=== PATIENT | female | born 1970 | race Caucasian/White ===

== ENCOUNTER 2016-06-27 23:30 | Emergency (ER) | payer OTHER ==
[~2016-06-27] VITALS: Ht 168.9 cm; Wt 114.0 kg
[~2016-06-27 23:30] MED LIST: ALBUAER INH; BUPR150T5 PO; CLON2TAB3 PO; GABA1CAP4 PO; GDN80 PO; INSDGI SQ; LAMO200T38 PO; LORA10TA5 PO; LSN20 PO; METO25TA56 PO; OMEP40CA41 PO; PARO30TA4 PO
[2016-06-27 23:38] VITALS: TEMP 36.9; Ht 168.9 cm; Wt 114.0 kg
--- NOTE | 2016-06-28 00:23 | EMERGENCY ROOM VISIT NOTE ---
History Report prepared by Candice: Sita Stone Under the Supervision of: Dr. Chika Aparicio D.O. First contact with patient: 23:45 Chief Complaint: WOUND INFECTION Stated Complaint: LUMP IN LOWER RT ABD & RT LEG,PAINFUL History of Present Illness The patient is a 46 year old female who presents to the Emergency Room with complaints of persistent right lower abdominal pain that began prior to arrival. She currently rates her discomfort as a 9/10 in severity. The patient notes that she has had a lump to her right thigh and her right abdomen. She states that she was evaluated [place] recently for her abdominal pain. The patient states that she had a CT scan that came back normal. She states that she has had increased pain to her abdomen this evening. The patient notes nausea with her symptoms today. She states that she has type 2 diabetes. The patient states that she tried eating Doritos this evening. The patient notes a surgical history of a cholecystectomy and two sections. Source of History: patient Onset: prior to arrival Position: abdomen (RLQ) Symptom Intensity: 9/10 Timing: other (persistent) Associated Symptoms: + nausea Review of Systems See HPI for pertinent positives & negatives. A total of 10 systems reviewed and were otherwise negative. Past Medical & Surgical Medical Problems: (1) Diabetes Family History No pertinent family history stated. Social History Smoking Status: Never Smoker Alcohol Use: none Drug Use: none Marital Status: Housing Status: lives with significant other Occupation Status: unemployed Current/Historical Medications Scheduled Bupropion Hcl (Bupropion Hcl Xl), 150 MG PO DAILY Cephalexin Monohydrate (Keflex), 500 MG PO QID Cephalexin Monohydrate (Keflex), 500 MG PO QID Gabapentin (Gabapentin), 600 MG PO BID Insulin Glargine (Lantus), 100 UNITS SQ BID Insulin Glulisine (Apidra), 30 UNITS SQ. TIDM Lamotrigine (Lamictal), 200 MG PO HS Lisinopril (Lisinopril), 40 MG PO DAILY Metoprolol Tartrate (Lopressor) (Lopressor), 25 MG PO BID Omeprazole (Prilosec), 40 MG PO DAILY Paroxetine (Paroxetine HCl), 60 MG PO DAILY Scheduled PRN Albuterol (Proventil Hfa), 2 PUFF INH Q4 PRN for SOB/Wheezing Loratadine (Claritin), 10 MG PO DAILY PRN for congestion Allergies Coded Allergies: No Known Allergies (Verified , 05/27/14) Physical Exam Vital Signs Date Time Temp Pulse Resp B/P Pulse Ox O2 Delivery O2 Flow Rate FiO2 06/28/16 04:12 99 20 160/78 93 06/28/16 02:59 99 20 161/73 93 06/28/16 01:03 91 20 164/104 96 Room Air 06/27/16 23:38 36.9 90 20 171/113 95 Room Air Physical Exam General: Obese female patient who appears uncomfortable. HEENT: Head - normocephalic and atraumatic Left eye has significant scleral injection. Right eye is sown shut.. Nose - moist nasal mucosa without discharge. Mouth - moist buccal mucosa. Oropharynx is nonerythematous and there is no tonsillar exudate or edema noted. Neck: Supple; no JVD, nuchal rigidity, cervical lymphadenopathy. Heart: Distant heart sounds secondary to body habitus. Regular rate and rhythm. There is a normal S1 and S2 with no murmurs, clicks, or gallops appreciated. Lungs: Clear to auscultation bilaterally with no wheezes, rales, or rhonchi. Abdomen: Soft, abdominal pain in right lower quadrant to palpation, nondistended , with good bowel sounds. There are no obvious areas of erythema, warmth or signs of cellulitis. However, the patient is quite tender with even the lightest touch to her right lower anterior abdominal wall. There are no palpable pulsatile masses or hepatosplenomegaly. There is no guarding, rigidity , or rebound noted. Extremities: Painful lump in the right medial thigh. No evidence of cyanosis, clubbing, or edema. There are easily palpable peripheral pulses. Skin: warm and dry with good turgor and no rashes. Medical Decision & Procedures ER Provider Diagnostic Interpretation: Radiology results as stated below per my review and the radiologist's interpretation: CT Abdomen and Pelvis: Mild fat stranding and skin thickening at lower abdominal panniculus. Correlate for evidence of cellulitis/panniculitis. Ill-defined 3.5 x 1.2 cm region of soft tissue density in subcutaneous fat in right lower abdomen, nonspecific but correlate for recent subcutaneous injection. Post cholecystectomy. No biliary ductal dilatation. Mild hepatosplenomegaly. Normal appendix. No free air or free fluid. No evidence of bowel obstruction. Uterus is mildly enlarged without evidence of focal lesion. Bladder is partially distended and otherwise unremarkable. Small fat filled umbilical hernia. Mild atherosclerotic calcifications. Small bilateral pleural effusions. Radiologist: Alexandro North MD Study ready at 0153 and initial results transmitted at 0323 US Venous right lower extremity: No evidence of deep venous thrombosis. Radiologist: Alexandro North MD Study ready at 0142 and initial results transmitted at 0230 Laboratory Results 06/28/16 00:58 Red Blood Count 4.51, Mean Corpuscular Volume 83.6, Mean Corpuscular Hemoglobin 29.3, Mean Corpuscular Hemoglobin Concent 35.0, Mean Platelet Volume 9.3, Neutrophils (%) (Auto) 63.6, Lymphocytes (%) (Auto) 27.8, Monocytes (%) (Auto) 5.1, Eosinophils (%) (Auto) 2.3, Basophils (%) (Auto) 0.5, Neutrophils # (Auto) 7.05, Lymphocytes # (Auto) 3.08, Monocytes # (Auto) 0.57, Eosinophils # (Auto) 0.25, Basophils # (Auto) 0.06 06/28/16 00:58 Test 06/28/16 00:58 White Blood Count 11.09 K/uL (4.8-10.8) Red Blood Count 4.51 M/uL (4.2-5.4) Hemoglobin 13.2 g/dL (12.0-16.0) Hematocrit 37.7 % (37-47) Mean Corpuscular Volume 83.6 fL (80-100) Mean Corpuscular Hemoglobin 29.3 pg (25-34) Mean Corpuscular Hemoglobin Concent 35.0 g/dl (32-36) Platelet Count 241 K/uL (130-400) Mean Platelet Volume 9.3 fL (7.4-10.4) Neutrophils (%) (Auto) 63.6 % Lymphocytes (%) (Auto) 27.8 % Monocytes (%) (Auto) 5.1 % Eosinophils (%) (Auto) 2.3 % Basophils (%) (Auto) 0.5 % Neutrophils # (Auto) 7.05 K/uL (1.4-6.5) Lymphocytes # (Auto) 3.08 K/uL (1.2-3.4) Monocytes # (Auto) 0.57 K/uL (0.11-0.59) Eosinophils # (Auto) 0.25 K/uL (0-0.5) Basophils # (Auto) 0.06 K/uL (0-0.2) RDW Standard Deviation 38.8 fL (36.4-46.3) RDW Coefficient of Variation 12.9 % (11.5-14.5) Immature Granulocyte % (Auto) 0.7 % Immature Granulocyte # (Auto) 0.08 K/uL (0.00-0.02) Anion Gap 9.0 mmol/L (3-11) Est Creatinine Clear Calc Drug Dose 95.6 ml/min Estimated GFR () 83.3 Estimated GFR (Non- 71.8 BUN/Creatinine Ratio 15.9 (10-20) Calcium Level 8.4 mg/dl (8.5-10.1) Total Bilirubin 0.2 mg/dl (0.2-1) Direct Bilirubin < 0.1 mg/dl (0-0.2) Aspartate Amino Transf (AST/SGOT) 21 U/L (15-37) Alanine Aminotransferase (ALT/SGPT) 42 U/L (12-78) Alkaline Phosphatase 159 U/L (45-117) Total Protein 7.0 gm/dl (6.4-8.2) Albumin 2.9 gm/dl (3.4-5.0) Lipase 105 U/L (73-393) Laboratory results per my review. Medications Administered Medications (Trade) Dose Ordered Sig/Maurilio Route Start Time Stop Time Status Last Admin Dose Admin Ceftriaxone Sodium (Rocephin Inj) 1 gm NOW STAT IV 06/28/16 03:31 06/28/16 03:32 DC 06/28/16 03:33 1 GM ED Course 1566: Past medical records reviewed. The patient was evaluated in room B9. A complete history and physical exam was performed. An IV lock was initiated and labs were drawn as above. The patient went for ultrasound of her right leg to rule out DVT. She then went for CT scan of the abdomen/pelvis which showed fat stranding and inflammation in the right lower quadrant of the abdomen as well as a density there which is most likely consistent with an injection site for insulin. 0329: I reevaluated the patient and she is resting comfortably. I discussed the exam findings with her and I discussed the treatment plan. She verbalized complete understanding and agreement. She is ready to go home. 0331: Ordered Rocephin Inj 1 gm IV. Medical Decision The patient is a 46 year old female who presents to the ED with abdominal pain. Differential diagnosis includes appendicitis, colitis, cellulitis, small bowel obstruction, irritable bowel, DVT. Lab interpretation: White count 11.0, stable H&H, blood sugar elevated at 263, renal function normal, lipase is normal. The patient's abdominal pain is very superficial. There were no signs of changes noted to the skin. However, since the patient injects her abdomen with insulin, I think she may be suffering from an acute panniculitis. The patient was treated with IV Rocephin was started on Keflex. She was asked to follow-up with her PCP for recheck on Friday. If she had any worsening symptoms, she should return here to the ER. Impression Primary Impression: Panniculitis Scribe Attestation The scribe's documentation has been prepared under my direction and personally reviewed by me in its entirety. I confirm that the note above accurately reflects all work, treatment, procedures, and medical decision making performed by me. Departure Information Dispostion Home / Self-Care Prescriptions Cephalexin Monohydrate (KEFLEX) 500 Mg Cap 500 MG PO QID, #28 CAP Prov: Chika Aparicio D.O. 06/28/16 Cephalexin Monohydrate (KEFLEX) 500 Mg Cap 500 MG PO QID, #28 CAP Prov: Chika Aparicio D.Martha 06/28/16 Referrals No Doctor, Assigned (PCP) Forms HOME CARE DOCUMENTATION FORM, IMPORTANT VISIT INFORMATION, WORK / SCHOOL INSTRUCTIONS Patient Instructions Cellulitis Dc, My [facility] Additional Instructions Do not use the right abdomen for injections Keflex - 1 tab. every 6 hours for a week Return to the ER if symptoms worsen
[2016-06-28] MEDS ORDERED: INSUINJ5 SQ. (00:52)
[2016-06-28 01:04] LABS: BASO % 0.5 %; BASO ABS # 0.06 K/uL (0-0.2); COMPLETE YES; EOS % 2.3 %; HEMATOCRIT 37.7 % (37-47); IG% 0.7 %; LYMPH % 27.8 %; LYMPH ABS # 3.08 K/uL (1.2-3.4); MEAN CELL VOLUME 83.6 fL (80-100); MEAN CORPUSCULAR HEMOGLOBIN 29.3 pg (25-34); MEAN PLATELET VOLUME 9.3 fL (7.4-10.4); MONO % 5.1 %; NEUT % 63.6 %; PLATELET COUNT 241 K/uL (130-400); RED BLOOD COUNT 4.51 M/uL (4.2-5.4); WHITE BLOOD COUNT 11.09 K/uL (4.8-10.8)
[2016-06-28 01:26] LABS: ALT/SGPT 42 U/L (12-78); AST/SGOT 21 U/L (15-37); BLOOD UREA NITROGEN 15 mg/dl (7-18); BUN/CREATININE RATIO 15.9 (10-20); CALCIUM 8.4 mg/dl (8.5-10.1); CARBON DIOXIDE 26 mmol/L (21-32); CHLORIDE 105 mmol/L (98-107); CREATININE 0.95 mg/dl (0.60-1.20); GLUCOSE 263 mg/dl (70-99); SODIUM 140 mmol/L (136-145)
[2016-06-28 01:29] LABS: ALKALINE PHOSPHATASE 159 U/L (45-117)
[2016-06-28] MEDS ORDERED: CEFTRIAXONE SOD INJ 1 GM ADDVIAL ONE (03:29)
[2016-06-28] MEDS ORDERED: CEFTRIAXONE SOD INJ 1 GM ADDVIAL IV STA (03:31)
[2016-06-28] MEDS ORDERED: CEPH500C2 PO ×2 (03:56→04:11)
[2016-06-28 04:12] VITALS: BP 160/78; PULSE 99; O2SAT 93
--- NOTE | 2016-06-28 06:45 | DIAGNOSTIC IMAGING REPORT ---
ULTRASOUND RIGHT VENOUS DOPP LOWER EXT UNILAT CLINICAL HISTORY: Right leg pain COMPARISON STUDY: No previous studies for comparison. FINDINGS: Real-time and color flow Doppler imaging were performed. Flow was seen within the femoral, popliteal and calf veins with no intraluminal thrombus demonstrated. The saphenous vein is patent. IMPRESSION: No evidence of right lower extremity DVT Electronically signed by: Jhonny Landaverde M.D. 06/28/2016 6:44 AM Dictated Date/Time: 06/28/2016 6:43 AM
--- NOTE | 2016-06-28 07:04 | DIAGNOSTIC IMAGING REPORT ---
CT ABD/PELVIS IV CONTRAST ONLY CLINICAL HISTORY: Periumbilical and right lower quadrant abdominal pain COMPARISON STUDY: None. TECHNIQUE: Following the IV administration of 91 mL of Optiray-320, CT scan of the abdomen and pelvis was performed from the lung bases to the proximal femurs. Images are reviewed in the axial, sagittal, and coronal planes. IV contrast was administered without complication. CT DOSE: 2101.39 mGy.cm FINDINGS: Lower chest: There are minor basilar atelectatic changes. There are small bilateral pleural effusions. Liver: The liver is mildly enlarged. There are no focal masses. There is no ductal dilatation. The portal veins appear patent. Gallbladder: Surgically absent Spleen: The spleen is mildly enlarged measuring 12.8 cm. Pancreas: Unremarkable. Adrenal glands: Unremarkable. Kidneys: There is symmetric renal cortical enhancement. The kidneys are normal in size without hydronephrosis. Bowel: There are no transition zones indicate bowel obstruction. There is no evidence of acute diverticulitis. There is no evidence of acute appendicitis. Peritoneum: There is no intraperitoneal free air or abdominal ascites. This tiny fat-containing umbilical hernia. There is infiltration the subcutaneous fat of the right anterior abdominal wall, likely secondary to an injection site. There is mild skin thickening in the patient's lower abdominal panniculus. Vasculature: The abdominal aorta is normal in course and caliber. Adenopathy: None. Pelvic viscera: The uterus appears somewhat bulky. No focal masses are visualized. No bladder abnormalities are visualized. No abnormal adnexal masses are visualized. Skeletal structures: No destructive osseous lesions are seen. IMPRESSION: 1. Small bilateral pleural effusions with bibasal atelectasis 2. No evidence of bowel obstruction. No evidence of free air 3. Normal appendix. No evidence of acute diverticulitis. 4. Mild hepatosplenomegaly. 5. Mild skin thickening involving the patient's lower abdominal panniculus Electronically signed by: Jhonny Landaverde M.D. 06/28/2016 7:02 AM Dictated Date/Time: 06/28/2016 6:58 AM
== END 2016-06-28 04:14 | disposition home or self-care (01) ==
LOC: C.EDB 23:32
DX: M79.3 Panniculitis, unspecified (principal); E11.9 Type 2 diabetes mellitus without complications; Z79.4 Long term (current) use of insulin; Z79.899 Other long term (current) drug therapy

== ENCOUNTER 2017-04-25 17:17 | Emergency (ER) | payer OTHER ==
[~2017-04-25] VITALS: Ht 172.7 cm; Wt 133.1 kg
[~2017-04-25 17:17] MED LIST changes: -CLON2TAB3 PO; -GDN80 PO; +INSUINJ5 SQ.; +LAMO200T35 PO; -LAMO200T38 PO; -LORA10TA5 PO; +LORA10TA6 PO
[2017-04-25 17:18] VITALS: TEMP 36.8; Ht 172.7 cm; Wt 133.1 kg
[2017-04-25] MEDS ORDERED: ONDANSETRON INJ 2 MG/ML 2 ML VIAL IV STA ×2 (17:33→17:34)
[2017-04-25] MEDS ORDERED: SODIUM CHLORIDE 0.9% 1000ML 1,000 ML IV STA ×2 (17:33→17:43)
[2017-04-25] MEDS ORDERED: ATOR-22 PO (17:51)
[2017-04-25] MEDS ORDERED: FLNIN/ NAE (17:51)
[2017-04-25] MEDS ORDERED: MELO15TA4 PO (17:51)
[2017-04-25] MEDS ORDERED: ALPR-385 PO (17:51)
[2017-04-25] MEDS ORDERED: LAMO1TAB21 PO (17:51)
[2017-04-25] MEDS ORDERED: FERR324T PO (17:51)
[2017-04-25] MEDS ORDERED: MIRT15TA3 PO (17:51)
[2017-04-25] MEDS ORDERED: LTD/40 PO (17:51)
[2017-04-25 18:20] LABS: ISTAT IONIZED CALCIUM 1.02 mmol/l (1.12-1.32); ISTAT POTASSIUM 4.9 mEq/L (3.3-5.0)
[2017-04-25] MEDS ORDERED: NovoLIN-R INSULIN PER UNIT CHARGE SC STA (18:28)
--- NOTE | 2017-04-25 18:36 | DIAGNOSTIC IMAGING REPORT ---
ABDOMEN AND PELVIS CT WITHOUT CONTRAST CT DOSE: 1919.08 mGy.cm HISTORY: Acute generalized abdominal pain abd pain TECHNIQUE: Multiaxial CT images of the abdomen and pelvis were performed without contrast. A dose lowering technique was utilized adhering to the principles of ALARA. COMPARISON STUDY: CT abdomen and pelvis 06/28/2016. FINDINGS: Patient obesity is noted with portions of the anatomy outside the [id number]. The lung bases are generally clear. There is no pneumatosis or pneumoperitoneum identified. The imaged inferior cardiac chambers are unremarkable. Trace pericardial effusion. Annular calcifications of the mitral valve. Prior cholecystectomy. Mild hepatosplenomegaly. No intrahepatic biliary ductal dilation. The pancreas, and adrenal glands are within normal limits. 2 mm calcification of the inferior pole right kidney seen on image 216 series 3 suggests nonobstructing calculus. Renal vascular calcifications are present bilaterally. No ureteral calculi or obstructive uropathy identified. Uterus appears mildly enlarged and heterogeneous. No adnexal mass lesions identified. Moderate atherosclerosis of the aorta. There are a few mildly prominent periaortic and iliac chain lymph nodes measuring up to 9 mm in short axis which are nonspecific and appear unchanged. There is no bowel obstruction or focal bowel wall thickening identified. No evidence of acute appendicitis. Appendix appears normal within the right lower quadrant. Diastases recti with small fat filled periumbilical hernia, diastases 1.5 cm. The bones appear to be intact. IMPRESSION: 1. No acute intra-abdominal or intrapelvic abnormality identified. Normal appendix. 2. No bowel obstruction or focal bowel wall thickening. 3. Prior cholecystectomy. 4. Mildly enlarged and slightly heterogeneous appearing uterus. Electronically signed by: Pa Barney M.D. 04/25/2017 6:35 PM Dictated Date/Time: 04/25/2017 6:29 PM
--- NOTE | 2017-04-25 18:38 | DIAGNOSTIC IMAGING REPORT ---
R VENOUS DOPP LOWER EXT UNILAT HISTORY: 46 years-old Female rle swelling acute right leg swelling COMPARISON: Right lower extremity Doppler study 06/28/2016 TECHNIQUE: Multiple real-time sonographic images of the right lower extremity deep venous structures were obtained assessing grayscale appearance, color and spectral flow FINDINGS: There is normal flow, compressibility, phasicity and augmentation within the right lower extremity deep venous structures. IMPRESSION: No sonographic evidence of deep venous thrombosis. The above report was generated using voice recognition software. It may contain grammatical, syntax or spelling errors. Electronically signed by: Pa Barney M.D. 04/25/2017 6:36 PM Dictated Date/Time: 04/25/2017 6:35 PM
[2017-04-25 18:47] LABS: ALBUMIN 2.8 gm/dl (3.4-5.0); ALKALINE PHOSPHATASE 179 U/L (45-117); ALT/SGPT 28 U/L (12-78); AST/SGOT 19 U/L (15-37); BLOOD UREA NITROGEN 30 mg/dl (7-18); CALCIUM 9.4 mg/dl (8.5-10.1); CARBON DIOXIDE 22 mmol/L (21-32); CREATININE 1.16 mg/dl (0.60-1.20); GLUCOSE 412 mg/dl (70-99); LIPASE 165 U/L (73-393); POTASSIUM 4.4 mmol/L (3.5-5.1); SODIUM 130 mmol/L (136-145); TOTAL PROTEIN 7.2 gm/dl (6.4-8.2)
--- NOTE | 2017-04-25 18:49 | DIAGNOSTIC IMAGING REPORT ---
R WRIST MIN 3 VIEWS ROUTINE HISTORY: 46 years-old Female r wrist pain lat side acute right-sided wrist pain with injury 3 months prior. COMPARISON: None available TECHNIQUE: 4 views of the right wrist FINDINGS: Extensive peripheral vascular calcifications are present. No acute fracture or subluxation. No significant degenerative changes or loose body. IMPRESSION: 1. No acute fracture or subluxation. 2. Peripheral vascular disease appears greater than expected in a patient of this age group. The above report was generated using voice recognition software. It may contain grammatical, syntax or spelling errors. Electronically signed by: Pa Barney M.D. 04/25/2017 6:48 PM Dictated Date/Time: 04/25/2017 6:46 PM
[2017-04-25 19:07] LABS: BASO % 0.2 %; BASO ABS # 0.03 K/uL (0-0.2); EOS % 1.6 %; HEMATOCRIT 39.8 % (37-47); HEMOGLOBIN 14.4 g/dL (12.0-16.0); IG# 0.05 K/uL (0.00-0.02); LYMPH % 27.7 %; LYMPH ABS # 3.41 K/uL (1.2-3.4); MEAN CELL VOLUME 82.6 fL (80-100); MEAN CORPUSCULAR HEMOGLOBIN 29.9 pg (25-34); MEAN CORPUSCULAR HGB CONC 36.2 g/dl (32-36); MEAN PLATELET VOLUME 9.8 fL (7.4-10.4); MONO % 6.7 %; MONO ABS # 0.83 K/uL (0.11-0.59); NEUT % 63.4 %; NEUT ABS # 7.78 K/uL (1.4-6.5); PLATELET COUNT 215 K/uL (130-400); RED CELL DISTRIBUTION WIDTH SD 39.2 fL (36.4-46.3)
[2017-04-25 21:30] VITALS: BP 146/75; PULSE 98; O2SAT 92
--- NOTE | 2017-04-25 21:39 | EMERGENCY ROOM VISIT NOTE ---
History Report prepared by Candice: Natalie Martinez Under the Supervision of: Dr. Jayro Gong D.O. First contact with patient: 17:23 Chief Complaint: OTHER COMPLAINT Stated Complaint: PAIN IN WRIST,LUMP IN STOMACH AND LEG History of Present Illness The patient is a 46 year old female who presents to the Emergency Room with complaints of persistent abdominal pain starting 1.5 months ago. The patient has noticed a lump in the right side of her abdomen which is painful. She has had nausea with eating. She has had some vomiting since the abdominal pain started, but not recently. She feels that she has been unable to eat normally because of this pain and nausea. She states this is causing her sugar to go up and down. She has a history of diabetes. She has not lost any weight. She denies any cough, rhinorrhea, calf pain, or dysuria. She has not checked her blood sugar today. Her last bowel movement was 0.5-1 hour ago. She had a right wrist injury a few months ago. It was not broken, but she has been having more pain recently. She states that her wrist pops and locks in place. She has not followed with ortho. She has a large lump in her right leg which has been there for over 1 year. The lump is getting bigger and starting to hurt. She does not have a PCP locally. Her last menstrual period was 4 weeks ago. She has had a cholecystectomy. She still has her appendix. Source of History: patient Onset: 1.5 months ago Position: abdomen Quality: other (lump, pain) Timing: other (persistent) Associated Symptoms: + nausea, + vomiting (resolved), No cough, No urinary symptoms Note: Pt reports right wrist pain, right leg pain. Pt denies rhinorrhea, calf pain. Review of Systems See HPI for pertinent positives & negatives. A total of 10 systems reviewed and were otherwise negative. Past Medical & Surgical Medical Problems: (1) Diabetes Family History No pertinent family history stated. Social History Smoking Status: Never Smoker Alcohol Use: none Drug Use: none Marital Status: Housing Status: lives with significant other Occupation Status: unemployed Current/Historical Medications Scheduled Alprazolam (Xanax), 1 MG PO TID Atorvastatin (Lipitor), 20 MG PO DAILY Ferrous Gluconate (Iron Supplement), 324 MG PO DAILY Fluticasone Propionate (Fluticasone Propionate), 2 SPRAYS CRISTINA DAILY Gabapentin (Gabapentin), 300 MG PO BID Insulin Glargine (Lantus), 80 UNITS SQ BID Insulin Glulisine (Apidra), 30 UNITS SQ. TIDM Lamotrigine (Lamotrigine), 100 MG PO BID Lurasidone HCl (Latuda), 40 MG PO DAILY Meloxicam (Meloxicam), 15 MG PO DAILY Metoprolol Tartrate (Lopressor) (Lopressor), 25 MG PO BID Mirtazapine (Remeron), 15 MG PO DAILY Omeprazole (Prilosec), 40 MG PO DAILY Paroxetine (Paroxetine HCl), 60 MG PO DAILY Scheduled PRN Loratadine (Claritin), 10 MG PO DAILY PRN for congestion Allergies Coded Allergies: No Known Allergies (Verified , 05/27/14) Physical Exam Vital Signs Date Time Temp Pulse Resp B/P (MAP) Pulse Ox O2 Delivery O2 Flow Rate FiO2 04/25/17 21:30 98 18 146/75 92 04/25/17 20:46 99 18 149/73 92 Room Air 04/25/17 18:55 107 18 145/92 97 Room Air 04/25/17 17:18 36.8 117 20 181/74 96 Room Air Physical Exam GENERAL: Sitting up in bed, morbidly obese, chronically ill appearing, no acute distress EYE EXAM: Right eye closed, left eye with normal conjunctiva. OROPHARYNX: no exudate, no erythema, lips, buccal mucosa, and tongue normal and mucous membranes are moist NECK: supple, no nuchal rigidity, no adenopathy, non-tender LUNGS: Clear to auscultation. Normal chest wall mechanics HEART: no murmurs, S1 normal and S2 normal ABDOMEN: morbidly obese. abdomen soft, non-tender, normo-active bowel sounds, no masses, no rebound or guarding. BACK: Back is symmetrical on inspection and there is no deformity, no midline tenderness, no CVA tenderness. SKIN: no rashes and no bruising UPPER EXTREMITIES: Acute tenderness over the right lateral wrist. LOWER EXTREMITIES: No pitting edema. Small 2 cm firm nodule on back of right thigh. NEURO EXAM: Normal sensorium, cranial nerves II-XII grossly intact, normal speech, no gross weakness of arms, no gross weakness of legs. Medical Decision & Procedures ER Provider Diagnostic Interpretation: Xray results as stated below per my and the radiologist's interpretation. Radiology results as stated below per my review and the radiologist's interpretation: R WRIST MIN 3 VIEWS ROUTINE HISTORY: 46 years-old Female r wrist pain lat side acute right-sided wrist pain with injury 3 months prior. COMPARISON: None available TECHNIQUE: 4 views of the right wrist FINDINGS: Extensive peripheral vascular calcifications are present. No acute fracture or subluxation. No significant degenerative changes or loose body. IMPRESSION: 1. No acute fracture or subluxation. 2. Peripheral vascular disease appears greater than expected in a patient of this age group. The above report was generated using voice recognition software. It may contain grammatical, syntax or spelling errors. Electronically signed by: Pa Barney M.D. 04/25/2017 6:48 PM Dictated Date/Time: 04/25/2017 6:46 PM R VENOUS DOPP LOWER EXT UNILAT HISTORY: 46 years-old Female rle swelling acute right leg swelling COMPARISON: Right lower extremity Doppler study 06/28/2016 TECHNIQUE: Multiple real-time sonographic images of the right lower extremity deep venous structures were obtained assessing grayscale appearance, color and spectral flow FINDINGS: There is normal flow, compressibility, phasicity and augmentation within the right lower extremity deep venous structures. IMPRESSION: No sonographic evidence of deep venous thrombosis. The above report was generated using voice recognition software. It may contain grammatical, syntax or spelling errors. Electronically signed by: Pa Barney M.D. 04/25/2017 6:36 PM Dictated Date/Time: 04/25/2017 6:35 PM ABDOMEN AND PELVIS CT WITHOUT CONTRAST CT DOSE: 1919.08 mGy.cm HISTORY: Acute generalized abdominal pain abd pain TECHNIQUE: Multiaxial CT images of the abdomen and pelvis were performed without contrast. A dose lowering technique was utilized adhering to the principles of ALARA. COMPARISON STUDY: CT abdomen and pelvis 06/28/2016. FINDINGS: Patient obesity is noted with portions of the anatomy outside the [id number]. The lung bases are generally clear. There is no pneumatosis or pneumoperitoneum identified. The imaged inferior cardiac chambers are unremarkable. Trace pericardial effusion. Annular calcifications of the mitral valve. Prior cholecystectomy. Mild hepatosplenomegaly. No intrahepatic biliary ductal dilation. The pancreas, and adrenal glands are within normal limits. 2 mm calcification of the inferior pole right kidney seen on image 216 series 3 suggests nonobstructing calculus. Renal vascular calcifications are present bilaterally. No ureteral calculi or obstructive uropathy identified. Uterus appears mildly enlarged and heterogeneous. No adnexal mass lesions identified. Moderate atherosclerosis of the aorta. There are a few mildly prominent periaortic and iliac chain lymph nodes measuring up to 9 mm in short axis which are nonspecific and appear unchanged. There is no bowel obstruction or focal bowel wall thickening identified. No evidence of acute appendicitis. Appendix appears normal within the right lower quadrant. Diastases recti with small fat filled periumbilical hernia, diastases 1.5 cm. The bones appear to be intact. IMPRESSION: 1. No acute intra-abdominal or intrapelvic abnormality identified. Normal appendix. 2. No bowel obstruction or focal bowel wall thickening. 3. Prior cholecystectomy. 4. Mildly enlarged and slightly heterogeneous appearing uterus. Electronically signed by: Pa Barney M.D. 04/25/2017 6:35 PM Dictated Date/Time: 04/25/2017 6:29 PM Laboratory Results 04/25/17 18:52 Red Blood Count 4.82, Mean Corpuscular Volume 82.6, Mean Corpuscular Hemoglobin 29.9, Mean Corpuscular Hemoglobin Concent 36.2, Mean Platelet Volume 9.8, Neutrophils (%) (Auto) 63.4, Lymphocytes (%) (Auto) 27.7, Monocytes (%) (Auto) 6.7, Eosinophils (%) (Auto) 1.6, Basophils (%) (Auto) 0.2, Neutrophils # (Auto) 7.78, Lymphocytes # (Auto) 3.41, Monocytes # (Auto) 0.83, Eosinophils # (Auto) 0.20, Basophils # (Auto) 0.03 04/25/17 17:50 Test 04/25/17 17:50 04/25/17 17:57 04/25/17 18:06 04/25/17 18:52 Est Creatinine Clear Calc Drug Dose 87.6 ml/min Estimated GFR () 65.4 Estimated GFR (Non- 56.4 BUN/Creatinine Ratio 26.1 (10-20) Calcium Level 9.4 mg/dl (8.5-10.1) Total Bilirubin 0.3 mg/dl (0.2-1) Direct Bilirubin < 0.1 mg/dl (0-0.2) Aspartate Amino Transf (AST/SGOT) 19 U/L (15-37) Alanine Aminotransferase (ALT/SGPT) 28 U/L (12-78) Alkaline Phosphatase 179 U/L (45-117) Total Protein 7.2 gm/dl (6.4-8.2) Albumin 2.8 gm/dl (3.4-5.0) Lipase 165 U/L (73-393) Beta-Hydroxybutyric Acid 4.08 mg/dL (0.2-2.81) Bedside Hemoglobin 13.9 g/dl (12.0-16.0) Bedside Hematocrit 41 % (37-47) Bedside Sodium 131 mEq/L (135-144) Bedside Potassium 4.9 mEq/L (3.3-5.0) Bedside Chloride 99 mEq/L (101-112) Bedside Total CO2 23 mEq/l (24-31) Anion Gap 15.0 mmol/L (16-25) Bedside Blood Urea Nitrogen 38 mg/dl (7-18) Bedside Creatinine 1.0 mg/dl (0.6-1.3) Bedside Glucose (other) 425 mg/dl (70-99) Bedside Ionized Calcium (Harriet) 1.02 mmol/l (1.12-1.32) Urine Color YELLOW Urine Appearance CLEAR (CLEAR) Urine pH 5.0 (4.5-7.5) Urine Specific [place] 1.029 (1.000-1.030) Urine Protein 3+ (NEG) Urine Glucose (UA) 3+ (NEG) Urine Ketones NEG (NEG) Urine Occult Blood TRACE (NEG) Urine Nitrite NEG (NEG) Urine Bilirubin NEG (NEG) Urine Urobilinogen NEG (NEG) Urine Leukocyte Esterase NEG (NEG) Urine WBC (Auto) 1-5 /hpf (0-5) Urine RBC (Auto) 0-4 /hpf (0-4) Urine Hyaline Casts (Auto) 1-5 /lpf (0-5) Urine Epithelial Cells (Auto) 10-20 /lpf (0-5) Urine Bacteria (Auto) NEG (NEG) Urine Test NEG (NEG) White Blood Count 12.30 K/uL (4.8-10.8) Red Blood Count 4.82 M/uL (4.2-5.4) Hemoglobin 14.4 g/dL (12.0-16.0) Hematocrit 39.8 % (37-47) Mean Corpuscular Volume 82.6 fL (80-100) Mean Corpuscular Hemoglobin 29.9 pg (25-34) Mean Corpuscular Hemoglobin Concent 36.2 g/dl (32-36) Platelet Count 215 K/uL (130-400) Mean Platelet Volume 9.8 fL (7.4-10.4) Neutrophils (%) (Auto) 63.4 % Lymphocytes (%) (Auto) 27.7 % Monocytes (%) (Auto) 6.7 % Eosinophils (%) (Auto) 1.6 % Basophils (%) (Auto) 0.2 % Neutrophils # (Auto) 7.78 K/uL (1.4-6.5) Lymphocytes # (Auto) 3.41 K/uL (1.2-3.4) Monocytes # (Auto) 0.83 K/uL (0.11-0.59) Eosinophils # (Auto) 0.20 K/uL (0-0.5) Basophils # (Auto) 0.03 K/uL (0-0.2) RDW Standard Deviation 39.2 fL (36.4-46.3) RDW Coefficient of Variation 13.0 % (11.5-14.5) Immature Granulocyte % (Auto) 0.4 % Immature Granulocyte # (Auto) 0.05 K/uL (0.00-0.02) Venous Blood pH 7.39 (7.36-7.41) Venous Blood Partial Pressure CO2 40 mmHg (38.0-50.0) Venous Blood Partial Pressure O2 59 mmHg Venous Blood HCO3 24 mmol/L Venous Blood Oxygen Saturation 89.0 % Venous Blood Base Excess -1.0 mEq/L Test 04/25/17 21:16 Bedside Glucose 279 mg/dl (70-90) Laboratory results per my review. Medications Administered Medications (Trade) Dose Ordered Sig/Maurilio Route Start Time Stop Time Status Last Admin Dose Admin Sodium Chloride 1,000 ml @ 999 mls/hr Q1H1M STAT IV 04/25/17 17:33 04/25/17 18:33 DC 04/25/17 20:14 999 MLS/HR Ondansetron HCl (Zofran Inj) 4 mg NOW STAT IV 04/25/17 17:33 04/25/17 17:35 DC 04/25/17 18:51 4 MG Sodium Chloride 1,000 ml @ 999 mls/hr Q1H1M STAT IV 04/25/17 17:43 04/25/17 18:43 DC 04/25/17 18:53 999 MLS/HR Insulin Human Regular (novoLIN-R U-100 PER UNIT) 7 units NOW STAT SC 04/25/17 18:28 04/25/17 18:30 DC 04/25/17 18:52 7 UNITS ED Course ED COURSE: Vital signs were reviewed and showed tachycardia. The patients medical record was reviewed The above diagnostic studies were performed and reviewed. ED treatments and interventions as stated above. 1726: The patient was evaluated in room C11B. A complete history and physical examination was performed. 1733: Zofran Inj 4 mg IV, NSS 1000 ml @ 999 mls/hr IV. 1743: NSS 1000 ml @ 999 mls/hr IV. 1811: I reevaluated the patient. She has just returned from CT. 1827: Insulin Human Regular 7 units SC. 1929: I reevaluated the patient. She is feeling better. 2115: Upon reevaluation, the patient's blood sugar is down to 270. I discussed my findings with the patient and she understands and agrees with the treatment plan. Based on the patients age, coexisting illnesses, exam and lab findings the decision to treat as an outpatient was made. The patient remained stable while under my care. The patient appeared well at the time of discharge. Medical Decision Differential diagnoses includes but is not limited to gastritis, peptic ulcer disease, GERD, gallbladder disease, pancreatitis, small bowel obstruction, acute coronary syndrome, pericarditis, ischemic bowel, irritable bowel disease, irritable bowel syndrome, appendicitis, diverticulitis, malignancy, hernia, urinary tract infection, torsion, /ectopic , perforation, trauma, infectious. Patient is a 46-year-old female who presents to ER for right wrist pain. This is been present for the past several months. It has been gradually worsening. No obvious deformity. Neurovascularly intact. X-ray unremarkable. She also complains of right posterior thigh mass. On exam it appears to be a lipoma. Duplex of the right thigh was performed as she was complaining of Pain as well and this was unremarkable. She also complained of abdominal pain. Abdominal exam is fairly benign. CT unremarkable. CBC shows a mild leukocytosis. BMP shows a CO2 of 22. Anion gap was 12. Baby aspirin eyedrops and recheck acid was 4. This patient is not in DKA as VBG shows a normal pH and CO2. UA showed no ketones. was negative. No obvious signs of infection. Patient was given 7 units of subcutaneous insulin. AST trended down 790. Heart rate trended down as well. She was discharged follow-up with PCP as an outpatient. Discussed with Pt concerning signs and symptoms to watch out for. Pt was instructed to follow up with their PCP and discussed with the patient their option to return to the ED at anytime for persistent or worsening symptoms. The appropriate anticipatory guidance and out-patient management, including indications for return to the emergency department, were explained at length to the patient and understood. Medication Reconcilliation Current Medication List: was personally reviewed by me Blood Pressure Screening Patient's blood pressure: Normal blood pressure Blood pressure disposition: Did not require urgent referral Impression Primary Impression: Hyperglycemia Additional Impression: Wrist pain Scribe Attestation The scribe's documentation has been prepared under my direction and personally reviewed by me in its entirety. I confirm that the note above accurately reflects all work, treatment, procedures, and medical decision making performed by me. Departure Information Dispostion Home / Self-Care Referrals No Doctor, Assigned (PCP) Forms HOME CARE DOCUMENTATION FORM, IMPORTANT VISIT INFORMATION, WORK / SCHOOL INSTRUCTIONS Patient Instructions ED Hyperglycemia Diabetic, My [facility] Additional Instructions Please follow up with your primary care doctor with in the next 24 hours. Any worsening of your symptoms, please return to the ED immediately. This includes any fevers greater than 100.4, worsening pain, chest pain, shortness breath, persistent nausea, vomiting, unable to eat or drink, or any other concerning signs or symptoms from your standpoint. These follow-up with orthopedics for your wrist pain. Please make sure your monitor your blood sugars every hour for the next 2-3 hours earlier at home. Problem Qualifiers Additional Impression: Wrist pain Laterality: right Qualified Codes: M25.531 - Pain in right wrist
== END 2017-04-25 21:31 | disposition home or self-care (01) ==
LOC: C.EDB 17:18 → C.EDC 21:31
DX: E11.65 Type 2 diabetes mellitus with hyperglycemia (principal); M25.531 Pain in right wrist; R10.9 Unspecified abdominal pain; R19.09 Other intra-abdominal and pelvic swelling, mass and lump; R11.2 Nausea with vomiting, unspecified; E11.9 Type 2 diabetes mellitus without complications; R22.41 Localized swelling, mass and lump, right lower limb; E66.01 Morbid (severe) obesity due to excess calories; E11.51 Type 2 diabetes mellitus with diabetic peripheral angiopathy without gangrene; Z79.4 Long term (current) use of insulin

== ENCOUNTER 2017-05-22 08:34 | Emergency (ER) | payer OTHER ==
[~2017-05-22] VITALS: Ht 168.9 cm; Wt 135.2 kg
[~2017-05-22 08:34] MED LIST changes: -ALBUAER INH; +ALPR-385 PO; +ATOR-22 PO; -BUPR150T5 PO; +FERR324T PO; +FLNIN/ NAE; +GABA-1219 PO; -GABA1CAP4 PO; +LAMO1TAB21 PO; -LAMO200T35 PO; -LSN20 PO; +LTD/40 PO; +MELO-83 PO; +MIRT15TA3 PO
[2017-05-22 08:41] VITALS: TEMP 36.9; Ht 168.9 cm; Wt 135.2 kg
[2017-05-22] MEDS ORDERED: MoRPHine SULFATE 10 MG/ML CARP/VIAL IM STA (08:52)
[2017-05-22] MEDS ORDERED: ONDANSETRON 4MG OD TAB PO ONE (09:00)
--- NOTE | 2017-05-22 09:23 | DIAGNOSTIC IMAGING REPORT ---
CT OF THE CERVICAL SPINE WITHOUT CONTRAST CLINICAL HISTORY: Neck pain status post fall. COMPARISON STUDY: No previous studies for comparison. TECHNIQUE: Helical axial images of the cervical spine were obtained without IV contrast. Sagittal and coronal reconstructions were viewed. A dose lowering technique was utilized adhering to the principles of ALARA. FINDINGS: Alignment of the cervical spine is anatomic. Craniocervical junction is intact. There is no acute fracture. Moderate multilevel facet arthrosis is present. A lucency with sclerotic margins through the spinous process of T1 is chronic. There is no prevertebral edema. IMPRESSION: No acute cervical spine fracture or subluxation. Electronically signed by: Harry Salamanca M.D. 05/22/2017 9:21 AM Dictated Date/Time: 05/22/2017 9:17 AM
--- NOTE | 2017-05-22 10:15 | DIAGNOSTIC IMAGING REPORT ---
PELVIS 1 OR 2 VIEW ROUTINE CLINICAL HISTORY: Right hip and low back pain. Fall. COMPARISON STUDY: CT of the abdomen and pelvis April 25, 2017. FINDINGS: The sacroiliac joints and symphysis pubis are intact. There is no acute fracture within the pelvis or the hips. There is moderate vascular calcification. IMPRESSION: No acute fracture within the pelvis or hips. Electronically signed by: Harry Salamanca M.D. 05/22/2017 10:14 AM Dictated Date/Time: 05/22/2017 10:13 AM
[2017-05-22] MEDS ORDERED: LURA80TA PO (10:16)
--- NOTE | 2017-05-22 10:18 | DIAGNOSTIC IMAGING REPORT ---
L-SPINE MIN 4 VIEWS ROUTINE CLINICAL HISTORY: Low back pain. Fall. COMPARISON: CT of the abdomen and pelvis April 25, 2017. FINDINGS: Alignment of the lumbar spine is anatomic with the exception of slight anterolisthesis of L5 on S1 which is unchanged since CT of April 25, 2017. Note is made of bilateral pars defects at the L4 and L5 levels. There is no acute lumbar spine fracture. There is mild multilevel facet arthrosis. There is moderate vascular calcification. There are cholecystectomy clips. Old rib fractures are incidentally noted. IMPRESSION: 1. No acute lumbar spine fracture or subluxation. 2. Minimal anterolisthesis of L5 on S1 due to bilateral L5 pars defects. This is unchanged. 3. Bilateral L4 pars defects. Electronically signed by: Harry Salamanca M.D. 05/22/2017 10:16 AM Dictated Date/Time: 05/22/2017 10:14 AM
--- NOTE | 2017-05-22 10:19 | DIAGNOSTIC IMAGING REPORT ---
R TIBIA/FIBULA 2 VIEWS ROUTINE CLINICAL HISTORY: Right lower extremity pain following fall. COMPARISON: None FINDINGS: No acute fracture of the right tibia or fibula is identified. There is moderate vascular calcification. Alignment of the right knee and ankle appears anatomic. IMPRESSION: No acute fracture of the right tibia or fibula. Electronically signed by: Harry Salamanca M.D. 05/22/2017 10:18 AM Dictated Date/Time: 05/22/2017 10:18 AM
--- NOTE | 2017-05-22 10:21 | DIAGNOSTIC IMAGING REPORT ---
R FOOT MIN 3 VIEWS ROUTINE CLINICAL HISTORY: Right foot pain following fall. COMPARISON: None FINDINGS: There is moderate vascular calcification. Tarsometatarsal joints are intact. No acute fracture within the right foot is identified. There is smooth cortical thickening of the medial shaft of the metatarsal. Minimal osteoarthrosis noted within several articulations of the right foot. IMPRESSION: 1. No acute fracture or dislocation of the right foot. 2. Smooth cortical thickening of the medial shaft of the right third metatarsal which is likely within normal limits although a healed fracture could appear similar. Electronically signed by: Harry Salamanca M.D. 05/22/2017 10:20 AM Dictated Date/Time: 05/22/2017 10:18 AM
--- NOTE | 2017-05-22 10:23 | DIAGNOSTIC IMAGING REPORT ---
L FOOT MIN 3 VIEWS ROUTINE HISTORY: 46 years-old Female L foot pain acute left-sided foot pain COMPARISON: None available TECHNIQUE: 3 views of the left foot FINDINGS: Moderate degenerative changes of the first MTP joint. Mild degenerative changes of the interphalangeal joints. Prominent marginal spurring of the distal tibia and fibula with at least moderate tibiotalar degenerative changes with prominent subcortical cystic changes. Lateral plate and screw fusion hardware of the distal fibula. Mild ankle and dorsal foot soft tissue swelling with extensive peripheral vascular disease. Small joint effusion. IMPRESSION: 1. Mild ankle and foot soft tissue swelling without fracture or dislocation identified. 2. Prior ORIF changes of the distal fibula. 3. Moderate tibiotalar and first MTP joint degenerative changes. 4. Peripheral vascular disease. The above report was generated using voice recognition software. It may contain grammatical, syntax or spelling errors. Electronically signed by: Pa Barney M.D. 05/22/2017 10:22 AM Dictated Date/Time: 05/22/2017 10:19 AM
[2017-05-22] MEDS ORDERED: HYDROmorphone INJ 1 MG/ML SYR IM STA (10:35)
[2017-05-22] MEDS ORDERED: OXYC1TAB3 PO (10:39)
[2017-05-22 11:09] VITALS: BP 180/95; PULSE 109; O2SAT 94
--- NOTE | 2017-05-22 14:30 | EMERGENCY ROOM VISIT NOTE ---
History First contact with patient: 08:43 Chief Complaint: PAIN (GENERALIZED) Stated Complaint: FALL/ PAIN NECK TO TOES History of Present Illness The patient is a 46 year old female who presents to the Emergency Room with complaints of injuries after she fell through the hole in her residence this morning. The patient reports that around 2:00, she was walking through her living room to supervisor opening and picking her granddaughter when her feet went through the floor. The patient reports that she lost her balance, twisted her right foot, and fell backwards, hitting her lower back and neck. The patient denies any loss of consciousness. She complains mostly of neck pain. She denies any pain in the center of the back, chest pain or abdominal pain. She currently denies any paresthesias, numbness or burning sensation in the upper extremities. The patient was transported here via [facility] ambulance for evaluation, and the patient rates her discomfort a 9 out of 10 on initial exam. The patient does report a prior history of left foot surgery with hardware. She denies any history of chronic neck or back pain. Review of Systems 10 system review was performed and was negative except for pertinent positives and negatives as indicated in history of present illness Past Medical/Surgical History Medical Problems: (1) Diabetes Medical Problems: (1) Anxiety State Nos (2) Coronary Atherosclerosis Of [place] Coronary Vessel (3) Depressive Disorder Nec (4) Diabetes (5) Diabetic Retinopathy Nos (6) Esophageal Reflux (7) Hypertension Nos (8) Morbid obesity with BMI of 45.0-49.9, adult (9) Panniculitis, Unspecified Surgical Problems: (1) status post ORIF left ankle fracture Family History Unremarkable Social History Smoking Status: Never Smoker Alcohol Use: none Drug Use: none Marital Status: Housing Status: lives with significant other Occupation Status: unemployed Current/Historical Medications Scheduled Alprazolam (Xanax), 1 MG PO TID Atorvastatin (Lipitor), 20 MG PO DAILY Ferrous Gluconate (Iron Supplement), 324 MG PO DAILY Fluticasone Propionate (Fluticasone Propionate), 2 SPRAYS CRISTINA DAILY Gabapentin (Gabapentin), 300 MG PO BID Insulin Glargine (Lantus), 80 UNITS SQ BID Insulin Glulisine (Apidra), 30 UNITS SQ. TIDM Lamotrigine (Lamotrigine), 100 MG PO BID Lurasidone Hcl (Latuda), 80 MG PO DAILY Metoprolol Tartrate (Lopressor) (Lopressor), 25 MG PO BID Mirtazapine (Remeron), 15 MG PO DAILY Omeprazole (Prilosec), 40 MG PO DAILY Paroxetine (Paroxetine HCl), 60 MG PO DAILY Scheduled PRN Loratadine (Claritin), 10 MG PO DAILY PRN for congestion Oxycodone Ir (Roxicodone Ir), 1-2 TAB PO Q4H PRN for Pain Physical Exam Vital Signs Date Time Temp Pulse Resp B/P (MAP) Pulse Ox O2 Delivery O2 Flow Rate FiO2 05/22/17 11:09 109 17 180/95 94 05/22/17 10:08 105 18 156/77 93 Room Air 05/22/17 08:41 36.9 107 17 189/94 93 Room Air Physical Exam CONSTITUTIONAL: Healthy and well nourished. Alert and oriented X 3 with positive affect. Patient appears in moderately severe discomfort from pain. HEENT: Normocephalic, atraumatic. Pupils equal, round and reactive. No subconjunctival hemorrhage, epistaxis, hemotympanum, raccoon's eyes or Saleh sign. OROPHARYNX: No dental trauma or other intraoral bleed noted. NECK: Examination shows generalized tenderness to palpation of the cervical musculature and central cervical spine. A cervical collar was applied. RESPIRATORY: Clear to auscultation bilaterally with no wheezing, crackles, rhonchi or stridor. CARDIOVASCULAR: Regular rate and rhythm with no murmurs, rubs or gallops. GASTROINTESTINAL: Bowel sounds present in all quadrants. Soft and nontender to palpation. MUSCULOSKELETAL: Examination shows generalized tenderness to palpation of the lower back, buttocks, bilateral ankles and feet. The patient has good range of motion of bilateral shoulders, elbows and wrists without discomfort. Equal hand ordnance handler bilaterally. Patient was unable to perform any ankle strength testing of the lower extremities because of pain. Pedal pulses are intact. INTEGUMENTARY: No rash or other significant dermatologic conditions noted. NEUROLOGIC: Cranial nerves II-XII grossly intact. No focal neurologic deficits noted. Bilateral deltoid sensation is intact. Deep tendon reflexes are 2+ and symmetric in the upper and lower extremities. Patient has good sensation of bilateral hands and feet. Medical Decision & Procedures ER Provider Diagnostic Interpretation: A CT of the cervical spine was performed and was normal, showing no evidence for fracture or subluxation. X-rays were also performed of bilateral feet, right tib-fib, lumbar spine and pelvis, all of which did not show any acute findings. I reviewed all x-rays, and reviewed radiologist reports. Medications Administered Medications (Trade) Dose Ordered Sig/Maurilio Route Start Time Stop Time Status Last Admin Dose Admin Morphine Sulfate (MoRPHine SULFATE INJ) 8 mg NOW STAT IM 05/22/17 08:52 05/22/17 08:56 DC 05/22/17 09:03 8 MG Ondansetron HCl (Zofran Odt) 4 mg ONE ONCE PO 05/22/17 09:00 05/22/17 09:01 DC 05/22/17 09:02 4 MG Hydromorphone HCl (Dilaudid Inj) 1 mg ONE STAT IM 05/22/17 10:35 05/22/17 10:36 DC 05/22/17 10:40 1 MG ED Course Patient history and physical exam were performed. Nurse's notes were reviewed. Vital signs were reviewed, showing elevated blood pressure. O2 saturation is normal. Clinical exam shows multiple areas of discomfort from her fall. Examination of the neck did show notable discomfort, and given mechanism of injury, a cervical collar was applied. The patient was administered IM morphine for pain, along with Zofran ODT for nausea. CT studies of the neck were normal. X-ray studies of the lumbar spine, pelvis, right tib-fib and bilateral feet did not show any acute findings. Findings were discussed with the patient. She still had notable discomfort, and was administered additional Dilaudid 0.5 mg IM. The patient was instructed to follow-up closely with her PCP for further reevaluation and management. I explained to the patient that her neck CT at this point is normal. However, she was advised that she has any progressively worsening pain, paresthesias, numbness or burning stationary upper extremities, she should return to the emergency department for further reevaluation. At this point, I do not suspect a spinal cord injury. Remaining imaging studies were also normal, but I also explained that soft tissue injuries could also cause significant pain and other complications. She was provided a prescription for OxyIR as needed for pain. She was encouraged to alternate ibuprofen and Tylenol for baseline pain relief. The patient reports that she will find a local family doctor for further follow-up. The patient was advised that her blood pressure was elevated in the emergency department, and encouraged to have her blood pressure rechecked with her next follow-up appointment. The patient voiced understanding of all discharge instructions, and rated her discomfort a 6 out of 10 at the conclusion of my exam. The patient was dispensed a walker to help with ambulation. Medical Decision See previous section [place] Drug Monitoring Program Search Results: patient reviewed within database, no issues identified Medication Reconcilliation Current Medication List: was personally reviewed by me Blood Pressure Screening Patient's blood pressure: Elevated blood pressure Blood pressure disposition: Referred to PCP Impression Primary Impression: Cervical strain, acute Additional Impressions: Fall in home Bilateral foot pain Back strain Elevated blood pressure reading with diagnosis of hypertension Departure Information Dispostion Home / Self-Care Prescriptions Oxycodone Ir (Roxicodone Ir) 5 Mg Tab 1-2 TAB PO Q4H Y for Pain, #15 TAB For Initial Treatment Prov: Oneil Vallejo PA 05/22/17 Forms HOME CARE DOCUMENTATION FORM, IMPORTANT VISIT INFORMATION Patient Instructions My [facility] Additional Instructions Intermittently apply ice to areas of discomfort. Use walker to help with ambulation. Ibuprofen 800 mg and/or Tylenol 1000 mg every 8 hours. You may also alternate these medications for more effective pain relief: Ibuprofen --4 HRS--> Tylenol --4 HRS--> ibuprofen --4 HRS--> Tylenol .... OxyIR if needed for worse pain. Do not drink alcohol or drive while taking OxyIR. Follow-up with your family doctor within the next 2-3 days for reevaluation. Return to the emergency department for any significantly worsening neck pain with worsening pain/burning sensation radiating into the upper extremities. Problem Qualifiers
== END 2017-05-22 11:09 | disposition home or self-care (01) ==
LOC: EDBD 08:34 → C.EDA 08:35
DX: S16.1XXA Strain of muscle, fascia and tendon at neck level, initial encounter (principal); M79.671 Pain in right foot; M79.672 Pain in left foot; S39.012A Strain of muscle, fascia and tendon of lower back, initial encounter; W13.3XXA Fall through floor, initial encounter; Y92.019 Unspecified place in single-family (private) house as the place of occurrence of the external cause; I10 Essential (primary) hypertension; E11.319 Type 2 diabetes mellitus with unspecified diabetic retinopathy without macular edema; F41.9 Anxiety disorder, unspecified; F32.9 Major depressive disorder, single episode, unspecified; I25.10 Atherosclerotic heart disease of native coronary artery without angina pectoris; E66.01 Morbid (severe) obesity due to excess calories; Z79.4 Long term (current) use of insulin

== ENCOUNTER 2017-06-25 00:20 | Emergency (ER) | payer OTHER ==
[~2017-06-25] VITALS: Ht 167.6 cm; Wt 120.0 kg
[~2017-06-25 00:20] MED LIST changes: -LTD/40 PO; +LURA80TA PO; -MELO-83 PO; +OXYC1TAB3 PO
[2017-06-25 00:23] VITALS: TEMP 36.9; Ht 167.6 cm; Wt 120.0 kg
[2017-06-25] MEDS ORDERED: OXYCODONE HCL IR 5 MG TAB (IMMEDIATE RELEASE) PO STA (03:15)
--- NOTE | 2017-06-25 03:19 | EMERGENCY ROOM VISIT NOTE ---
History First contact with patient: 00:26 Chief Complaint: FALL Stated Complaint: FALL AT HOME,RT SHOULDER TO ELBOW,RT FOOT,BACK History of Present Illness The patient is a 47 year old female who presents to the Emergency Room with complaints of a fall. The patient states that her left leg went through a hole in her foot, causing her to fall onto her right side. The patient states that there is a hole in her living room floor because her foot went through it a few weeks ago. She states she is legally blind and was not able to see the hole this morning. The patient reports pain in her left ankle, right shoulder and right elbow. She rates her discomfort a 9/10. She states the pain is sharp. She also states that she hit her head and has a headache, primarily in the back of her head. She denies neck pain. She denies loss of consciousness. She denies numbness/weakness. Review of Systems A complete 10 point review of systems was reviewed with the patient with pertinent positives and negatives as per history of present illness. All else were negative. Past Medical/Surgical History Medical Problems: (1) Anxiety State Nos (2) Coronary Atherosclerosis Of [place] Coronary Vessel (3) Depressive Disorder Nec (4) Diabetes (5) Diabetic Retinopathy Nos (6) Esophageal Reflux (7) Hypertension Nos (8) Morbid obesity with BMI of 45.0-49.9, adult (9) Panniculitis, Unspecified Surgical Problems: (1) status post ORIF left ankle fracture Social History Smoking Status: Current Every Day Smoker Alcohol Use: none Drug Use: none Marital Status: Housing Status: lives with significant other Occupation Status: unemployed Current/Historical Medications Scheduled Atorvastatin (Lipitor), 20 MG PO DAILY Ferrous Gluconate (Iron Supplement), 324 MG PO DAILY Fluticasone Propionate (Fluticasone Propionate), 2 SPRAYS CRISTINA DAILY Gabapentin (Gabapentin), 300 MG PO BID Insulin Glargine (Lantus), 80 UNITS SQ BID Insulin Glulisine (Apidra), 30 UNITS SQ. TIDM Lamotrigine (Lamotrigine), 100 MG PO BID Lurasidone Hcl (Latuda), 80 MG PO DAILY Metoprolol Tartrate (Lopressor) (Lopressor), 25 MG PO BID Mirtazapine (Remeron), 15 MG PO DAILY Omeprazole (Prilosec), 40 MG PO DAILY Paroxetine (Paroxetine HCl), 60 MG PO DAILY Scheduled PRN Loratadine (Claritin), 10 MG PO DAILY PRN for congestion Physical Exam Vital Signs Date Time Temp Pulse Resp B/P (MAP) Pulse Ox O2 Delivery O2 Flow Rate FiO2 06/25/17 03:38 104 15 166/92 94 06/25/17 03:00 106 18 164/78 97 06/25/17 00:23 36.9 105 18 175/113 96 Room Air Physical Exam VITALS: Vitals are noted on the nurse's note and reviewed by myself. Vital signs stable. GENERAL: This is a 47-year-old female, in no acute distress, nondiaphoretic, well-developed well-nourished. SKIN: The skin was without rashes, erythema, edema, or bruising. HEAD: Normocephalic atraumatic. EARS: External auditory canals clear, tympanic membranes pearly marsh without erythema or effusion bilaterally. EYES: Right eye surgically absent. Left pupils round and reactive to light. Extraocular movements intact. NECK: Supple without nuchal rigidity. Cervical spine is nontender. HEART: Regular rate and rhythm without murmurs gallops or rubs. LUNGS: Clear to auscultation bilaterally without wheezes, rales or rhonchi. MUSCULOSKELETAL: Mild tenderness to palpation of the anterior right shoulder. There is no tenderness of the right elbow or distal humerus. There is tenderness to palpation diffusely over the left ankle and posterior heel. No deformities noted. Mild swelling of the lateral malleolus. NEURO: Patient was alert and oriented to person place and time. No focal neurological deficits. Medical Decision & Procedures ER Provider Diagnostic Interpretation: CT HEAD: No acute brain or skull injury. Densities within the ocular globes, the right being shrunken. Findings could be postprocedural. Correlate with history and physical exam. Radiologist: Mark Noe M.D. RIGHT SHOULDER: Degenerative changes noted. No acute fracture dislocation. LEFT ANKLE: Postoperative changes noted. Hardware intact. No acute fractures. Severe degenerative changes noted. LEFT FOOT: No acute fractures. Medications Administered Medications (Trade) Dose Ordered Sig/Maurilio Route Start Time Stop Time Status Last Admin Dose Admin Oxycodone HCl (Roxicodone Immediate Rel Tab) 5 mg NOW STAT PO 06/25/17 03:15 06/25/17 03:17 DC 06/25/17 03:34 5 MG Medical Decision Differential diagnosis includes fracture, contusion, dislocation, intracranial hemorrhage, concussion, among others. The patient is a 47-year-old female who presents today after a fall. CT of the head was performed and read by statrad with no acute findings. X-ray of the right shoulder, left foot and left ankle were interpreted by myself and showed no acute fractures. Patient was given 1 oxycodone for pain. Conservative measures were discussed. She will follow-up with her primary care provider for further evaluation. She verbalized understanding of my assessment and treatment plan was discharged home in good condition. Head Trauma GCS Score: 15 Medication Reconcilliation Current Medication List: was personally reviewed by me Blood Pressure Screening Patient's blood pressure: Elevated blood pressure Blood pressure disposition: Elevated BP felt to be situational Impression Primary Impression: Fall Additional Impressions: Contusion of multiple sites Closed head injury Departure Information Dispostion Home / Self-Care Condition GOOD Referrals Bryan Churchill M.D. (PCP) Patient Instructions My [facility] Additional Instructions For pain control, you can use the following [id number] medicines (if >12 yo): - Regular strength (325mg/tab) Tylenol (acetaminophen) 2 tabs every 4-6 hours as needed. Do not exceed 12 tablets in a 24 hour period. Avoid taking more than 4 grams (4000 mg) of Tylenol per day. This includes any other sources of acetaminophen you may take on a regular basis. - Regular strength (200 mg/tab) Advil (ibuprofen) 1-2 tabs every 4-6 hours as needed. Do not exceed a dose of 3200 mg per day. Apply ice to any areas of pain as needed. Follow-up with your primary care provider this week. Return to the emergency department with any worsening or new/concerning symptoms. Problem Qualifiers Primary Impression: Fall Encounter type: initial encounter Qualified Codes: W19.XXXA - Unspecified fall, initial encounter Additional Impressions: Closed head injury Encounter type: initial encounter Qualified Codes: S09.90XA - Unspecified injury of head, initial encounter
[2017-06-25 03:38] VITALS: BP 166/92; PULSE 104; O2SAT 94
--- NOTE | 2017-06-25 06:30 | DIAGNOSTIC IMAGING REPORT ---
HEAD WITHOUT CONTRAST (CT) CT DOSE: 614.27 mGy.cm HISTORY: Trauma fall, head injury TECHNIQUE: Multiaxial CT images of the head were performed without the use of intravenous contrast. A dose lowering technique was utilized adhering to the principles of ALARA. Comparison: None. Findings: The paranasal sinuses and mastoid air cells are clear. The calvarium and skull base are intact. The ventricles and sulci are within normal limits. There is no mass, hematoma, midline shift, or acute infarct. Small right globe compared to the left presumably pre-existing. Impression: No acute intracranial abnormality. The above report was generated using voice recognition software. It may contain grammatical, syntax or spelling errors. Electronically signed by: Dre Shaffer M.D. 06/25/2017 6:29 AM Dictated Date/Time: 06/25/2017 6:28 AM
--- NOTE | 2017-06-25 07:10 | DIAGNOSTIC IMAGING REPORT ---
L ANKLE MIN 3 VIEWS ROUTINE CLINICAL HISTORY: 47 years-old Female presenting with fall, left ankle/foot injury. TECHNIQUE: Frontal, mortise, and lateral views of the left ankle were obtained. COMPARISON: None. FINDINGS: Postsurgical changes of cortical compression plate and screw fixation of the distal fibula extending from the distal diaphysis to the syndesmosis. An additional screw is noted in the distal fibula above the level of the syndesmosis. Posttraumatic deformity without a clearly visible persistent fracture plane. No significant angulation or malalignment. Chronic periosteal reaction evident. Severe degenerative changes of the ankle mortise with joint space loss, subchondral sclerosis, and subchondral cystic change primarily along the medial and superior portions of the joint. Extensive osteophytosis at the ankle mortise. No significant widening of the tibiofibular syndesmosis. The ankle mortise is grossly intact. No acute fracture. IMPRESSION: 1. No acute osseous injury. 2. Internal fixation of the distal fibula with chronic posttraumatic deformity. No hardware complication. 3. Severe degenerative changes of the ankle mortise. Electronically signed by: Marquis Birch M.D. 06/25/2017 7:09 AM Dictated Date/Time: 06/25/2017 6:58 AM
--- NOTE | 2017-06-25 07:12 | DIAGNOSTIC IMAGING REPORT ---
L FOOT MIN 3 VIEWS ROUTINE CLINICAL HISTORY: 47 years-old Female presenting with fall, left ankle/foot injury. TECHNIQUE: Frontal, oblique, and lateral views of the left foot were obtained. COMPARISON: 05/22/2017. FINDINGS: Minimal osteophytosis without joint space loss at the first metatarsophalangeal articulation. No acute fracture or malalignment. Internal fixation of the distal fibula. Severe degenerative changes at the ankle mortise. Atherosclerosis. IMPRESSION: 1. No acute osseous injury. 2. Mild degenerative changes of the first MTP joint. 3. Internal fixation of the distal fibula with severe degenerative change. Please see separately dictated ankle radiographs. Electronically signed by: Marquis Birch M.D. 06/25/2017 7:10 AM Dictated Date/Time: 06/25/2017 6:58 AM
--- NOTE | 2017-06-25 07:19 | DIAGNOSTIC IMAGING REPORT ---
R SHOULDER MIN 2 VIEWS ROUTINE CLINICAL HISTORY: 47 years-old Female presenting with fall, right shoulder pain. TECHNIQUE: Internal rotation, external rotation, and Grashey views of the right shoulder were obtained. COMPARISON: 05/27/2014. FINDINGS: Calcification noted along the rotator cuff tendon near the greater tuberosity. Glenohumeral and acromioclavicular joints congruent. Mild degenerative changes at both the glenohumeral and acromioclavicular joints. No subluxation or deformity of the humeral head. No acute fracture or malalignment. No radiographic soft tissue abnormality. Vascular prominence of the right lung. IMPRESSION: 1. No acute osseous injury of the right shoulder. 2. Mild degenerative changes of the glenohumeral and acromioclavicular joints. 3. Findings suggest calcific tendinitis of the rotator cuff. 4. Possible volume overload evidenced by pulmonary vascular prominence. Electronically signed by: Marquis Birch M.D. 06/25/2017 7:18 AM Dictated Date/Time: 06/25/2017 6:59 AM
--- NOTE | 2017-07-15 07:42 | EDITING REQUIRED CODING QUERY ---
CODING QUERY To promote full compliance with coding requirements relating to patient care, provider participation is requested in all cases of certified procedural coder uncertainty. Please assist us with the question(s) below: Coding Question(s): One of the diagnoses listed under the Impression is contusion of multiple sites. The skin section under the Physical Exam states there were no bruises, and contusions are not mentioned anywhere else in the physical exam portion. Please clarify documentation. Physician's Response(s): Patient had no obvious ecchymosis on exam, however had pain of multiple sites with negative x-rays, consistent with contusions that are not yet showing physical evidence of bruising. Thank you Simin Burris Principal Diagnosis: "_that condition established after study, to be chiefly responsible for occasioning the admission of the patient to the hospital for care." Co-Existing Principal Diagnosis: "_when two or more diagnoses equally meet the criteria for principal diagnosis as determined by the circumstances of admission, diagnostic work up, and/or therapy provided, and the Alphabetic Index, Tabular List, or another coding guideline does not provide sequencing direction, any one of the diagnoses may be sequenced first." "When the physician has documented what appears to be a current diagnosis in the body of the record, but has not included the diagnosis in the final diagnostic statement, the physician should be asked whether the diagnosis should be added." ([facility] 2 QTR90. p3-4)
== END 2017-06-25 03:40 | disposition home or self-care (01) ==
LOC: C.EDB 00:21 → C.EDA 03:40
DX: M25.572 Pain in left ankle and joints of left foot (principal); M25.511 Pain in right shoulder; M25.521 Pain in right elbow; R51 Headache; W17.2XXA Fall into hole, initial encounter; R03.0 Elevated blood-pressure reading, without diagnosis of hypertension; R40.2412 Glasgow coma scale score 13-15, at arrival to emergency department; E11.319 Type 2 diabetes mellitus with unspecified diabetic retinopathy without macular edema; I10 Essential (primary) hypertension; F17.200 Nicotine dependence, unspecified, uncomplicated; F41.8 Other specified anxiety disorders; K21.9 Gastro-esophageal reflux disease without esophagitis; Z79.4 Long term (current) use of insulin; Z79.899 Other long term (current) drug therapy

== ENCOUNTER 2018-08-24 03:17 | Inpatient (IN) ==
[2018-08-24] MEDS ORDERED: NITROGLYCERIN 2% OINTMENT 30GM TUBE EXT ONE (03:33)
[2018-08-24 04:10] LABS: Basophils # (auto) 0.03 K/uL (0-0.2); Basophils % (auto) 0.4 %; Eosinophils # (auto) 0.34 K/uL (0-0.5); Hematocrit (blood only) 38.9 % (37-47); Hemoglobin 13.6 g/dL (12.0-16.0); Immature Granulocytes # (auto) 0.02 K/uL (0.00-0.02); Immature Granulocytes % (auto) 0.2 %; Lymphocytes # (auto) 2.45 K/uL (1.2-3.4); Lymphocytes % (auto) 28.6 %; Mean Corpuscular Volume 80.5 fL (80-100); Mean Platelet Volume 10.1 fL (7.4-10.4); Monocytes # (auto) 0.45 K/uL (0.11-0.59); Monocytes % (auto) 5.3 %; Neutrophils # (auto) 5.28 K/uL (1.4-6.5); Neutrophils % (auto) 61.5 %; Platelet Count 235 K/uL (130-400); RDW Coefficient of Variation 13.6 % (11.5-14.5); RDW Standard Deviation 39.9 fL (36.4-46.3); Red Blood Count 4.83 M/uL (4.2-5.4); White Blood Count 8.57 K/uL (4.8-10.8)
[2018-08-24 04:14] LABS: Base Excess VBG 2.5 mEq/L; Oxygen Saturation VBG 83.5 %; pH VBG 7.43 (7.36-7.41)
[2018-08-24 04:33] LABS: Partial Thromboplastin Time 27.3 Seconds (21.0-31.0); Prothrombin Time 10.6 Seconds (9.0-12.0)
[2018-08-24 04:35] LABS: D Dimer 1980 ug/L FEU (0-500)
[2018-08-24 04:41] LABS: Alanine Aminotransferase 14 U/L (12-78); Albumin Globulin Ratio 0.7 (0.9-2); Albumin Level 2.6 gm/dl (3.4-5.0); Alkaline Phosphatase 152 U/L (45-117); Aspartate Aminotransferase 13 U/L (15-37); BUN Creatinine Ratio 15.1 (10-20); Bilirubin,Total 0.3 mg/dl (0.2-1); Blood Urea Nitrogen 24 mg/dl (7-18); Calcium 8.4 mg/dl (8.5-10.1); Carbon Dioxide 29 mmol/L (21-32); Chloride 101 mmol/L (98-107); Creatinine Clr Calc Pharmacy 62.3 ml/min; Glucose 441 mg/dl (70-99); Magnesium 1.6 mg/dl (1.8-2.4); NT Pro B Type Natriuretic Pept 2455 pg/ml (0-450); Potassium 5.5 mmol/L (3.5-5.1); Sodium 134 mmol/L (136-145); Total Protein 6.6 gm/dl (6.4-8.2); Troponin I < 0.015 ng/ml (0-0.045)
[2018-08-24] MEDS ORDERED: FAMOTIDINE 20MG IV PUSH 20 MG/5 ML SYR IV STA (04:50)
[2018-08-24 04:56] LABS: Beta-Hydroxybutyrate 2.99 mg/dl (0.2-2.81); T4 Free Thyroxine 1.04 ng/dl (0.8-1.6)
[2018-08-24] MEDS ORDERED: SODIUM CHLORIDE 0.9% 1000ML 500 ML IV ONE (05:08)
[2018-08-24] MEDS ORDERED: INSULIN HUMAN REGULAR PER UNIT 5 UNITS in SYRINGE 0 ML SC STA (05:08)
--- NOTE | 2018-08-24 05:08 | Emergency Department Note ---
History of Present Illness General Chief complaint: Chest Pain Stated complaint: CHEST PAIN/ SHORT OF BREATH History of Present Illness Maximum Pain Intensity: 5 This is a 48-year-old female presenting to the emergency department for evaluation of chest pain and shortness of breath that began approximately 2 hours and 15 minutes prior to arrival at 2 AM. The patient states that she was at home at the onset of symptoms. She does report a past history of type 1 diabetes and cardiac disease. She believes that she has had multiple heart attacks in the past, and admits that she is usually seen in [facility] for this, however "I moved and now I need to get my stuff transferred here". The patient did call EMS, and does arrive via ambulance. Prehospital treatment did include 324 mg aspirin and nitroglycerin. This did relieve her chest pain. The patient rates her current discomfort a 5/10, dull, central in the chest, and nonradiating. She does not report recent fever or chills. No abdominal discomfort or changes in bowels or bladder use is noted. Home Medications Home Medications Medication Instructions Recorded Confirmed Type Gabapentin 300 mg PO BID #0 05/27/14 History Insulin Glargine (Lantus) 80 unit SUBCUT BID #0 05/27/14 History LORATADINE (CLARITIN) 10 mg PO DAILY PRN #0 05/27/14 History Metoprolol Tartrate (Lopressor) 25 mg PO BID #0 05/27/14 History (Lopressor) OMEPRAZOLE (PRILOSEC) 40 mg PO DAILY #0 05/27/14 History Paroxetine (Paroxetine HCl) 60 mg PO DAILY #0 05/27/14 History INSULIN GLULISINE (APIDRA) 30 unit SQ. TIDM #0 06/28/16 History ATORVASTATIN (LIPITOR) 20 mg PO DAILY #0 04/25/17 History FERROUS GLUCONATE (IRON SUPPLEMENT) 324 mg PO DAILY #0 04/25/17 History Fluticasone Propionate 2 spry CRISTINA DAILY #0 04/25/17 History LAMOTRIGINE 100 mg PO BID #0 04/25/17 History MIRTAZAPINE (REMERON) 15 mg PO DAILY #0 04/25/17 History LURASIDONE HCL (LATUDA) 80 mg PO DAILY #0 05/22/17 History Allergies Allergy/AdvReac Type Severity Reaction Status Date / Time No Known Allergies Allergy Verified 06/25/17 02:23 Past Med/Surg History Medical History Stroke Morbid obesity with BMI of 45.0-49.9, adult Diabetes mellitus with hyperglycemia (Chronic) Diabetes (Chronic) Elevated blood pressure reading with diagnosis of hypertension (Chronic) Social History Feels Safe at Home: Yes Smoking Status: Current some day smoker Review of Systems A total of 10 systems reviewed and were otherwise negative Physical Exam Vital Signs Vital Signs - 24 hr 08/24/18 03:38 08/24/18 03:50 08/24/18 04:15 Temperature 36.6 C Temperature Source Oral Sepsis Recent Fever Within 48 Hours No Sepsis New/Unexplained Change in Mental Status No Sepsis Action Taken by Nursing No Action Required Pulse Rate [Apical] 106 H Pulse Rhythm [Apical] Regular Respiratory Rate 24 Respiratory Effort / Characteristics Labored Non-Labored Spontaneous Respiratory Depth Shallow Normal Blood Pressure [Right Arm] 162/109 H Blood Pressure Mean [Right Arm] 126 Pulse Oximetry 94 98 Oxygen Delivery Method Room Air Room Air Oxygen Flow Rate 08/24/18 05:16 Temperature Temperature Source Sepsis Recent Fever Within 48 Hours Sepsis New/Unexplained Change in Mental Status Sepsis Action Taken by Nursing Pulse Rate [Apical] 109 H Pulse Rhythm [Apical] Regular Respiratory Rate 16 Respiratory Effort / Characteristics Respiratory Depth Normal Blood Pressure [Right Arm] 176/109 H Blood Pressure Mean [Right Arm] 131 Pulse Oximetry 99 Oxygen Delivery Method Nasal Cannula Oxygen Flow Rate 2 VITALS: Vitals are noted on the nurse's note and reviewed by myself. Vital signs with mild tachycardia GENERAL: Chronically ill-appearing female who appears much older than her stated age. 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 NECK: Supple without nuchal rigidity. No lymphadenopathy. No thyromegaly. Cervical spine is nontender. HEART: Regular rate and rhythm LUNGS: Distant but mostly clear breath sounds. There are crackles in the bilateral bases. ABDOMEN: Positive normal bowel sounds x 4. Soft, nontender, without masses or organomegaly. MUSCULOSKELETAL: Moderate lower extremity edema bilateral. Full range of motion in all extremities. No calf tenderness. NEURO: Patient was alert and oriented to person place and time. CN II through XII grossly intact. SKIN: The skin was without rashes, erythema, edema, or bruising. Capillary refill less than 2 seconds. Course Administered Medications Ioversol (Optiray 320 125ml) 125 ml IV ONCE PRN PRN Reason: Interaction Checking Stop: 08/28/18 05:11 Last Admin: 08/24/18 05:13 Dose: 118 ml Documented by: [id number] Discontinued Medications Famotidine (Pepcid 20mg Iv Push) 20 mg in 5 mls @ 2.5 mls/min IV NOW STA Stop: 08/24/18 04:51 Last Admin: 08/24/18 05:15 Dose: 2.5 mls/min Documented by: [id number] Insulin Human Regular 5 units/ (Syringe) 0.05 mls @ 0.0033 mls/min SC NOW STA Stop: 08/24/18 05:09 Last Admin: 08/24/18 05:15 Dose: 0.0033 mls/min Documented by: [id number] Cosigned by: [id number] Sodium Chloride (Nss 1000ml) 500 mls @ 999 mls/hr IV .Q31M ONE Stop: 08/24/18 05:38 Last Admin: 08/24/18 05:15 Dose: 999 mls/hr Documented by: [id number] Insulin Human Regular (Novolin R U-100 Per Unit) Confirm Administered Dose 1 units .ROUTE .STK-MED ONE Stop: 08/24/18 05:14 Last Admin: 08/24/18 05:15 Dose: Not Given Documented by: [id number] Nitroglycerin (Nitro-Bid 2%) 1 inch EXT NOW ONE Stop: 08/24/18 03:34 Last Admin: 08/24/18 03:59 Dose: 1 inch Documented by: [id number] Medical Decision Making Differential Diagnosis Differential diagnosis includes, but is not limited to: Myocardial infarction, dysrhythmia, pericarditis, pneumothorax, aortic aneurysm/dissection, DVT/PE, anxiety, GERD, PUD, electrolyte imbalance, thyroid disorder, pneumonia, bronchitis, pancreatitis, and others Laboratory Data Result diagrams: 08/24/18 04:00 08/24/18 04:00 Lab Results 08/24/18 08/24/18 08/24/18 Range/Units 04:00 04:00 04:00 WBC 8.57 (4.8-10.8) K/uL RBC 4.83 (4.2-5.4) M/uL Hgb 13.6 (12.0-16.0) g/dL Hct 38.9 (37-47) % MCV 80.5 (80-100) fL MCH 28.2 (25-34) pg MCHC 35.0 (32-36) g/dL RDW Std Deviation 39.9 (36.4-46.3) fL RDW Coeff of Trey 13.6 (11.5-14.5) % Plt Count 235 (130-400) K/uL MPV 10.1 (7.4-10.4) fL Immature Gran % (Auto) 0.2 % Neut % (Auto) 61.5 % Lymph % (Auto) 28.6 % [place] % (Auto) 5.3 % Eos % (Auto) 4.0 % Baso % (Auto) 0.4 % Immature Gran # (Auto) 0.02 (0.00-0.02) K/uL Neut # (Auto) 5.28 (1.4-6.5) K/uL Lymph # (Auto) 2.45 (1.2-3.4) K/uL [place] # (Auto) 0.45 (0.11-0.59) K/uL Eos # (Auto) 0.34 (0-0.5) K/uL Baso # (Auto) 0.03 (0-0.2) K/uL PT 10.6 (9.0-12.0) Seconds INR 1.0 (0.9-1.1) APTT 27.3 (21.0-31.0) Seconds PTT Ratio 1.0 D-Dimer 1980 H* (0-500) ug/L FEU VBG pH (7.36-7.41) VBG pCO2 (38-50) mmHg VBG pO2 mmHg VBG HCO3 mmol/L VBG O2 Saturation % VBG Base Excess mEq/L Barometric Pressure mm/Hg Sodium 134 L (136-145) mmol/L Potassium 5.5 H (3.5-5.1) mmol/L Chloride 101 (98-107) mmol/L Carbon Dioxide 29 (21-32) mmol/L Anion Gap 4.0 (3-11) BUN 24 H (7-18) mg/dl Creatinine 1.59 H (0.6-1.2) mg/dl Est Cr Clr Drug Dosing 62.3 ml/min Est GFR ( Amer) 44.0 Est GFR (Non-Af Amer) 38.0 BUN/Creatinine Ratio 15.1 (10-20) Glucose 441 H* (70-99) mg/dl Calcium 8.4 L (8.5-10.1) mg/dl Magnesium 1.6 L (1.8-2.4) mg/dl Total Bilirubin 0.3 (0.2-1) mg/dl AST 13 L (15-37) U/L ALT 14 (12-78) U/L Alkaline Phosphatase 152 H (45-117) U/L Troponin I < 0.015 (0-0.045) ng/ml NT-Pro-B Natriuret Pep 2455 H (0-450) pg/ml Total Protein 6.6 (6.4-8.2) gm/dl Albumin 2.6 L (3.4-5.0) gm/dl Globulin 4.0 (2.5-4.0) gm/dl Albumin/Globulin Ratio 0.7 L (0.9-2) Lipase 130 (73-393) U/L Beta-Hydroxybutyric Acd 2.99 H (0.2-2.81) mg/dl TSH 12.100 H (0.300-4.500) uIu/ml Free T4 1.04 (0.8-1.6) ng/dl 08/24/18 Range/Units 04:00 WBC (4.8-10.8) K/uL RBC (4.2-5.4) M/uL Hgb (12.0-16.0) g/dL Hct (37-47) % MCV (80-100) fL MCH (25-34) pg MCHC (32-36) g/dL RDW Std Deviation (36.4-46.3) fL RDW Coeff of Trey (11.5-14.5) % Plt Count (130-400) K/uL MPV (7.4-10.4) fL Immature Gran % (Auto) % Neut % (Auto) % Lymph % (Auto) % [place] % (Auto) % Eos % (Auto) % Baso % (Auto) % Immature Gran # (Auto) (0.00-0.02) K/uL Neut # (Auto) (1.4-6.5) K/uL Lymph # (Auto) (1.2-3.4) K/uL [place] # (Auto) (0.11-0.59) K/uL Eos # (Auto) (0-0.5) K/uL Baso # (Auto) (0-0.2) K/uL PT (9.0-12.0) Seconds INR (0.9-1.1) APTT (21.0-31.0) Seconds PTT Ratio D-Dimer (0-500) ug/L FEU VBG pH 7.43 H (7.36-7.41) VBG pCO2 41 (38-50) mmHg VBG pO2 48 mmHg VBG HCO3 27 mmol/L VBG O2 Saturation 83.5 % VBG Base Excess 2.5 mEq/L Barometric Pressure 728.3 mm/Hg Sodium (136-145) mmol/L Potassium (3.5-5.1) mmol/L Chloride (98-107) mmol/L Carbon Dioxide (21-32) mmol/L Anion Gap (3-11) BUN (7-18) mg/dl Creatinine (0.6-1.2) mg/dl Est Cr Clr Drug Dosing ml/min Est GFR ( Amer) Est GFR (Non-Af Amer) BUN/Creatinine Ratio (10-20) Glucose (70-99) mg/dl Calcium (8.5-10.1) mg/dl Magnesium (1.8-2.4) mg/dl Total Bilirubin (0.2-1) mg/dl AST (15-37) U/L ALT (12-78) U/L Alkaline Phosphatase (45-117) U/L Troponin I (0-0.045) ng/ml NT-Pro-B Natriuret Pep (0-450) pg/ml Total Protein (6.4-8.2) gm/dl Albumin (3.4-5.0) gm/dl Globulin (2.5-4.0) gm/dl Albumin/Globulin Ratio (0.9-2) Lipase (73-393) U/L Beta-Hydroxybutyric Acd (0.2-2.81) mg/dl TSH (0.300-4.500) uIu/ml Free T4 (0.8-1.6) ng/dl Imaging Data Radiologist's Impression: Preliminary Findings Only See Final Report For Complete Findings CTA CHEST: No evidence of pulmonary embolism or aortic dissection. Small bilateral pleural effusions lung densities which likely represent edema. Correlate clinically to exclude an inflammatory/infectious process. Mild esophageal wall thickening. Small pericardial fluid. Small mediastinal and hilar lymph nodes. Remote appearing right rib irregularities. XR chest 1V portable CLINICAL HISTORY: SOB dyspnea COMPARISON STUDY: No previous studies for comparison. FINDINGS: Pulmonary vasculature is prominent. Heart is mildly enlarged. Diaphragms are smooth. Possible small left pleural effusion. IMPRESSION: Congestive heart failure ECG Data Attestation: I personally reviewed and interpreted this ECG as follows: Indication: chest pain Rate (beats per minute): 118 Rhythm: sinus tachycardia Change: no significant change (From ekg 21-OCT-2003) MDM Narrative Physical exam and history were performed. Nursing notes, EMR, and Medication List were personally reviewed. Patient appears to have several chronic disease processes bringing her to the emergency department. Most concerning today is that she has chest pain symptoms that are relieved with nitroglycerin. She is a type I diabetic, and essentially does not take care of herself. She is by her own admission very noncompliant with her medication. EKG was performed and was sinus tachycardia at 118 bpm. IV access was established and labs were obtained. The patient was placed on the youth nutritional monitor. Chest x-ray was performed. The patient's blood work is as above and was reviewed. She does not have a significantly elevated white blood cell count or gross anemia. Her INR is 1.0. She is not acidotic on VBG. Glucose is elevated at 441. Troponin is negative x1. D-dimer is elevated at just under 2000. BNP is 2455. TSH is 12.1. Beta hydroxy is elevated at 2.99. Chest x-ray was reviewed by myself and radiology as showing evidence of CHF. The patient's labs and presentation are concerning. She does have an elevated d-dimer, and CT angiogram was performed. CT angiogram does not show evidence of pulmonary emboli. The patient was given a 500 mL bolus as well as 5 mg subcu insulin. Lasix was considered, but will be deferred to the hospital service. Overall the patient does not appear well for discharge home. She appears in mild DKA with CHF. Monitoring her fluid intake and output is not something the patient is capable of doing herself. The case was discussed with the on-call hospitalist, who agreed to evaluate the patient here in the department. Please see their dictation for further patient course, plan, and disposition. The chart was completed utilizing [employer] Speech Voice Recognition Software. Grammatical errors, random word insertions, pronoun errors, and incomplete sentences are an occasional consequence of this system due to software limitations, ambient noise, and hardware issues. Any formal questions or concerns about the content, text, or information contained within the body of this dictation should be directly addressed to the provider for clarification. . Impression & Plan Atypical chest pain, CHF (congestive heart failure), DKA (diabetic ketoacidoses), Chronically unwell Discharge Plan Visit Data Chief Complaint: Chest Pain Stated Complaint: CHEST PAIN/ SHORT OF BREATH Other Complaint: Shortness of Breath/Dyspnea ED Provider: Chika Aparicio ED Midlevel Provider: Uche Solitario Discharge Problem: Atypical chest pain, CHF (congestive heart failure), DKA (diabetic ketoacidoses), Chronically unwell Forms Stand Alone Forms: Call Back Authorization, [facility] Prescriptions Prescriptions: No Action Gabapentin 300 MG capsule 300 mg PO BID Qty: 0 RF: 0 LORATADINE (CLARITIN) 10 MG tablet 10 mg PO DAILY PRN (Reason: congestion) Qty: 0 RF: 0 Metoprolol Tartrate (Lopressor) (Lopressor) 25 MG tablet 25 mg PO BID Qty: 0 RF: 0 OMEPRAZOLE (PRILOSEC) 40 MG capsule 40 mg PO DAILY Qty: 0 RF: 0 Paroxetine (Paroxetine HCl) 30 MG tablet 60 mg PO DAILY Qty: 0 RF: 0 Insulin Glargine (Lantus) 100 UNIT/ML INJECTION 80 unit subcut BID Qty: 0 RF: 0 INSULIN GLULISINE (APIDRA) 100 UNIT/ML INJECTION 30 unit SQ. TIDM Qty: 0 RF: 0 ATORVASTATIN (LIPITOR) 20 MG tablet 20 mg PO DAILY Qty: 0 RF: 0 FERROUS GLUCONATE (IRON SUPPLEMENT) 324 MG tablet 324 mg PO DAILY Qty: 0 RF: 0 Fluticasone Propionate 120 SPRAYS/6,000 MCG INHALATION 2 spry CRISTINA DAILY Qty: 0 RF: 0 LAMOTRIGINE 100 MG tablet 100 mg PO BID Qty: 0 RF: 0 MIRTAZAPINE (REMERON) 15 MG tablet 15 mg PO DAILY Qty: 0 RF: 0 LURASIDONE HCL (LATUDA) 80 MG tablet 80 mg PO DAILY Qty: 0 RF: 0 Discharge Problem: CHF (congestive heart failure) Qualifiers: Heart failure type: unspecified Heart failure chronicity: acute on chronic Qualified Code(s): I50.9 - Heart failure, unspecified DKA (diabetic ketoacidoses) Qualifiers: Diabetes mellitus type: type 1 Diabetes mellitus complication detail: without coma Qualified Code(s): E10.10 - Type 1 diabetes mellitus with ketoacidosis without coma
[2018-08-24] MEDS ORDERED: OPTIRAY 320 125ml IV PRN (05:12)
[2018-08-24] MEDS ORDERED: NovoLIN-R INSULIN PER UNIT CHARGE ONE (05:13)
--- NOTE | 2018-08-24 06:18 | XRay Report ---
XR chest 1V portable CLINICAL HISTORY: SOB dyspnea COMPARISON STUDY: No previous studies for comparison. FINDINGS: Pulmonary vasculature is prominent. Heart is mildly enlarged. Diaphragms are smooth. Possib le small left pleural effusion. IMPRESSION: Congestive heart failure The above report was generated using voice recognition software. It may contain grammatical, syntax or spelling errors. Electronically signed by: Dre Shaffer M.D. 08/24/2018 6:16 AM
--- NOTE | 2018-08-24 06:29 | CT Scan Report ---
CT angio chest PE protocol CT DOSE: 891.39 mGy.cm HISTORY: Dyspnea SOB. Elevated dimer. TECHNIQUE: Multiaxial CT images of the chest were performed following the intravenous administration of contrast to evaluate the pulmonary arteries. Maximal intensity projection images were also obtaine d. A dose lowering technique was utilized adhering to the principles of ALARA. COMPARISON STUDY: None. FINDINGS: There is a normal caliber thoracic aorta with no evidence for dissection. There is no evide nce for pulmonary embolus. No pleural effusions. No pneumothorax. The liver and spleen are unremarkab le. No mediastinal or hilar lymphadenopathy. The central airways are patent. The lungs demonstrate pr ominence of pulmonary vasculature. There are small bilateral pleural effusions. There are several old ununited and/or healed rib fractures. There are degenerative changes of the thoracic spine. IMPRESSION: 1. No evidence of pulmonary embolus. 2. Findings of mild congestive heart failure with small bilateral pleural effusions. The above report was generated using voice recognition software. It may contain grammatical, syntax or spelling errors. Electronically signed by: Dre Shaffer M.D. 08/24/2018 6:27 AM
[2018-08-24] MEDS ORDERED: FUROSEMIDE 60 MG in SYRINGE 0 ML IV SCH (06:55)
--- NOTE | 2018-08-24 07:20 | History & Physical Report ---
Date of Service August 24, 2018 Assessment & Plan (1) Acute on chronic systolic heart failure, NYHA class 3: Acute on chronic systolic heart failure/uncontrolled hypertension/dysfunctional life vest- The patient will be admitted to telemetry for serial cardiac enzymes, serial EKG's, cardiac rhythm monitoring and a 2-D echocardiogram with Dopplers. Give Lasix 60 mg IV x1 now and then 60 mg IV twice daily. Nitropaste 1 inch anterior chest wall every 6 hours. Metoprolol tartrate 50 mg p.o. now then 50 mg p.o. twice daily with hold parameters. Get medical records from [facility] for cardiology review from 2-week long admission in May 2018. Cardiology consult. Present on Admission?: Yes (2) Uncontrolled hypertension, stage 1: See above. Present on Admission?: Yes (3) Diabetes mellitus with hyperglycemia: Glucose upon admission 441. Given 5 units of regular insulin by the ED. Beta hydroxybutyric acid 2.99, would not call this DKA. Once her medications is confirmed, we will place her on long-term insulin. For now, we will repeat blood sugars from performed in ED and adjust. Present on Admission?: Yes (4) Renal insufficiency: Creatinine 1.59 upon admission. With no recent baseline. Magnesium level 1.6. We will give 2 g magnesium sulfate IV. Serial BMP and magnesium levels. Present on Admission?: Yes (5) Hypomagnesemia: See above. Present on Admission?: Yes (6) Hypoalbuminemia: Will need to be investigated whether this is nutritional, or losses due to GI or urinary system. Present on Admission?: Yes (7) Hypothyroidism (acquired): TSH elevated at 12.1. No medications listed in her outpatient med list, but the list is not verified yet. Add a free T4. Present on Admission?: Yes (8) Anxiety with depression: Unclear current medications his medication list is not been verified yet. Present on Admission?: Yes (9) Morbid obesity with BMI of 45.0-49.9, adult: Present on Admission?: Yes (10) Cerebrovascular disease: Obtain records from [facility] detailing stroke that she had in May 2018. Present on Admission?: Yes History of Present Illness Chief Complaint: Patient presents to the emergency department with complaint of worsening shortness of breath and dyspnea on exertion that began 1 week ago, and worsening particularly over the past 24 hours. She reports also the past 24 hours she developed precordial chest pain. Primary Care Provider: Adalberto Rodriguez The patient is a 48-year-old female with a past medical history including systolic CHF, diabetes mellitus insulin requiring, depression, hypertension, GERD, peripheral neuropathy, hyperlipidemia, iron deficiency and recent hospitalization at [facility] in May 2018, where she was prescribed a LifeVest, that she reports that she has not been able to wear due to a faulty battery. She reports that 1 week ago she began to get short of breath, initially primarily with exertion, but now has extended to being at rest as well. Over the past 24 hours she developed progressively more shortness of breath and now has developed substernal chest discomfort. She denies any change in diet, particular reports her that she does not take in sodium. Allergies Allergy/AdvReac Type Severity Reaction Status Date / Time No Known Allergies Allergy Verified 09/09/18 03:27 Home Medications Home Medications Medication Instructions Recorded Confirmed Type Basaglar KwikPen U-100 Insulin 50 unit SUBCUT BID 08/24/18 09/09/18 History Latuda 80 mg PO DAILY 08/24/18 09/09/18 History albuterol sulfate [Ventolin HFA] 2 puff INHALATION Q4H PRN 08/24/18 09/09/18 History alprazolam 1 mg PO QID 08/24/18 09/09/18 History aspirin 81 mg PO DAILY 08/24/18 09/09/18 History atorvastatin 80 mg PO DAILY 08/24/18 09/09/18 History ferrous gluconate 324 mg PO DAILY 08/24/18 09/09/18 History fluticasone propionate 2 spray INTRANASAL DAILY 08/24/18 09/09/18 History gabapentin 300 mg PO BID 08/24/18 09/09/18 History insulin lispro [Admelog SoloStar 30 unit SUBCUT TID 08/24/18 09/09/18 History U-100 Insulin] lamotrigine 100 mg PO BID 08/24/18 09/09/18 History mirtazapine 45 mg PO HS 08/24/18 09/09/18 History paroxetine HCl 30 mg PO BID 08/24/18 09/09/18 History metoprolol succinate 100 mg PO DAILY #30 tab 08/27/18 09/09/18 Rx lisinopril 10 mg PO DAILY #30 tab 09/09/18 09/09/18 Rx spironolactone 25 mg PO DAILY #30 tab 09/09/18 Rx Past Med/Surg History Medical History Stroke Morbid obesity with BMI of 45.0-49.9, adult Diabetes mellitus with hyperglycemia (Chronic) Diabetes (Chronic) Elevated blood pressure reading with diagnosis of hypertension (Chronic) Social History Preferred Language: Eritrean 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 Beliefs That Will Affect Care: None marital status: Current Living Situation: Spouse Current Living Situation Comment: Daughter lives with them Other Information That Helps Us Care for You: No Feels Safe at Home: Yes Safety Concerns: Feels Safe At This Time Smoking Status: Never smoker Do You Dip or Chew Tobacco: No Second Hand Exposure: No Tobacco Cessation Education Requested by Patient: No Hx Alcohol Use: No Hx Substance Use: No Review of Systems Review of Systems: The patient denies sore throat, fevers, chills, sweats, nausea, vomiting, diarrhea , constipation, abdominal pain, pelvic pain, blood in urine or stool, dysuria, urinary frequency or urgency, lightheadedness, dizziness, headache, memory loss, loss of consciousness, rash, abnormal bruising or bleeding, imbalance, focal or generalized weakness, numbness or tingling in arms or legs, generalized arthralgias or myalgias, back or neck pain, or night sweats. The review of systems is otherwise negative other than for that already noted above, and at least 10 systems have been reviewed. Physical Exam Physical Exam: The patient is awake, alert and oriented 3, sitting upright in bed and in no acute distress at rest. HEENT--Right eye closed. mucous membranes and oropharynx normal. Neck--supple. No JVD. No bruits. Thyroid normal, trachea midline, no adenopathy. Heart--normal S1 and S2. No murmurs, rubs or gallops. Lungs--crackles at the bases to senior care up bilaterally. No respiratory distress, no accessory muscle use. Abdomen--normal bowel sounds and soft. Nontender. Nondistended. Morbidly obese. Extremities--no cyanosis or clubbing. 2+ bilateral pretibial pitting edema. Dermatologic--normal skin turgor, normal color, no abnormal lymph nodes, no rash. Neurologic--cranial nerves II through XII grossly intact. Rheumatologic--normal range of motion. Psychiatric--normal affect. Results & Data Vital Signs (Past 12 Hours) Vital Signs Temp Pulse Resp BP Pulse Ox 08/24/18 05:16 109 H 16 176/109 H 99 08/24/18 04:15 106 H 24 162/109 H 98 08/24/18 03:50 94 08/24/18 03:38 97.9 F Laboratory Results Laboratory Results WBC 8.57 K/uL (4.8-10.8) 08/24/18 04:00 RBC 4.83 M/uL (4.2-5.4) 08/24/18 04:00 Hgb 13.6 g/dL (12.0-16.0) 08/24/18 04:00 Hct 38.9 % (37-47) 08/24/18 04:00 MCV 80.5 fL (80-100) 08/24/18 04:00 MCH 28.2 pg (25-34) 08/24/18 04:00 MCHC 35.0 g/dL (32-36) 08/24/18 04:00 RDW Std Deviation 39.9 fL (36.4-46.3) 08/24/18 04:00 RDW Coeff of Trey 13.6 % (11.5-14.5) 08/24/18 04:00 Plt Count 235 K/uL (130-400) 08/24/18 04:00 MPV 10.1 fL (7.4-10.4) 08/24/18 04:00 Immature Gran % (Auto) 0.2 % 08/24/18 04:00 Neut % (Auto) 61.5 % 08/24/18 04:00 Lymph % (Auto) 28.6 % 08/24/18 04:00 Lares % (Auto) 5.3 % 08/24/18 04:00 Eos % (Auto) 4.0 % 08/24/18 04:00 Baso % (Auto) 0.4 % 08/24/18 04:00 Immature Gran # (Auto) 0.02 K/uL (0.00-0.02) 08/24/18 04:00 Neut # (Auto) 5.28 K/uL (1.4-6.5) 08/24/18 04:00 Lymph # (Auto) 2.45 K/uL (1.2-3.4) 08/24/18 04:00 Lares # (Auto) 0.45 K/uL (0.11-0.59) 08/24/18 04:00 Eos # (Auto) 0.34 K/uL (0-0.5) 08/24/18 04:00 Baso # (Auto) 0.03 K/uL (0-0.2) 08/24/18 04:00 PT 10.6 Seconds (9.0-12.0) 08/24/18 04:00 INR 1.0 (0.9-1.1) 08/24/18 04:00 APTT 27.3 Seconds (21.0-31.0) 08/24/18 04:00 PTT Ratio 1.0 08/24/18 04:00 1980 ug/L FEU (0-500) H* 08/24/18 04:00 VBG pH 7.43 (7.36-7.41) H 08/24/18 04:00 VBG pCO2 41 mmHg (38-50) 08/24/18 04:00 VBG pO2 48 mmHg 08/24/18 04:00 VBG HCO3 27 mmol/L 08/24/18 04:00 VBG O2 Saturation 83.5 % 08/24/18 04:00 VBG Base Excess 2.5 mEq/L 08/24/18 04:00 Barometric Pressure 728.3 mm/Hg 08/24/18 04:00 Sodium 134 mmol/L (136-145) L 08/24/18 04:00 Potassium 5.5 mmol/L (3.5-5.1) H 08/24/18 04:00 Chloride 101 mmol/L (98-107) 08/24/18 04:00 Carbon Dioxide 29 mmol/L (21-32) 08/24/18 04:00 4.0 (3-11) 08/24/18 04:00 BUN 24 mg/dl (7-18) H 08/24/18 04:00 1.59 mg/dl (0.6-1.2) H 08/24/18 04:00 Est Cr Clr Drug Dosing 62.3 ml/min 08/24/18 04:00 Est GFR ( Amer) 44.0 08/24/18 04:00 Est GFR (Non-Af Amer) 38.0 08/24/18 04:00 15.1 (10-20) 08/24/18 04:00 Glucose 441 mg/dl (70-99) H* 08/24/18 04:00 Calcium 8.4 mg/dl (8.5-10.1) L 08/24/18 04:00 Magnesium 1.6 mg/dl (1.8-2.4) L 08/24/18 04:00 0.3 mg/dl (0.2-1) 08/24/18 04:00 AST 13 U/L (15-37) L 08/24/18 04:00 ALT 14 U/L (12-78) 08/24/18 04:00 152 U/L (45-117) H 08/24/18 04:00 < 0.015 ng/ml (0-0.045) 08/24/18 04:00 NT-Pro-B Natriuret Pep 2455 pg/ml (0-450) H 08/24/18 04:00 6.6 gm/dl (6.4-8.2) 08/24/18 04:00 2.6 gm/dl (3.4-5.0) L 08/24/18 04:00 4.0 gm/dl (2.5-4.0) 08/24/18 04:00 0.7 (0.9-2) L 08/24/18 04:00 130 U/L (73-393) 08/24/18 04:00 Beta-Hydroxybutyric Acd 2.99 mg/dl (0.2-2.81) H 08/24/18 04:00 TSH 12.100 uIu/ml (0.300-4.500) H 08/24/18 04:00 Free T4 1.04 ng/dl (0.8-1.6) 08/24/18 04:00 Diagnostic Findings [facility] [place] [place], [place] [phone] XRay Report Patient: CORY BARBAAdmit Date: 08/24/18 MR#: [id number]: [id number] Acct ID:[id number]: Date: 1970[facility] Zip: [place] [id number] Age: 48Location: ED Sex: F Room/Bed: Att Phy: Diagnosis: CHEST PAIN/ SHORT OF BREATH Dina Phy: Adalberto Rodriguez M.D.Service Date: 08/24/18 Fam Phy: Interpreting Phy: Dre Shaffer MD Admit Phy: Ordering Phy: Uche Solitario PA-C cc: ~ XR chest 1V portable CLINICAL HISTORY: SOB dyspnea COMPARISON STUDY: No previous studies for comparison. FINDINGS: Pulmonary vasculature is prominent. Heart is mildly enlarged. Diaphragms are smooth. Possible small left pleural effusion. IMPRESSION: Congestive heart failure The above report was generated using voice recognition software. It may contain grammatical, syntax or spelling errors. Electronically signed by: Dre Shaffer M.D. 08/24/2018 6:16 AM Dictated: 08/24/18614 Transcribed: 08/24/18614 [facility] [place] [place], [place] [phone] CT Scan Report Patient: CORY BARBAAdmit Date: 08/24/18 MR#: [id number]: [id number] Acct ID:[id number]: Date: 1970[facility] Zip: [place] [address] Age: 48Location: ED Sex: F Room/Bed: Att Phy: Diagnosis: CHEST PAIN/ SHORT OF BREATH Dina Phy: Adalberto Rodriguez M.D.Service Date: 08/24/18 Fam Phy: Interpreting Phy: Dre Shaffer MD Admit Phy: Ordering Phy: Uche Solitario PA-C cc: ~ CT angio chest PE protocol CT DOSE: 891.39 mGy.cm HISTORY: Dyspnea SOB. Elevated dimer. TECHNIQUE: Multiaxial CT images of the chest were performed following the intravenous administration of contrast to evaluate the pulmonary arteries. Maximal intensity projection images were also obtained. A dose lowering technique was utilized adhering to the principles of ALARA. COMPARISON STUDY: None. FINDINGS: There is a normal caliber thoracic aorta with no evidence for dissection. There is no evidence for pulmonary embolus. No pleural effusions. No pneumothorax. The liver and spleen are unremarkable. No mediastinal or hilar lymphadenopathy. The central airways are patent. The lungs demonstrate prominence of pulmonary vasculature. There are small bilateral pleural effusions. There are several old ununited and/or healed rib fractures. There are degenerative changes of the thoracic spine. IMPRESSION: 1. No evidence of pulmonary embolus. 2. Findings of mild congestive heart failure with small bilateral pleural effusions. The above report was generated using voice recognition software. It may contain grammatical, syntax or spelling errors. Electronically signed by: Dre Shaffer M.D. 08/24/2018 6:27 AM Dictated: 08/24/18624 Transcribed: 08/24/18624 Code Status & VTE Plan Code Status Full code VTE Prophylaxis Plan VTE Prophylaxis will be ordered: Yes
[2018-08-24] MEDS ORDERED: NITROGLYCERIN SL 0.4 MG/TAB TAB SL PRN (07:49)
[2018-08-24] MEDS ORDERED: CARBOHYDRATES FOR HYPOGLYCEMIA PO PRN (07:49)
[2018-08-24] MEDS ORDERED: GLUCOSE 10 TABS/TUBE PO PRN (07:49)
[2018-08-24] MEDS ORDERED: POLYETHYLENE (MIRALAX) 17 GM PACK PO PRN (07:49)
[2018-08-24] MEDS ORDERED: ONDANSETRON INJ 2 MG/ML 2 ML VIAL IV PRN (07:49)
[2018-08-24] MEDS ORDERED: GLUCAGON FOR INJ 1 MG VIAL SQ PRN (07:49)
[2018-08-24] MEDS ORDERED: ACETAMINOPHEN 325 MG TAB PO PRN (07:49)
[2018-08-24] MEDS ORDERED: MAGNESIUM HYDROXIDE SUSP 30 ML UDC PO PRN (07:49)
[2018-08-24] MEDS ORDERED: GLUCOSE 40% GEL 15 GM TUBE PO PRN (07:49)
[2018-08-24] MEDS ORDERED: MoRPHine SULFATE 2 MG/ML CARP IV PRN (07:49)
[2018-08-24] MEDS ORDERED: ALUMINUM/MAGNESIUM SUSP 30 ML UDC PO PRN (07:49)
[2018-08-24] MEDS ORDERED: DEXTROSE 50% 50 ML SYRINGE IV PRN (07:49)
[2018-08-24] MEDS ORDERED: PHARMACY GLYCEMIC MGMT CONSULT PRN (07:51)
[2018-08-24] MEDS ORDERED: METOPROLOL TARTRATE 50 MG TAB PO ONE (08:30)
[2018-08-24] MEDS: FUROSEMIDE 60 MG in SYRINGE 0 ML IV SCH ×2 (08:45→17:25)
[2018-08-24] MEDS: INSULIN ASPART 100 UNITS/ML 3 ML PEN SC SCH ×4 (08:51→20:46)
[2018-08-24] MEDS: ASPIRIN 81 MG ECTAB PO SCH (09:08)
[2018-08-24] MEDS ORDERED: INSULIN GLARGINE SOLOSTAR 100 UNITS/ML 3 ML PEN SC ONE (09:15)
--- NOTE | 2018-08-24 09:27 | Cardiology Consultation ---
Date of Consultation August 24, 2018 Assessment & Plan (1) CHF (congestive heart failure): The patient reportedly has reduced LV systolic function. Will confirm this with our on echocardiogram today. She was admitted do [facility] in May and will also attempt to obtain those records to see what evaluation and medical therapy had been prescribed. The fact that she was wearing a life vest would suggest that she had severely reduced LV systolic function. Will attempt a diuresis for symptom improvement. She will need to be started back on a standard regimen for heart failure which would include beta-blockade and Karson inhibition. She has a an element of mild renal dysfunction will need to monitor that closely. It is unclear what regimen she had been prescribed previously a whether she has been compliant with that medical regimen. By her report she had an evaluation for ischemia in the past with cardiac catheterization x2. However, this will need to be confirmed. We will see what her LV function looks like currently. If she truly has a nonischemic cardiomyopathy we may attempt to maintain medical therapy for few more months prior to any recommendation regarding device therapy. If she has a nonischemic cardiomyopathy I do not believe a life vest is warranted. (2) Atypical chest pain: Her symptoms are somewhat atypical. She may have had some chest discomfort due to pulmonary vascular congestion. By her report she has some coronary disease that did not require intervention. Will continue to monitor her markers. I would initiate beta-sherry therapy and a daily aspirin. I would agree with high-dose atorvastatin as prescribed. (3) Sinus tachycardia: She reports long history of tachycardia. Based on her other comorbidities that she will derive benefit from beta-blockade. That she has tachycardia currently due to decompensated heart failure is unclear. History of Present Illness Reason for Consultation: Heart failure Requesting Physician: Jean Claude Attending Physician: Gavino Silverio History of Present Illness Patient is a 40-year-old woman with a reported history of heart failure who presented to [facility] with symptoms of breathing difficulty. Patient states that over the course of several days she has had progressively worsening dyspnea. This got to the point where she needs to sleep upright and can perform very little activity without becoming severely short of breath. She has noticed some swelling in her lower extremities over this course of time, but this is also a chronic finding. She were supplemental oxygen at all times but lately has felt more short of breath even with oxygen. Patient also developed some symptoms of chest discomfort yesterday. She describes this as a fairly localized sensation in left precordium which eventually travel both to her leg and between her scapula. This symptom appeared to resolve without any specific intervention. Currently she continues to have an element of shortness of breath but does not report symptoms of chest discomfort. Patient states that she has had 3 strokes and to a admissions for congestive heart failure. These admissions or add do [facility] the last of which occurred in May of 2018. The patient did report having a cardiac catheterization twice and being told that she had some heart disease but never required any intervention. She claims to be compliant with medical therapy but did report running out of medicines recently. This did result in hospitalization for poorly controlled diabetes. She also reportedly has a known history of hypothyroidism but stated that she was taken off of her supplement recently by her primary care physician. She is a very sedentary individual who generally does not ambulate well due to pain presumably from diabetic neuropathy. She claims to follow low-sodium diet. She has not report symptoms of dizziness, palpitations or syncope. She was prescribed a life vest in May of 2018. There were some technical challenges with the vast but no therapy was ever delivered. She did not report any warnings received from the best itself. Allergies Allergy/AdvReac Type Severity Reaction Status Date / Time No Known Allergies Allergy Verified 08/24/18 07:28 Home Medications Home Medications Medication Instructions Recorded Confirmed Type albuterol sulfate [Ventolin HFA] 2 puff INHALATION Q4H PRN 08/24/18 08/24/18 History alprazolam 1 mg PO QID 08/24/18 08/24/18 History aspirin 81 mg PO DAILY 08/24/18 08/24/18 History atorvastatin 80 mg PO DAILY 08/24/18 08/24/18 History ferrous gluconate 324 mg PO DAILY 08/24/18 08/24/18 History fluticasone propionate 2 spray INTRANASAL DAILY 08/24/18 08/24/18 History gabapentin 300 mg PO BID 08/24/18 08/24/18 History insulin glargine [Basaglar KwikPen 50 unit SUBCUT BID 08/24/18 08/24/18 History U-100 Insulin] insulin lispro [Admelog SoloStar 30 unit SUBCUT TID 08/24/18 08/24/18 History U-100 Insulin] lamotrigine 100 mg PO BID 08/24/18 08/24/18 History lurasidone [Latuda] 80 mg PO DAILY 08/24/18 08/24/18 History mirtazapine 45 mg PO HS 08/24/18 08/24/18 History paroxetine HCl 30 mg PO BID 08/24/18 08/24/18 History Patient History Medical History Stroke Morbid obesity with BMI of 45.0-49.9, adult Diabetes mellitus with hyperglycemia (Chronic) Diabetes (Chronic) Elevated blood pressure reading with diagnosis of hypertension (Chronic) Social History Preferred Language: Tajik Communication Ability: Effective Systems Architect Required: No Beliefs That Will Affect Care: None Current Living Situation: Spouse Current Living Situation Comment: Daughter lives with as well Other Information That Helps Us Care for You: No Feels Safe at Home: Yes Smoking Status: Never smoker Do You Dip or Chew Tobacco: No Second Hand Exposure: No Hx Alcohol Use: No Hx Substance Use: No Review of Systems Review of Systems: All systems reviewed & are unremarkable except as noted in HPI & below She did not report any recent constitutional symptoms such as fevers or chills. No coughing. No change in her bowel habits. She has had feroz e nausea lately but she did not report any vomiting. She does have some chronic lower extremity edema. She has pain in her lower extremities. Physical Exam Physical Exam: She is alert and oriented x3. Mood affect appear normal. She answered all questions appropriately. Obese HEENT: Sclerae are anicteric. The right eye was absent. Extraocular movements some pupillary responses are normal in the left eye. Neuro: Cranial nerves intact Neck: Examination of the submandibular region did not reveal any significant lymphadenopathy. Carotids are palpable bilaterally and free of bruits on auscultation. There was no evidence of jugular venous distention although the neck tissue was redundant. The thyroid was not enlarged. Lungs: She had bibasilar crackles. She has normal respiratory effort without use of accessory muscles. There is normal pulmonary excursion. Cardiac: The rhythm was regular but the rate was fast. S1 and S2 were normal. There are no murmurs on examination. The PMI was not markedly displaced on palpation. Abdomen: The abdomen was soft and nontender. Extremities: Patient has bilateral radial pulses that are equal in intensity. There is no evidence cyanosis or clubbing. Mild lower extremity edema. Skin: There are no rashes noted on examination today. Results & Data Vital Signs (Past 12 Hours) Vital Signs Temp Pulse Resp BP Pulse Ox 08/24/18 07:51 36.7 C 110 H 20 162/85 H 98 08/24/18 07:49 36.7 C 113 H 20 165/85 H 95 08/24/18 07:42 36.4 C L 112 H 20 163/96 H 99 08/24/18 07:00 112 H 16 183/105 H 97 08/24/18 05:16 109 H 16 176/109 H 99 08/24/18 04:15 106 H 24 162/109 H 98 08/24/18 03:50 94 08/24/18 03:38 36.6 C Laboratory Results Abnormal Lab Results 08/24/18 08/24/18 08/24/18 04:00 04:00 04:00 WBC 8.57 RBC 4.83 Hgb 13.6 Hct 38.9 MCV 80.5 MCH 28.2 MCHC 35.0 RDW Std Deviation 39.9 RDW Coeff of Trey 13.6 Plt Count 235 MPV 10.1 Immature Gran % (Auto) 0.2 Neut % (Auto) 61.5 Lymph % (Auto) 28.6 Grant % (Auto) 5.3 Eos % (Auto) 4.0 Baso % (Auto) 0.4 Immature Gran # (Auto) 0.02 Neut # (Auto) 5.28 Lymph # (Auto) 2.45 Grant # (Auto) 0.45 Eos # (Auto) 0.34 Baso # (Auto) 0.03 PT 10.6 INR 1.0 APTT 27.3 PTT Ratio 1.0 D-Dimer 1980 H* VBG pH VBG pCO2 VBG pO2 VBG HCO3 VBG O2 Saturation VBG Base Excess Barometric Pressure Sodium 134 L Potassium 5.5 H Chloride 101 Carbon Dioxide 29 Anion Gap 4.0 BUN 24 H Creatinine 1.59 H Est Cr Clr Drug Dosing 62.3 Est GFR ( Amer) 44.0 Est GFR (Non-Af Amer) 38.0 BUN/Creatinine Ratio 15.1 Glucose 441 H* POC Glucose Calcium 8.4 L Magnesium 1.6 L Total Bilirubin 0.3 AST 13 L ALT 14 Alkaline Phosphatase 152 H Troponin I < 0.015 NT-Pro-B Natriuret Pep 2455 H Total Protein 6.6 Albumin 2.6 L Globulin 4.0 Albumin/Globulin Ratio 0.7 L Lipase 130 Beta-Hydroxybutyric Acd 2.99 H TSH 12.100 H Free T4 1.04 08/24/18 08/24/18 04:00 08:48 WBC RBC Hgb Hct MCV MCH MCHC RDW Std Deviation RDW Coeff of Trey Plt Count MPV Immature Gran % (Auto) Neut % (Auto) Lymph % (Auto) Grant % (Auto) Eos % (Auto) Baso % (Auto) Immature Gran # (Auto) Neut # (Auto) Lymph # (Auto) Grant # (Auto) Eos # (Auto) Baso # (Auto) PT INR APTT PTT Ratio D-Dimer VBG pH 7.43 H VBG pCO2 41 VBG pO2 48 VBG HCO3 27 VBG O2 Saturation 83.5 VBG Base Excess 2.5 Barometric Pressure 728.3 Sodium Potassium Chloride Carbon Dioxide Anion Gap BUN Creatinine Est Cr Clr Drug Dosing Est GFR ( Amer) Est GFR (Non-Af Amer) BUN/Creatinine Ratio Glucose POC Glucose 337 H* Calcium Magnesium Total Bilirubin AST ALT Alkaline Phosphatase Troponin I NT-Pro-B Natriuret Pep Total Protein Albumin Globulin Albumin/Globulin Ratio Lipase Beta-Hydroxybutyric Acd TSH Free T4 Diagnostic Findings Chest x-ray the time of admission revealed mild pulmonary congestion CT PE protocol did not reveal any evidence of pulmonary embolus but there was evidence of pulmonary edema (1) CHF (congestive heart failure) Heart failure chronicity: acute on chronic Heart failure type: unspecified Qualified Code(s): I50.9 - Heart failure, unspecified
[2018-08-24 09:49] LABS: Estimated Average Glucose 260 mg/dl; Hemoglobin A1C 10.7 % (4.5-5.6)
[2018-08-24] MEDS: NITROGLYCERIN 2% OINTMENT 30GM TUBE EXT SCH ×3 (12:12→23:23)
[2018-08-24 13:05] LABS: Appearance Urine Clear (Clear); Bacteria Urine Automated Negative (Negative); Bilirubin Urine Negative (Negative); Blood Urine Trace (Negative); Cast Urine Automated 0 /lpf (0-5); Color Urine Yellow; Glucose Urine UA Negative (Negative); Ketones Urine Negative (Negative); Leukocyte Esterase Urine Negative (Negative); Nitrite Urine Negative (Negative); Protein Urine 2+ (Negative); RBC Urine Automated 0-4 /hpf (0-4); Specific Gravity Urine 1.014 (1.000-1.030); Urobilinogen Urine Negative (Negative)
[2018-08-24 13:35] LABS: Amphetamines+Metham, Urine Neg (Neg); Barbiturates, Urine Neg (Neg); Benzodiazepine, Urine Neg (Neg); Cocaine, Urine Neg (Neg); MDMA (Ecstacy), Urine Neg (Neg); Methadone, Urine Neg (Neg); Opiate, Urine Neg (Neg); Phencyclidine, Urine Neg (Neg)
--- NOTE | 2018-08-24 14:24 | Pharmacy Report ---
Glycemic Control Consultation - Date of Service August 24, 2018 - Scope Scope: Glycemic Pharmacist consulted by Dr Silverio on 08/24/18 for glycemic control and to write orders per [facility] inpatient glycemic control protocol - Objective Weight: 139 kg Accuchecks BSG (last 24hrs): 08/24/18 08/24/18 08/24/18 04:00 08:48 11:13 Glucose 441 H* POC Glucose 337 H* 160 H Laboratory Data (last 24hrs): 08/24/18 04:00 Potassium 5.5 H Carbon Dioxide 29 Anion Gap 4.0 Creatinine 1.59 H Est Cr Clr Drug Dosing 62.3 Beta-Hydroxybutyric Acd 2.99 H HbA1c: 10.7 % (4.5-5.6) H 08/24/18 04:00 - Recent Pertinent Medications Outpatient Anti-diabetic Regimen: * Basaglar 50 units BID plus Ademlog 30 units TID Risk Factors for Insulin Resistance: * Diet: T2DM - Assessment & Plan Assessment & Plan: ASSESSMENT: * Ms Rausch is a 48 y/o F with a PMH of uncontrolled T2DM who presents with a CHF exacerbation. Per interview with the patient, she "ran out" of insulin for 2 weeks. She did not take any insulin. Her glucometer broke several months ago. She did not feel well over those two weeks. This appears to have been a fight with insurance and doctor's office? Patient's daughter involved so patient not able to give the best history. * She has been on this dose for quite some time and can have low blood sugars at any point (no specified time but does have awareness). Patient's blood sugar on admission was in the 400s. Gave 80% of home dose this morning. Will give a scale of Lantus that provides a dose of 50-65-80% of Lantus dose based upon blood sugar. Weight-based stress of 3 will be utilized for Novolog ... this indicates a Lantus dose of 35 BID. PLAN FOR INPATIENT GLYCEMIC CONTROL: * Basal insulin * Lantus 40 units SQ x 1 then 25-40 units SQ BID * Lantus 25 units if blood sugar under 140 mg/dL * Lantus 32 units if blood sugar 140-180 mg/dL * Lantus 40 units if blood sugar greater than 180 mg/dL * Bolus insulin * NovoLog per scale ACHS or Q6hrs while NPO * Goal Range: Low 110 mg/dL - High 140 mg/dL * Correction Factor: 10 mg/dL/unit * Nutritional / Prandial insulin per carb ratio of 1 unit per 4 grams CHO consumed * Please note that the plan above was derived based on current level of insulin resistance and hospital stress. These recommendations are appropriate for inpatient admission only. Plan of care upon discharge will need to be reassessed to avoid potential outpatient hypo/hyperglycemia. Thank you.
[2018-08-24] MEDS ORDERED: MAGNESIUM SULFATE / D5W 1 GM/100 ML BAG IV ONE (20:44)
[2018-08-24] MEDS: ACETAMINOPHEN 1000 MG/100 ML IV IV PRN (20:45)
[2018-08-24] MEDS: INSULIN GLARGINE SOLOSTAR 100 UNITS/ML 3 ML PEN SC SCH (20:48)
[2018-08-24] MEDS ORDERED: LURASIDONE HCL 40 MG TAB PO ONE (21:21)
[2018-08-24] MEDS: ALPRAZolam 0.5 MG TABLET PO SCH (23:17)
[2018-08-24] MEDS: PARoxetine HCl 20 MG TAB PO SCH (23:18)
[2018-08-24] MEDS: MIRTAZAPINE SOLTAB 15 MG PO SCH (23:18)
[2018-08-24] MEDS: lamoTRIgine 100 MG TAB PO SCH (23:19)
[2018-08-24] MEDS: METOPROLOL TARTRATE 50 MG TAB PO SCH (23:19)
[2018-08-24] MEDS: GABAPENTIN 300 MG CAP PO SCH (23:20)
[2018-08-25] MEDS: NITROGLYCERIN 2% OINTMENT 30GM TUBE EXT SCH ×3 (06:12→17:11)
[2018-08-25 07:37] LABS: INR 1.1 (0.9-1.1); Partial Thromboplastin Time 26.1 Seconds (21.0-31.0); Prothrombin Time 10.9 Seconds (9.0-12.0)
[2018-08-25 07:54] LABS: Basophils # (auto) 0.03 K/uL (0-0.2); Basophils % (auto) 0.3 %; Eosinophils # (auto) 0.56 K/uL (0-0.5); Eosinophils % (auto) 5.7 %; Hematocrit (blood only) 39.1 % (37-47); Hemoglobin 13.4 g/dL (12.0-16.0); Immature Granulocytes # (auto) 0.02 K/uL (0.00-0.02); Immature Granulocytes % (auto) 0.2 %; Lymphocytes # (auto) 2.62 K/uL (1.2-3.4); Lymphocytes % (auto) 26.8 %; Mean Corpuscular Hgb Conc 34.3 g/dL (32-36); Mean Corpuscular Volume 82.1 fL (80-100); Monocytes # (auto) 0.65 K/uL (0.11-0.59); Monocytes % (auto) 6.6 %; Neutrophils # (auto) 5.91 K/uL (1.4-6.5); Neutrophils % (auto) 60.4 %; Platelet Count 249 K/uL (130-400); RDW Coefficient of Variation 13.8 % (11.5-14.5); RDW Standard Deviation 41.4 fL (36.4-46.3); Red Blood Count 4.76 M/uL (4.2-5.4); White Blood Count 9.79 K/uL (4.8-10.8)
[2018-08-25 08:01] LABS: Albumin Level 2.5 gm/dl (3.4-5.0); BUN Creatinine Ratio 18.8 (10-20); Calcium 9.1 mg/dl (8.5-10.1); Creatinine Clr Calc Pharmacy 77.4 ml/min; Est GFR (African American) 57.2; Est GFR (Non-African American) 49.4; Potassium 4.4 mmol/L (3.5-5.1)
[2018-08-25 08:05] LABS: Albumin Globulin Ratio 0.6 (0.9-2); Bilirubin,Total 0.3 mg/dl (0.2-1); Total Protein 6.5 gm/dl (6.4-8.2)
[2018-08-25] MEDS: GABAPENTIN 300 MG CAP PO SCH ×2 (08:25→21:07)
[2018-08-25] MEDS: LURASIDONE HCL 40 MG TAB PO SCH (08:25)
[2018-08-25] MEDS: ASPIRIN 81 MG ECTAB PO SCH (08:25)
[2018-08-25] MEDS: FUROSEMIDE 60 MG in SYRINGE 0 ML IV SCH ×2 (08:25→17:11)
[2018-08-25] MEDS: PARoxetine HCl 20 MG TAB PO SCH ×2 (08:26→21:06)
[2018-08-25] MEDS: lamoTRIgine 100 MG TAB PO SCH ×2 (08:26→21:17)
[2018-08-25] MEDS: METOPROLOL TARTRATE 50 MG TAB PO SCH ×2 (08:26→21:07)
[2018-08-25] MEDS: INSULIN GLARGINE SOLOSTAR 100 UNITS/ML 3 ML PEN SC SCH ×2 (08:27→21:13)
[2018-08-25] MEDS: ACETAMINOPHEN 1000 MG/100 ML IV IV PRN (08:28)
[2018-08-25] MEDS: INSULIN ASPART 100 UNITS/ML 3 ML PEN SC SCH ×4 (08:30→21:12)
[2018-08-25] MEDS: ALPRAZolam 0.5 MG TABLET PO SCH ×2 (08:30→12:25)
--- NOTE | 2018-08-25 11:50 | Pharmacy Report ---
Glycemic Control Progress Note - Date of Service August 25, 2018 - Scope Glycemic Pharmacist consulted for glycemic control to write orders per [facility] inpatient glycemic control protocol. - Objective Accuchecks BSG(last 24 hours):: 08/24/18 08/24/18 08/24/18 11:13 16:06 20:20 Glucose POC Glucose 160 H 95 179 H 08/25/18 08/25/18 08/25/18 03:26 07:09 07:31 Glucose 155 H POC Glucose 133 H 180 H 08/25/18 11:18 Glucose POC Glucose 279 H HbA1c:: 10.7 % (4.5-5.6) H 08/24/18 04:00 - Recent Pertinent Medications The patient is currently receiving: * Basal insulin: Lantus 25-40 units every 12 hours * Correctional Insulin: Novolog Correction per scale ACHS Goal Range: Low 110 mg/dL - High 140 mg/dL Correction Factor: 10 mg/dL/unit * Prandial insulin: Per carb ratio of 1 unit per 4 grams CHO consumed - Outpatient Anti-Diabetic Meds Basaglar 50 units BID Lispro 30 units TID - Assessment & Plan ASSESSMENT: * See progress note from 08/24/18 for more background info, in short: * Pt receiving SQ basal bolus insulin regimen for hyperglycemia secondary to baseline DM (outpatient regimen on hold). * Patient is currently receiving an average of 136 units of insulin per day * 72 units of basal insulin * 64 units of prandial/correctional insulin * BSGs ranging 95 - 334 mg/dl over the past 24hrs * Changes needed to insulin regimen: * AM Fasting BSG = 180 mg/dl. This is in slightly above goal range for patient based on inpatient targets and co-morbidities. Ptient received 72 units of insulin yesterday- believe as steady state is achieved will require around 70 units. Fix dose of 35 units SQ BID for now. * Post-prandial BSGs are in range therefore no changes needed to CF/CR. Patient may need a tightening of the carbohydrate ratio to 3. but will monitor for now. * Total daily dose = 140 johnnie units. PLAN FOR INPATIENT GLYCEMIC CONTROL: * Continuing Lantus 35 units SQ BID * Continuing correction factor of 10 mg/dl/unit * Continuing carb ratio to 1 unit per 4 grams CHO consumed * Continuing goal range to Low 110 mg/dL - High 140 mg/dL RECOMMENDATIONS FOR DISCHARGE: * Patient's HbA1C is elevated. She reports going approximately 2 weeks without insulin. This was recent and would reflect highly in the A1C. Recommend repeat in 1 month to establish true control. * Please note that the plan above was derived based on current level of insulin resistance and hospital stress. These recommendations are appropriate for inpatient admission only. Plan of care upon discharge will need to be reassessed to avoid potential outpatient hypo/hyperglycemia. Thank you.
--- NOTE | 2018-08-25 11:57 | Cardiology Progress Note ---
Date of Service August 25, 2018 Assessment & Plan (1) CHF (congestive heart failure): Echocardiogram performed at our institution revealed severely reduced LV systolic function. The etiology of her heart failure is unknown. Her still awaiting some records regarding prior evaluation. In any event she was started on beta-blockade. She has been on a fairly aggressive diuretic regimen but it is unclear if she is volume negative. Symptomaticly improved. I will continue her current diuretic regimen monitoring her renal function electrolytes closely Continue beta-blockade I would add low-dose Karson inhibition I think we can discontinue her nitroglycerin tomorrow morning (2) Atypical chest pain: Unknown if she has a history of coronary disease. She does describe coronary angiography previously but we are awaiting those records. No current chest pains. No evidence of ischemia. I will continue her beta-sherry and atorvastatin. (3) Sinus tachycardia: Improved with beta blockade. Also likely improved with better control of her metabolic derangements. Subjective The patient was very somnolent this morning. However she was arousable did answer some questions. She states that she is feeling better. This seems to be in reference to better breathing. She denied dyspnea currently. She has not had symptoms of chest pain or other pain currently. She was not able to tell me if she was walking around the [place] earlier today. Review of Systems Review of Systems: Per HPI Physical Exam Physical Exam: She was somnolent. She was arousable did answer questions. 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 Neuro: Cranial nerves intact Lungs: Good air movement. Normal respiratory effort. Occasional crackles in the bases bilaterally. No expiratory wheezing. Cardiac: The rhythm was regular. S1 and S2 were normal. There are no murmurs on examination. The PMI was not markedly displaced on palpation. Abdomen: Obese Extremities: Patient has bilateral radial pulses that are equal in intensity. There is no evidence cyanosis or clubbing. Skin: There are no rashes noted on examination today. Results & Data Vital Signs (Past 12 Hours) Vital Signs Temp Pulse Resp BP Pulse Ox 08/25/18 11:40 37.0 C 89 20 158/76 H 08/25/18 07:42 36.5 C 96 H 22 169/74 H 97 08/25/18 03:19 36.4 C L 94 H 23 173/95 H 97 Laboratory Results Abnormal Lab Results 08/24/18 08/24/18 08/24/18 11:13 12:20 12:20 WBC RBC Hgb Hct MCV MCH MCHC RDW Std Deviation RDW Coeff of Trey Plt Count MPV Immature Gran % (Auto) Neut % (Auto) Lymph % (Auto) [place] % (Auto) Eos % (Auto) Baso % (Auto) Immature Gran # (Auto) Neut # (Auto) Lymph # (Auto) [place] # (Auto) Eos # (Auto) Baso # (Auto) PT INR APTT PTT Ratio Sodium Potassium Chloride Carbon Dioxide Anion Gap BUN Creatinine Est Cr Clr Drug Dosing Est GFR ( Amer) Est GFR (Non-Af Amer) BUN/Creatinine Ratio Glucose POC Glucose 160 H Calcium Total Bilirubin AST ALT Alkaline Phosphatase Total Protein Albumin Globulin Albumin/Globulin Ratio Urine Color Yellow Urine Appearance Clear Urine pH 6.0 Ur Specific [place] 1.014 Urine Protein 2+ H Urine Glucose (UA) Negative Urine Ketones Negative Urine Blood Trace H Urine Nitrite Negative Urine Bilirubin Negative Urine Urobilinogen Negative Ur Leukocyte Esterase Negative Urine WBC (Auto) 1-5 Urine RBC (Auto) 0-4 U Hyaline Cast (Auto) 0 U Epithel Cells (Auto) 10-20 H Urine Bacteria (Auto) Negative Urine Opiates Screen Neg Ur Methadone, Qual Neg Urine Barbiturates Neg Ur Phencyclidine (PCP) Neg U Amphetamin/Meth Scrn Neg MDMA (Ecstasy) Screen Neg U Benzodiazepines Scrn Neg Ur Cocaine Metabolite Neg U Marijuana (THC) Screen Neg 08/24/18 08/24/18 08/25/18 16:06 20:20 03:26 WBC RBC Hgb Hct MCV MCH MCHC RDW Std Deviation RDW Coeff of Trey Plt Count MPV Immature Gran % (Auto) Neut % (Auto) Lymph % (Auto) [place] % (Auto) Eos % (Auto) Baso % (Auto) Immature Gran # (Auto) Neut # (Auto) Lymph # (Auto) [place] # (Auto) Eos # (Auto) Baso # (Auto) PT INR APTT PTT Ratio Sodium Potassium Chloride Carbon Dioxide Anion Gap BUN Creatinine Est Cr Clr Drug Dosing Est GFR ( Amer) Est GFR (Non-Af Amer) BUN/Creatinine Ratio Glucose POC Glucose 95 179 H 133 H Calcium Total Bilirubin AST ALT Alkaline Phosphatase Total Protein Albumin Globulin Albumin/Globulin Ratio Urine Color Urine Appearance Urine pH Ur Specific [place] Urine Protein Urine Glucose (UA) Urine Ketones Urine Blood Urine Nitrite Urine Bilirubin Urine Urobilinogen Ur Leukocyte Esterase Urine WBC (Auto) Urine RBC (Auto) U Hyaline Cast (Auto) U Epithel Cells (Auto) Urine Bacteria (Auto) Urine Opiates Screen Ur Methadone, Qual Urine Barbiturates Ur Phencyclidine (PCP) U Amphetamin/Meth Scrn MDMA (Ecstasy) Screen U Benzodiazepines Scrn Ur Cocaine Metabolite U Marijuana (THC) Screen 08/25/18 08/25/18 08/25/18 07:09 07:09 07:09 WBC 9.79 RBC 4.76 Hgb 13.4 Hct 39.1 MCV 82.1 MCH 28.2 MCHC 34.3 RDW Std Deviation 41.4 RDW Coeff of Trey 13.8 Plt Count 249 MPV 10.0 Immature Gran % (Auto) 0.2 Neut % (Auto) 60.4 Lymph % (Auto) 26.8 [place] % (Auto) 6.6 Eos % (Auto) 5.7 Baso % (Auto) 0.3 Immature Gran # (Auto) 0.02 Neut # (Auto) 5.91 Lymph # (Auto) 2.62 [place]ender # (Auto) 0.65 H Eos # (Auto) 0.56 H Baso # (Auto) 0.03 PT 10.9 INR 1.1 APTT 26.1 PTT Ratio 1.0 Sodium 141 D Potassium 4.4 D Chloride 105 Carbon Dioxide 31 Anion Gap 5.0 BUN 24 H Creatinine 1.28 H D Est Cr Clr Drug Dosing 77.4 Est GFR ( Amer) 57.2 Est GFR (Non-Af Amer) 49.4 BUN/Creatinine Ratio 18.8 Glucose 155 H POC Glucose Calcium 9.1 Total Bilirubin 0.3 AST 11 L ALT 12 Alkaline Phosphatase 130 H Total Protein 6.5 Albumin 2.5 L Globulin 4.0 Albumin/Globulin Ratio 0.6 L Urine Color Urine Appearance Urine pH Ur Specific [place] Urine Protein Urine Glucose (UA) Urine Ketones Urine Blood Urine Nitrite Urine Bilirubin Urine Urobilinogen Ur Leukocyte Esterase Urine WBC (Auto) Urine RBC (Auto) U Hyaline Cast (Auto) U Epithel Cells (Auto) Urine Bacteria (Auto) Urine Opiates Screen Ur Methadone, Qual Urine Barbiturates Ur Phencyclidine (PCP) U Amphetamin/Meth Scrn MDMA (Ecstasy) Screen U Benzodiazepines Scrn Ur Cocaine Metabolite U Marijuana (THC) Screen 08/25/18 08/25/18 07:31 11:18 WBC RBC Hgb Hct MCV MCH MCHC RDW Std Deviation RDW Coeff of Trey Plt Count MPV Immature Gran % (Auto) Neut % (Auto) Lymph % (Auto) [place] % (Auto) Eos % (Auto) Baso % (Auto) Immature Gran # (Auto) Neut # (Auto) Lymph # (Auto) [place] # (Auto) Eos # (Auto) Baso # (Auto) PT INR APTT PTT Ratio Sodium Potassium Chloride Carbon Dioxide Anion Gap BUN Creatinine Est Cr Clr Drug Dosing Est GFR ( Amer) Est GFR (Non-Af Amer) BUN/Creatinine Ratio Glucose POC Glucose 180 H 279 H Calcium Total Bilirubin AST ALT Alkaline Phosphatase Total Protein Albumin Globulin Albumin/Globulin Ratio Urine Color Urine Appearance Urine pH Ur Specific [place] Urine Protein Urine Glucose (UA) Urine Ketones Urine Blood Urine Nitrite Urine Bilirubin Urine Urobilinogen Ur Leukocyte Esterase Urine WBC (Auto) Urine RBC (Auto) U Hyaline Cast (Auto) U Epithel Cells (Auto) Urine Bacteria (Auto) Urine Opiates Screen Ur Methadone, Qual Urine Barbiturates Ur Phencyclidine (PCP) U Amphetamin/Meth Scrn MDMA (Ecstasy) Screen U Benzodiazepines Scrn Ur Cocaine Metabolite U Marijuana (THC) Screen ECG Additional Comments: Telemetry reveals normal sinus rhythm and occasional sinus tachycardia. No other arrhythmias. (1) CHF (congestive heart failure) Heart failure chronicity: acute on chronic Heart failure type: unspecified Qualified Code(s): I50.9 - Heart failure, unspecified
[2018-08-25 18:13] LABS: Base Excess VBG 2.4 mEq/L; Oxygen Saturation VBG 88.3 %; pH VBG 7.4 (7.36-7.41)
[2018-08-25] MEDS: MIRTAZAPINE SOLTAB 15 MG PO SCH (21:07)
--- NOTE | 2018-08-25 22:54 | Hospitalist Progress Note ---
Date of Service August 25, 2018 Assessment & Plan (1) Acute on chronic systolic heart failure, NYHA class 3: Acute on chronic systolic heart failure/uncontrolled hypertension/dysfunctional life vest- Patient appears to be improving. Give Lasix 60 mg IV twice daily. Nitropaste 1 inch anterior chest wall every 6 hours. Metoprolol tartrate 50 mg p.o. now then 50 mg p.o. twice daily with hold parameters. Awaiting records from [facility] for cardiology review from 2-week long admission in May 2018. Cardiology consult apppreciate inpit. (2) Uncontrolled hypertension, stage 1: See above. (3) Diabetes mellitus with hyperglycemia: Blood sugar better controlled. Glycemic consult has been ordered. (4) Renal insufficiency: Creatinine 1.59 upon admission. With no recent baseline. Creat improved on day 2. (5) Hypomagnesemia: See above. (6) Hypoalbuminemia: Will need to be investigated whether this is nutritional, or losses due to GI or urinary system. Likely nutriotional. will defer to PCP. (7) Hypothyroidism (acquired): TSH elevated at 12.1. Free T4 normal. likely subclinical hypothyroidism. Will continue to monitor for now (8) Anxiety with depression: Unclear current medications his medication list is not been verified yet. (9) Morbid obesity with BMI of 45.0-49.9, adult: (10) Cerebrovascular disease: Obtain records from [facility] detailing stroke that she had in May 2018. Spent 35 minutes of mnagement. Subjective Patient reports feeling much better today. Her shortness of breath has improved significantly. She is still not at baseline however. She denies any fever, chills, nausea, vomiting. EARLIER TODAY patient was somnolent, but this was after taking xanax. She states that she normally takes this medicine. However in the past 2 weeks, she had not taken them. Review of Systems Review of Systems: All systems reviewed & are unremarkable except as noted in HPI & below Physical Exam Physical Exam: The patient is awake, alert and oriented 3, sitting upright in bed and in no acute distress at rest. HEENT--Right eye closed. mucous membranes and oropharynx normal. Neck--supple. No JVD. No bruits. Thyroid normal, trachea midline, no adenopathy. Heart--normal S1 and S2. No murmurs, rubs or gallops. Lungs--crackles at the bases bilaterally. No respiratory distress, no accessory muscle use. Abdomen--normal bowel sounds and soft. Nontender. Nondistended. Morbidly obese. Extremities--no cyanosis or clubbing. 2+ bilateral pretibial pitting edema. Dermatologic--normal skin turgor, normal color, no abnormal lymph nodes, no rash. Neurologic--cranial nerves II through XII grossly intact. Rheumatologic--normal range of motion. Psychiatric--normal affect. Results & Data Vital Signs (Past 12 Hours) Vital Signs Temp Pulse Resp BP BP Pulse Ox 08/25/18 20:48 36.6 C 89 20 126/86 97 08/25/18 15:05 36.4 C L 80 18 129/87 98 08/25/18 11:40 37.0 C 89 20 158/76 H
[2018-08-26] MEDS: NITROGLYCERIN 2% OINTMENT 30GM TUBE EXT SCH ×3 (00:06→12:39)
[2018-08-26 07:24] LABS: Basophils # (auto) 0.03 K/uL (0-0.2); Basophils % (auto) 0.2 %; Eosinophils # (auto) 0.44 K/uL (0-0.5); Eosinophils % (auto) 3.5 %; Hematocrit (blood only) 37.5 % (37-47); Hemoglobin 12.7 g/dL (12.0-16.0); Immature Granulocytes # (auto) 0.03 K/uL (0.00-0.02); Immature Granulocytes % (auto) 0.2 %; Lymphocytes # (auto) 2.95 K/uL (1.2-3.4); Lymphocytes % (auto) 23.2 %; Mean Corpuscular Hgb Conc 33.9 g/dL (32-36); Monocytes # (auto) 0.93 K/uL (0.11-0.59); Monocytes % (auto) 7.3 %; Neutrophils # (auto) 8.32 K/uL (1.4-6.5); Neutrophils % (auto) 65.6 %; Platelet Count 271 K/uL (130-400); RDW Coefficient of Variation 13.8 % (11.5-14.5); RDW Standard Deviation 41.1 fL (36.4-46.3); Red Blood Count 4.52 M/uL (4.2-5.4)
[2018-08-26 07:33] LABS: INR 1.1 (0.9-1.1)
[2018-08-26 07:43] LABS: Albumin Level 2.7 gm/dl (3.4-5.0); BUN Creatinine Ratio 20.1 (10-20); Calcium 8.6 mg/dl (8.5-10.1); Creatinine Clr Calc Pharmacy 55.7 ml/min; Est GFR (Non-African American) 34.6; Magnesium 2.1 mg/dl (1.8-2.4); Potassium 4.1 mmol/L (3.5-5.1)
[2018-08-26 07:47] LABS: Albumin Globulin Ratio 0.7 (0.9-2); Bilirubin,Total 0.4 mg/dl (0.2-1); Total Protein 6.7 gm/dl (6.4-8.2)
[2018-08-26] MEDS: FUROSEMIDE 60 MG in SYRINGE 0 ML IV SCH (08:00)
[2018-08-26] MEDS: METOPROLOL TARTRATE 50 MG TAB PO SCH ×2 (08:00→21:14)
[2018-08-26] MEDS: PARoxetine HCl 20 MG TAB PO SCH ×2 (08:00→21:15)
[2018-08-26] MEDS: LURASIDONE HCL 40 MG TAB PO SCH (08:01)
[2018-08-26] MEDS: ASPIRIN 81 MG ECTAB PO SCH (08:01)
[2018-08-26] MEDS: GABAPENTIN 300 MG CAP PO SCH ×2 (08:01→21:14)
[2018-08-26] MEDS: lamoTRIgine 100 MG TAB PO SCH ×2 (08:01→21:11)
[2018-08-26] MEDS: INSULIN GLARGINE SOLOSTAR 100 UNITS/ML 3 ML PEN SC SCH ×2 (08:02→21:12)
[2018-08-26] MEDS: INSULIN ASPART 100 UNITS/ML 3 ML PEN SC SCH ×4 (08:03→21:19)
--- NOTE | 2018-08-26 16:40 | Cardiology Progress Note ---
Date of Service August 26, 2018 Assessment & Plan (1) CHF (congestive heart failure): She appears better compensated currently. Her BUN and creatinine have risen suggesting an element of intravascular depletion. Her intravenous diuretic was stopped. I think she still will require a daily diuretic and would favor 40 milligrams of Lasix every day. She has been switched to metoprolol succinate. Ideally she would be on Karson inhibition as well but I think we will need to monitor her renal function for awhile to see if it normalizes. Her degree of LV dysfunction is severe enough that she would benefit from a defibrillator as primary prevention. However, it is not clear that she has had a reasonable trial medical therapy yet. I think we can reassess this in the outpatient setting. I do not believe she requires a life vest at the time of discharge. (2) Atypical chest pain: She certainly has a lot of risk factors for coronary disease. She reports having had a prior evaluation. Still awaiting records in order to determine if she requires any additional coronary evaluation. (3) Sinus tachycardia: Resolved Subjective This afternoon the patient claims to be feeling better. She states that her breathing is much improved since admission. She reported feeling more energy today. She reported ambulating around her room without symptoms of limiting dyspnea or dizziness. Review of Systems Review of Systems: Per HPI Physical Exam Physical Exam: She is alert and oriented x3. Mood affect appear normal. She answered all questions appropriately. HEENT: The right eye is absent. No scleral icterus. Neuro: Cranial nerves intact Lungs: Bibasilar rales with good respiratory effort. No expiratory wheezing. Cardiac: The rhythm was regular. S1 and S2 were normal. There are no murmurs on examination. The PMI was not markedly displaced on palpation. Abdomen: Obese Extremities: Mild lower extremity edema. Skin: There are no rashes noted on examination today. Results & Data Vital Signs (Past 12 Hours) Vital Signs Temp Pulse Resp BP Pulse Ox 08/26/18 15:17 36.8 C 82 19 127/84 97 08/26/18 11:58 36.7 C 85 18 134/85 93 08/26/18 08:40 36.4 C L 82 18 149/101 H 93 08/26/18 05:45 80 143/82 H Laboratory Results Abnormal Lab Results 08/25/18 08/25/18 08/25/18 17:43 20:23 22:40 WBC RBC Hgb Hct MCV MCH MCHC RDW Std Deviation RDW Coeff of Trey Plt Count MPV Immature Gran % (Auto) Neut % (Auto) Lymph % (Auto) [place] % (Auto) Eos % (Auto) Baso % (Auto) Immature Gran # (Auto) Neut # (Auto) Lymph # (Auto) [place] # (Auto) Eos # (Auto) Baso # (Auto) PT INR VBG pH 7.40 VBG pCO2 47 VBG pO2 54 VBG HCO3 28 VBG O2 Saturation 88.3 VBG Base Excess 2.4 Barometric Pressure 733.4 Sodium Potassium Chloride Carbon Dioxide Anion Gap BUN Creatinine Est Cr Clr Drug Dosing Est GFR ( Amer) Est GFR (Non-Af Amer) BUN/Creatinine Ratio Glucose POC Glucose 141 H 74 Calcium Magnesium Total Bilirubin AST ALT Alkaline Phosphatase Total Protein Albumin Globulin Albumin/Globulin Ratio 08/26/18 08/26/18 08/26/18 02:01 07:07 07:07 WBC 12.70 H RBC 4.52 Hgb 12.7 Hct 37.5 MCV 83.0 MCH 28.1 MCHC 33.9 RDW Std Deviation 41.1 RDW Coeff of Trey 13.8 Plt Count 271 MPV 10.0 Immature Gran % (Auto) 0.2 Neut % (Auto) 65.6 Lymph % (Auto) 23.2 [place] % (Auto) 7.3 Eos % (Auto) 3.5 Baso % (Auto) 0.2 Immature Gran # (Auto) 0.03 H Neut # (Auto) 8.32 H Lymph # (Auto) 2.95 [place] # (Auto) 0.93 H Eos # (Auto) 0.44 Baso # (Auto) 0.03 PT 11.0 INR 1.1 VBG pH VBG pCO2 VBG pO2 VBG HCO3 VBG O2 Saturation VBG Base Excess Barometric Pressure Sodium Potassium Chloride Carbon Dioxide Anion Gap BUN Creatinine Est Cr Clr Drug Dosing Est GFR ( Amer) Est GFR (Non-Af Amer) BUN/Creatinine Ratio Glucose POC Glucose 118 H Calcium Magnesium Total Bilirubin AST ALT Alkaline Phosphatase Total Protein Albumin Globulin Albumin/Globulin Ratio 08/26/18 08/26/18 08/26/18 07:07 07:35 11:23 WBC RBC Hgb Hct MCV MCH MCHC RDW Std Deviation RDW Coeff of Trey Plt Count MPV Immature Gran % (Auto) Neut % (Auto) Lymph % (Auto) [place] % (Auto) Eos % (Auto) Baso % (Auto) Immature Gran # (Auto) Neut # (Auto) Lymph # (Auto) [place] # (Auto) Eos # (Auto) Baso # (Auto) PT INR VBG pH VBG pCO2 VBG pO2 VBG HCO3 VBG O2 Saturation VBG Base Excess Barometric Pressure Sodium 137 Potassium 4.1 Chloride 101 Carbon Dioxide 31 Anion Gap 5.0 BUN 35 H Creatinine 1.72 H D Est Cr Clr Drug Dosing 55.7 Est GFR ( Amer) 40.0 Est GFR (Non-Af Amer) 34.6 BUN/Creatinine Ratio 20.1 H Glucose 155 H POC Glucose 149 H 196 H Calcium 8.6 Magnesium 2.1 Total Bilirubin 0.4 AST 13 L ALT 14 Alkaline Phosphatase 134 H Total Protein 6.7 Albumin 2.7 L Globulin 4.0 Albumin/Globulin Ratio 0.7 L 08/26/18 08/26/18 08/26/18 15:55 16:09 16:25 WBC RBC Hgb Hct MCV MCH MCHC RDW Std Deviation RDW Coeff of Trey Plt Count MPV Immature Gran % (Auto) Neut % (Auto) Lymph % (Auto) [place] % (Auto) Eos % (Auto) Baso % (Auto) Immature Gran # (Auto) Neut # (Auto) Lymph # (Auto) [place] # (Auto) Eos # (Auto) Baso # (Auto) PT INR VBG pH VBG pCO2 VBG pO2 VBG HCO3 VBG O2 Saturation VBG Base Excess Barometric Pressure Sodium Potassium Chloride Carbon Dioxide Anion Gap BUN Creatinine Est Cr Clr Drug Dosing Est GFR ( Amer) Est GFR (Non-Af Amer) BUN/Creatinine Ratio Glucose POC Glucose 78 65 L* 130 H Calcium Magnesium Total Bilirubin AST ALT Alkaline Phosphatase Total Protein Albumin Globulin Albumin/Globulin Ratio (1) CHF (congestive heart failure) Heart failure chronicity: acute on chronic Heart failure type: unspecified Qualified Code(s): I50.9 - Heart failure, unspecified
[2018-08-26] MEDS: MIRTAZAPINE SOLTAB 15 MG PO SCH (21:15)
--- NOTE | 2018-08-26 22:58 | Hospitalist Progress Note ---
Date of Service August 26, 2018 Assessment & Plan (1) Acute on chronic systolic heart failure, NYHA class 3: Acute on chronic systolic heart failure/uncontrolled hypertension/dysfunctional life vest- Patient appears to be improving. Patient responded to diuretics. Will hold iv lasix as creatinine has worsened today. will switch toprol xl to 100 mg PO XL. Awaiting records from [facility] for cardiology review from 2-week long admission in May 2018. Cardiology consult apppreciate inpit. (2) Uncontrolled hypertension, stage 1: See above. (3) Diabetes mellitus with hyperglycemia: Blood sugar better controlled. Glycemic consult has been ordered. (4) Renal insufficiency: Creatinine 1.59 upon admission. With no recent baseline. Creat worsened on day 3. will stop lasix. (5) Hypomagnesemia: See above. (6) Hypoalbuminemia: Will need to be investigated whether this is nutritional, or losses due to GI or urinary system. Likely nutriotional. will defer to PCP. (7) Hypothyroidism (acquired): TSH elevated at 12.1. Free T4 normal. likely subclinical hypothyroidism. Will continue to monitor for now (8) Anxiety with depression: Unclear current medications his medication list is not been verified yet. (9) Morbid obesity with BMI of 45.0-49.9, adult: (10) Cerebrovascular disease: Obtain records from [facility] detailing stroke that she had in May 2018. Spent 25 minutes of management. Subjective 48 yo female reports feeling better today. She reports that her breathing is close to her baseline. Patient denies any nausea, vomiting, diarrhea. Review of Systems Review of Systems: All systems reviewed & are unremarkable except as noted in HPI & below Physical Exam Physical Exam: The patient is awake, alert and oriented 3, sitting upright in bed and in no acute distress at rest. HEENT--Right eye closed. mucous membranes and oropharynx normal. Neck--supple. No JVD. No bruits. Thyroid normal, trachea midline, no suri nopathy. Heart--normal S1 and S2. No murmurs, rubs or gallops. Lungs--crackles at the bases bilaterally. No respiratory distress, no accessory muscle use. Abdomen--normal bowel sounds and soft. Nontender. Nondistended. Morbidly obese. Extremities--no cyanosis or clubbing. decreased edema.. Dermatologic--normal skin turgor, normal color, no abnormal lymph nodes, no rash. Neurologic--cranial nerves II through XII grossly intact. Rheumatologic--normal range of motion. Psychiatric--normal affect. Results & Data Vital Signs (Past 12 Hours) Vital Signs Temp Pulse Resp BP Pulse Ox 08/26/18 19:09 36.6 C 88 22 147/93 H 98 08/26/18 15:17 36.8 C 82 19 127/84 97 08/26/18 11:58 36.7 C 85 18 134/85 93
[2018-08-27 06:03] LABS: Basophils # (auto) 0.02 K/uL (0-0.2); Basophils % (auto) 0.2 %; Eosinophils # (auto) 0.41 K/uL (0-0.5); Eosinophils % (auto) 3.8 %; Hematocrit (blood only) 37.9 % (37-47); Hemoglobin 12.9 g/dL (12.0-16.0); Immature Granulocytes # (auto) 0.01 K/uL (0.00-0.02); Immature Granulocytes % (auto) 0.1 %; Lymphocytes # (auto) 2.76 K/uL (1.2-3.4); Lymphocytes % (auto) 25.4 %; Mean Corpuscular Volume 82.8 fL (80-100); Mean Platelet Volume 9.9 fL (7.4-10.4); Monocytes % (auto) 6.4 %; Neutrophils # (auto) 6.96 K/uL (1.4-6.5); Neutrophils % (auto) 64.1 %; Platelet Count 271 K/uL (130-400); RDW Coefficient of Variation 13.7 % (11.5-14.5); RDW Standard Deviation 40.9 fL (36.4-46.3); Red Blood Count 4.58 M/uL (4.2-5.4); White Blood Count 10.86 K/uL (4.8-10.8)
[2018-08-27 06:21] LABS: INR 1.1 (0.9-1.1); Prothrombin Time 10.9 Seconds (9.0-12.0)
[2018-08-27 06:38] LABS: Albumin Level 2.6 gm/dl (3.4-5.0); BUN Creatinine Ratio 22.4 (10-20); Calcium 8.9 mg/dl (8.5-10.1); Creatinine Clr Calc Pharmacy 67.6 ml/min; Est GFR (African American) 51.4; Est GFR (Non-African American) 44.3; Magnesium 2.1 mg/dl (1.8-2.4); Potassium 3.7 mmol/L (3.5-5.1)
[2018-08-27 06:41] LABS: Albumin Globulin Ratio 0.6 (0.9-2); Bilirubin,Total 0.2 mg/dl (0.2-1); Globulin 4.1 gm/dl (2.5-4.0); Total Protein 6.7 gm/dl (6.4-8.2)
[2018-08-27] MEDS: ASPIRIN 81 MG ECTAB PO SCH (07:27)
[2018-08-27] MEDS: GABAPENTIN 300 MG CAP PO SCH (07:27)
[2018-08-27] MEDS: PARoxetine HCl 20 MG TAB PO SCH (07:27)
[2018-08-27] MEDS: LURASIDONE HCL 40 MG TAB PO SCH (07:28)
[2018-08-27] MEDS: lamoTRIgine 100 MG TAB PO SCH (07:29)
[2018-08-27] MEDS: INSULIN ASPART 100 UNITS/ML 3 ML PEN SC SCH ×2 (07:33→11:47)
[2018-08-27] MEDS ORDERED: INSULIN GLARGINE SOLOSTAR 100 UNITS/ML 3 ML PEN SC SCH ×2 (09:00)
[2018-08-27] MEDS ORDERED: METOPROLOL SUCC 50MG EXT REL TAB PO SCH (09:00)
--- NOTE | 2018-08-27 12:07 | Cardiology Progress Note ---
Date of Service August 27, 2018 Assessment & Plan (1) CHF (congestive heart failure): She appears well compensated. BUN and creatinine are improving. I do not believe she requires any dose of diuretic going home but will need to monitor volume status closely in the outpatient setting and determine if daily dose would be warranted. She is doing well on metoprolol succinate. I think adding a low-dose Karson inhibitor such as lisinopril 5 milligrams daily would be reasonable. If started prior to discharge she should have her electrolytes and renal function reassessed within a few days in an outpatient setting. Based on her degree of LV dysfunction, she would qualify for defibrillator. However I do not believe she has been on adequate medical therapy for a long enough period to make that determination yet. Will continue to address this stopping the outpatient setting. Certainly stable for discharge from my standpoint. (2) Atypical chest pain: She certainly has a lot of risk factors for coronary disease. She reports having had a prior evaluation. Still awaiting records in order to determine if she requires any additional coronary evaluation. (3) Sinus tachycardia: Resolved Subjective This morning the patient claims to be feeling well. She states she did not have any breathing difficulty. She reported being ambulatory around her room without symptoms of limiting dyspnea or dizziness. No symptoms of chest pain. Review of Systems Review of Systems: Per HPI Physical Exam Physical Exam: She is alert and oriented x3. Mood affect appear normal. She answered all questions appropriately. 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 No scleral icterus. Neuro: Cranial nerves intact Lungs: Lungs are clear to auscultation bilaterally. There are no rales wheezes or rhonchi. She has normal respiratory effort without use of accessory muscles. There is normal pulmonary excursion. Cardiac: The rhythm was regular. S1 and S2 were normal. There are no murmurs on examination. The PMI was not markedly displaced on palpation. Extremities: Patient has bilateral radial pulses that are equal in intensity. There is no evidence cyanosis or clubbing. Skin: There are no rashes noted on examination today. Results & Data Vital Signs (Past 12 Hours) Vital Signs Temp Pulse Resp BP BP Pulse Ox 08/27/18 11:10 36.6 C 84 19 144/95 H 98 08/27/18 07:11 36.8 C 80 18 156/97 H 98 08/27/18 03:10 36.5 C 76 16 148/83 H 97 05/23/19 00:22 37.0 C 82 16 131/72 98 Laboratory Results Abnormal Lab Results 08/26/18 08/26/18 08/26/18 15:55 16:09 16:25 WBC RBC Hgb Hct MCV MCH MCHC RDW Std Deviation RDW Coeff of Trey Plt Count MPV Immature Gran % (Auto) Neut % (Auto) Lymph % (Auto) [place] % (Auto) Eos % (Auto) Baso % (Auto) Immature Gran # (Auto) Neut # (Auto) Lymph # (Auto) [place] # (Auto) Eos # (Auto) Baso # (Auto) PT INR Sodium Potassium Chloride Carbon Dioxide Anion Gap BUN Creatinine Est Cr Clr Drug Dosing Est GFR ( Amer) Est GFR (Non-Af Amer) BUN/Creatinine Ratio Glucose POC Glucose 78 65 L* 130 H Calcium Magnesium Total Bilirubin AST ALT Alkaline Phosphatase Total Protein Albumin Globulin Albumin/Globulin Ratio 08/26/18 08/26/18 08/27/18 19:35 20:06 05:45 WBC 10.86 H RBC 4.58 Hgb 12.9 Hct 37.9 MCV 82.8 MCH 28.2 MCHC 34.0 RDW Std Deviation 40.9 RDW Coeff of Trey 13.7 Plt Count 271 MPV 9.9 Immature Gran % (Auto) 0.1 Neut % (Auto) 64.1 Lymph % (Auto) 25.4 [place] % (Auto) 6.4 Eos % (Auto) 3.8 Baso % (Auto) 0.2 Immature Gran # (Auto) 0.01 Neut # (Auto) 6.96 H Lymph # (Auto) 2.76 [place] # (Auto) 0.70 H Eos # (Auto) 0.41 Baso # (Auto) 0.02 PT INR Sodium Potassium Chloride Carbon Dioxide Anion Gap BUN Creatinine Est Cr Clr Drug Dosing Est GFR ( Amer) Est GFR (Non-Af Amer) BUN/Creatinine Ratio Glucose POC Glucose 71 96 Calcium Magnesium Total Bilirubin AST ALT Alkaline Phosphatase Total Protein Albumin Globulin Albumin/Globulin Ratio 08/27/18 08/27/18 08/27/18 05:45 05:45 07:01 WBC RBC Hgb Hct MCV MCH MCHC RDW Std Deviation RDW Coeff of Trey Plt Count MPV Immature Gran % (Auto) Neut % (Auto) Lymph % (Auto) [place] % (Auto) Eos % (Auto) Baso % (Auto) Immature Gran # (Auto) Neut # (Auto) Lymph # (Auto) [place] # (Auto) Eos # (Auto) Baso # (Auto) PT 10.9 INR 1.1 Sodium 139 Potassium 3.7 Chloride 104 Carbon Dioxide 30 Anion Gap 5.0 BUN 31 H Creatinine 1.40 H D Est Cr Clr Drug Dosing 67.6 Est GFR ( Amer) 51.4 Est GFR (Non-Af Amer) 44.3 BUN/Creatinine Ratio 22.4 H Glucose 72 POC Glucose 72 Calcium 8.9 Magnesium 2.1 Total Bilirubin 0.2 AST 14 L ALT 14 Alkaline Phosphatase 127 H Total Protein 6.7 Albumin 2.6 L Globulin 4.1 H Albumin/Globulin Ratio 0.6 L (1) CHF (congestive heart failure) Heart failure chronicity: acute on chronic Heart failure type: unspecified Qualified Code(s): I50.9 - Heart failure, unspecified
--- NOTE | 2018-08-27 13:16 | Pharmacy Report ---
Pharmacy Glycemic Short Note 2 - Date of Service August 27, 2018 - Glycemic Short BSG Results (Last 24 hours): 08/26/18 08/26/18 08/26/18 15:55 16:09 16:25 Glucose POC Glucose 78 65 L* 130 H 08/26/18 08/26/18 08/27/18 19:35 20:06 05:45 Glucose 72 POC Glucose 71 96 08/27/18 08/27/18 07:01 11:08 Glucose POC Glucose 72 170 H OUTPATIENT ANTIDIABETIC REGIMEN: * Basaglar 50 units BID, Lispro 30 U TID ASSESSMENT: * Ms. Rausch received 131 units of insulin yesterday with BSGs ranging from 65- 196 * 70 units of basal; 61 units of bolus * Patient's BSGs trended down through the course of the day after tightened carb ratio, will loosen back to previous * Fasting this morning 72, slightly below goal, loosened lantus 15% today PLAN FOR INPATIENT GLYCEMIC CONTROL: * Hold outpatient oral diabetes medications * Basal insulin * Lantus 30 units SQ BID * Bolus insulin * NovoLog per scale ACHS or Q6hrs while NPO * Goal Range: Low 110 mg/dL - High 140 mg/dL * Correction Factor: 10 mg/dL/unit * Nutritional / Prandial insulin per carb ratio of 1 unit per 4 grams CHO consumed PLAN FOR DISCHARGE: * Patient's HbA1C is elevated. She reports going approximately 2 weeks without insulin. This was recent and would reflect highly in the A1C. Recommend repeat in 1 month to establish true control.
--- NOTE | 2018-09-06 21:58 | Discharge Summary ---
Date of Service August 27, 2018 Admission HPI Per Admitting Provider The patient is a 48-year-old female with a past medical history including systolic CHF, diabetes mellitus insulin requiring, depression, hypertension, GERD, peripheral neuropathy, hyperlipidemia, iron deficiency and recent hospitalization at [facility] in May 2018, where she was prescribed a LifeVest, that she reports that she has not been able to wear due to a faulty battery. She reports that 1 week ago she began to get short of breath, initially primarily with exertion, but now has extended to being at rest as well. Over the past 24 hours she developed progressively more shortness of b reath and now has developed substernal chest discomfort. She denies any change in diet, particular reports her that she does not take in sodium. Principal Diagnosis acute on chronic systolic heart failure class 3 Discharge Exam The patient is awake, alert and oriented 3, sitting upright in bed and in no acute distress at rest. HEENT--Right eye closed. mucous membranes and oropharynx normal. Neck--supple. No JVD. No bruits. Thyroid normal, trachea midline, no adenopathy. Heart--normal S1 and S2. No murmurs, rubs or gallops. Lungs--crackles at the bases bilaterally. No respiratory distress, no accessory muscle use. Abdomen--normal bowel sounds and soft. Nontender. Nondistended. Morbidly obese. Extremities--no cyanosis or clubbing. decreased edema.. Dermatologic--normal skin turgor, normal color, no abnormal lymph nodes, no rash. Neurologic--cranial nerves II through XII grossly intact. Rheumatologic--normal range of motion. Psychiatric--normal affect. Discharge Data Allergies Allergy/AdvReac Type Severity Reaction Status Date / Time No Known Allergies Allergy Verified 08/24/18 07:28 Consultations 08/24/18 05:35 ED Decision to Admit Stat 08/24/18 07:30 Consult Health Information Management Stat 08/24/18 07:37 Consult Cardiology Routine 08/24/18 07:49 Consult Cardiology Routine Consult Case Management - Discharge Planning Routine Ordered Studies 08/24/18 04:35 CT angio chest PE protocol Urgent Hospital Course (1) Acute on chronic systolic heart failure, NYHA class 3: Acute on chronic systolic heart failure/uncontrolled hypertension/dysfunctional life vest- Patient appears to be improving. Patient responded to diuretics. switched toprol xl to 100 mg PO XL. Awaiting records from [facility] for cardiology review from 2-week long admission in May 2018. Cardiology consult apppreciate input. (1) CHF (congestive heart failure): She appears well compensated. BUN and creatinine are improving. I do not believe she requires any dose of diuretic going home but will need to monitor volume status closely in the outpatient setting and determine if daily dose would be warranted. She is doing well on metoprolol succinate. I think adding a low-dose Karson inhibitor such as lisinopril 5 milligrams daily would be reasonable. If started prior to discharge she should have her electrolytes and renal function reassessed within a few days in an outpatient setting. Based on her degree of LV dysfunction, she would qualify for defibrillator. However I do not believe she has been on adequate medical therapy for a long enough period to make that determination yet. Will continue to address this stopping the outpatient setting. Certainly stable for discharge from my standpoint. (2) Atypical chest pain: She certainly has a lot of risk factors for coronary disease. She reports having had a prior evaluation. Still awaiting records in order to determine if she requires any additional coronary evaluation. (3) Sinus tachycardia: Resolved (2) Uncontrolled hypertension, stage 1: See above. (3) Diabetes mellitus with hyperglycemia: Blood sugar better controlled. Glycemic consult has been ordered. (4) Renal insufficiency: Creatinine 1.59 upon admission. With no recent baseline. Creat worsened on day 3. will stop lasix. improved on discharge. (5) Hypomagnesemia: See above. (6) Hypoalbuminemia: Will need to be investigated whether this is nutritional, or losses due to GI or urinary system. Likely nutriotional. will defer to PCP. (7) Hypothyroidism (acquired): TSH elevated at 12.1. Free T4 normal. likely subclinical hypothyroidism. Will continue to monitor for now (8) Anxiety with depression: Unclear current medications his medication list is not been verified yet. (9) Morbid obesity with BMI of 45.0-49.9, adult: (10) Cerebrovascular disease: Obtain records from [facility] detailing stroke that she had in May 2018. Total Time Total Time Spent Total Time Spent (In Minutes): 35 Total Time Includes: Examination of the Patient, Discharge Planning and Medication Reconciliation Discharge Plan Discharge Items Patient Disposition: Home - Self-Care Reason For Visit: ACUTE ON CHRONIC CHF, CHEST PAIN Discharge Diagnosis: Acute on chronic CHF, chest pain. Discharge Goals: Decrease discomfort Activity: Resume your previous activity Non-emergency contact: Primary Care Provider Call non-emergency contact if: you have any medication questions Follow-up/Referrals: Adalberto Rodriguez M.D. [Primary Care Provider] - 09/01/18 2:30 pm (Please, follow up at Dr. Rodriguez's office with Parisa Ba SULY on FridaySeptember 01 at 1:30 pm. *This is the [facility] in [place]. If you need to change this appointment, call their office at [phone].) Diet: Regular Fluids: 1800ml (7 cups) Addtl Provider Instructions: You were seen for heart failure. You responded to diuretics. However now you are dry. Will recommend monitoring weight and have close followup. Call your Primary Care doctor if any of the following symptoms or problems start or get worse: * Shortness of breath or difficulty breathing * Wake up at night short of breath * Chest pain * Cough * Swelling of your hands, feet, or legs * More fatigued or tired with your normal activity * Palpitations - sudden fast heart beats WEIGHT * Weigh yourself every morning after using the bathroom. * Use the same scale. * Wear the same amount of clothing. * Write your weight down on a chart. * Call your Primary Care doctor if you gain more than 2-3 pounds in 1-2 days. MEDICATIONS * Use this discharge instruction sheet for medication instructions. * Take your medications at the time your doctor ordered. * Do not skip a dose of your medicines. * If you miss a dose of medicine, take it as soon as possible, but DO NOT DOUBLE A DOSE. * Read your medicine information when you get home. * Know all of the side effects of your medicine. If in doubt, ask your pharmacist * Call your Primary Care doctor's office if you have any side effects. * Be sure all of your doctors know what medicine and herbs you take (including cold, flu, and herbal medicine). Take the following with you to your follow-up doctor appointments: * Weight Chart * Medication List * List of questions Do not drink excessive alcohol, beer or wine. Prescriptions: New metoprolol succinate 50 mg Tablet Extended Release 24 Hr 100 mg PO DAILY Qty: 30 RF: 0 lisinopril 5 mg tablet 5 mg PO DAILY Qty: 30 RF: 0 Continued atorvastatin 80 mg tablet 80 mg PO DAILY RF: 0 alprazolam 1 mg tablet 1 mg PO QID RF: 0 paroxetine HCl 30 mg tablet 30 mg PO BID RF: 0 gabapentin 300 mg capsule 300 mg PO BID RF: 0 mirtazapine 45 mg tablet 45 mg PO HS RF: 0 aspirin 81 mg tablet,chewable 81 mg PO DAILY RF: 0 albuterol sulfate [Ventolin HFA] 90 mcg/actuation HFA aerosol inhaler 2 puff inhalation Q4H PRN (Reason: Shortness Of Breath Or Wheezing) RF: 0 fluticasone propionate 50 mcg/actuation [place],Suspension 2 spray INTRANASAL DAILY RF: 0 lamotrigine 100 mg tablet 100 mg PO BID RF: 0 insulin lispro [Admelog SoloStar U-100 Insulin] 100 unit/mL insulin pen 30 unit subcut TID RF: 0 ferrous gluconate 324 mg (38 mg iron) Tablet 324 mg PO DAILY RF: 0 Basaglar KwikPen U-100 Insulin 100 unit/mL (3 mL) insulin pen 50 unit subcut BID RF: 0 Latuda 80 mg tablet 80 mg PO DAILY RF: 0 Stand-Alone Forms: Call Back Authorization, [facility] Discharge Orders: Discharge Order (Routine); Ordered 08/27/18 Ordered By: Gavino Silverio Admission Data Admit Date/Time: 08/24/18 06:52 Attending Provider: Gavino Silverio Admit Provider: Varghese Perez Primary Care Provider: Adalberto Rodriguez Other Providers: Varghese Perez ; Tulio Navas ; Baron Crawley Service: Telemetry Other Interventions: Discharge Summary Assessment (RN) Last Done: 08/27/18 14:38 DC Date/Time DO NOT enter until pt leaves facility: 08/27/18 15:16
== END 2018-08-27 15:16 | disposition home or self-care (01) | DRG 292 ==
LOC: ED 03:17 → SUATTDRO 06:52 → 2S 06:52 → 2E 08-26 22:12
DX: I50.23 Acute on chronic systolic (congestive) heart failure; R00.0 Tachycardia, unspecified; E11.40 Type 2 diabetes mellitus with diabetic neuropathy, unspecified; Z79.4 Long term (current) use of insulin; E78.5 Hyperlipidemia, unspecified; E88.09 Other disorders of plasma-protein metabolism, not elsewhere classified; E66.01 Morbid (severe) obesity due to excess calories; I11.0 Hypertensive heart disease with heart failure; E11.65 Type 2 diabetes mellitus with hyperglycemia; Z86.73 Personal history of transient ischemic attack (TIA), and cerebral infarction without residual deficits; E83.42 Hypomagnesemia; R07.89 Other chest pain; E03.9 Hypothyroidism, unspecified; Z68.42 Body mass index [BMI] 45.0-49.9, adult

== ENCOUNTER 2018-09-09 02:07 | Observation (INO) ==
[2018-09-09 03:12] LABS: Basophils # (auto) 0.04 K/uL (0-0.2); Basophils % (auto) 0.4 %; Eosinophils # (auto) 0.37 K/uL (0-0.5); Eosinophils % (auto) 3.3 %; Hematocrit (blood only) 40.8 % (37-47); Hemoglobin 14.2 g/dL (12.0-16.0); Immature Granulocytes # (auto) 0.02 K/uL (0.00-0.02); Immature Granulocytes % (auto) 0.2 %; Lymphocytes # (auto) 2.48 K/uL (1.2-3.4); Lymphocytes % (auto) 22.3 %; Mean Corpuscular Hgb Conc 34.8 g/dL (32-36); Mean Corpuscular Volume 81.8 fL (80-100); Mean Platelet Volume 10.2 fL (7.4-10.4); Monocytes # (auto) 0.79 K/uL (0.11-0.59); Monocytes % (auto) 7.1 %; Neutrophils # (auto) 7.42 K/uL (1.4-6.5); Neutrophils % (auto) 66.7 %; Platelet Count 305 K/uL (130-400); RDW Coefficient of Variation 13.9 % (11.5-14.5); RDW Standard Deviation 41.5 fL (36.4-46.3); Red Blood Count 4.99 M/uL (4.2-5.4); White Blood Count 11.12 K/uL (4.8-10.8)
[2018-09-09 03:33] LABS: Alanine Aminotransferase 22 U/L (12-78); Albumin Globulin Ratio 0.6 (0.9-2); Albumin Level 2.6 gm/dl (3.4-5.0); Alkaline Phosphatase 153 U/L (45-117); BUN Creatinine Ratio 16.9 (10-20); Bilirubin,Total 0.3 mg/dl (0.2-1); Blood Urea Nitrogen 20 mg/dl (7-18); Calcium 8.7 mg/dl (8.5-10.1); Carbon Dioxide 27 mmol/L (21-32); Chloride 106 mmol/L (98-107); Creatinine Clr Calc Pharmacy 82.8 ml/min; Est GFR (African American) 61.9; Est GFR (Non-African American) 53.4; Globulin 4.4 gm/dl (2.5-4.0); Glucose 168 mg/dl (70-99); Sodium 139 mmol/L (136-145); Troponin I < 0.015 ng/ml (0-0.045)
[2018-09-09 04:27] LABS: Potassium 4.3 mmol/L (3.5-5.1)
--- NOTE | 2018-09-09 06:04 | History & Physical Report ---
Date of Service September 09, 2018 Assessment & Plan (1) Chest pain: Patient with severe left sided chest pain prior to arrival, associated with markedly elevated BP, 197/136 by patient report. Presently with dull ache in chest. ?ischemic CP, ?hypertensive emergency, ?anxiety -Observation to PCU, continuous cardiac monitoring -Trend troponin x 3 sets -2D echocardiogram -Obtain records from [facility] from prior catheterizations -Cardiology followup after discharge -Continue Aspirin, Atorvastatin, Lisinopril and Metoprolol -If blood pressure remains elevated may consider increasing Lisinopril or Metoprolol to target dose of 200mg daily Present on Admission?: Yes (2) Back strain: Patient reports a fall at home, nearly tripped over her grandchild. States she twisted her back and has been having increased pain since. -Check XR L spine -Tylenol PRN -Heat PRN Present on Admission?: Yes (3) CHF (congestive heart failure): Patient with newly diagnosed HFrEF, 25-30% with global hypokinesis per echo in August 2018. ?ischemic vs nonischemic cardiomyopathy. Patient presently appears euvolemic, denies signs/symptoms of SOB, edema, weight gain, orthopnea. Report taking her medication as prescribed. -Repeat echo as above -Continue Metoprolol, Lisinopril, consider dose increases pending results of echo and BP trend -Low Na diet as tolerated Present on Admission?: Yes (4) COPD (chronic obstructive pulmonary disease): Chronic. Stable. No SOB, cough or wheeze at present -Albuterol PRN Present on Admission?: Yes (5) Hypothyroid: Chronic. TSH 12.1 on 08/24/18 with T4 of 1.04 thought to be secondary to subclinical hypothyroidism -Repeat TFTs -Monitor Present on Admission?: Yes (6) Anxiety associated with depression: Patient reports increased anxiety and stress in her life of late -Continue Lamictal -Continue Latuda -Continue Paxil -Continue Remeron qhs Present on Admission?: Yes (7) Hypertension: Blood pressure elevated at present -Continue metoprolol and lisinopril -Continue to monitor Present on Admission?: Yes (8) Stroke: History of CVA with right sided weakness -Continue ASA -Continue Atorvastatin Present on Admission?: Yes (9) Diabetes: Poorly controlled 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 Poorly controlled, [id number]=43.7 on 08/24/18 -Continue Lantus 50u BID -ISS -Glycemic management consultation - appreciate assistance -CC diet as tolerated (10) Sinus tachycardia: KO=[id number], regular sinus. Patient with history of the same. ?CHF, anxiety, BB noncompliance -Continue Metoprolol -Tele monitoring F/E/N - Heplock. Monitor electroltyes and correct as needed, CC/Heart healthy/Low Na as tolerated Ppx - Lovenox for DVT ppx Code - Full Dispo - Obs to PCU Present on Admission?: Yes History of Present Illness Chief Complaint: chest pain Primary Care Provider: Adalberto Rodriguez Sonia Rausch is a 48yo C female with history of newly diagnosed systolic CHF with EF of 25-30%, poorly controlled insulin dependent DM (SdT0A=43.7 on 08/24/18), Hypertension, Hypothyroid, Morbid obesity presenting with chest pain. Patient reports an episode of severe high blood pressure while at home this evening, reading of 197/136 associated with substernal and left sided chest pain. Pain 10/10 in severity, sharp in nature, radiated across the chest and into left arm and neck. She reports tingling in her left arm as well as nausea and diaphoresis during the chest pain. EMS was called - Nitro delivered en route with improvement in blood pressure and chest pain. On arrival to the ER patient tachycardic at 109, BP elevated at 150/104. Reports her chest pain is resolved, feels like a dull aching. She reports a lot of stress in the home of late. She states she does take her medications and rarely misses a dose. Denies orthopnea, edema, SOB or weight gain. Per history patient had a heart attack 20 years ago but did not have a cardiac catheterization at that time. She was admitted to [facility] x 2 weeks in May 2018. During that hospital stay she reportedly had cardiac catheterization x 2 and an echo and was subsequently diagnosed with CHF/Cardiomyopathy with markedly reduced EF. She denies stent placement but was told that she may need a stent some day. She was discharged from [facility] with a LifeVest in place. Shortly afterward she was admitted to [facility] (08/24 - 08/27) with acute exacerbation of CHF. Echocardiogram performed during that hospital stay confirmed EF of 25-30% and global hypokinesis. She was discharged home with Metoprolol succinate, Lisinopril. Placement of a defibrillator was discussed and is to be readdressed after patient is on optimal medical management and has a repeat echocardiogram. ER Course: Nitro Allergies Allergy/AdvReac Type Severity Reaction Status Date / Time No Known Allergies Allergy Verified 09/09/18 03:27 Home Medications Home Medications Medication Instructions Recorded Confirmed Type Basaglar KwikPen U-100 Insulin 50 unit SUBCUT BID 08/24/18 09/09/18 History Latuda 80 mg PO DAILY 08/24/18 09/09/18 History albuterol sulfate [Ventolin HFA] 2 puff INHALATION Q4H PRN 08/24/18 09/09/18 History alprazolam 1 mg PO QID 08/24/18 09/09/18 History aspirin 81 mg PO DAILY 08/24/18 09/09/18 History atorvastatin 80 mg PO DAILY 08/24/18 09/09/18 History ferrous gluconate 324 mg PO DAILY 08/24/18 09/09/18 History fluticasone propionate 2 spray INTRANASAL DAILY 08/24/18 09/09/18 History gabapentin 300 mg PO BID 08/24/18 09/09/18 History insulin lispro [Admelog SoloStar 30 unit SUBCUT TID 08/24/18 09/09/18 History U-100 Insulin] lamotrigine 100 mg PO BID 08/24/18 09/09/18 History mirtazapine 45 mg PO HS 08/24/18 09/09/18 History paroxetine HCl 30 mg PO BID 08/24/18 09/09/18 History lisinopril 5 mg PO DAILY #30 tab 08/27/18 09/09/18 Rx metoprolol succinate 100 mg PO DAILY #30 tab 08/27/18 09/09/18 Rx Past Med/Surg History Medical History Stroke Morbid obesity with BMI of 45.0-49.9, adult Diabetes (Chronic) Anxiety associated with depression CHF (congestive heart failure) COPD (chronic obstructive pulmonary disease) Hypertension Hypothyroid Surgical History History of section History of eye surgery History of foot surgery Family History Other Cancer Diabetes Hypertension Social History Preferred Language: Slovenian Communication Ability: Effective Beliefs That Will Affect Care: None marital status: Current Living Situation: Spouse Current Living Situation Comment: Daughter lives with as well Feels Safe at Home: Yes Smoking Status: Never smoker Second Hand Exposure: No Hx Alcohol Use: No Hx Substance Use: No Review of Systems Review of Systems: All systems reviewed & are unremarkable except as noted in HPI & below + back pain + recent fall, twisted back + ankle pain Physical Exam Physical Exam: General: patient resting comfortably, NAD, chronically ill in appearance, poorly kempt, AA&O x 4 Skin: warm, dry, intact, no rashes or lesions HEENT: NC/AT, surgical absence of right eye, left eye pupil round and reactive to light, anicteric sclera, conjunctiva without injection, external ear normal to inspection and nontender, nares patent, moist mucus membranes, poor dentition, no oropharyngeal lesions, neck supple, trachea midline, no LAD, no thyromegaly, no JVD Heart: +S1/S2, regular, tachycardic, no m/r/g Lungs: equal air entry bilaterally anteriorly, no rales/rhonchi/wheezes Abd: obese, +BS, soft, NT/ND, no masses/organomegaly/ascites Ext: warm, 2+ pulses in UE/LE bilaterally, no clubbing/cyanosis or edema Neuro: weakness 4/5 of RUE and RLE reported to be baseline dysfunction from prior CVA, patient AA&O x 4, speech intact, no facial droop, moving all extremities on command, LUE/LLE 5/5 strength Results & Data Vital Signs (Past 12 Hours) Vital Signs Temp Pulse Pulse Resp BP BP Pulse Ox 09/09/18 04:43 104 H 20 156/100 H 97 09/09/18 03:25 104 H 20 152/66 H 95 09/09/18 02:23 97 09/09/18 02:17 36.8 C 109 H 22 150/104 H 97 Laboratory Results Lab Results 09/09/18 09/09/18 09/09/18 Range/Units 01:39 01:39 03:45 WBC 11.12 H (4.8-10.8) K/uL RBC 4.99 (4.2-5.4) M/uL Hgb 14.2 (12.0-16.0) g/dL Hct 40.8 (37-47) % MCV 81.8 (80-100) fL MCH 28.5 (25-34) pg MCHC 34.8 (32-36) g/dL RDW Std Deviation 41.5 (36.4-46.3) fL RDW Coeff of Trey 13.9 (11.5-14.5) % Plt Count 305 (130-400) K/uL MPV 10.2 (7.4-10.4) fL Immature Gran % (Auto) 0.2 % Neut % (Auto) 66.7 % Lymph % (Auto) 22.3 % [place] % (Auto) 7.1 % Eos % (Auto) 3.3 % Baso % (Auto) 0.4 % Immature Gran # (Auto) 0.02 (0.00-0.02) K/uL Neut # (Auto) 7.42 H (1.4-6.5) K/uL Lymph # (Auto) 2.48 (1.2-3.4) K/uL [place] # (Auto) 0.79 H (0.11-0.59) K/uL Eos # (Auto) 0.37 (0-0.5) K/uL Baso # (Auto) 0.04 (0-0.2) K/uL Sodium 139 (136-145) mmol/L Potassium 4.3 (3.5-5.1) mmol/L Chloride 106 (98-107) mmol/L Carbon Dioxide 27 (21-32) mmol/L Anion Gap 6.0 (3-11) BUN 20 H (7-18) mg/dl Creatinine 1.20 (0.6-1.2) mg/dl Est Cr Clr Drug Dosing 82.8 ml/min Est GFR ( Amer) 61.9 Est GFR (Non-Af Amer) 53.4 BUN/Creatinine Ratio 16.9 (10-20) Glucose 168 H (70-99) mg/dl Calcium 8.7 (8.5-10.1) mg/dl Total Bilirubin 0.3 (0.2-1) mg/dl AST 21 (15-37) U/L ALT 22 (12-78) U/L Alkaline Phosphatase 153 H (45-117) U/L Troponin I < 0.015 (0-0.045) ng/ml Total Protein 7.0 (6.4-8.2) gm/dl Albumin 2.6 L (3.4-5.0) gm/dl Globulin 4.4 H (2.5-4.0) gm/dl Albumin/Globulin Ratio 0.6 L (0.9-2) Lipase 101 (73-393) U/L Specimen Hemolysis Diagnostic Findings CXR - no acute process ECG Additional Comments: EKG with sinus tachycardia at 11bpm, normal ais, XW=431, QRS=94, AXo=927, nonspecific T wave abnormality in I, aVL. Pre-admission EKG with ST depressions and T wave inversions present in inferior and lateral leads Code Status & VTE Plan Code Status FULL (1) COPD (chronic obstructive pulmonary disease) COPD type: unspecified COPD Qualified Code(s): J44.9 - Chronic obstructive pulmonary disease, unspecified (2) CHF (congestive heart failure) Heart failure type: systolic Heart failure chronicity: unspecified Qualified Code(s): I50.20 - Unspecified systolic (congestive) heart failure (3) Hypothyroid Hypothyroidism type: unspecified Qualified Code(s): E03.9 - Hypothyroidism, unspecified (4) Hypertension Hypertension type: essential hypertension Qualified Code(s): I10 - Essential (primary) hypertension (5) Stroke CVA mechanism: unspecified Qualified Code(s): I63.9 - Cerebral infarction, unspecified (6) Diabetes Diabetes mellitus type: type 2 Diabetes mellitus supervisor intermediates insulin use: with supervisor intermediates use Diabetes mellitus complication status: with neurologic complications Diabetes mellitus complication detail: with polyneuropathy Qualified Code(s): E11.42 - Type 2 diabetes mellitus with diabetic polyneuropathy; Z79.4 - long-term (current) use of insulin (7) Back strain Encounter type: initial encounter Qualified Code(s): S39.012A - Strain of muscle, fascia and tendon of lower back, initial encounter (8) Chest pain Chest pain type: unspecified Qualified Code(s): R07.9 - Chest pain, unspeci fied
[2018-09-09] MEDS ORDERED: ONDANSETRON INJ 2 MG/ML 2 ML VIAL IV PRN (06:13)
[2018-09-09] MEDS ORDERED: GLUCOSE 10 TABS/TUBE PO PRN (06:13)
[2018-09-09] MEDS ORDERED: ACETAMINOPHEN 325 MG TAB PO PRN (06:13)
[2018-09-09] MEDS ORDERED: GLUCAGON FOR INJ 1 MG VIAL SQ PRN (06:13)
[2018-09-09] MEDS ORDERED: GLUCOSE 40% GEL 15 GM TUBE PO PRN (06:13)
[2018-09-09] MEDS ORDERED: ALBUTEROL HFA 8 GM INHALER INH PRN (06:13)
[2018-09-09] MEDS ORDERED: MoRPHine SULFATE 2 MG/ML CARP IV PRN (06:13)
[2018-09-09] MEDS ORDERED: NITROGLYCERIN SL 0.4 MG/TAB TAB SL PRN (06:13)
[2018-09-09] MEDS ORDERED: DEXTROSE 50% 50 ML SYRINGE IV PRN (06:13)
[2018-09-09] MEDS ORDERED: CARBOHYDRATES FOR HYPOGLYCEMIA PO PRN (06:13)
[2018-09-09] MEDS ORDERED: PHARMACY GLYCEMIC MGMT CONSULT PRN (07:00)
[2018-09-09] MEDS ORDERED: LURASIDONE HCL 40 MG TAB PO SCH (07:30)
--- NOTE | 2018-09-09 07:33 | Emergency Department Note ---
Entered by Crystal Boogie acting as a scribe for History of Present Illness General Chief complaint: Chest Pain Stated complaint: CHEST PAIN Time Seen by Provider: 09/09/18 02:25 Source: patient History of Present Illness Provider complaint: Chest pain Onset (ago): hour(s) less than 1 Location: chest Radiation: back and other (neck) Pain Consistency: + intermittent Maximum Pain Intensity: 2 Relieved By: + medication (nitroglycerin ) Exacerbated By: + other (stress) Associated symptoms: + denies other symptoms The patient is a 48 y/o female who presents to the emergency department for evaluation of intermittent chest pain that radiates through the neck and into the back beginning prior to arrival. The patient state that she has a very stressful home life right now that she thinks is linked to the pain but due to her history of heart attacks and stroke she is concerned. The patient states that the pain occurred while she was lying down earlier this evening. She notes that after a nap earlier her right leg felt like weight. The patient notes that nitroglycerin helped relieve the pain. She denies any other symptoms. The patient also stated that she had had previous testing done with doula who have stated that she has a weak heart. Home Medications Home Medications Medication Instructions Recorded Confirmed Type Basaglar KwikPen U-100 Insulin 50 unit SUBCUT BID 08/24/18 09/09/18 History Latuda 80 mg PO DAILY 08/24/18 09/09/18 History albuterol sulfate [Ventolin HFA] 2 puff INHALATION Q4H PRN 08/24/18 09/09/18 History alprazolam 1 mg PO QID 08/24/18 09/09/18 History aspirin 81 mg PO DAILY 08/24/18 09/09/18 History atorvastatin 80 mg PO DAILY 08/24/18 09/09/18 History ferrous gluconate 324 mg PO DAILY 08/24/18 09/09/18 History fluticasone propionate 2 spray INTRANASAL DAILY 08/24/18 09/09/18 History gabapentin 300 mg PO BID 08/24/18 09/09/18 History insulin lispro [Admelog SoloStar 30 unit SUBCUT TID 08/24/18 09/09/18 History U-100 Insulin] lamotrigine 100 mg PO BID 08/24/18 09/09/18 History mirtazapine 45 mg PO HS 08/24/18 09/09/18 History paroxetine HCl 30 mg PO BID 08/24/18 09/09/18 History lisinopril 5 mg PO DAILY #30 tab 08/27/18 09/09/18 Rx metoprolol succinate 100 mg PO DAILY #30 tab 08/27/18 09/09/18 Rx Allergies Allergy/AdvReac Type Severity Reaction Status Date / Time No Known Allergies Allergy Verified 09/09/18 03:27 Past Med/Surg History Social History Preferred Language: Turkish Communication Ability: Effective Jar Filler Required: No Beliefs That Will Affect Care: None marital status: Current Living Situation: Spouse Current Living Situation Comment: Daughter lives with them Other Information That Helps Us Care for You: No Feels Safe at Home: Yes Safety Concerns: Feels Safe At This Time Smoking Status: Never smoker Do You Dip or Chew Tobacco: No Second Hand Exposure: No Tobacco Cessation Education Requested by Patient: No Hx Alcohol Use: No Hx Substance Use: No Review of Systems See HPI for pertinent positives & negatives. and A total of 10 systems reviewed and were otherwise negative Physical Exam Vital Signs Vital Signs - 24 hr 09/09/18 02:17 09/09/18 02:23 09/09/18 03:25 Temperature 36.8 C Temperature Source Oral Sepsis Recent Fever Within 48 Hours No Sepsis Action Taken by Nursing No Action Required Pulse Rate 109 H Pulse Rate [Bilateral Apical] 104 H Respiratory Rate 22 20 Respiratory Effort / Characteristics Non-Labored Non-Labored Respiratory Depth Normal Normal Blood Pressure 150/104 H Blood Pressure [Right Arm] 152/66 H Blood Pressure Mean 119 Blood Pressure Mean [Right Arm] 94 Pulse Oximetry 97 97 95 Oxygen Delivery Method Nasal Cannula Nasal Cannula Nasal Cannula Oxygen Flow Rate 3 3 3 09/09/18 04:43 Temperature Temperature Source Sepsis Recent Fever Within 48 Hours Sepsis Action Taken by Nursing Pulse Rate Pulse Rate [Bilateral Apical] 104 H Respiratory Rate 20 Respiratory Effort / Characteristics Respiratory Depth Blood Pressure Blood Pressure [Right Arm] 156/100 H Blood Pressure Mean Blood Pressure Mean [Right Arm] 118 Pulse Oximetry 97 Oxygen Delivery Method Room Air Oxygen Flow Rate HEENT: Nose - moist nasal mucosa without discharge. Mouth - moist buccal mucosa. Oropharynx is nonerythematous and there is no tonsillar exudate or edema noted. Neck: Supple; no JVD, nuchal rigidity, cervical lymphadenopathy, or auscultated bruits. Heart: Regular rate and rhythm. There is a normal S1 and S2 with no murmurs, clicks, or gallops appreciated. Lungs: Clear to auscultation bilaterally with no wheezes, rales, or rhonchi. Abdomen: Soft, completely nontender, nondistended, with good bowel sounds. There are no palpable pulsatile masses or hepatosplenomegaly. There is no guarding, rigidity, or rebound noted. Extremities: No evidence of cyanosis, clubbing, or edema. There are easily palpable peripheral pulses. Skin: warm and dry with good turgor and no rashes. Course 0250: The patient was evaluated in room B06. A complete history and physical exam was performed. I reviewed the prehospital EKG and saw significant St depression in inferior leads. A twelve-lead EKG was obtained here which showed very minor changes in the inferior leads which was an improvement from the prehospital EKG. Laboratory studies were drawn as above. A chest x-ray was performed. 0330: The patient is resting comfortably at this time. I reviewed some preliminary results with her. 0434: I spoke with Dr. Beatty Hospitalist, she will evaluate the patient for further management. I made the patient aware that she would be staying here in the hospital. Medical Decision Making Differential Diagnosis Differential diagnosis: Anxiety, ACS, musculoskeletal chest pain, GERD. Medical Records Attestation: I reviewed the patient's medical records. Home Medications Current Medication List: was personally reviewed by me Laboratory Data Attestation: I reviewed the patient's lab results. Result diagrams: 09/09/18 01:39 09/09/18 03:45 Lab Results 09/09/18 09/09/18 09/09/18 Range/Units 01:39 01:39 03:45 WBC 11.12 H (4.8-10.8) K/uL RBC 4.99 (4.2-5.4) M/uL Hgb 14.2 (12.0-16.0) g/dL Hct 40.8 (37-47) % MCV 81.8 (80-100) fL MCH 28.5 (25-34) pg MCHC 34.8 (32-36) g/dL RDW Std Deviation 41.5 (36.4-46.3) fL RDW Coeff of Trey 13.9 (11.5-14.5) % Plt Count 305 (130-400) K/uL MPV 10.2 (7.4-10.4) fL Immature Gran % (Auto) 0.2 % Neut % (Auto) 66.7 % Lymph % (Auto) 22.3 % [place] % (Auto) 7.1 % Eos % (Auto) 3.3 % Baso % (Auto) 0.4 % Immature Gran # (Auto) 0.02 (0.00-0.02) K/uL Neut # (Auto) 7.42 H (1.4-6.5) K/uL Lymph # (Auto) 2.48 (1.2-3.4) K/uL [place] # (Auto) 0.79 H (0.11-0.59) K/uL Eos # (Auto) 0.37 (0-0.5) K/uL Baso # (Auto) 0.04 (0-0.2) K/uL Sodium 139 (136-145) mmol/L Potassium 4.3 (3.5-5.1) mmol/L Chloride 106 (98-107) mmol/L Carbon Dioxide 27 (21-32) mmol/L Anion Gap 6.0 (3-11) BUN 20 H (7-18) mg/dl Creatinine 1.20 (0.6-1.2) mg/dl Est Cr Clr Drug Dosing 82.8 ml/min Est GFR ( Amer) 61.9 Est GFR (Non-Af Amer) 53.4 BUN/Creatinine Ratio 16.9 (10-20) Glucose 168 H (70-99) mg/dl Calcium 8.7 (8.5-10.1) mg/dl Total Bilirubin 0.3 (0.2-1) mg/dl AST 21 (15-37) U/L ALT 22 (12-78) U/L Alkaline Phosphatase 153 H (45-117) U/L Troponin I < 0.015 (0-0.045) ng/ml Total Protein 7.0 (6.4-8.2) gm/dl Albumin 2.6 L (3.4-5.0) gm/dl Globulin 4.4 H (2.5-4.0) gm/dl Albumin/Globulin Ratio 0.6 L (0.9-2) Lipase 101 (73-393) U/L Specimen Hemolysis Imaging Data Attestation: I personally reviewed and interpreted this imaging study as follows: My Impression: Chest X-ray showed cardiomegaly, mild peribronchial cuffing, and mild pulmonary vascular congestion. ECG Data Attestation: I personally reviewed and interpreted this ECG as follows: Indication: chest pain Rate (beats per minute): 111 Rhythm: sinus tachycardia Findings: + PVC and + ST depression (inferior) Comparison ECG Date: from (08/26/18) Change: the following changes noted (Slight ST depression in inferior ) Blood Pressure Blood Pressure Findings: Elevated blood pressure Blood Pressure Disposition: further management by hospitalist POLO Narrative The patient is a 48 y/o female who presents to the emergency department for evaluation of intermittent chest pain that radiates through the neck and into the back beginning prior to arrival. The patient was given sublingual nitroglycerin by EMS which did relieve her discomfort. I am concerned about the EKG findings on scene. These have since resolved. I discussed the case with the [facility] Hospitalist and they will evaluate for further management. Impression & Plan Substernal chest pain, Acute electrocardiogram changes The scribe's documentation has been prepared under my direction and personally reviewed by me in its entirety. I confirm that the note above accurately reflects all work, treatment, procedures, and medical decision making performed by me.
--- NOTE | 2018-09-09 07:39 | XRay Report ---
XR chest 1V portable CLINICAL HISTORY: 48 years-old Female presenting with Chest Pain. TECHNIQUE: Portable upright AP view of the chest was obtained. COMPARISON: 08/24/2018. FINDINGS: Cardiac silhouette mildly enlarged. Mild pulmonary vascular prominence though slight decreased from p rior exam. Decreased interstitial lung markings likely indicating decreased interlobular septal thick ening. No focal opacity. Decreasing pleural effusions. No large pneumothorax. Calcification along the right rotator cuff tendons likely indicates calcific tendinitis. Upper abdomen normal. IMPRESSION: 1. Mild cardiomegaly with decreasing volume overload and congestive change. 2. Decreasing pleural effusions. 3. Calcific tendinitis of the right rotator cuff. Electronically signed by: Marquis Birch M.D. 09/09/2018 7:37 AM
[2018-09-09 08:05] LABS: Magnesium 1.9 mg/dl (1.8-2.4); Phosphorus 4.7 mg/dl (2.5-4.9)
--- NOTE | 2018-09-09 08:07 | Pharmacy Report ---
Glycemic Control Consultation - Date of Service September 09, 2018 - Scope Scope: Glycemic Pharmacist consulted by Dr Sita Perez on 09/09/18 for glycemic control and to write orders per [facility] inpatient glycemic control protocol - Objective Weight: 139.9 kg Accuchecks BSG (last 24hrs): 09/09/18 09/09/18 01:39 07:36 Glucose 168 H POC Glucose 152 H Laboratory Data (last 24hrs): 09/09/18 09/09/18 01:39 03:45 Potassium 4.3 Carbon Dioxide 27 Anion Gap 6.0 Creatinine 1.20 Est Cr Clr Drug Dosing 82.8 - Recent Pertinent Medications Outpatient Anti-diabetic Regimen: * Basaglar 50 units BID * Admelog (lispro) 30 units TID with meals * A1c = 10.7 % 08/24/18 Risk Factors for Insulin Resistance: * Diet: Type 2 DM - Assessment & Plan Assessment & Plan: ASSESSMENT: * 48 year old female admitted with Chest Pain, new CHF, hx of HTN, Stroke, uncontrolled type 2 DM. * Will begin patient on home dose of basal insulin and CF and CR based on home insulin needs and titrate based on blood sugars. * Pt only required 60-70 units of basal as inpatient last month, so will watch and if blood sugars trend down, will decrease basal. * ADA & AACE recommend a goal blood sugar range 140-180 mg/dl for the majority of critically ill & non-critically ill patients. However, more stringent targets may be selected in individual cases. Will utilize more stringent goal of 110-140mg/dl based on patient age & comorbidities. Additionally, tighter glycemic control is warranted to facilitate wound/infection healing. PLAN FOR INPATIENT GLYCEMIC CONTROL: * Basal insulin * Lantus 50 units SQ BID * Bolus insulin * NovoLog per scale ACHS or Q6hrs while NPO * Goal Range: Low 110 mg/dL - High 140 mg/dL * Correction Factor: 10 mg/dL/unit * Nutritional / Prandial insulin per carb ratio of 1 unit per 4 grams CHO consumed * Please note that the plan above was derived based on current level of insulin resistance and hospital stress. These recommendations are appropriate for inpatient admission only. Plan of care upon discharge will need to be reassessed to avoid potential outpatient hypo/hyperglycemia. Thank you.
[2018-09-09 08:17] LABS: T4 Free Thyroxine 0.91 ng/dl (0.8-1.6)
[2018-09-09] MEDS: ALPRAZolam 0.5 MG TABLET PO SCH ×2 (08:37→11:59)
[2018-09-09] MEDS: INSULIN ASPART 100 UNITS/ML 3 ML PEN SC SCH ×3 (08:44→17:41)
--- NOTE | 2018-09-09 08:46 | XRay Report ---
XR lumbar spine 2-3V HISTORY: 48 years-old Female fall low back pain status post fall COMPARISON: Lumbar spine radiographs 05/22/2017 TECHNIQUE: 3 views of the lumbar spine FINDINGS: Cholecystectomy. 5 nonrib-bearing lumbar type vertebral segments are present. Remote appearing bilate ral L4 pars defects redemonstrated with 6 mm anterolisthesis, previously 3 mm. Additionally, there is suggestion of remote bilateral L5 pars defects with 5 mm anterolisthesis, unchanged from comparison. Mild disc space narrowing at L4-L5 and L5-S1. Mild irregularity and lucency about the superior endpl ate L5, new from comparison. Mild disc space narrowing is also noted about the lower thoracic spine. No acute fracture identified. IMPRESSION: 1. No acute fracture. 2. Remote bilateral L4 pars defects with slightly progressed grade 1 anterolisthesis. 3. Mild lucency and irregularity of the superior endplate L5 is new from prior, and likely secondary to endplate degeneration. An early discitis osteomyelitis could have a similar appearance in the [facility] setting however is considered less likely. The above report was generated using voice recognition software. It may contain grammatical, syntax o r spelling errors. Electronically signed by: Pa Barney M.D. 09/09/2018 8:45 AM
[2018-09-09] MEDS ORDERED: LISINOPRIL 5 MG TAB PO SCH (09:00)
[2018-09-09] MEDS ORDERED: FERROUS GLUCONATE 324 MG TAB PO SCH (09:00)
[2018-09-09] MEDS ORDERED: GABAPENTIN 300 MG CAP PO SCH (09:00)
[2018-09-09] MEDS ORDERED: ATORVASTATIN 40 MG TAB PO SCH (09:00)
[2018-09-09] MEDS ORDERED: FLUTICASONE PROPIONATE NA SPR 16 GM BTL SCH (09:00)
[2018-09-09] MEDS ORDERED: PARoxetine HCl 10 MG TAB PO SCH (09:00)
[2018-09-09] MEDS ORDERED: INSULIN GLARGINE SOLOSTAR 100 UNITS/ML 3 ML PEN SQ SCH (09:00)
[2018-09-09] MEDS ORDERED: ASPIRIN 81 MG ECTAB PO SCH (09:00)
[2018-09-09] MEDS ORDERED: ENOXAPARIN INJ 40 MG/0.4 ML SYR SQ SCH (09:00)
[2018-09-09] MEDS ORDERED: lamoTRIgine 100 MG TAB PO SCH (09:00)
[2018-09-09] MEDS ORDERED: METOPROLOL SUCC 50MG EXT REL TAB PO SCH (09:00)
[2018-09-09 15:25] VITALS: BP 116/79; PULSE 81; TEMP 97.9; O2SAT 92
--- NOTE | 2018-09-09 17:57 | Cardiology Consultation ---
Date of Consultation September 09, 2018 Assessment & Plan (1) Chest pain: The patient had a very severe and extended episode of chest discomfort without any notable evidence in her biomarkers. There is been attempts to obtain her records from [address] [place] [address], but apparently this is not been succe ssful. I do not believe the symptoms she experienced represented cardiac ischemia. At some point will need to consider an evaluation for ischemia in the setting of her cardiomyopathy. At this point she can safely be continued on a daily aspirin and her beta-sherry as well as high-dose atorvastatin therapy. (2) CHF (congestive heart failure): He seems a fairly well compensated. She is not on a daily diuretic. 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 She appears to be oxygenating well. She does not have a lot of peripheral edema. I think we can continue her on her current medical regimen and consider addition of a diuretic if she has symptoms of pulmonary congestion. (3) Hypertension: Patient was marked hypertensive at the time of admission. She was likely under a lot of stress and agitated. However, I think this represents a good opportunity to intensify her medical therapy for her cardiomyopathy. I would increase her lisinopril to 10 mg daily. I would also consider addition of spironolactone 25 mg daily. We will need to monitor her renal function and electrolytes, but this could be done in the outpatient setting with a BMP drawn in the next few days. (4) Cardiomyopathy: She has a cardiomyopathy of undetermined etiology. She reports having had coronary angiography perhaps even on 2 occasions previously. Apparently these records are difficult to obtain as they were requested during her last admission and have yet to make it to her chart. In any event, she does not have any acute coronary syndrome. At some point will need to evaluate her for evidence of ischemia. Currently I think intensifying her medical therapy for cardiomyopathy as noted above would be worthwhile. On good medical therapy for few months we will reevaluate her LV function and consider her for device therapy. History of Present Illness Reason for Consultation: Chest pain Requesting Physician: Chris Attending Physician: Gavino Silverio History of Present Illness The patient is a 48-year-old woman with a known cardiomyopathy who was recently discharged from the hospital after decompensated heart failure admission. Last evening the patient reported an episode of severe chest discomfort. She reports being under a lot of stress lately and developing the fairly acute onset of left-sided chest pain. This appeared to be present under her left breast. She described it is very severe. Due to the nature of her symptoms EMS was contacted and she was noted to be markedly hypertensive. She was administered nitroglycerin with out significant relief of her chest pain. He states that the symptoms of chest pain lasted approximately one half of an hour. Afterwards she had a "discomfort" for period of time as well. This morning she has been feeling quite well and is tired but has no symptoms of pain. The patient suffers from migraine headaches and states that she has been having some headaches recently. Administration of nitroglycerin by EMS made her headache worse. She did not appear to have associated dyspnea with her pain last evening. In general she has been breathing quite well but does have some dyspnea with activity. She denies any orthopnea or paroxysmal nocturnal dyspnea. She has not noticed any worsening swelling in her lower extremities. She is able to ambulate around her residence with minimal difficulty but generally avoids significant exertion. Allergies Allergy/AdvReac Type Severity Reaction Status Date / Time No Known Allergies Allergy Verified 09/09/18 03:27 Home Medications Home Medications Medication Instructions Recorded Confirmed Type Luis Danielaglar BriaikPen U-100 Insulin 50 unit SUBCUT BID 08/24/18 09/09/18 History Latuda 80 mg PO DAILY 08/24/18 09/09/18 History albuterol sulfate [Ventolin HFA] 2 puff INHALATION Q4H PRN 08/24/18 09/09/18 History alprazolam 1 mg PO QID 08/24/18 09/09/18 History aspirin 81 mg PO DAILY 08/24/18 09/09/18 History atorvastatin 80 mg PO DAILY 08/24/18 09/09/18 History ferrous gluconate 324 mg PO DAILY 08/24/18 09/09/18 History fluticasone propionate 2 spray INTRANASAL DAILY 08/24/18 09/09/18 History gabapentin 300 mg PO BID 08/24/18 09/09/18 History insulin lispro [Admelog SoloStar 30 unit SUBCUT TID 08/24/18 09/09/18 History U-100 Insulin] lamotrigine 100 mg PO BID 08/24/18 09/09/18 History mirtazapine 45 mg PO HS 08/24/18 09/09/18 History paroxetine HCl 30 mg PO BID 08/24/18 09/09/18 History metoprolol succinate 100 mg PO DAILY #30 tab 08/27/18 09/09/18 Rx lisinopril 10 mg PO DAILY #30 tab 09/09/18 09/09/18 Rx spironolactone 25 mg PO DAILY #30 tab 09/09/18 Rx Patient History Medical History Stroke Morbid obesity with BMI of 45.0-49.9, adult Diabetes (Chronic) Anxiety associated with depression CHF (congestive heart failure) COPD (chronic obstructive pulmonary disease) Hypertension Hypothyroid Surgical History History of section History of eye surgery History of foot surgery Family History Other Cancer Diabetes Hypertension Social History Preferred Language: Khmer Communication Ability: Effective 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 This was not due to loss of consciousness and there is no associated dizziness or palpitations. However she did fall attempting to avoid hitting her 2-year-old daughter. Physical Exam Physical Exam: She is alert and oriented x3. Mood affect appear normal. She answered all questions appropriately. 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 Pupil is reactive to light and accommodation. Extraocular movements were intact. Neuro: Cranial nerves intact Neck: Examination of the submandibular region did not reveal any significant lymphadenopathy. Carotids are palpable bilaterally and free of bruits on auscultation. There was no evidence of jugular venous distention. The thyroid was not enlarged. Lungs: Lungs are clear to auscultation bilaterally. There are no rales wheezes or rhonchi. She has normal respiratory effort without use of accessory muscles. There is normal pulmonary excursion. Cardiac: The rhythm was regular. S1 and S2 were normal. There are no murmurs on examination. The PMI was not markedly displaced on palpation. Abdomen: The abdomen was soft and nontender. Obese Extremities: Patient has bilateral radial pulses that are equal in intensity. There is no evidence cyanosis or clubbing. There was no evidence of significant peripheral edema bilaterally. Skin: There are no rashes noted on examination today. Results & Data Vital Signs (Past 12 Hours) Vital Signs Temp Pulse Resp BP Pulse Ox Pulse Ox 09/09/18 15:23 36.6 C 81 16 116/79 92 09/09/18 07:03 36.3 C L 101 H 18 145/85 H 97 09/09/18 06:20 36.7 C 102 H 20 156/91 H 97 09/09/18 06:13 36.7 C 103 H 18 156/91 H 97 97 Laboratory Results Abnormal Lab Results 09/09/18 09/09/18 09/09/18 01:39 01:39 03:45 WBC 11.12 H RBC 4.99 Hgb 14.2 Hct 40.8 MCV 81.8 MCH 28.5 MCHC 34.8 RDW Std Deviation 41.5 RDW Coeff of Trey 13.9 Plt Count 305 MPV 10.2 Immature Gran % (Auto) 0.2 Neut % (Auto) 66.7 Lymph % (Auto) 22.3 [place]inole % (Auto) 7.1 Eos % (Auto) 3.3 Baso % (Auto) 0.4 Immature Gran # (Auto) 0.02 Neut # (Auto) 7.42 H Lymph # (Auto) 2.48 [place]in[place] # (Auto) 0.79 H Eos # (Auto) 0.37 Baso # (Auto) 0.04 Sodium 139 Potassium 4.3 Chloride 106 Carbon Dioxide 27 Anion Gap 6.0 BUN 20 H Creatinine 1.20 Est Cr Clr Drug Dosing 82.8 Est GFR ( Amer) 61.9 Est GFR (Non-Af Amer) 53.4 BUN/Creatinine Ratio 16.9 Glucose 168 H POC Glucose Calcium 8.7 Phosphorus Magnesium Total Bilirubin 0.3 AST 21 ALT 22 Alkaline Phosphatase 153 H Troponin I < 0.015 Total Protein 7.0 Albumin 2.6 L Globulin 4.4 H Albumin/Globulin Ratio 0.6 L Lipase 101 TSH Free T4 Specimen Hemolysis 09/09/18 09/09/18 09/09/18 06:54 07:36 09:52 WBC RBC Hgb Hct MCV MCH MCHC RDW Std Deviation RDW Coeff of Trey Plt Count MPV Immature Gran % (Auto) Neut % (Auto) Lymph % (Auto) [place] % (Auto) Eos % (Auto) Baso % (Auto) Immature Gran # (Auto) Neut # (Auto) Lymph # (Auto) [place]in[place] # (Auto) Eos # (Auto) Baso # (Auto) Sodium Potassium Chloride Carbon Dioxide Anion Gap BUN Creatinine Est Cr Clr Drug Dosing Est GFR ( Amer) Est GFR (Non-Af Amer) BUN/Creatinine Ratio Glucose POC Glucose 152 H Calcium Phosphorus 4.7 Magnesium 1.9 Total Bilirubin AST ALT Alkaline Phosphatase Troponin I < 0.015 Total Protein Albumin Globulin Albumin/Globulin Ratio Lipase TSH 9.310 H Free T4 0.91 Specimen Hemolysis 09/09/18 09/09/18 11:06 16:23 WBC RBC Hgb Hct MCV MCH MCHC RDW Std Deviation RDW Coeff of Trey Plt Count MPV Immature Gran % (Auto) Neut % (Auto) Lymph % (Auto) [place] % (Auto) Eos % (Auto) Baso % (Auto) Immature Gran # (Auto) Neut # (Auto) Lymph # (Auto) [place]in[place] # (Auto) Eos # (Auto) Baso # (Auto) Sodium Potassium Chloride Carbon Dioxide Anion Gap BUN Creatinine Est Cr Clr Drug Dosing Est GFR ( Amer) Est GFR (Non-Af Amer) BUN/Creatinine Ratio Glucose POC Glucose 162 H 136 H Calcium Phosphorus Magnesium Total Bilirubin AST ALT Alkaline Phosphatase Troponin I Total Protein Albumin Globulin Albumin/Globulin Ratio Lipase TSH Free T4 Specimen Hemolysis Diagnostic Findings Limited echocardiogram obtained during this admission revealed persistently low ejection fraction without significant valvular heart disease. Essentially unchanged from an echocardiogram performed 16 days ago. Chest x-ray obtained at the time of admission revealed evidence of cardiomegaly mild pulmonary vascular congestion. No acute process. (1) CHF (congestive heart failure) Heart failure chronicity: acute on chronic Heart failure type: unspecified Qualified Code(s): I50.9 - Heart failure, unspecified (2) Chest pain Chest pain type: unspecified Qualified Code(s): R07.9 - Chest pain, unspecified
[2018-09-09] MEDS ORDERED: MIRTAZAPINE SOLTAB 15 MG PO SCH (21:00)
--- NOTE | 2018-09-17 10:41 | Discharge Summary ---
Date of Service September 09, 2018 Admission HPI Per Admitting Provider Sonia Rausch is a 48yo C female with history of newly diagnosed systolic CHF with EF of 25-30%, poorly controlled insulin dependent DM (ImM7G=73.7 on 08/24/18), Hypertension, Hypothyroid, Morbid obesity presenting with chest pain. Patient reports an episode of severe high blood pressure while at home this evening, reading of 197/136 associated with substernal and left sided chest pain. Pain 10/10 in severity, sharp in nature, radiated across the chest and into left arm and neck. She reports tingling in her left arm as well as nausea and diaphoresis during the chest pain. EMS was called - Nitro delivered en route with improvement in blood pressure and chest pain. On arrival to the ER patient tachycardic at 109, BP elevated at 150/104. Reports her chest pain is resolved, feels like a dull aching. She reports a lot of stress in the home of late. She states she does take her medications and rarely misses a dose. Denies orthopnea, edema, SOB or weight gain. Per history patient had a heart attack 20 years ago but did not have a cardiac catheterization at that time. She was admitted to [facility] x 2 weeks in May 2018. During that hospital stay she reportedly had cardiac catheterization x 2 and an echo and was subsequently diagnosed with CHF/Cardiomyopathy with markedly reduced EF. She denies stent placement but was told that she may need a stent some day. She was discharged from [facility] with a LifeVest in place. Shortly afterward she was admitted to [facility] (08/24 - 08/27) with acute exacerbation of CHF. Echocardiogram performed during that hospital stay confirmed EF of 25-30% and global hypokinesis. She was discharged home with Metoprolol succinate, Lisinopril. Placement of a defibrillator was discussed and is to be readdressed after patient is on optimal medical manage ment and has a repeat echocardiogram. ER Course: Nitro Principal Diagnosis CHEST PAIN Discharge Exam General: patient resting comfortably, NAD, chronically ill in appearance, poorly kempt, AA&O x 4 Skin: warm, dry, intact, no rashes or lesions HEENT: NC/AT, surgical absence of right eye, left eye pupil round and reactive to light, anicteric sclera, conjunctiva without injection, external ear normal to inspection and nontender, nares patent, moist mucus membranes, poor dentition, no oropharyngeal lesions, neck supple, trachea midline, no LAD, no thyromegaly, no JVD Heart: +S1/S2, RRR, no m/r/g Lungs: equal air entry bilaterally anteriorly, no rales/rhonchi/wheezes Abd: obese, +BS, soft, NT/ND, no masses/organomegaly/ascites Ext: warm, 2+ pulses in UE/LE bilaterally, no clubbing/cyanosis or edema Neuro: weakness 4/5 of RUE and RLE reported to be baseline dysfunction from prior CVA, patient AA&O x 4, speech intact, no facial droop, moving all extremities on command, LUE/LLE 5/5 strength Discharge Data Allergies Allergy/AdvReac Type Severity Reaction Status Date / Time No Known Allergies Allergy Verified 09/09/18 03:27 Consultations 09/09/18 06:13 Consult Case Management - Discharge Planning Routine 09/09/18 06:30 ED Decision to Admit Stat 09/09/18 07:17 Consult Cardiology Routine Hospital Course (1) Chest pain: Patient with severe left sided chest pain prior to arrival, associated with markedly elevated BP, 197/136 by patient report. Presently with dull ache in chest. ?ischemic CP, ?hypertensive emergency, ?anxiety -Observation to PCU, continuous cardiac monitoring -Trend troponin x 3 sets -2D echocardiogram -Obtain records from [facility] from prior catheterizations -Cardiology followup after discharge -Continue Aspirin, Atorvastatin, Lisinopril and Metoprolol -If blood pressure remains elevated may consider increasing Lisinopril or Metoprolol to target dose of 200mg daily Input from Cardio: Chest pain: The patient had a very severe and extended episode of chest discomfort without any notable evidence in her biomarkers. There is been attempts to obtain her records from [address] [place] [address], but apparently this is not been successful. I do not believe the symptoms she experienced represented cardiac ischemia. At some point will need to consider an evaluation for ischemia in the setting of her cardiomyopathy. At this point she can safely be continued on a daily aspirin and her beta-sherry as well as high-dose atorvastatin therapy. (2) CHF (congestive heart failure): He seems a fairly well compensated. She is not on a daily diuretic. 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 She appears to be oxygenating well. She does not have a lot of peripheral edema. I think we can continue her on her current medical regimen and consider addition of a diuretic if she has symptoms of pulmonary congestion. (3) Hypertension: Patient was marked hypertensive at the time of admission. She was likely under a lot of stress and agitated. However, I think this represents a good opportunity to intensify her medical therapy for her cardiomyopathy. I would increase her lisinopril to 10 mg daily. I would also consider addition of spironolactone 25 mg daily. We will need to monitor her renal function and electrolytes, but this could be done in the outpatient setting with a BMP drawn in the next few days. (4) Cardiomyopathy: She has a cardiomyopathy of undetermined etiology. She reports having had coronary angiography perhaps even on 2 occasions previously. Apparently these records are difficult to obtain as they were requested during her last admission and have yet to make it to her chart. In any event, she does not have any acute coronary syndrome. At some point will need to evaluate her for evidence of ischemia. Currently I think intensifying her medical therapy for cardiomyopathy as noted above would be worthwhile. On good medical therapy for few months we will reevaluate her LV function and consider her for device therapy. Added spironolactone. Continue beta sherry. patient was back to her baseline at time of discharge. (2) Back strain: Patient reports a fall at home, nearly tripped over her grandchild. States she twisted her back and has been having increased pain since. -Check XR L spine -Tylenol PRN -Heat PRN (3) CHF (congestive heart failure): Patient with newly diagnosed HFrEF, 25-30% with global hypokinesis per echo in August 2018. ?ischemic vs nonischemic cardiomyopathy. Patient presently appears euvolemic, denies signs/symptoms of SOB, edema, weight gain, orthopnea. Report taking her medication as prescribed. -Repeat echo as above -Continue Metoprolol, Lisinopril, consider dose increases pending results of echo and BP trend -Low Na diet as tolerated (4) COPD (chronic obstructive pulmonary disease): Chronic. Stable. No SOB, cough or wheeze at present -Albuterol PRN (5) Hypothyroid: Chronic. TSH 12.1 on 08/24/18 with T4 of 1.04 thought to be secondary to subclinical hypothyroidism repeat as outpatient. (6) Anxiety associated with depression: Patient reports increased anxiety and stress in her life of late -Continue Lamictal -Continue Latuda -Continue Paxil -Continue Remeron qhs (7) Hypertension: Blood pressure elevated at present -Continue metoprolol and lisinopril -Continue to monitor (8) Stroke: History of CVA with right sided weakness -Continue ASA -Continue Atorvastatin (9) Diabetes: Poorly controlled 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 Poorly controlled, [id number]=75.7 on 08/24/18 -Continue Lantus 50u BID -ISS -Glycemic management consultation - appreciate assistance -CC diet as tolerated (10) Sinus tachycardia: UF=[id number], regular sinus. Patient with history of the same. ?CHF, anxiety, BB noncompliance -Continue Metoprolol -Tele monitoring Total Time Total Time Spent Total Time Spent (In Minutes): 32 Total Time Includes: Examination of the Patient, Discharge Planning, Medication Reconciliation and Communication With Other Providers Discharge Plan Discharge Items Patient Disposition: Home - Self-Care Reason For Visit: CHEST PAIN Discharge Diagnosis: Chest Pain Discharge Goals: Decrease discomfort Activity: Resume your previous activity Non-emergency contact: Primary Care Provider Call non-emergency contact if: you have any medication questions Follow-up/Referrals: Tulio Navas MD [Physician] - 09/16/18 10:30 am (Cardiology follow up appt was made with Dr. Navas on September 16 at 10:30am. ) Adalberto Rodriguez M.D. [Primary Care Provider] - Diet: Carb Consistent or DM2 and Heart Healthy Addtl Provider Instructions: Followup with PCP in 1-2 weeks Followup with Cardio in 1-2 weeks Prescriptions: New spironolactone 25 mg tablet 25 mg PO DAILY Qty: 30 RF: 0 Continued atorvastatin 80 mg tablet 80 mg PO DAILY RF: 0 alprazolam 1 mg tablet 1 mg PO QID RF: 0 paroxetine HCl 30 mg tablet 30 mg PO BID RF: 0 gabapentin 300 mg capsule 300 mg PO BID RF: 0 mirtazapine 45 mg tablet 45 mg PO HS RF: 0 aspirin 81 mg tablet,chewable 81 mg PO DAILY RF: 0 albuterol sulfate [Ventolin HFA] 90 mcg/actuation HFA aerosol inhaler 2 puff inhalation Q4H PRN (Reason: Shortness Of Breath Or Wheezing) RF: 0 fluticasone propionate 50 mcg/actuation [facility],Suspension 2 spray INTRANASAL DAILY RF: 0 lamotrigine 100 mg tablet 100 mg PO BID RF: 0 insulin lispro [Admelog SoloStar U-100 Insulin] 100 unit/mL insulin pen 30 unit subcut TID RF: 0 ferrous gluconate 324 mg (38 mg iron) Tablet 324 mg PO DAILY RF: 0 Basaglar KwikPen U-100 Insulin 100 unit/mL (3 mL) insulin pen 50 unit subcut BID RF: 0 Latuda 80 mg tablet 80 mg PO DAILY RF: 0 metoprolol succinate 50 mg Tablet Extended Release 24 Hr 100 mg PO DAILY Qty: 30 RF: 0 Changed lisinopril 5 mg tablet 10 mg PO DAILY Qty: 30 RF: 0 Stand-Alone Forms: Call Back Authorization, [facility] Discharge Orders: Discharge Order (Routine); Ordered 09/09/18 Ordered By: Gavino Silverio Admission Data Admit Date/Time: 09/09/18 05:17 Attending Provider: Gavino Silverio Admit Provider: Sita Perez Primary Care Provider: Adalberto Rodriguez Other Providers: Tulio Navas Service: Telemetry Other Interventions: Discharge Summary Assessment (RN) Last Done: 09/09/18 18:38 DC Date/Time DO NOT enter until pt leaves facility: 09/09/18 18:51
== END 2018-09-09 18:51 | disposition home or self-care (01) ==
LOC: 2S 02:07 → ED 02:07 → SUATTDRO 05:17 → 2S 05:44
DX: Z79.4 Long term (current) use of insulin; Z79.899 Other long term (current) drug therapy; E66.01 Morbid (severe) obesity due to excess calories; R00.0 Tachycardia, unspecified; J44.9 Chronic obstructive pulmonary disease, unspecified; E03.9 Hypothyroidism, unspecified; E11.9 Type 2 diabetes mellitus without complications; Z86.73 Personal history of transient ischemic attack (TIA), and cerebral infarction without residual deficits; Z79.82 Long term (current) use of aspirin; W51.XXXA Accidental striking against or bumped into by another person, initial encounter; Z68.42 Body mass index [BMI] 45.0-49.9, adult; R07.9 Chest pain, unspecified; I50.9 Heart failure, unspecified; S39.012A Strain of muscle, fascia and tendon of lower back, initial encounter; F41.8 Other specified anxiety disorders; I11.0 Hypertensive heart disease with heart failure

== ENCOUNTER 2019-06-02 17:54 | Inpatient (IN) ==
--- OUTSIDE RECORDS SUMMARY | 2019-06-02 17:58 | External Medical Summary | Continuity of Care Document ---
:1970 Author Name Farrah Mistry, Provider Address Unavailable Unavailable , Care Team Providers Name Role Phone Eloise Mistry, [email or web address] Medina Unavailable Unavailable Problems Diabetes mellitus with hyperglycemia (250.00) (E11.65) Hypothyroidism (244.9) (E03.9) COPD (chronic obstructive pulmonary disease) (496) (J44.9) Anxiety associated with depression (300.4) (F41.8) Morbid obesity with BMI of 45.0-49.9, adult (278.01) (E66.01 ) Cardiomyopathy (425.4) (I42.9) HTN (hypertension) (401.9) (I10) CHF (congestive heart failure) (428.0) (I50.9) Chest pain, unspecified (786.50) (R07.9) Allergies and Adverse Reactions No Known Allergies (Allergy) Medications Latuda 80 MG Oral Tablet; take 1 tablet by mouth once daily Refills: 0 PARoxetine HCl - 30 MG Oral Tablet; TAKE 1 TABLET BY MOUTH T WICE DAILY Refills: 0 Ferrous Gluconate 324 MG TABS; take 1 tablet by mouth once d aily Refills: 0 Basaglar KwikPen 100 UNIT/ML Subcutaneou s Solution Pen-injector; INJECT 50 UNITS SUBQ TWICE DAILY 3 ML Pen Refills: 0 Mirtazapine 45 MG Oral Tablet; TAKE 1 TABLET BY MOUTH AT BED TIME Refills: 0 Metoprolol Succinate ER 100 MG Oral Tabl et Extended Release 24 Hour; take 1 tablet by mouth once daily Refills: 0 Lisinopril 10 MG Oral Tablet; take 1 tablet by mouth once da preeti 15 Tablet Bottle Refills: 0 lamoTRIgine 100 MG Oral Tablet; TAKE 1 TABLET BY MOUTH TWICE DAILY Refills: 0 Admelog 100 UNIT/ML Subcutaneous Solutio n; INJECT 30 UNITS SUBQ THREE TIMES DAILY Refills: 0 Gabapentin 300 MG Oral Capsule; TAKE 1 CAPSULE BY MOUTH TWIC E DAILY Refills: 0 Fluticasone Propionate 50 MCG/ACT Nasal Suspension; instill 2 sprays into each nostril once daily 9.9 ML Bottle Refills: 0 Atorvastatin Calcium 80 MG Oral Tablet; take 1 tablet by aj th once daily Refills: 0 Aspirin 81 MG TABS; take 1 tablet by mouth once daily Refills: 0 ALPRAZolam 1 MG Oral Tablet; TAKE 1 TABLET BY MOUTH FOUR OZZY ES DAILY Refills: 0 Ventolin HFA 108 (90 Base) MCG/ACT Inhal ation Aerosol Solution; INHALE 2 PUFFS BY MOUTH EVERY 4 HOURS NEEDED 8 GM Inhaler Refills: 0 Spironolactone 25 MG Oral Tablet; take 1 tablet by mouth onc e daily Refills: 0 Procedures History of Section Status: Comp leted History of eye surgery Status: Completed History of foot surgery Status: Complete d Immunizations Immunizations not documented Family History Unknown Family Member Family history of malignant neoplasm (V16.9) Status: Active Comments: Family History (Z80.9) Family history of diabetes mellitus (V18.0) Status: Active Comments: Family History (Z83.3) Family history of hypertension (V17.49) Status: Active Comments: Family History (Z82.49) Social History - Smoking Status Never smoked tobacco Plan of Treatment Planned Observations Planned Goals not documented Results No Known Results Results not documented Encounters Appointment; Freeman Navas M.D. 16-Sep-2018 10:30 Encounter Diagnosis: Problem not documented Appointment; Freeman Navas M.D. 12-Oct-2018 15:15 Encounter Diagnosis: Problem not documented
--- OUTSIDE RECORDS SUMMARY | 2019-06-02 18:29 | External Medical Summary | Continuity of Care Document ---
:1970 Author Name Farrah Mistry, Provider Address Unavailable Unavailable , Care Team Providers Name Role Phone Eloise Mistry, [email or web address] Medina Unavailable Unavailable Problems Chest pain, unspecified (786.50) (R07.9) CHF (congestive heart failure) (428.0) (I50.9) HTN (hypertension) (401.9) (I10) Cardiomyopathy (425.4) (I42.9) Morbid obesity with BMI of 45.0-49.9, adult (278.01) (E66.01 ) Anxiety associated with depression (300.4) (F41.8) COPD (chronic obstructive pulmonary disease) (496) (J44.9) Hypothyroidism (244.9) (E03.9) Diabetes mellitus with hyperglycemia (250.00) (E11.65) Allergies and Adverse Reactions No Known Allergies (Allergy) Medications Spironolactone 25 MG Oral Tablet; take 1 tablet by mouth onc e daily Refills: 0 Ventolin HFA 108 (90 Base) MCG/ACT Inhal ation Aerosol Solution; INHALE 2 PUFFS BY MOUTH EVERY 4 HOURS NEEDED 8 GM Inhaler Refills: 0 ALPRAZolam 1 MG Oral Tablet; TAKE 1 TABLET BY MOUTH FOUR OZZY ES DAILY Refills: 0 Aspirin 81 MG TABS; take 1 tablet by mouth once daily Refills: 0 Atorvastatin Calcium 80 MG Oral Tablet; take 1 tablet by aj th once daily Refills: 0 Fluticasone Propionate 50 MCG/ACT Nasal Suspension; instill 2 sprays into each nostril once daily 9.9 ML Bottle Refills: 0 Gabapentin 300 MG Oral Capsule; TAKE 1 CAPSULE BY MOUTH TWIC E DAILY Refills: 0 Admelog 100 UNIT/ML Subcutaneous Solutio n; INJECT 30 UNITS SUBQ THREE TIMES DAILY Refills: 0 lamoTRIgine 100 MG Oral Tablet; TAKE 1 TABLET BY MOUTH TWICE DAILY Refills: 0 Latuda 80 MG Oral Tablet; take 1 [...] da preeti 15 Tablet Bottle Refills: 0 Procedures History of Section Status: [...] 10:30 Encounter Diagnosis: Problem not documented Appointment; Freemna Navas M.D. 12-Oct-2018 15:15 Encounter Diagnosis: Problem not documented
--- NOTE | 2019-06-02 19:01 | XRay Report ---
XR chest 1V portable CLINICAL HISTORY: Dyspnea COMPARISON STUDY: 09/09/2018 FINDINGS: Parenchymal infiltrate left lung base. Lungs otherwise appear clear. There is a permanent b ipolar cardiac pacemaker/defibrillator. No evidence for pneumothorax. IMPRESSION: Infiltrate left base. ACT 112: Negative or not required by law. The above report was generated using voice recognition software. It may contain grammatical, syntax or spelling errors. Electronically signed by: Dre Shaffer M.D. 06/02/2019 7:00 PM
[2019-06-02 19:05] LABS: Influenza A virus by PCR Neg for Influ A (Neg); Influenza B virus by PCR Neg for Influ B (Neg)
[2019-06-02 19:29] LABS: Basophils # (auto) 0.02 K/uL (0-0.2); Basophils % (auto) 0.1 %; Eosinophils # (auto) 0.02 K/uL (0-0.5); Eosinophils % (auto) 0.1 %; Hematocrit (blood only) 37.5 % (37-47); Hemoglobin 11.8 g/dL (12.0-16.0); Immature Granulocytes # (auto) 0.04 K/uL (0.00-0.02); Immature Granulocytes % (auto) 0.2 %; Lymphocytes # (auto) 1.03 K/uL (1.2-3.4); Lymphocytes % (auto) 5.7 %; Mean Corpuscular Hemoglobin 25.4 pg (25-34); Mean Corpuscular Hgb Conc 31.5 g/dL (32-36); Mean Corpuscular Volume 80.6 fL (80-100); Mean Platelet Volume 9.7 fL (7.4-10.4); Monocytes # (auto) 0.88 K/uL (0.11-0.59); Monocytes % (auto) 4.8 %; Neutrophils # (auto) 16.19 K/uL (1.4-6.5); Neutrophils % (auto) 89.1 %; Platelet Count 193 K/uL (130-400); RDW Coefficient of Variation 18.1 % (11.5-14.5); RDW Standard Deviation 52.5 fL (36.4-46.3); Red Blood Count 4.65 M/uL (4.2-5.4); White Blood Count 18.18 K/uL (4.8-10.8)
[2019-06-02 19:31] LABS: Base Excess VBG 4.7 mEq/L; pH VBG 7.46 (7.36-7.41)
[2019-06-02 19:40] LABS: INR 1.2 (0.9-1.1); Partial Thromboplastin Ratio 0.9; Partial Thromboplastin Time 24.5 Seconds (21.0-31.0); Prothrombin Time 12.5 Seconds (9.0-12.0)
[2019-06-02 19:48] LABS: Albumin Level 2.8 gm/dl (3.4-5.0); BUN Creatinine Ratio 9.8 (10-20); Calcium 8.2 mg/dl (8.5-10.1); Creatinine Clr Calc Pharmacy 57.4 ml/min; Est GFR (African American) 42.1; Est GFR (Non-African American) 36.3; Magnesium 1.3 mg/dl (1.8-2.4); Potassium 4.1 mmol/L (3.5-5.1)
[2019-06-02 20:02] LABS: Albumin Globulin Ratio 0.7 (0.9-2); Beta-Hydroxybutyrate 1.08 mg/dl (0.2-2.81); Bilirubin,Total 0.5 mg/dl (0.2-1); Globulin 4.2 gm/dl (2.5-4.0); Troponin I 0.016 ng/ml (0-0.045)
[2019-06-02] MEDS ORDERED: CALCIUM CARBONATE 500 MG CHEWABLE TAB PO STA (20:10)
[2019-06-02] MEDS ORDERED: MAGNESIUM OXIDE 400 MG TAB PO STA (20:10)
[2019-06-02] MEDS ORDERED: VANCOMYCIN CONSULT ACTIVE PRN ×2 (20:20→23:07)
[2019-06-02] MEDS ORDERED: VANCOMYCIN HCL 2,750 MG in SODIUM CHLORIDE 0.9% 500 ML IV ONE (20:20)
[2019-06-02] MEDS ORDERED: LEVOFLOXACIN/D5W 750 MG/150 ML BAG IV SCH (20:30)
--- NOTE | 2019-06-02 21:56 | History & Physical Report ---
Date of Service June 02, 2019 Assessment & Plan (1) Pneumonia: Pneumonia involving left lower lobe/COPD- Place on vancomycin IV, Zosyn IV. Pulmicort Respules 0.5 mg inhaled twice daily. Guaifenesin extended release 600 mg p.o. twice daily. Sputum Gram stain and culture. Duonebs every 4 hours while awake and every 2 hours when necessary. Of note, patient reports that she was hospitalized at [address] for approximately 18 days and discharged 5 days ago. We will have her sign medical records release to review her admission there. Present on Admission?: Yes (2) Hypomagnesemia: Magnesium level 1.3 upon admission. She is already been given 800 mg p.o. by ED. Give magnesium sulfate 2 g IV. Repeat labs in a.m. Present on Admission?: Yes (3) Hyperglycemia due to type 2 diabetes mellitus: Glucose 333 upon admission. Continue usual dosing of Lantus insulin 20 units subcu twice daily. Placed on Accu-Cheks before meals and at bedtime with NovoLog coverage per scale. Check hemoglobin A1c Present on Admission?: Yes (4) Hypertension: CAD/hypertension/cardiomyopathy-HFrEF with EF 25 to 30% and global hypokinesis- Check serial troponins. Continue aspirin, carvedilol and apixaban. Present on Admission?: Yes (5) Cardiomyopathy: See above Present on Admission?: Yes (6) CHF (congestive heart failure): See above Present on Admission?: Yes (7) Anxiety with depression: Continue usual medications of alprazolam, gabapentin, Latuda, mirtazapine and paroxetine. Present on Admission?: Yes (8) Renal insufficiency: Creatinine 1.65 upon admission with range 1.16-1.72. Hold lisinopril. Follow BMP closely while patient is on vancomycin IV. Present on Admission?: Yes History of Present Illness Chief Complaint: The patient presents to the emergency department with complaint of feeling cold earlier in the day while visiting her who is in the hospital on the second floor. Primary Care Provider: Adalberto Rodrgiuez The patient is a 48-year-old female with a past medical history including cardiomyopathy, hypertension, sinus tachycardia, anxiety with depression, hypothyroidism, hypomagnesemia, renal insufficiency, CHF, DKA, stroke, morbid obesity with BMI 45.0-49.9, diabetes mellitus, bilateral foot pain and history of falls. Patient presents to the emergency department with complaint of feeling cold when she was visiting her is on the second for the hospital. Work-up in the emergency department included a chest x-ray which showed left lower lobe pneumonia. Upon further discussion with patient, she reports [facility] discharged 5 days ago, but she is vague about what she was treated for and whether or not she had any scans performed. Allergies Allergy/AdvReac Type Severity Reaction Status Date / Time No Known Allergies Allergy Verified 06/02/19 19:08 Home Medications Home Medications Medication Instructions Recorded Confirmed Type Latuda 80 mg PO QAM 08/24/18 06/02/19 History albuterol sulfate [Ventolin HFA] 2 puff INHALATION Q4H PRN 08/24/18 06/02/19 History alprazolam 1 mg PO QID 08/24/18 06/02/19 History aspirin 81 mg PO QAM 08/24/18 06/02/19 History atorvastatin 80 mg PO QAM 08/24/18 06/02/19 History ferrous gluconate 324 mg PO QAM 08/24/18 06/02/19 History fluticasone propionate 2 spray INTRANASAL DAILY 08/24/18 06/02/19 History gabapentin 300 mg PO TID 08/24/18 06/02/19 History insulin lispro [Admelog SoloStar 10 unit SUBCUT TIDM 08/24/18 06/02/19 History U-100 Insulin] lamotrigine 100 mg PO BID 08/24/18 06/02/19 History mirtazapine 45 mg PO HS 08/24/18 06/02/19 History paroxetine HCl 60 mg PO BID 08/24/18 06/02/19 History apixaban [Eliquis] 5 mg PO BID 06/02/19 06/02/19 History carvedilol 12.5 mg PO BID 06/02/19 06/02/19 History insulin glargine [Lantus U-100 20 unit SUBCUT BID 06/02/19 06/02/19 History Insulin] lisinopril 10 mg PO QAM 06/02/19 06/02/19 History Past Med/Surg History Medical History Anxiety associated with depression CHF (congestive heart failure) COPD (chronic obstructive pulmonary disease) Diabetes (Chronic) Hypertension Hypothyroid Morbid obesity with BMI of 45.0-49.9, adult Stroke Surgical History History of section History of eye surgery History of foot surgery Family History Other Cancer Diabetes Hypertension Social History Preferred Language: Hebrew Communication Ability: Effective Poultry Sexer Required: No Beliefs That Will Affect Care: None marital status: Current Living Situation: Spouse Current Living Situation Comment: Daughter lives with them Feels Safe at Home: Yes Smoking Status: Never smoker Second Hand Exposure: No ; Hx Alcohol Use: No Hx Substance Use: No Review of Systems Review of Systems: The patient denies chest pain, palpitations, shortness of breath, dyspnea on exertion, cough, lower extremity swelling, sore throat, fevers, chills, sweats, weight change, fatigue, nausea, vomiting, diarrhea , constipation, abdominal pain, pelvic pain, blood in urine or stool, dysuria, urinary frequency or urgency, lightheadedness, dizziness, headache, loss of consciousness, rash, abnormal bruising or bleeding, imbalance, focal weakness, numbness or tingling in arms or legs, generalized arthralgias or myalgias, back or neck pain, or night sweats. The review of systems is otherwise negative other than for that already noted above, and at least 10 systems have been reviewed. Physical Exam Physical Exam: The patient is awake, alert and oriented 3, well developed and well nourished, status post right eye enucleation, lying in bed and in no acute distress. HEENT--PERRL, EOMI, mucous membranes and oropharynx normal. Neck--supple. No JVD. No bruits. Thyroid normal, trachea midline, no adenopathy. Heart--normal S1 and S2. No murmurs, rubs or gallops. Lungs--decreased breath sounds left base, no respiratory distress, no accessory muscle use. Abdomen--normal bowel sounds and soft. Nontender. Nondistended. Morbidly obese Extremities--no cyanosis or clubbing. No edema. There are good distal pulses b/l. Dermatologic--normal skin turgor, normal color, no abnormal lymph nodes, no rash. Neurologic--cranial nerves II through XII grossly intact. Rheumatologic--normal range of motion. Psychiatric--normal affect. Results & Data Vital Signs (Past 12 Hours) Vital Signs Temp Pulse Pulse Resp BP BP Pulse Ox 06/02/19 21:00 116 H 24 159/92 H 96 06/02/19 20:30 115 H 19 165/92 H 96 06/02/19 20:29 116 H 24 173/96 H 96 06/02/19 20:28 98 H 24 173/96 H 95 06/02/19 20:00 29 H 177/101 H 06/02/19 19:30 25 H 176/102 H 06/02/19 19:22 24 167/87 H 95 06/02/19 18:15 96 06/02/19 17:56 98.4 F 126 H 20 182/94 H 92 Laboratory Results Laboratory Results WBC 18.18 K/uL (4.8-10.8) H 06/02/19 19:14 RBC 4.65 M/uL (4.2-5.4) 06/02/19 19:14 Hgb 11.8 g/dL (12.0-16.0) L 06/02/19 19:14 Hct 37.5 % (37-47) 06/02/19 19:14 MCV 80.6 fL (80-100) 06/02/19 19:14 MCH 25.4 pg (25-34) 06/02/19 19:14 MCHC 31.5 g/dL (32-36) L 06/02/19 19:14 RDW Std Deviation 52.5 fL (36.4-46.3) H 06/02/19 19:14 RDW Coeff of Trey 18.1 % (11.5-14.5) H 06/02/19 19:14 Plt Count 193 K/uL (130-400) 06/02/19 19:14 MPV 9.7 fL (7.4-10.4) 06/02/19 19:14 Immature Gran % (Auto) 0.2 % 06/02/19 19:14 Neut % (Auto) 89.1 % 06/02/19 19:14 Lymph % (Auto) 5.7 % 06/02/19 19:14 [place] % (Auto) 4.8 % 06/02/19 19:14 Eos % (Auto) 0.1 % 06/02/19 19:14 Baso % (Auto) 0.1 % 06/02/19 19:14 Immature Gran # (Auto) 0.04 K/uL (0.00-0.02) H 06/02/19 19:14 Neut # (Auto) 16.19 K/uL (1.4-6.5) H 06/02/19 19:14 Lymph # (Auto) 1.03 K/uL (1.2-3.4) L 06/02/19 19:14 [place] # (Auto) 0.88 K/uL (0.11-0.59) H 06/02/19 19:14 Eos # (Auto) 0.02 K/uL (0-0.5) 06/02/19 19:14 Baso # (Auto) 0.02 K/uL (0-0.2) 06/02/19 19:14 PT 12.5 Seconds (9.0-12.0) H 06/02/19 19:14 INR 1.2 (0.9-1.1) H 06/02/19 19:14 APTT 24.5 Seconds (21.0-31.0) 06/02/19 19:14 PTT Ratio 0.9 06/02/19 19:14 VBG pH 7.46 (7.36-7.41) H 06/02/19 19:14 VBG pCO2 42 mmHg (38-50) 06/02/19 19:14 VBG pO2 42 mmHg 06/02/19 19:14 VBG HCO3 29 mmol/L 06/02/19 19:14 VBG O2 Saturation 75.0 % 06/02/19 19:14 VBG Base Excess 4.7 mEq/L 06/02/19 19:14 Barometric Pressure 721.4 mm/Hg 06/02/19 19:14 Sodium 135 mmol/L (136-145) L 06/02/19 19:14 Potassium 4.1 mmol/L (3.5-5.1) 06/02/19 19:14 Chloride 101 mmol/L (98-107) 06/02/19 19:14 Carbon Dioxide 29 mmol/L (21-32) 06/02/19 19:14 Anion Gap 6.0 (3-11) 06/02/19 19:14 BUN 16 mg/dl (7-18) 06/02/19 19:14 Creatinine 1.65 mg/dl (0.6-1.2) H 06/02/19 19:14 Est Cr Clr Drug Dosing 57.4 ml/min 06/02/19 19:14 Est GFR ( Amer) 42.1 06/02/19 19:14 Est GFR (Non-Af Amer) 36.3 06/02/19 19:14 BUN/Creatinine Ratio 9.8 (10-20) L 06/02/19 19:14 Glucose 333 mg/dl (70-99) H* 06/02/19 19:14 POC Glucose 229 mg/dl (70-99) H 06/02/19 23:28 Calcium 8.2 mg/dl (8.5-10.1) L 06/02/19 19:14 Magnesium 1.3 mg/dl (1.8-2.4) L 06/02/19 19:14 Total Bilirubin 0.5 mg/dl (0.2-1) 06/02/19 19:14 AST 13 U/L (15-37) L 06/02/19 19:14 ALT 12 U/L (12-78) 06/02/19 19:14 Alkaline Phosphatase 96 U/L (45-117) 06/02/19 19:14 Troponin I 0.016 ng/ml (0-0.045) 06/02/19 19:14 NT-Pro-B Natriuret Pep 3204 pg/ml (0-450) H 06/02/19 19:14 Total Protein 7.0 gm/dl (6.4-8.2) 06/02/19 19:14 Albumin 2.8 gm/dl (3.4-5.0) L 06/02/19 19:14 Globulin 4.2 gm/dl (2.5-4.0) H 06/02/19 19:14 Albumin/Globulin Ratio 0.7 (0.9-2) L 06/02/19 19:14 Beta-Hydroxybutyric Acd 1.08 mg/dl (0.2-2.81) 06/02/19 19:14 Influenza Type A (PCR) Neg for Influ A (Neg) 06/02/19 18:18 Influenza Type B (PCR) Neg for Influ B (Neg) 06/02/19 18:18 Diagnostic Findings [place], [place] [phone] XRay Report Patient: CORY BARBAAdmit Date: 06/02/19 MR#: [id number]: [address] Acct ID:[id number]: Date: 1970City Zip: [place] [address] Age: 48Location: ED Sex: F Room/Bed: Att Phy:Diagnosis: SOB,COLD,HIGH HEART RATE Dina Phy: Adalberto Rodriguez M.D.Service Date: 06/02/19 Fam Phy:Interpreting Phy: Dre Shaffer MD Admit Phy: Ordering Phy: Usman Humphreys M.D. cc: ~ XR chest 1V portable CLINICAL HISTORY: Dyspnea COMPARISON STUDY: 09/09/2018 FINDINGS: Parenchymal infiltrate left lung base. Lungs otherwise appear clear. There is a permanent bipolar cardiac pacemaker/defibrillator. No evidence for pneumothorax. IMPRESSION: Infiltrate left base. ACT 112: Negative or not required by law. The above report was generated using voice recognition software. It may contain grammatical, syntax or spelling errors. Electronically signed by: Dre Shaffer M.D. 06/02/2019 7:00 PM Dictated: 06/02/191858 Transcribed: 06/02/191858 Code Status & VTE Plan Code Status Full code VTE Prophylaxis Plan VTE Prophylaxis will be ordered: Yes PG Care Time/CCT Total # of Minutes Spent Total Time Spent with Patient: Total time spent is greater than 50% in coordination of care (as documented) at patient's floor/unit and/or counseling patient: Coding Level of Care Code 47583 Initial Inpt Care Lvl 3 Diagnoses Pneumonia J18.9 Laterality: left Lung location: lower lobe of lung Pneumonia type: due to unspecified organism Hypomagnesemia E83.42 Hyperglycemia due to type 2 diabetes mellitus E11.65 Hypertension I10 Cardiomyopathy I42.9 CHF (congestive heart failure) I50.9 Heart failure chronicity: acute on chronic Heart failure type: unspecified Anxiety with depression F41.8 Renal insufficiency N28.9 (1) Pneumonia Laterality: left Lung location: lower lobe of lung Pneumonia type: due to unspecified organism Qualified Code(s): J18.9 - Pneumonia, unspecified organism (2) CHF (congestive heart failure) Heart failure chronicity: acute on chronic Heart failure type: unspecified Qualified Code(s): I50.9 - Heart failure, unspecified
[2019-06-02] MEDS ORDERED: GLUCOSE 10 TABS/TUBE PO PRN (23:07)
[2019-06-02] MEDS ORDERED: PIPERACILL/TAZOBAC CONSULT ACTIVE PRN (23:07)
[2019-06-02] MEDS ORDERED: GLUCOSE 40% GEL 15 GM TUBE PO PRN (23:07)
[2019-06-02] MEDS ORDERED: MAGNESIUM HYDROXIDE SUSP 30 ML UDC PO PRN (23:07)
[2019-06-02] MEDS ORDERED: ALUMINUM/MAGNESIUM SUSP 30 ML UDC PO PRN (23:07)
[2019-06-02] MEDS ORDERED: GLUCAGON FOR INJ 1 MG VIAL SQ PRN (23:07)
[2019-06-02] MEDS ORDERED: ONDANSETRON INJ 2 MG/ML 2 ML VIAL IV PRN (23:07)
[2019-06-02] MEDS ORDERED: DEXTROSE 50% 50 ML SYRINGE IV PRN (23:07)
[2019-06-02] MEDS: ACETAMINOPHEN 325 MG TAB PO PRN (23:55)
--- NOTE | 2019-06-03 00:36 | Emergency Department Note ---
Entered by Crystal Boogie acting as a scribe for History of Present Illness General Chief complaint: Shortness of Breath/Dyspnea Stated complaint: SOB,COLD,HIGH HEART RATE Time Seen by Provider: 06/02/19 18:00 Source: patient History of Present Illness Provider complaint: shortness of breath Onset (ago): day(s) 1 Location: chest Radiation: non-radiation Pain Consistency: + intermittent Maximum Pain Intensity: 8 Relieved By: + other (oxygen ) Exacerbated By: + other (not having oxygen) Associated symptoms: + denies other symptoms; no cough and no fever/chills The patient is a 28 y/o female w/ PMHx hypertension, CHF, stroke and diabetes who presents to the ED w/ CC of intermittent shortness of breath beginning today.The patient states that she is short of breath which is normal when she is not using oxygen. She reports that she uses oxygen all the time but her was admitted to [facility] last night so she was without oxygen during that time. The patient notes that her insurance only covers oxygen tanks which she is unable to use when away from home. The patient states that she has been experiencing some leg swelling recently as well. She reports she is feeling better with oxygen in the ED. The patient denies cough, fever, and any other symptoms. Home Medications Home Medications Medication Instructions Recorded Confirmed Type Latuda 80 mg PO QAM 08/24/18 06/02/19 History albuterol sulfate [Ventolin HFA] 2 puff INHALATION Q4H PRN 08/24/18 06/02/19 History alprazolam 1 mg PO QID 08/24/18 06/02/19 History aspirin 81 mg PO QAM 08/24/18 06/02/19 History atorvastatin 80 mg PO QAM 08/24/18 06/02/19 History ferrous gluconate 324 mg PO QAM 08/24/18 06/02/19 History fluticasone propionate 2 spray INTRANASAL DAILY 08/24/18 06/02/19 History gabapentin 300 mg PO TID 08/24/18 06/02/19 History insulin lispro [Admelog SoloStar 10 unit SUBCUT TIDM 08/24/18 06/02/19 History U-100 Insulin] lamotrigine 100 mg PO BID 08/24/18 06/02/19 History mirtazapine 45 mg PO HS 08/24/18 06/02/19 History paroxetine HCl 60 mg PO BID 08/24/18 06/02/19 History apixaban [Eliquis] 5 mg PO BID 06/02/19 06/02/19 History carvedilol 12.5 mg PO BID 06/02/19 06/02/19 History insulin glargine [Lantus U-100 20 unit SUBCUT BID 06/02/19 06/02/19 History Insulin] lisinopril 10 mg PO QAM 06/02/19 06/02/19 History Allergies Allergy/AdvReac Type Severity Reaction Status Date / Time No Known Allergies Allergy Verified 06/02/19 19:08 Past Med/Surg History Medical History Anxiety associated with depression CHF (congestive heart failure) COPD (chronic obstructive pulmonary disease) Diabetes (Chronic) Hypertension Hypothyroid Morbid obesity with BMI of 45.0-49.9, adult Stroke Surgical History History of section History of eye surgery History of foot surgery Family History Other Cancer Diabetes Hypertension Social History Preferred Language: Pakistani Communication Ability: Effective 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 and A total of 10 systems reviewed and were otherwise negative Physical Exam Vital Signs Vital Signs - 24 hr 06/02/19 17:56 06/02/19 18:15 06/02/19 19:22 Temperature 36.9 C Temperature Source Oral Pulse Rate 126 H Pulse Rate [Apical] Pulse Rate from SpO2 Sensor 118 H Respiratory Rate 20 24 Respiratory Effort / Characteristics Non-Labored Respiratory Depth Normal Blood Pressure 182/94 H 167/87 H Blood Pressure [Right Arm] Blood Pressure Mean 123 110 Blood Pressure Mean [Right Arm] Blood Pressure Position Sitting Pulse Oximetry 92 96 95 Oxygen Delivery Method Room Air Nasal Cannula Oxygen Flow Rate 3 Sepsis Recent Fever Within 48 Hours No Sepsis New/Unexplained Change in Mental Status No Sepsis Action Taken by Nursing No Action Required 06/02/19 19:30 06/02/19 20:00 06/02/19 20:28 Temperature Temperature Source Pulse Rate 98 H Pulse Rate [Apical] Pulse Rate from SpO2 Sensor Respiratory Rate 25 H 29 H 24 Respiratory Effort / Characteristics Respiratory Depth Blood Pressure 176/102 H 177/101 H 173/96 H Blood Pressure [Right Arm] Blood Pressure Mean 119 119 113 Blood Pressure Mean [Right Arm] Blood Pressure Position Pulse Oximetry 95 Oxygen Delivery Method Nasal Cannula Oxygen Flow Rate 3 Sepsis Recent Fever Within 48 Hours Sepsis New/Unexplained Change in Mental Status Sepsis Action Taken by Nursing 06/02/19 20:29 06/02/19 20:30 06/02/19 21:00 Temperature Temperature Source Pulse Rate 115 H 116 H Pulse Rate [Apical] 116 H Pulse Rate from SpO2 Sensor 115 H Respiratory Rate 24 19 24 Respiratory Effort / Characteristics Non-Labored Respiratory Depth Normal Blood Pressure 165/92 H 159/92 H Blood Pressure [Right Arm] 173/96 H Blood Pressure Mean 119 103 Blood Pressure Mean [Right Arm] 121 Blood Pressure Position Pulse Oximetry 96 96 96 Oxygen Delivery Method Nasal Cannula Nasal Cannula Nasal Cannula Oxygen Flow Rate 3 3 3 Sepsis Recent Fever Within 48 Hours Sepsis New/Unexplained Change in Mental Status Sepsis Action Taken by Nursing GENERAL: Appears older than states age, well nourished, non-toxic. EYE EXAM: Absent right eye. Left eye equally round, EOM intact. OROPHARYNX: Moist mucus membranes. Grossly normal dentition. NECK: Supple, no nuchal rigidity, no adenopathy, non-tender. No signs of meni ngismus. LUNGS: Clear to auscultation. Normal chest wall mechanics. HEART: Tachycardic and regular with device in right chest, no MRG. ABDOMEN: Abdomen soft, non-tender, normo-active bowel sounds, no masses, no rebound or guarding. BACK: No CVA TTP. SKIN: No rashes and no bruising. UPPER EXTREMITIES: Upper extremities are grossly normal. LOWER EXTREMITIES: 1-2+ bilateral lower extremity edema. No calf pain. No erythema. NEURO EXAM: A&O x3, cranial nerves II-XII grossly intact, normal speech, moves all 4 extremities on command w/o issue. Course Course 1806: Past medical records reviewed. The patient was evaluated in room C04. A complete history and physical exam was performed. 1814: The patient was placed on continuous cardiac monitoring. 2012: I spoke with Dr. Perez [facility] hospitalist. He will evaluate for further management. 2014: I checked on the patient and updated her on the treatment plan. She is agreeable to admission. Administered Medications Acetaminophen (Tylenol) 650 mg PO Q4H PRN PRN Reason: Pain or Fever Stop: 07/02/19 23:06 Last Admin: 06/02/19 23:55 Dose: 650 mg Documented by: [id number] Levofloxacin/Dextrose (Levaquin/D5w) 750 mg in 150 mls @ 100 mls/hr IV Q24H SHERYL Stop: 06/09/19 20:29 Last Admin: 06/02/19 22:18 Dose: 100 mls/hr Documented by: [id number] Discontinued Medications Calcium Carbonate (Tums) 1,500 mg PO NOW STA Stop: 06/02/19 20:11 Last Admin: 06/02/19 20:23 Dose: 1,500 mg Documented by: [id number] Vancomycin HCl 2,750 mg/ (Sodium Chloride) 555 mls @ 200 mls/hr IV NOW ONE Stop: 06/02/19 23:06 Last Admin: 06/03/19 00:08 Dose: 200 mls/hr Documented by: [id number] Magnesium Oxide (Mag-Ox) 800 mg PO NOW STA Stop: 06/02/19 20:11 Last Admin: 06/02/19 20:24 Dose: 800 mg Documented by: [id number] Medical Decision Making Differential Diagnosis Differential diagnosis: Etiologies such as infections, reactive airway disease, COPD, pneumonia, pleural effusion, pulmonary edema, ARDS, pneumothorax, CHF, cardiac ischemia, cardiac tamponade, dysrhythmia, anemia, pulmonary embolism, musculoskeletal, gastrointestinal process, as well as others were entertained. Medical Records Attestation: I reviewed the patient's medical records. Home Medications Current Medication List: was personally reviewed by me Laboratory Data Attestation: I reviewed the patient's lab results. Result diagrams: 06/02/19 19:14 06/02/19 19:14 Lab Results 06/02/19 06/02/19 06/02/19 Range/Units 18:18 19:14 19:14 WBC 18.18 H (4.8-10.8) K/uL RBC 4.65 (4.2-5.4) M/uL Hgb 11.8 L (12.0-16.0) g/dL Hct 37.5 (37-47) % MCV 80.6 (80-100) fL MCH 25.4 (25-34) pg MCHC 31.5 L (32-36) g/dL RDW Std Deviation 52.5 H (36.4-46.3) fL RDW Coeff of Trey 18.1 H (11.5-14.5) % Plt Count 193 (130-400) K/uL MPV 9.7 (7.4-10.4) fL Immature Gran % (Auto) 0.2 % Neut % (Auto) 89.1 % Lymph % (Auto) 5.7 % [place] % (Auto) 4.8 % Eos % (Auto) 0.1 % Baso % (Auto) 0.1 % Immature Gran # (Auto) 0.04 H (0.00-0.02) K/uL Neut # (Auto) 16.19 H (1.4-6.5) K/uL Lymph # (Auto) 1.03 L (1.2-3.4) K/uL [place] # (Auto) 0.88 H (0.11-0.59) K/uL Eos # (Auto) 0.02 (0-0.5) K/uL Baso # (Auto) 0.02 (0-0.2) K/uL PT 12.5 H (9.0-12.0) Seconds INR 1.2 H (0.9-1.1) APTT 24.5 (21.0-31.0) Seconds PTT Ratio 0.9 VBG pH (7.36-7.41) VBG pCO2 (38-50) mmHg VBG pO2 mmHg VBG HCO3 mmol/L VBG O2 Saturation % VBG Base Excess mEq/L Barometric Pressure mm/Hg Sodium (136-145) mmol/L Potassium (3.5-5.1) mmol/L Chloride (98-107) mmol/L Carbon Dioxide (21-32) mmol/L Anion Gap (3-11) BUN (7-18) mg/dl Creatinine (0.6-1.2) mg/dl Est Cr Clr Drug Dosing ml/min Est GFR ( Amer) Est GFR (Non-Af Amer) BUN/Creatinine Ratio (10-20) Glucose (70-99) mg/dl Calcium (8.5-10.1) mg/dl Magnesium (1.8-2.4) mg/dl Total Bilirubin (0.2-1) mg/dl AST (15-37) U/L ALT (12-78) U/L Alkaline Phosphatase (45-117) U/L Troponin I (0-0.045) ng/ml NT-Pro-B Natriuret Pep (0-450) pg/ml Total Protein (6.4-8.2) gm/dl Albumin (3.4-5.0) gm/dl Globulin (2.5-4.0) gm/dl Albumin/Globulin Ratio (0.9-2) Beta-Hydroxybutyric Acd (0.2-2.81) mg/dl Influenza Type A (PCR) Neg for Influ A (Neg) Influenza Type B (PCR) Neg for Influ B (Neg) 06/02/19 06/02/19 Range/Units 19:14 19:14 WBC (4.8-10.8) K/uL RBC (4.2-5.4) M/uL Hgb (12.0-16.0) g/dL Hct (37-47) % MCV (80-100) fL MCH (25-34) pg MCHC (32-36) g/dL RDW Std Deviation (36.4-46.3) fL RDW Coeff of Trey (11.5-14.5) % Plt Count (130-400) K/uL MPV (7.4-10.4) fL Immature Gran % (Auto) % Neut % (Auto) % Lymph % (Auto) % [place] % (Auto) % Eos % (Auto) % Baso % (Auto) % Immature Gran # (Auto) (0.00-0.02) K/uL Neut # (Auto) (1.4-6.5) K/uL Lymph # (Auto) (1.2-3.4) K/uL [place] # (Auto) (0.11-0.59) K/uL Eos # (Auto) (0-0.5) K/uL Baso # (Auto) (0-0.2) K/uL PT (9.0-12.0) Seconds INR (0.9-1.1) APTT (21.0-31.0) Seconds PTT Ratio VBG pH 7.46 H (7.36-7.41) VBG pCO2 42 (38-50) mmHg VBG pO2 42 mmHg VBG HCO3 29 mmol/L VBG O2 Saturation 75.0 % VBG Base Excess 4.7 mEq/L Barometric Pressure 721.4 mm/Hg Sodium 135 L (136-145) mmol/L Potassium 4.1 (3.5-5.1) mmol/L Chloride 101 (98-107) mmol/L Carbon Dioxide 29 (21-32) mmol/L Anion Gap 6.0 (3-11) BUN 16 (7-18) mg/dl Creatinine 1.65 H (0.6-1.2) mg/dl Est Cr Clr Drug Dosing 57.4 ml/min Est GFR ( Amer) 42.1 Est GFR (Non-Af Amer) 36.3 BUN/Creatinine Ratio 9.8 L (10-20) Glucose 333 H* (70-99) mg/dl Calcium 8.2 L (8.5-10.1) mg/dl Magnesium 1.3 L (1.8-2.4) mg/dl Total Bilirubin 0.5 (0.2-1) mg/dl AST 13 L (15-37) U/L ALT 12 (12-78) U/L Alkaline Phosphatase 96 (45-117) U/L Troponin I 0.016 (0-0.045) ng/ml NT-Pro-B Natriuret Pep 3204 H (0-450) pg/ml Total Protein 7.0 (6.4-8.2) gm/dl Albumin 2.8 L (3.4-5.0) gm/dl Globulin 4.2 H (2.5-4.0) gm/dl Albumin/Globulin Ratio 0.7 L (0.9-2) Beta-Hydroxybutyric Acd 1.08 (0.2-2.81) mg/dl Influenza Type A (PCR) (Neg) Influenza Type B (PCR) (Neg) Imaging Data Radiologist's Impression: Radiology results as stated below per my review and the radiologist's interpretation: XR chest 1V portable CLINICAL HISTORY: Dyspnea COMPARISON STUDY: 09/09/2018 FINDINGS: Parenchymal infiltrate left lung base. Lungs otherwise appear clear. There is a permanent bipolar cardiac pacemaker/defibrillator. No evidence for pneumothorax. IMPRESSION: Infiltrate left base. ACT 112: Negative or not required by law. The above report was generated using voice recognition software. It may contain grammatical, syntax or spelling errors. Electronically signed by: Dre Shaffer M.D. 06/02/2019 7:00 PM ECG Data Attestation: I personally reviewed and interpreted this ECG as follows: Indication: + SOB/dyspnea Rate (beats per minute): 119 Rhythm: + sinus tachycardia ECG [place]: + Normal ECG Findings: + Other (normal interval, t-wave flattening laterally ) Blood Pressure Blood Pressure Findings: Elevated blood pressure Blood Pressure Disposition: further management by hospitalist POLO Narrative The patient is a 28 y/o female w/ PMHx hypertension, CHF, stroke and diabetes who presents to the ED w/ CC of intermittent shortness of breath beginning today. Cardiac monitoring: An order was placed for continuous cardiac monitoring. The monitor shows a rate of 120 with sinus tachycardia rhythm. Patient was seen and evaluated the bedside. The patient does have multiple medical comorbidities and was complaining of feeling cold, and shortness of katherine th. The patient does relate that she does wear oxygen at all times. The patient did not have portable oxygen and was in hospital as her had been admitted due to a which she self describes as a lung infection. The patient states that now that she is on oxygen she feels much improved. The patient states that she did not take all of her medications. Patient otherwise is currently at her self-described baseline. The patient does have some lower extremity edema. Clear breath sounds. The patient is tachycardic. Patient did have blood work complete along with an EKG, troponin, BNP, VBG and chest x-ray. Patient is on her normal 3 L. Patient does have a left lower lobe pneumonia elevated white count, hyperglycemia and associated hypocalcemia and hypomagnesemia. These were replet ed. The patient does have a recent hospital admission and reports the vancomycin and Levaquin were both ordered. Flu negative. I did speak the on- call hospitalist agreed to further evaluate treat the patient. Patient was admitted to the medicine service. Impression & Plan Pneumonia, Hypomagnesemia, Shortness of breath, Hyperglycemia, Hypocalcemia Discharge Plan Visit Data *Final* Discharge Date/Time: 06/02/19 21:57 Chief Complaint: Shortness of Breath/Dyspnea Stated Complaint: SOB,COLD,HIGH HEART RATE ED Provider: Usman Humphreys Discharge Problem: Pneumonia, Hypomagnesemia, Shortness of breath, Hyperglycemia, Hypocalcemia Patient Disposition: Admitted As Inpatient Discharge Instructions Interventions: ED Discharge Assessment Last Done: 06/02/19 21:57 Discharge Problem: Pneumonia Qualifiers: Pneumonia type: due to unspecified organism Laterality: left Lung location: lower lobe of lung Qualified Code(s): J18.9 - Pneumonia, unspecified organism The scribe's documentation has been prepared under my direction and personally reviewed by me in its entirety. I confirm that the note above accurately reflects all work, treatment, procedures, and medical decision making performed by me.
[2019-06-03] MEDS: lamoTRIgine 100 MG TAB PO SCH ×3 (00:49→21:20)
[2019-06-03] MEDS: carvediloL 12.5 MG TAB PO SCH ×3 (00:49→20:42)
[2019-06-03] MEDS: MAGNESIUM SULFATE / D5W 1 GM/100 ML BAG IV SCH ×2 (00:50→01:41)
[2019-06-03] MEDS ORDERED: PIPERACILLIN/TAZOBACTAM 4.5 GM in DEXTROSE 5% 100 ML IV ONE (01:00)
[2019-06-03] MEDS: APIXABAN 5 MG TABLET PO SCH ×3 (01:24→21:19)
[2019-06-03] MEDS: INSULIN GLARGINE SOLOSTAR 100 UNITS/ML 3 ML PEN SQ SCH ×3 (01:25→23:52)
[2019-06-03] MEDS: INSULIN ASPART 100 UNITS/ML 3 ML PEN SC SCH ×5 (01:26→21:00)
[2019-06-03] MEDS ORDERED: MoRPHine SULFATE 2 MG/ML CARP IV ONE (01:47)
[2019-06-03] MEDS ORDERED: PROCHLORPERAZINE 10 MG in SYRINGE 8 ML IV ONE (02:00)
[2019-06-03] MEDS: ALPRAZolam 0.5 MG TABLET PO PRN ×2 (02:02→14:54)
[2019-06-03] MEDS: PIPERACILLIN/TAZOBACTAM 4.5 GM in DEXTROSE 5% 100 ML IV SCH ×3 (05:51→21:22)
[2019-06-03] MEDS: BUDESONIDE 0.5 MG/2 ML VIAL (PULMICORT) NEB SCH ×2 (07:00→19:28)
[2019-06-03] MEDS: ALBUT/IPRATROP 3MG/0.5MG NEB 3 ML VIAL NEB SCH ×4 (07:00→19:28)
--- NOTE | 2019-06-03 08:32 | Hospitalist Progress Note ---
Date of Service June 03, 2019 Assessment & Plan (1) Pneumonia: 48-year-old female with extensive past medical history of heart failure with reduced extra skin infection, COPD, pneumonia, cardiomyopathy, hypertension, anxiety and depression, stroke, diabetes who presents to the hospital for evaluation of acute shortness of breath off of oxygen. 1. Hospital associated pneumonia status post flu with underlying COPD - Currently managing with vancomycin and Zosyn. Will discontinue vancomycin if MRSA nares negative. Discontinued levofloxacin started in the emergency department. - Patient uses oxygen at home and is currently at same requirements as home. Monitor for increasing oxygen requirements. - Chest x-ray showing bilateral pleural effusions and bibasilar densities. Patient was admitted with a white count of 18,000. Will trend CBC and continue to monitor clinically 2. HFrEF: 30-35% - Lasix 20 mg IV BID to avoid exacerbation - BNP 3204 at admission - monitoring I/Os, daily weights 3. Diabetes - some degree of confusion of Type 1 vs. Type 2 per nursing handoff vs. chart information - hx of uncontrolled sugars at last hospital stay in [facility] - Pharmacy consult for glycemic control - Home regimen: Lantus 20u BID 4. AFib - Eliquis 5 BID - Rate control with carvedilol 12.5 BID 5. HTN - Lisinopril 10 QAM. Will remove if kidney function affected - Cr at [facility] on 05/15 1.78, 1.65 on admission to [facility] 6. Hx Anxiety/Depression/Bipolar? - continuing medications from home list as below - Remeron 45 HS - Paroxetine 60 BID - Latuda 80 QAM - Lamictal 100 BID - Alprazolam 1mg QID 7. Diabetic Neuropathy - Gabapentin 300 TID 8. CAD - Atorvastatin 40 - ASA 81mg DVT PPX: on Eliquis Diet: Diabetic, heart healthy Code: Full Code (2) Cardiomyopathy: (3) CHF (congestive heart failure): (4) Morbid obesity with BMI of 45.0-49.9, adult: (5) Hyperglycemia due to type 2 diabetes mellitus: Admission and Anticipated Discharge Date Admission Date: June 02, 2019 Supervising Physician Co-Signing Physician Notes Attending attestation Pt seen and examined in concert with Dr. Hemphill. In agreement with the documented findings as noted in the resident documentation with any exceptions or additions as noted here. Improved shortness of breath from yesterday but not back to baseline. On examination, S1/S2 nl RRR no MCG. Decreased breath sounds of the bilateral bases with scattered rales. Abd NT/ND [facility] acquired pneumonia s/p influenza infection w/ COPD at home O2 requirement (3L) - continue vanc/zosyn. D/C zosyn with MRSA neg nares. Consider steroids should condition worsen. HFrEF - not presently in exacerbation - continue IV furosemide, monitor I/O/wt DMII - d/c glycemic control consultation, continue current regimen and adjust as needed based on glucose. Else see resident documentation as noted. Subjective 48 yo F with extensive PMH including HFrEF 30%, COPD, DM2, PNA, Stroke, cardiomyopathy who was recently discharged from a hospital stay at [facility] on May 29. She was treated there for a heart failure exacerbation as well as a COPD exacerbation per the discharge summary. During her stay she was noted to be flu positive and was treated with 5 days of steroids and Tamiflu. Last creatinine noted in the discharge summary was on May 15 of value of 1.78. This morning was mildly somnolent however able to converse later on in the morning. She denies any pain outside of that of her left ankle. States that she uses 3 L of oxygen at home and currently does not feel any more short of breath than normal while on oxygen sitting in bed. Denies any leg swelling that she is noticed. Denies any pain with taking a deep breath chest pain, palpitations, abdominal pain, nausea, vomiting, diarrhea.She notes that she has been under a lot of stress because her is also admitted to the hospital. Review of Systems Constitutional: no fever, no chills, no body aches and no fatigue Respiratory: no cough and no dyspnea Cardiovascular: no chest pain, no dyspnea and no edema Gastrointestinal: no abdominal pain, no nausea, no vomiting, no constipation and no diarrhea/loose stools Genitourinary: no dysuria Physical Exam Physical Exam: Constitutional: Laying in bed underneath multiple blankets following the conversation. Cardiac: Regular rate and rhythm no murmurs gallops or rubs appreciated. Normal S1-S2. No pitting edema at the feet or ankles noted bilaterally. Pulmonary: Mild crackling at the base of the left lung. No wheezes or rhonchi. Good airflow throughout both lungs. Abdomen: Distended, soft, nontender, normal bowel sounds. 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 Left pupil responsive to light, left-sided extraocular motion intact. Results & Data ([facility]) Vital Signs (Past 12 Hours) Vital Signs Temp Pulse Pulse Resp BP BP BP 06/03/19 07:41 36.7 C 78 20 146/79 H 06/03/19 07:00 75 14 06/03/19 03:56 36.7 C 83 16 105/47 L 06/03/19 00:00 127 H 06/02/19 23:07 06/02/19 23:06 36.8 C 123 H 18 174/99 H 06/02/19 22:45 36.8 C 123 H 18 174/99 H 06/02/19 21:00 116 H 24 159/92 H Pulse Ox Pulse Ox 06/03/19 07:41 94 06/03/19 07:00 96 06/03/19 03:56 93 06/03/19 00:00 06/02/19 23:07 94 06/02/19 23:06 94 06/02/19 22:45 94 06/02/19 21:00 96 06/03/19 06/03/19 06/03/19 Range/Units 13:59 13:57 11:06 WBC (4.8-10.8) K/uL RBC (4.2-5.4) M/uL Hgb (12.0-16.0) g/dL Hct (37-47) % MCV (80-100) fL MCH (25-34) pg MCHC (32-36) g/dL RDW Std Deviation (36.4-46.3) fL RDW Coeff of Trey (11.5-14.5) % Plt Count (130-400) K/uL MPV (7.4-10.4) fL Immature Gran % (Auto) % Neut % (Auto) % Lymph % (Auto) % [place] % (Auto) % Eos % (Auto) % Baso % (Auto) % Immature Gran # (Auto) (0.00-0.02) K/uL Neut # (Auto) (1.4-6.5) K/uL Lymph # (Auto) (1.2-3.4) K/uL [place] # (Auto) (0.11-0.59) K/uL Eos # (Auto) (0-0.5) K/uL Baso # (Auto) (0-0.2) K/uL PT (9.0-12.0) Seconds INR (0.9-1.1) APTT (21.0-31.0) Seconds PTT Ratio VBG pH (7.36-7.41) VBG pCO2 (38-50) mmHg VBG pO2 mmHg VBG HCO3 mmol/L VBG O2 Saturation % VBG Base Excess mEq/L Barometric Pressure mm/Hg Sodium (136-145) mmol/L Potassium (3.5-5.1) mmol/L Chloride (98-107) mmol/L Carbon Dioxide (21-32) mmol/L Anion Gap (3-11) BUN (7-18) mg/dl Creatinine (0.6-1.2) mg/dl Est Cr Clr Drug Dosing ml/min Est GFR ( Amer) Est GFR (Non-Af Amer) BUN/Creatinine Ratio (10-20) Glucose (70-99) mg/dl POC Glucose 319 H* 355 H* 316 H* (70-99) mg/dl Estimat Average Glucose mg/dl Hemoglobin A1c (4.5-5.6) % Calcium (8.5-10.1) mg/dl Magnesium (1.8-2.4) mg/dl Total Bilirubin (0.2-1) mg/dl AST (15-37) U/L ALT (12-78) U/L Alkaline Phosphatase (45-117) U/L Troponin I (0-0.045) ng/ml NT-Pro-B Natriuret Pep (0-450) pg/ml Total Protein (6.4-8.2) gm/dl Albumin (3.4-5.0) gm/dl Globulin (2.5-4.0) gm/dl Albumin/Globulin Ratio (0.9-2) Beta-Hydroxybutyric Acd (0.2-2.81) mg/dl Nasal Screen MRSA (PCR) (Negative) Influenza Type A (PCR) (Neg) Influenza Type B (PCR) (Neg) 06/03/19 06/03/19 06/03/19 Range/Units 11:03 10:17 09:49 WBC (4.8-10.8) K/uL RBC (4.2-5.4) M/uL Hgb (12.0-16.0) g/dL Hct (37-47) % MCV (80-100) fL MCH (25-34) pg MCHC (32-36) g/dL RDW Std Deviation (36.4-46.3) fL RDW Coeff of Trey (11.5-14.5) % Plt Count (130-400) K/uL MPV (7.4-10.4) fL Immature Gran % (Auto) % Neut % (Auto) % Lymph % (Auto) % [place] % (Auto) % Eos % (Auto) % Baso % (Auto) % Immature Gran # (Auto) (0.00-0.02) K/uL Neut # (Auto) (1.4-6.5) K/uL Lymph # (Auto) (1.2-3.4) K/uL [place] # (Auto) (0.11-0.59) K/uL Eos # (Auto) (0-0.5) K/uL Baso # (Auto) (0-0.2) K/uL PT (9.0-12.0) Seconds INR (0.9-1.1) APTT (21.0-31.0) Seconds PTT Ratio VBG pH (7.36-7.41) VBG pCO2 (38-50) mmHg VBG pO2 mmHg VBG HCO3 mmol/L VBG O2 Saturation % VBG Base Excess mEq/L Barometric Pressure mm/Hg Sodium (136-145) mmol/L Potassium (3.5-5.1) mmol/L Chloride (98-107) mmol/L Carbon Dioxide (21-32) mmol/L Anion Gap (3-11) BUN (7-18) mg/dl Creatinine (0.6-1.2) mg/dl Est Cr Clr Drug Dosing ml/min Est GFR ( Amer) Est GFR (Non-Af Amer) BUN/Creatinine Ratio (10-20) Glucose (70-99) mg/dl POC Glucose 335 H* (70-99) mg/dl Estimat Average Glucose 255 mg/dl Hemoglobin A1c 10.5 H (4.5-5.6) % Calcium (8.5-10.1) mg/dl Magnesium (1.8-2.4) mg/dl Total Bilirubin (0.2-1) mg/dl AST (15-37) U/L ALT (12-78) U/L Alkaline Phosphatase (45-117) U/L Troponin I (0-0.045) ng/ml NT-Pro-B Natriuret Pep (0-450) pg/ml Total Protein (6.4-8.2) gm/dl Albumin (3.4-5.0) gm/dl Globulin (2.5-4.0) gm/dl Albumin/Globulin Ratio (0.9-2) Beta-Hydroxybutyric Acd (0.2-2.81) mg/dl Nasal Screen MRSA (PCR) Negative (Negative) Influenza Type A (PCR) (Neg) Influenza Type B (PCR) (Neg) 06/03/19 06/03/19 06/03/19 Range/Units 09:49 09:49 09:49 WBC 15.96 H (4.8-10.8) K/uL RBC 4.49 (4.2-5.4) M/uL Hgb 11.3 L (12.0-16.0) g/dL Hct 36.6 L (37-47) % MCV 81.5 (80-100) fL MCH 25.2 (25-34) pg MCHC 30.9 L (32-36) g/dL RDW Std Deviation 53.7 H (36.4-46.3) fL RDW Coeff of Trey 18.3 H (11.5-14.5) % Plt Count 173 (130-400) K/uL MPV 10.0 (7.4-10.4) fL Immature Gran % (Auto) 0.4 % Neut % (Auto) 85.4 % Lymph % (Auto) 7.1 % [place] % (Auto) 6.8 % Eos % (Auto) 0.2 % Baso % (Auto) 0.1 % Immature Gran # (Auto) 0.06 H (0.00-0.02) K/uL Neut # (Auto) 13.64 H (1.4-6.5) K/uL Lymph # (Auto) 1.13 L (1.2-3.4) K/uL [place] # (Auto) 1.08 H (0.11-0.59) K/uL Eos # (Auto) 0.03 (0-0.5) K/uL Baso # (Auto) 0.02 (0-0.2) K/uL PT (9.0-12.0) Seconds INR (0.9-1.1) APTT (21.0-31.0) Seconds PTT Ratio VBG pH (7.36-7.41) VBG pCO2 (38-50) mmHg VBG pO2 mmHg VBG HCO3 mmol/L VBG O2 Saturation % VBG Base Excess mEq/L Barometric Pressure mm/Hg Sodium 136 (136-145) mmol/L Potassium 4.0 (3.5-5.1) mmol/L Chloride 100 (98-107) mmol/L Carbon Dioxide 33 H (21-32) mmol/L Anion Gap 3.0 (3-11) BUN 22 H (7-18) mg/dl Creatinine 1.74 H (0.6-1.2) mg/dl Est Cr Clr Drug Dosing 51.8 ml/min Est GFR ( Amer) 39.5 Est GFR (Non-Af Amer) 34.1 BUN/Creatinine Ratio 12.5 (10-20) Glucose 261 H (70-99) mg/dl POC Glucose (70-99) mg/dl Estimat Average Glucose mg/dl Hemoglobin A1c (4.5-5.6) % Calcium 8.2 L (8.5-10.1) mg/dl Magnesium 2.1 (1.8-2.4) mg/dl Total Bilirubin 0.7 (0.2-1) mg/dl AST 13 L (15-37) U/L ALT 12 (12-78) U/L Alkaline Phosphatase 92 (45-117) U/L Troponin I 0.038 (0-0.045) ng/ml NT-Pro-B Natriuret Pep (0-450) pg/ml Total Protein 6.4 (6.4-8.2) gm/dl Albumin 2.6 L (3.4-5.0) gm/dl Globulin 3.8 (2.5-4.0) gm/dl Albumin/Globulin Ratio 0.7 L (0.9-2) Beta-Hydroxybutyric Acd (0.2-2.81) mg/dl Nasal Screen MRSA (PCR) (Negative) Influenza Type A (PCR) (Neg) Influenza Type B (PCR) (Neg) 06/03/19 06/03/19 06/02/19 Range/Units 07:38 01:29 23:28 WBC (4.8-10.8) K/uL RBC (4.2-5.4) M/uL Hgb (12.0-16.0) g/dL Hct (37-47) % MCV (80-100) fL MCH (25-34) pg MCHC (32-36) g/dL RDW Std Deviation (36.4-46.3) fL RDW Coeff of Trey (11.5-14.5) % Plt Count (130-400) K/uL MPV (7.4-10.4) fL Immature Gran % (Auto) % Neut % (Auto) % Lymph % (Auto) % [place] % (Auto) % Eos % (Auto) % Baso % (Auto) % Immature Gran # (Auto) (0.00-0.02) K/uL Neut # (Auto) (1.4-6.5) K/uL Lymph # (Auto) (1.2-3.4) K/uL [place] # (Auto) (0.11-0.59) K/uL Eos # (Auto) (0-0.5) K/uL Baso # (Auto) (0-0.2) K/uL PT (9.0-12.0) Seconds INR (0.9-1.1) APTT (21.0-31.0) Seconds PTT Ratio VBG pH (7.36-7.41) VBG pCO2 (38-50) mmHg VBG pO2 mmHg VBG HCO3 mmol/L VBG O2 Saturation % VBG Base Excess mEq/L Barometric Pressure mm/Hg Sodium (136-145) mmol/L Potassium (3.5-5.1) mmol/L Chloride (98-107) mmol/L Carbon Dioxide (21-32) mmol/L Anion Gap (3-11) BUN (7-18) mg/dl Creatinine (0.6-1.2) mg/dl Est Cr Clr Drug Dosing ml/min Est GFR ( Amer) Est GFR (Non-Af Amer) BUN/Creatinine Ratio (10-20) Glucose (70-99) mg/dl POC Glucose 172 H 229 H (70-99) mg/dl Estimat Average Glucose mg/dl Hemoglobin A1c (4.5-5.6) % Calcium (8.5-10.1) mg/dl Magnesium (1.8-2.4) mg/dl Total Bilirubin (0.2-1) mg/dl AST (15-37) U/L ALT (12-78) U/L Alkaline Phosphatase (45-117) U/L Troponin I 0.040 (0-0.045) ng/ml NT-Pro-B Natriuret Pep (0-450) pg/ml Total Protein (6.4-8.2) gm/dl Albumin (3.4-5.0) gm/dl Globulin (2.5-4.0) gm/dl Albumin/Globulin Ratio (0.9-2) Beta-Hydroxybutyric Acd (0.2-2.81) mg/dl Nasal Screen MRSA (PCR) (Negative) Influenza Type A (PCR) (Neg) Influenza Type B (PCR) (Neg) 06/02/19 06/02/19 06/02/19 Range/Units 19:14 19:14 19:14 WBC (4.8-10.8) K/uL RBC (4.2-5.4) M/uL Hgb (12.0-16.0) g/dL Hct (37-47) % MCV (80-100) fL MCH (25-34) pg MCHC (32-36) g/dL RDW Std Deviation (36.4-46.3) fL RDW Coeff of Trey (11.5-14.5) % Plt Count (130-400) K/uL MPV (7.4-10.4) fL Immature Gran % (Auto) % Neut % (Auto) % Lymph % (Auto) % [place] % (Auto) % Eos % (Auto) % Baso % (Auto) % Immature Gran # (Auto) (0.00-0.02) K/uL Neut # (Auto) (1.4-6.5) K/uL Lymph # (Auto) (1.2-3.4) K/uL [place] # (Auto) (0.11-0.59) K/uL Eos # (Auto) (0-0.5) K/uL Baso # (Auto) (0-0.2) K/uL PT 12.5 H (9.0-12.0) Seconds INR 1.2 H (0.9-1.1) APTT 24.5 (21.0-31.0) Seconds PTT Ratio 0.9 VBG pH 7.46 H (7.36-7.41) VBG pCO2 42 (38-50) mmHg VBG pO2 42 mmHg VBG HCO3 29 mmol/L VBG O2 Saturation 75.0 % VBG Base Excess 4.7 mEq/L Barometric Pressure 721.4 mm/Hg Sodium 135 L (136-145) mmol/L Potassium 4.1 (3.5-5.1) mmol/L Chloride 101 (98-107) mmol/L Carbon Dioxide 29 (21-32) mmol/L Anion Gap 6.0 (3-11) BUN 16 (7-18) mg/dl Creatinine 1.65 H (0.6-1.2) mg/dl Est Cr Clr Drug Dosing 57.4 ml/min Est GFR ( Amer) 42.1 Est GFR (Non-Af Amer) 36.3 BUN/Creatinine Ratio 9.8 L (10-20) Glucose 333 H* (70-99) mg/dl POC Glucose (70-99) mg/dl Estimat Average Glucose mg/dl Hemoglobin A1c (4.5-5.6) % Calcium 8.2 L (8.5-10.1) mg/dl Magnesium 1.3 L (1.8-2.4) mg/dl Total Bilirubin 0.5 (0.2-1) mg/dl AST 13 L (15-37) U/L ALT 12 (12-78) U/L Alkaline Phosphatase 96 (45-117) U/L Troponin I 0.016 (0-0.045) ng/ml NT-Pro-B Natriuret Pep 3204 H (0-450) pg/ml Total Protein 7.0 (6.4-8.2) gm/dl Albumin 2.8 L (3.4-5.0) gm/dl Globulin 4.2 H (2.5-4.0) gm/dl Albumin/Globulin Ratio 0.7 L (0.9-2) Beta-Hydroxybutyric Acd 1.08 (0.2-2.81) mg/dl Nasal Screen MRSA (PCR) (Negative) Influenza Type A (PCR) (Neg) Influenza Type B (PCR) (Neg) 06/02/19 06/02/19 Range/Units 19:14 18:18 WBC 18.18 H (4.8-10.8) K/uL RBC 4.65 (4.2-5.4) M/uL Hgb 11.8 L (12.0-16.0) g/dL Hct 37.5 (37-47) % MCV 80.6 (80-100) fL MCH 25.4 (25-34) pg MCHC 31.5 L (32-36) g/dL RDW Std Deviation 52.5 H (36.4-46.3) fL RDW Coeff of Trey 18.1 H (11.5-14.5) % Plt Count 193 (130-400) K/uL MPV 9.7 (7.4-10.4) fL Immature Gran % (Auto) 0.2 % Neut % (Auto) 89.1 % Lymph % (Auto) 5.7 % [place] % (Auto) 4.8 % Eos % (Auto) 0.1 % Baso % (Auto) 0.1 % Immature Gran # (Auto) 0.04 H (0.00-0.02) K/uL Neut # (Auto) 16.19 H (1.4-6.5) K/uL Lymph # (Auto) 1.03 L (1.2-3.4) K/uL [place] # (Auto) 0.88 H (0.11-0.59) K/uL Eos # (Auto) 0.02 (0-0.5) K/uL Baso # (Auto) 0.02 (0-0.2) K/uL PT (9.0-12.0) Seconds INR (0.9-1.1) APTT (21.0-31.0) Seconds PTT Ratio VBG pH (7.36-7.41) VBG pCO2 (38-50) mmHg VBG pO2 mmHg VBG HCO3 mmol/L VBG O2 Saturation % VBG Base Excess mEq/L Barometric Pressure mm/Hg Sodium (136-145) mmol/L Potassium (3.5-5.1) mmol/L Chloride (98-107) mmol/L Carbon Dioxide (21-32) mmol/L Anion Gap (3-11) BUN (7-18) mg/dl Creatinine (0.6-1.2) mg/dl Est Cr Clr Drug Dosing ml/min Est GFR ( Amer) Est GFR (Non-Af Amer) BUN/Creatinine Ratio (10-20) Glucose (70-99) mg/dl POC Glucose (70-99) mg/dl Estimat Average Glucose mg/dl Hemoglobin A1c (4.5-5.6) % Calcium (8.5-10.1) mg/dl Magnesium (1.8-2.4) mg/dl Total Bilirubin (0.2-1) mg/dl AST (15-37) U/L ALT (12-78) U/L Alkaline Phosphatase (45-117) U/L Troponin I (0-0.045) ng/ml NT-Pro-B Natriuret Pep (0-450) pg/ml Total Protein (6.4-8.2) gm/dl Albumin (3.4-5.0) gm/dl Globulin (2.5-4.0) gm/dl Albumin/Globulin Ratio (0.9-2) Beta-Hydroxybutyric Acd (0.2-2.81) mg/dl Nasal Screen MRSA (PCR) (Negative) Influenza Type A (PCR) Neg for Influ A (Neg) Influenza Type B (PCR) Neg for Influ B (Neg) Resident Activity Tracking Resident Involvement: Resident Care Provided Care Provided: Adult Hospital Medicine (1) CHF (congestive heart failure) Heart failure chronicity: acute on chronic Heart failure type: unspecified Qualified Code(s): I50.9 - Heart failure, unspecified (2) Pneumonia Laterality: left Lung location: lower lobe of lung Pneumonia type: due to unspecified organism Qualified Code(s): J18.9 - Pneumonia, unspecified organism
[2019-06-03] MEDS ORDERED: ALPRAZolam 0.5 MG TABLET PO SCH (09:00)
[2019-06-03] MEDS ORDERED: lisinopriL 10 MG TAB PO SCH (09:00)
[2019-06-03] MEDS ORDERED: VANCOMYCIN HCL 1,000 MG in SODIUM CHLORIDE 0.9% 250 ML IV SCH (09:00)
--- NOTE | 2019-06-03 09:28 | XRay Report ---
XR chest 2V PA/lateral HISTORY: Shortness of breath. COMPARISON: Chest 06/02/2019. FINDINGS: Right-sided dual-chamber pacemaker. The heart is mildly enlarged. No pneumothorax. Small bi lateral pleural effusions, left greater the right persist. Mild pulmonary vascular congestion persist s. Bibasilar densities have also slightly progressed. IMPRESSION: 1. Mild congestive change and small bilateral pleural effusions. 2. Bibasilar densities have progressed. ACT 112: Negative or not required by law. Electronically signed by: José Guerra M.D. 06/03/2019 9:27 AM
[2019-06-03] MEDS: ALBUTEROL HFA 8 GM INHALER INH PRN (09:29)
[2019-06-03] MEDS: GABAPENTIN 300 MG CAP PO SCH ×3 (09:29→21:20)
[2019-06-03] MEDS: LURASIDONE HCL 40 MG TAB PO SCH (09:30)
[2019-06-03] MEDS: FLUTICASONE PROPIONATE NA SPR 16 GM BTL NAE SCH (09:30)
[2019-06-03] MEDS: FERROUS GLUCONATE 324 MG TAB PO SCH (09:30)
[2019-06-03] MEDS: ATORVASTATIN 40 MG TAB PO SCH (09:30)
[2019-06-03] MEDS: ASPIRIN 81 MG ECTAB PO SCH (09:30)
[2019-06-03] MEDS: VANCOMYCIN HCL 1,500 MG in SODIUM CHLORIDE 0.9% 500 ML IV SCH (10:14)
[2019-06-03 10:16] LABS: Basophils # (auto) 0.02 K/uL (0-0.2); Basophils % (auto) 0.1 %; Eosinophils # (auto) 0.03 K/uL (0-0.5); Eosinophils % (auto) 0.2 %; Hematocrit (blood only) 36.6 % (37-47); Hemoglobin 11.3 g/dL (12.0-16.0); Immature Granulocytes # (auto) 0.06 K/uL (0.00-0.02); Immature Granulocytes % (auto) 0.4 %; Lymphocytes # (auto) 1.13 K/uL (1.2-3.4); Lymphocytes % (auto) 7.1 %; Mean Corpuscular Hemoglobin 25.2 pg (25-34); Mean Corpuscular Hgb Conc 30.9 g/dL (32-36); Mean Corpuscular Volume 81.5 fL (80-100); Monocytes # (auto) 1.08 K/uL (0.11-0.59); Monocytes % (auto) 6.8 %; Neutrophils # (auto) 13.64 K/uL (1.4-6.5); Neutrophils % (auto) 85.4 %; Platelet Count 173 K/uL (130-400); RDW Coefficient of Variation 18.3 % (11.5-14.5); RDW Standard Deviation 53.7 fL (36.4-46.3); Red Blood Count 4.49 M/uL (4.2-5.4); White Blood Count 15.96 K/uL (4.8-10.8)
[2019-06-03 10:23] LABS: Estimated Average Glucose 255 mg/dl; Hemoglobin A1C 10.5 % (4.5-5.6)
[2019-06-03 10:39] LABS: Albumin Level 2.6 gm/dl (3.4-5.0); BUN Creatinine Ratio 12.5 (10-20); Calcium 8.2 mg/dl (8.5-10.1); Creatinine Clr Calc Pharmacy 51.8 ml/min; Est GFR (African American) 39.5; Est GFR (Non-African American) 34.1; Magnesium 2.1 mg/dl (1.8-2.4)
[2019-06-03 10:42] LABS: Albumin Globulin Ratio 0.7 (0.9-2); Bilirubin,Total 0.7 mg/dl (0.2-1); Globulin 3.8 gm/dl (2.5-4.0); Total Protein 6.4 gm/dl (6.4-8.2)
[2019-06-03] MEDS ORDERED: PHARMACY GLYCEMIC MGMT CONSULT PRN (11:23)
[2019-06-03] MEDS: PARoxetine HCL 20 MG TAB PO SCH (11:47)
[2019-06-03] MEDS ORDERED: INSULIN GLARGINE SOLOSTAR 100 UNITS/ML 3 ML PEN SC ONE (12:00)
--- NOTE | 2019-06-03 14:01 | Pharmacy Report ---
Pharmacy Abx/Gly Intl Consult - Date of Service June 03, 2019 - Scope Pharmacy has been consulted by Dr. Perez to manage vancomycin/zosyn and Dr. Hemphill to manage glycemic control for this patient as per the Pharmacy & Therapeutics Committee approved dosing protocols. - Subjective The patient is a 48 year old F admitted on 06/02/19 21:29. - Objective Vital Signs (Past 12hrs): Vital Signs Temp Pulse Resp BP BP Pulse Ox 06/03/19 12:14 36.6 C 89 22 96 06/03/19 11:21 86 16 94 06/03/19 07:41 36.7 C 78 20 146/79 H 94 06/03/19 07:00 75 14 96 06/03/19 03:56 36.7 C 83 16 105/47 L 93 Accuchecks BSG (last 24hrs): 06/02/19 06/02/19 06/03/19 19:14 23:28 07:38 Glucose 333 H* POC Glucose 229 H 172 H 06/03/19 06/03/19 06/03/19 09:49 11:03 11:06 Glucose 261 H POC Glucose 335 H* 316 H* HbA1c: Hemoglobin A1c 10.5 % (4.5-5.6) H 06/03/19 09:49 Lab Results (24hrs): Laboratory Results - last 24 hr 06/02/19 06/02/19 06/02/19 18:18 19:14 19:14 WBC 18.18 H RBC 4.65 Hgb 11.8 L Hct 37.5 MCV 80.6 MCH 25.4 MCHC 31.5 L RDW Std Deviation 52.5 H RDW Coeff of Trey 18.1 H Plt Count 193 MPV 9.7 Immature Gran % (Auto) 0.2 Neut % (Auto) 89.1 Lymph % (Auto) 5.7 Divide % (Auto) 4.8 Eos % (Auto) 0.1 Baso % (Auto) 0.1 Immature Gran # (Auto) 0.04 H Neut # (Auto) 16.19 H Lymph # (Auto) 1.03 L Divide # (Auto) 0.88 H Eos # (Auto) 0.02 Baso # (Auto) 0.02 PT 12.5 H INR 1.2 H APTT 24.5 PTT Ratio 0.9 VBG pH VBG pCO2 VBG pO2 VBG HCO3 VBG O2 Saturation VBG Base Excess Barometric Pressure Sodium Potassium Chloride Carbon Dioxide Anion Gap BUN Creatinine Est Cr Clr Drug Dosing Est GFR ( Amer) Est GFR (Non-Af Amer) BUN/Creatinine Ratio Glucose POC Glucose Estimat Average Glucose Hemoglobin A1c Calcium Magnesium Total Bilirubin AST ALT Alkaline Phosphatase Troponin I NT-Pro-B Natriuret Pep Total Protein Albumin Globulin Albumin/Globulin Ratio Beta-Hydroxybutyric Acd Nasal Screen MRSA (PCR) Influenza Type A (PCR) Neg for Influ A Influenza Type B (PCR) Neg for Influ B 06/02/19 06/02/19 06/02/19 19:14 19:14 23:28 WBC RBC Hgb Hct MCV MCH MCHC RDW Std Deviation RDW Coeff of Trey Plt Count MPV Immature Gran % (Auto) Neut % (Auto) Lymph % (Auto) Divide % (Auto) Eos % (Auto) Baso % (Auto) Immature Gran # (Auto) Neut # (Auto) Lymph # (Auto) Divide # (Auto) Eos # (Auto) Baso # (Auto) PT INR APTT PTT Ratio VBG pH 7.46 H VBG pCO2 42 VBG pO2 42 VBG HCO3 29 VBG O2 Saturation 75.0 VBG Base Excess 4.7 Barometric Pressure 721.4 Sodium 135 L Potassium 4.1 Chloride 101 Carbon Dioxide 29 Anion Gap 6.0 BUN 16 Creatinine 1.65 H Est Cr Clr Drug Dosing 57.4 Est GFR ( Amer) 42.1 Est GFR (Non-Af Amer) 36.3 BUN/Creatinine Ratio 9.8 L Glucose 333 H* POC Glucose 229 H Estimat Average Glucose Hemoglobin A1c Calcium 8.2 L Magnesium 1.3 L Total Bilirubin 0.5 AST 13 L ALT 12 Alkaline Phosphatase 96 Troponin I 0.016 NT-Pro-B Natriuret Pep 3204 H Total Protein 7.0 Albumin 2.8 L Globulin 4.2 H Albumin/Globulin Ratio 0.7 L Beta-Hydroxybutyric Acd 1.08 Nasal Screen MRSA (PCR) Influenza Type A (PCR) Influenza Type B (PCR) 06/03/19 06/03/19 06/03/19 01:29 07:38 09:49 WBC RBC Hgb Hct MCV MCH MCHC RDW Std Deviation RDW Coeff of Trey Plt Count MPV Immature Gran % (Auto) Neut % (Auto) Lymph % (Auto) Divide % (Auto) Eos % (Auto) Baso % (Auto) Immature Gran # (Auto) Neut # (Auto) Lymph # (Auto) Divide # (Auto) Eos # (Auto) Baso # (Auto) PT INR APTT PTT Ratio VBG pH VBG pCO2 VBG pO2 VBG HCO3 VBG O2 Saturation VBG Base Excess Barometric Pressure Sodium 136 Potassium 4.0 Chloride 100 Carbon Dioxide 33 H Anion Gap 3.0 BUN 22 H Creatinine 1.74 H Est Cr Clr Drug Dosing 51.8 Est GFR ( Amer) 39.5 Est GFR (Non-Af Amer) 34.1 BUN/Creatinine Ratio 12.5 Glucose 261 H POC Glucose 172 H Estimat Average Glucose Hemoglobin A1c Calcium 8.2 L Magnesium 2.1 Total Bilirubin 0.7 AST 13 L ALT 12 Alkaline Phosphatase 92 Troponin I 0.040 NT-Pro-B Natriuret Pep Total Protein 6.4 Albumin 2.6 L Globulin 3.8 Albumin/Globulin Ratio 0.7 L Beta-Hydroxybutyric Acd Nasal Screen MRSA (PCR) Influenza Type A (PCR) Influenza Type B (PCR) 06/03/19 06/03/19 06/03/19 09:49 09:49 09:49 WBC 15.96 H RBC 4.49 Hgb 11.3 L Hct 36.6 L MCV 81.5 MCH 25.2 MCHC 30.9 L RDW Std Deviation 53.7 H RDW Coeff of Trey 18.3 H Plt Count 173 MPV 10.0 Immature Gran % (Auto) 0.4 Neut % (Auto) 85.4 Lymph % (Auto) 7.1 Divide % (Auto) 6.8 Eos % (Auto) 0.2 Baso % (Auto) 0.1 Immature Gran # (Auto) 0.06 H Neut # (Auto) 13.64 H Lymph # (Auto) 1.13 L Divide # (Auto) 1.08 H Eos # (Auto) 0.03 Baso # (Auto) 0.02 PT INR APTT PTT Ratio VBG pH VBG pCO2 VBG pO2 VBG HCO3 VBG O2 Saturation VBG Base Excess Barometric Pressure Sodium Potassium Chloride Carbon Dioxide Anion Gap BUN Creatinine Est Cr Clr Drug Dosing Est GFR ( Amer) Est GFR (Non-Af Amer) BUN/Creatinine Ratio Glucose POC Glucose Estimat Average Glucose 255 Hemoglobin A1c 10.5 H Calcium Magnesium Total Bilirubin AST ALT Alkaline Phosphatase Troponin I 0.038 NT-Pro-B Natriuret Pep Total Protein Albumin Globulin Albumin/Globulin Ratio Beta-Hydroxybutyric Acd Nasal Screen MRSA (PCR) Influenza Type A (PCR) Influenza Type B (PCR) 06/03/19 06/03/19 06/03/19 10:17 11:03 11:06 WBC RBC Hgb Hct MCV MCH MCHC RDW Std Deviation RDW Coeff of Tery Plt Count MPV Immature Gran % (Auto) Neut % (Auto) Lymph % (Auto) Divide % (Auto) Eos % (Auto) Baso % (Auto) Immature Gran # (Auto) Neut # (Auto) Lymph # (Auto) Divide # (Auto) Eos # (Auto) Baso # (Auto) PT INR APTT PTT Ratio VBG pH VBG pCO2 VBG pO2 VBG HCO3 VBG O2 Saturation VBG Base Excess Barometric Pressure Sodium Potassium Chloride Carbon Dioxide Anion Gap BUN Creatinine Est Cr Clr Drug Dosing Est GFR ( Amer) Est GFR (Non-Af Amer) BUN/Creatinine Ratio Glucose POC Glucose 335 H* 316 H* Estimat Average Glucose Hemoglobin A1c Calcium Magnesium Total Bilirubin AST ALT Alkaline Phosphatase Troponin I NT-Pro-B Natriuret Pep Total Protein Albumin Globulin Albumin/Globulin Ratio Beta-Hydroxybutyric Acd Nasal Screen MRSA (PCR) Negative Influenza Type A (PCR) Influenza Type B (PCR) - Risk Factors for Resistance Risk Factors for Antimicrobial Resistance: * Hospitalization for 48 hours or more within the past 90 days * Antimicrobial use within the last 90 days - Recent Pertinent Medications Recent Pertinent Medications/Risk Factors for Insulin Resist: Outpatient Anti-diabetic Regimen: * Lantus 20 units BID, ademlog 10 units TIDM * A1c = 10.5 % 06/03/2019 The patient is currently receiving: * Basal insulin: Lantus 20 units every 6 hours * Correctional Insulin: Novolog Correction per scale ACHS Goal Range: Low 110 mg/dL - High 140 mg/dL Correction Factor: 20 mg/dL/unit * Prandial insulin: Per carb ratio of 1 unit per 6 grams CHO consumed * Oral Agents: Risk Factors for Insulin Resistance: * Infection: Vanc/zosyn * Diet: T2DM, HH - Assessment 48 yo female w/ pmh including renal insufficiency, CHF, stroke, htn, anxiety, DM. CXr showing left lower pneumonia. Recent admission >5 days at outside facility. WBC elevated, afebrile. SCr is elevated from baseline. Continuing vancomycin/zosyn for pneumonia. Consulted for glycemic management, BSGs in the 300s at lunch. Patient currently being treated with novolog with a correction factor of 20/ carb ratio of 10 and home lantus dose of 10 BID. Patient previously admitted and required tighter novolog parameters. Based on outpatient daily total of 80 units and stress of 2- lantus 26 units BID and CF 15 CR 5. Will work on tightening parameters. - Plan ANTIMICROBIAL THERAPY Vancomycin IV * Loading dose: 2750 mg (21.3 mg/kg) * Maintenance dose: 1500 mg IV (11.7 mg/kg) every 16 hours * Goal trough level 15-20 mcg/mL * Trough currently not ordered, will order tomorrow with renal assessment, currently with AUGUSTO, SCr trending up Piperacillin/Tazobactam * 4.5 g bolus administered over 30 minutes, then 4.5 g IV extended infusion every 8 hours for CrCl greater than 20 mL/min INPATIENT GLYCEMIC CONTROL: Oral Agents * Hold outpatient oral diabetes medications. Basal Insulin * Lantus 20 units this AM, 10 additional units with lunch, and scale for PM up to 30 units Bolus Insulin * NovoLog per scale ACHS or Q6hrs while NPO * Goal Range: Low 110 mg/dL - High 140 mg/dL * Correction Factor: 15 mg/dL/unit * Nutritional / Prandial insulin per carb ratio of 1 unit per 5 grams CHO consumed * Please note that the plan above was derived based on current level of insulin resistance and hospital stress. These recommendations are appropriate for inpatient admission only. Plan of care upon discharge will need to be reassessed to avoid potential outpatient hypo/hyperglycemia. Pharmacy will follow patient and adjust orders on a daily basis. Thank you for allowing us to participate in this patients care.
[2019-06-03] MEDS ORDERED: INSULIN HUMAN REGULAR PER UNIT 5 UNITS in SYRINGE 4.95 ML IV ONE (14:15)
[2019-06-03] MEDS: ACETAMINOPHEN 325 MG TAB PO PRN (16:51)
[2019-06-03] MEDS ORDERED: ALPRAZolam 0.5 MG TABLET PO PRN (16:51)
[2019-06-03] MEDS: FUROSEMIDE 20 MG in SYRINGE 0 ML IV SCH (17:34)
[2019-06-03] MEDS ORDERED: SUMAtriptan succinate 100 MG TAB PO STA (18:00)
--- NOTE | 2019-06-03 18:56 | Electrocardiogram Report ---
Test Reason : Blood Pressure : / mmHG Vent. Rate : 119 BPM Atrial Rate : 119 BPM P-R Int : 136 ms QRS Dur : 096 ms QT Int : 338 ms P-R-T Axes : 057 033 221 degrees QTc Int : 475 ms Sinus tachycardia Nonspecific ST and T wave abnormality Abnormal ECG When compared with ECG of 09-SEP-2018 02:10, Premature ventricular complexes are no longer Present Confirmed by Freeman Navas ([id number]) on 06/03/2019 6:55:54 PM Referred By: REFERRED SELF Confirmed By:Jamel Navas
[2019-06-03] MEDS: CARBOHYDRATES FOR HYPOGLYCEMIA PO PRN ×2 (20:10→20:29)
[2019-06-03] MEDS: MIRTAZAPINE SOLTAB 15 MG PO SCH (21:19)
[2019-06-04] MEDS: INSULIN ASPART 100 UNITS/ML 3 ML PEN SC SCH ×6 (00:09→20:51)
[2019-06-04] MEDS: VANCOMYCIN HCL 1,500 MG in SODIUM CHLORIDE 0.9% 500 ML IV SCH (02:07)
[2019-06-04] MEDS: PIPERACILLIN/TAZOBACTAM 4.5 GM in DEXTROSE 5% 100 ML IV SCH ×3 (05:41→21:52)
[2019-06-04 05:53] LABS: Basophils # (auto) 0.03 K/uL (0-0.2); Basophils % (auto) 0.2 %; Eosinophils # (auto) 0.06 K/uL (0-0.5); Eosinophils % (auto) 0.3 %; Hematocrit (blood only) 32.7 % (37-47); Hemoglobin 10.2 g/dL (12.0-16.0); Immature Granulocytes # (auto) 0.05 K/uL (0.00-0.02); Immature Granulocytes % (auto) 0.3 %; Lymphocytes % (auto) 14.5 %; Mean Corpuscular Hemoglobin 25.4 pg (25-34); Mean Corpuscular Hgb Conc 31.2 g/dL (32-36); Mean Corpuscular Volume 81.5 fL (80-100); Mean Platelet Volume 9.9 fL (7.4-10.4); Monocytes # (auto) 1.59 K/uL (0.11-0.59); Monocytes % (auto) 8.8 %; Neutrophils # (auto) 13.66 K/uL (1.4-6.5); Neutrophils % (auto) 75.9 %; Platelet Count 158 K/uL (130-400); RDW Coefficient of Variation 18.4 % (11.5-14.5); RDW Standard Deviation 54.7 fL (36.4-46.3); Red Blood Count 4.01 M/uL (4.2-5.4); White Blood Count 17.99 K/uL (4.8-10.8)
[2019-06-04 06:30] LABS: Albumin Level 2.4 gm/dl (3.4-5.0); BUN Creatinine Ratio 11.5 (10-20); Calcium 8.1 mg/dl (8.5-10.1); Creatinine Clr Calc Pharmacy 32.2 ml/min; Est GFR (African American) 22.2; Est GFR (Non-African American) 19.2; Magnesium 2.1 mg/dl (1.8-2.4); Potassium 4.2 mmol/L (3.5-5.1)
[2019-06-04 06:34] LABS: Albumin Globulin Ratio 0.6 (0.9-2); Bilirubin,Total 0.5 mg/dl (0.2-1); Globulin 3.8 gm/dl (2.5-4.0); Total Protein 6.2 gm/dl (6.4-8.2)
[2019-06-04] MEDS: ALBUT/IPRATROP 3MG/0.5MG NEB 3 ML VIAL NEB SCH ×4 (06:56→19:24)
[2019-06-04] MEDS: BUDESONIDE 0.5 MG/2 ML VIAL (PULMICORT) NEB SCH ×2 (07:53→19:24)
[2019-06-04] MEDS: FLUTICASONE PROPIONATE NA SPR 16 GM BTL NAE SCH (08:13)
[2019-06-04] MEDS: ALBUTEROL HFA 8 GM INHALER INH PRN (08:13)
[2019-06-04] MEDS: LURASIDONE HCL 40 MG TAB PO SCH (08:14)
[2019-06-04] MEDS: lamoTRIgine 100 MG TAB PO SCH ×2 (08:14→20:52)
[2019-06-04] MEDS: GABAPENTIN 300 MG CAP PO SCH (08:14)
[2019-06-04] MEDS: PARoxetine HCL 20 MG TAB PO SCH (08:14)
[2019-06-04] MEDS: carvediloL 12.5 MG TAB PO SCH ×2 (08:14→20:52)
[2019-06-04] MEDS: FUROSEMIDE 20 MG in SYRINGE 0 ML IV SCH (08:14)
[2019-06-04] MEDS: ASPIRIN 81 MG ECTAB PO SCH (08:14)
[2019-06-04] MEDS: ATORVASTATIN 40 MG TAB PO SCH (08:15)
[2019-06-04] MEDS: INSULIN GLARGINE SOLOSTAR 100 UNITS/ML 3 ML PEN SQ SCH ×2 (08:16→20:50)
[2019-06-04] MEDS: FERROUS GLUCONATE 324 MG TAB PO SCH (08:16)
[2019-06-04] MEDS: APIXABAN 5 MG TABLET PO SCH ×2 (08:16→20:52)
--- NOTE | 2019-06-04 10:47 | Hospitalist Progress Note ---
Date of Service June 04, 2019 Assessment & Plan (1) Pneumonia: 48-year-old female with extensive past medical history of heart failure with reduced extra skin infection, COPD, pneumonia, cardiomyopathy, hypertension, anxiety and depression, stroke, diabetes who presents to the hospital for evaluation of acute shortness of breath off of oxygen. 1. Hospital associated pneumonia status post flu with underlying COPD - De-escalated from Vancomycin after negative MRSA nares. Still receiving Zosyn. - Patient uses oxygen at home and is currently at same requirements as home. Monitor for increasing oxygen requirements. - Chest x-ray showing bilateral pleural effusions and bibasilar densities. White count initially 18,000 down to 15 yesterday however back up to 17.9 today. 2. HFrEF: 30-35% - received one dose of lasix 20 IV yesterday Patient is currently +4 L for admission and has had minimal urine output. Per discharge summary from [facility] she required both Lasix and Bumex in order to control her CHF exacerbation. However her creatinine increased from 1.7 to 2.8 this morning. - BNP 3204 at admission - monitoring I/Os, daily weights 3. AUGUSTO on CKD Stage 3 - creatinine bump from 1.7 to 2.8 as above. - possibly multifactorial dehydration vs. vancomycin toxicity vs. stress from Lasix + Lisinopril - lisinopril held - Lasix held - Vanc de-escalated - repeat BMP tomorrow, monitor Cr. IVF if continues to increase. 4. Diabetes - hx of uncontrolled sugars at last hospital stay in [facility] - Pharmacy consult for glycemic control - Home regimen: Lantus 20u BID 5. AFib - Eliquis 5 BID - Rate control with carvedilol 12.5 BID 6. HTN - Lisinopril 10 held given creatinine bumped this morning - Cr at [facility] on 05/15 1.78, 1.65 on admission to [facility] 7. Hx Anxiety/Depression/Bipolar? - continuing medications from home list as below - Remeron 45 HS - Paroxetine 60 BID - Latuda 80 QAM - Lamictal 100 BID - Alprazolam 1mg every 6 hours as needed - Avoid sedating medications such as lorazepam, compazine overnight as patient stays sleepy well into the morning 8. Diabetic Neuropathy - Gabapentin 300 TID 9. CAD - Atorvastatin 40 - ASA 81mg DVT PPX: on Eliquis Diet: Diabetic, heart healthy Code: Full Code (2) Cardiomyopathy: (3) CHF (congestive heart failure): (4) Morbid obesity with BMI of 45.0-49.9, adult: (5) Hyperglycemia due to type 2 diabetes mellitus: Admission and Anticipated Discharge Date Admission Date: June 02, 2019 Supervising Physician Co-Signing Physician Notes I saw the patient the resident physician confirmed mitchell portion of the history and physical examination. We saw the patient just prior to lunch today, she was seen in the bedside chair. She felt as if her breathing had improved compared to yesterday -and even this morning -but not to what she would describe as her baseline. The patient had been previously admitted to an outside hospital, discharged May 29, for complications of influenza. She is now managed here for the possibility of a hospital-acquired pneumonia in the setting of a recent influenza illness. Blood pressure 135/52, heart rate 85, respiratory 18, temperature 36.5 C. Pulse oximetry 92% on 3 L of oxygen via nasal cannula. Upon examination, slight crackles in the left base, and expiratory wheezing bilaterally. Healthcare acquired pneumonia s/p influenza infection w/ COPD at home O2 requirement (3L) Acute renal failure CHF, stable Diabetes Atrial fibrillation Hypertension Continue antibiotics Hold additional Lasix today BMP and a.m. Hold lisinopril for now Obtain most recent echocardiogram from outside hospital Subjective 48-year-old female with an extensive past medical history admitted to the hospital for shortness of breath. Was recently in [facility] and discharged on 29 May. This morning she was dozing in and out while I was talking to her however she denied any shortness of breath different from her usual state while on nasal cannula, denied any chest pain, palpitations. Review of Systems Constitutional: no fever, no chills, no body aches and no fatigue Respiratory: no cough and no dyspnea Cardiovascular: no chest pain, no dyspnea and no edema Gastrointestinal: no abdominal pain, no nausea, no vomiting, no constipation and no diarrhea/loose stools Genitourinary: no dysuria Physical Exam Physical Exam: Constitutional: Laying in bed underneath multiple blankets, dozing in and out of consciousness but arousable. Cardiac: Regular rate and rhythm no murmurs gallops or rubs appreciated. Normal S1-S2. No pitting edema at the feet or ankles noted bilaterally. Pulmonary: Mild crackling at the base of the left lung. End expiratory wheeze. Good airflow throughout both lungs. Abdomen: Distended, soft, nontender, normal bowel sounds. 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 Left pupil responsive to light, left-sided extraocular motion intact. Results & Data ([facility]) Vital Signs (Past 12 Hours) Vital Signs Temp Pulse Pulse Resp BP BP Pulse Ox 06/04/19 08:11 36.5 C 86 22 148/80 H 97 06/04/19 08:00 76 06/04/19 07:54 89 18 99 06/04/19 06:58 76 18 100 06/04/19 03:39 36.4 C L 81 20 120/69 100 06/03/19 23:00 36.5 C 75 19 89/59 L 98 Vital Signs Temp Pulse Pulse Resp BP BP Pulse Ox 06/04/19 08:11 36.5 C 86 22 148/80 H 97 06/04/19 08:00 76 06/04/19 07:54 89 18 99 06/04/19 06:58 76 18 100 06/04/19 03:39 36.4 C L 81 20 120/69 100 06/03/19 23:00 36.5 C 75 19 89/59 L 98 06/03/19 19:28 93 H 16 96 06/03/19 18:51 37.5 C 100 H 19 92/39 L 91 06/03/19 16:00 98 H 06/03/19 15:23 115 H 18 94 06/03/19 12:14 36.6 C 89 22 96 06/03/19 11:21 86 16 94 Intake and Output 06/03/19 06/04/19 06/04/19 22:59 06:59 14:59 Intake Total 760 / 3310 650 / 3310 120 / 120 Balance 760 / 3110 650 / 3110 120 / 120 Intake: IV 120 / 1420 650 / 1420 120 / 120 Zosyn 4.5 gm In D5 100 ml @ 30 120 / 360 120 / 360 120 / 120 mls/hr IV Q8H SHERYL Rx#:[id number] Vancomycin HCl 1,500 mg In Nss 530 / 1060 500 ml @ 200 mls/hr IV Q16H SHERYL Rx#:[id number] Oral 640 / 1890 06/04/19 06/04/19 06/04/19 Range/Units 07:27 05:37 05:37 WBC 17.99 H (4.8-10.8) K/uL RBC 4.01 L (4.2-5.4) M/uL Hgb 10.2 L (12.0-16.0) g/dL Hct 32.7 L (37-47) % MCV 81.5 (80-100) fL MCH 25.4 (25-34) pg MCHC 31.2 L (32-36) g/dL RDW Std Deviation 54.7 H (36.4-46.3) fL RDW Coeff of Trey 18.4 H (11.5-14.5) % Plt Count 158 (130-400) K/uL MPV 9.9 (7.4-10.4) fL Immature Gran % (Auto) 0.3 % Neut % (Auto) 75.9 % Lymph % (Auto) 14.5 % Benton % (Auto) 8.8 % Eos % (Auto) 0.3 % Baso % (Auto) 0.2 % Immature Gran # (Auto) 0.05 H (0.00-0.02) K/uL Neut # (Auto) 13.66 H (1.4-6.5) K/uL Lymph # (Auto) 2.60 (1.2-3.4) K/uL Benton # (Auto) 1.59 H (0.11-0.59) K/uL Eos # (Auto) 0.06 (0-0.5) K/uL Baso # (Auto) 0.03 (0-0.2) K/uL Sodium 133 L (136-145) mmol/L Potassium 4.2 (3.5-5.1) mmol/L Chloride 98 (98-107) mmol/L Carbon Dioxide 28 (21-32) mmol/L Anion Gap 7.0 (3-11) BUN 32 H (7-18) mg/dl Creatinine 2.80 H D (0.6-1.2) mg/dl Est Cr Clr Drug Dosing 32.2 ml/min Est GFR ( Amer) 22.2 Est GFR (Non-Af Amer) 19.2 BUN/Creatinine Ratio 11.5 (10-20) Glucose 165 H (70-99) mg/dl POC Glucose 203 H (70-99) mg/dl Calcium 8.1 L (8.5-10.1) mg/dl Magnesium 2.1 (1.8-2.4) mg/dl Total Bilirubin 0.5 (0.2-1) mg/dl AST 22 (15-37) U/L ALT 18 (12-78) U/L Alkaline Phosphatase 100 (45-117) U/L Troponin I (0-0.045) ng/ml Total Protein 6.2 L (6.4-8.2) gm/dl Albumin 2.4 L (3.4-5.0) gm/dl Globulin 3.8 (2.5-4.0) gm/dl Albumin/Globulin Ratio 0.6 L (0.9-2) Nasal Screen MRSA (PCR) (Negative) 06/04/19 06/04/19 06/03/19 Range/Units 03:54 00:07 20:45 WBC (4.8-10.8) K/uL RBC (4.2-5.4) M/uL Hgb (12.0-16.0) g/dL Hct (37-47) % MCV (80-100) fL MCH (25-34) pg MCHC (32-36) g/dL RDW Std Deviation (36.4-46.3) fL RDW Coeff of Trey (11.5-14.5) % Plt Count (130-400) K/uL MPV (7.4-10.4) fL Immature Gran % (Auto) % Neut % (Auto) % Lymph % (Auto) % Benton % (Auto) % Eos % (Auto) % Baso % (Auto) % Immature Gran # (Auto) (0.00-0.02) K/uL Neut # (Auto) (1.4-6.5) K/uL Lymph # (Auto) (1.2-3.4) K/uL Benton # (Auto) (0.11-0.59) K/uL Eos # (Auto) (0-0.5) K/uL Baso # (Auto) (0-0.2) K/uL Sodium (136-145) mmol/L Potassium (3.5-5.1) mmol/L Chloride (98-107) mmol/L Carbon Dioxide (21-32) mmol/L Anion Gap (3-11) BUN (7-18) mg/dl Creatinine (0.6-1.2) mg/dl Est Cr Clr Drug Dosing ml/min Est GFR ( Amer) Est GFR (Non-Af Amer) BUN/Creatinine Ratio (10-20) Glucose (70-99) mg/dl POC Glucose 150 H 101 H 88 (70-99) mg/dl Calcium (8.5-10.1) mg/dl Magnesium (1.8-2.4) mg/dl Total Bilirubin (0.2-1) mg/dl AST (15-37) U/L ALT (12-78) U/L Alkaline Phosphatase (45-117) U/L Troponin I (0-0.045) ng/ml Total Protein (6.4-8.2) gm/dl Albumin (3.4-5.0) gm/dl Globulin (2.5-4.0) gm/dl Albumin/Globulin Ratio (0.9-2) Nasal Screen MRSA (PCR) (Negative) 06/03/19 06/03/19 06/03/19 Range/Units 20:23 20:01 19:58 WBC (4.8-10.8) K/uL RBC (4.2-5.4) M/uL Hgb (12.0-16.0) g/dL Hct (37-47) % MCV (80-100) fL MCH (25-34) pg MCHC (32-36) g/dL RDW Std Deviation (36.4-46.3) fL RDW Coeff of Trey (11.5-14.5) % Plt Count (130-400) K/uL MPV (7.4-10.4) fL Immature Gran % (Auto) % Neut % (Auto) % Lymph % (Auto) % Benton % (Auto) % Eos % (Auto) % Baso % (Auto) % Immature Gran # (Auto) (0.00-0.02) K/uL Neut # (Auto) (1.4-6.5) K/uL Lymph # (Auto) (1.2-3.4) K/uL Benton # (Auto) (0.11-0.59) K/uL Eos # (Auto) (0-0.5) K/uL Baso # (Auto) (0-0.2) K/uL Sodium (136-145) mmol/L Potassium (3.5-5.1) mmol/L Chloride (98-107) mmol/L Carbon Dioxide (21-32) mmol/L Anion Gap (3-11) BUN (7-18) mg/dl Creatinine (0.6-1.2) mg/dl Est Cr Clr Drug Dosing ml/min Est GFR ( Amer) Est GFR (Non-Af Amer) BUN/Creatinine Ratio (10-20) Glucose (70-99) mg/dl POC Glucose 64 L* 54 L* 80 (70-99) mg/dl Calcium (8.5-10.1) mg/dl Magnesium (1.8-2.4) mg/dl Total Bilirubin (0.2-1) mg/dl AST (15-37) U/L ALT (12-78) U/L Alkaline Phosphatase (45-117) U/L Troponin I (0-0.045) ng/ml Total Protein (6.4-8.2) gm/dl Albumin (3.4-5.0) gm/dl Globulin (2.5-4.0) gm/dl Albumin/Globulin Ratio (0.9-2) Nasal Screen MRSA (PCR) (Negative) 06/03/19 06/03/19 06/03/19 Range/Units 19:57 18:28 17:47 WBC (4.8-10.8) K/uL RBC (4.2-5.4) M/uL Hgb (12.0-16.0) g/dL Hct (37-47) % MCV (80-100) fL MCH (25-34) pg MCHC (32-36) g/dL RDW Std Deviation (36.4-46.3) fL RDW Coeff of Trey (11.5-14.5) % Plt Count (130-400) K/uL MPV (7.4-10.4) fL Immature Gran % (Auto) % Neut % (Auto) % Lymph % (Auto) % Benton % (Auto) % Eos % (Auto) % Baso % (Auto) % Immature Gran # (Auto) (0.00-0.02) K/uL Neut # (Auto) (1.4-6.5) K/uL Lymph # (Auto) (1.2-3.4) K/uL Benton # (Auto) (0.11-0.59) K/uL Eos # (Auto) (0-0.5) K/uL Baso # (Auto) (0-0.2) K/uL Sodium (136-145) mmol/L Potassium (3.5-5.1) mmol/L Chloride (98-107) mmol/L Carbon Dioxide (21-32) mmol/L Anion Gap (3-11) BUN (7-18) mg/dl Creatinine (0.6-1.2) mg/dl Est Cr Clr Drug Dosing ml/min Est GFR ( Amer) Est GFR (Non-Af Amer) BUN/Creatinine Ratio (10-20) Glucose (70-99) mg/dl POC Glucose 47 L* 118 H (70-99) mg/dl Calcium (8.5-10.1) mg/dl Magnesium (1.8-2.4) mg/dl Total Bilirubin (0.2-1) mg/dl AST (15-37) U/L ALT (12-78) U/L Alkaline Phosphatase (45-117) U/L Troponin I 0.034 (0-0.045) ng/ml Total Protein (6.4-8.2) gm/dl Albumin (3.4-5.0) gm/dl Globulin (2.5-4.0) gm/dl Albumin/Globulin Ratio (0.9-2) Nasal Screen MRSA (PCR) (Negative) 06/03/19 06/03/19 06/03/19 Range/Units 15:59 13:59 13:57 WBC (4.8-10.8) K/uL RBC (4.2-5.4) M/uL Hgb (12.0-16.0) g/dL Hct (37-47) % MCV (80-100) fL MCH (25-34) pg MCHC (32-36) g/dL RDW Std Deviation (36.4-46.3) fL RDW Coeff of Trey (11.5-14.5) % Plt Count (130-400) K/uL MPV (7.4-10.4) fL Immature Gran % (Auto) % Neut % (Auto) % Lymph % (Auto) % Benton % (Auto) % Eos % (Auto) % Baso % (Auto) % Immature Gran # (Auto) (0.00-0.02) K/uL Neut # (Auto) (1.4-6.5) K/uL Lymph # (Auto) (1.2-3.4) K/uL Benton # (Auto) (0.11-0.59) K/uL Eos # (Auto) (0-0.5) K/uL Baso # (Auto) (0-0.2) K/uL Sodium (136-145) mmol/L Potassium (3.5-5.1) mmol/L Chloride (98-107) mmol/L Carbon Dioxide (21-32) mmol/L Anion Gap (3-11) BUN (7-18) mg/dl Creatinine (0.6-1.2) mg/dl Est Cr Clr Drug Dosing ml/min Est GFR ( Amer) Est GFR (Non-Af Amer) BUN/Creatinine Ratio (10-20) Glucose (70-99) mg/dl POC Glucose 247 H 319 H* 355 H* (70-99) mg/dl Calcium (8.5-10.1) mg/dl Magnesium (1.8-2.4) mg/dl Total Bilirubin (0.2-1) mg/dl AST (15-37) U/L ALT (12-78) U/L Alkaline Phosphatase (45-117) U/L Troponin I (0-0.045) ng/ml Total Protein (6.4-8.2) gm/dl Albumin (3.4-5.0) gm/dl Globulin (2.5-4.0) gm/dl Albumin/Globulin Ratio (0.9-2) Nasal Screen MRSA (PCR) (Negative) 06/03/19 06/03/19 06/03/19 Range/Units 11:06 11:03 10:17 WBC (4.8-10.8) K/uL RBC (4.2-5.4) M/uL Hgb (12.0-16.0) g/dL Hct (37-47) % MCV (80-100) fL MCH (25-34) pg MCHC (32-36) g/dL RDW Std Deviation (36.4-46.3) fL RDW Coeff of Trey (11.5-14.5) % Plt Count (130-400) K/uL MPV (7.4-10.4) fL Immature Gran % (Auto) % Neut % (Auto) % Lymph % (Auto) % [place] % (Auto) % Eos % (Auto) % Baso % (Auto) % Immature Gran # (Auto) (0.00-0.02) K/uL Neut # (Auto) (1.4-6.5) K/uL Lymph # (Auto) (1.2-3.4) K/uL [place] # (Auto) (0.11-0.59) K/uL Eos # (Auto) (0-0.5) K/uL Baso # (Auto) (0-0.2) K/uL Sodium (136-145) mmol/L Potassium (3.5-5.1) mmol/L Chloride (98-107) mmol/L Carbon Dioxide (21-32) mmol/L Anion Gap (3-11) BUN (7-18) mg/dl Creatinine (0.6-1.2) mg/dl Est Cr Clr Drug Dosing ml/min Est GFR ( Amer) Est GFR (Non-Af Amer) BUN/Creatinine Ratio (10-20) Glucose (70-99) mg/dl POC Glucose 316 H* 335 H* (70-99) mg/dl Calcium (8.5-10.1) mg/dl Magnesium (1.8-2.4) mg/dl Total Bilirubin (0.2-1) mg/dl AST (15-37) U/L ALT (12-78) U/L Alkaline Phosphatase (45-117) U/L Troponin I (0-0.045) ng/ml Total Protein (6.4-8.2) gm/dl Albumin (3.4-5.0) gm/dl Globulin (2.5-4.0) gm/dl Albumin/Globulin Ratio (0.9-2) Nasal Screen MRSA (PCR) Negative (Negative) Resident Activity Tracking Resident Involvement: Resident Care Provided Care Provided: Adult Hospital Medicine (1) CHF (congestive heart failure) Heart failure chronicity: acute on chronic Heart failure type: unspecified Qualified Code(s): I50.9 - Heart failure, unspecified (2) Pneumonia Laterality: left Lung location: lower lobe of lung Pneumonia type: due to unspecified organism Qualified Code(s): J18.9 - Pneumonia, unspecified organism
[2019-06-04] MEDS ORDERED: SODIUM CHLORIDE 0.9% 1000ML 1,000 ML IV SCH (11:15)
[2019-06-04] MEDS ORDERED: GABAPENTIN 300 MG CAP PO PRN (14:00)
--- NOTE | 2019-06-04 15:03 | Pharmacy Report ---
Pharmacy Glycemic Short Note 2 - Date of Service June 04, 2019 - Glycemic Short BSG Results (Last 24 hours): 06/03/19 06/03/19 06/03/19 15:59 18:28 19:57 Glucose POC Glucose 247 H 118 H 47 L* 06/03/19 06/03/19 06/03/19 19:58 20:01 20:23 Glucose POC Glucose 80 54 L* 64 L* 06/03/19 06/04/19 06/04/19 20:45 00:07 03:54 Glucose POC Glucose 88 101 H 150 H 06/04/19 06/04/19 06/04/19 05:37 07:27 11:40 Glucose 165 H POC Glucose 203 H 243 H OUTPATIENT ANTIDIABETIC REGIMEN: * Lantus 20 units BID, 10 units TIDM * HbA1c 10.5% 06/03/2019 ASSESSMENT: * Patient received 75 units of insulin yesterday, 30 of lantus, 45 of prandial/correctional * Hypoglycemic event yesterday, CF/CR loosened * Fasting this morning elevated, lantus scale for PM dose was not utilized, continue scale today * SCr trending up, 1.74 --> 2.80 * BSGs elevated today 203,243, tightened CR, continued looser CF- patient required tighter parameters at past visit PLAN FOR INPATIENT GLYCEMIC CONTROL: * Hold outpatient oral diabetes medications * Basal insulin * Lantus per scale * 20 units BSG <140 mg/dL * 25 units 140-250 mg/dL * 30 units >250 mg/dL * Bolus insulin * NovoLog per scale ACHS or Q6hrs while NPO * Goal Range: Low 110 mg/dL - High 140 mg/dL * Correction Factor: 20 mg/dL/unit * Nutritional / Prandial insulin per carb ratio of 1 unit per 6 grams CHO consumed
[2019-06-04] MEDS: MIRTAZAPINE SOLTAB 15 MG PO SCH (20:53)
[2019-06-05] MEDS ORDERED: INSULIN ASPART 100 UNITS/ML 3 ML PEN SC SCH ×2 (02:00)
[2019-06-05] MEDS: PIPERACILLIN/TAZOBACTAM 4.5 GM in DEXTROSE 5% 100 ML IV SCH ×3 (06:04→23:25)
[2019-06-05] MEDS: ALBUT/IPRATROP 3MG/0.5MG NEB 3 ML VIAL NEB SCH ×4 (07:17→20:41)
[2019-06-05] MEDS: BUDESONIDE 0.5 MG/2 ML VIAL (PULMICORT) NEB SCH ×2 (07:17→20:41)
--- NOTE | 2019-06-05 07:36 | Hospitalist Progress Note ---
Date of Service June 05, 2019 Assessment & Plan (1) Pneumonia: 48-year-old female with extensive past medical history of heart failure with reduced extra skin infection, COPD, pneumonia, cardiomyopathy, hypertension, anxiety and depression, stroke, diabetes who presents to the hospital for evaluation of acute shortness of breath off of oxygen. 1. Hospital associated pneumonia status post flu with underlying COPD - De-escalated from Vancomycin after negative MRSA nares. - Continue IV Zosyn - Patient uses oxygen at home 3L, currently only requiring 2.5L - Chest x-ray showing bilateral pleural effusions and bibasilar densities. White count initially 18,000 down to 12.2 today. 2. HFrEF: 30-35% - Per discharge summary from [facility] she required both Lasix and Bumex in order to control her CHF exacerbation. - Holding Lasix at this time due to worsening kidney function - Creatine increase again from 2.8 to 3.6 this AM - BNP 3204 at admission - monitoring I/Os, daily weights 3. AUGUSTO on CKD Stage 3 - Cr at [facility] on 05/15 1.78, 1.65 on admission to [facility] - creatinine bump from 2.8 to 3.6 today with BUN 32 to 49. - possibly multifactorial dehydration vs. vancomycin toxicity vs. stress from Lasix + Lisinopril - lisinopril held - Lasix held - Vanc discontinued - Repeat BMP tomorrow, will begin gentle IVF today and encourage increased PO intake 4. Diabetes - hx of uncontrolled sugars at last hospital stay in [facility] - Pharmacy consult for glycemic control - Home regimen: Lantus 20u BID 5. AFib - Eliquis 5 BID - Rate control with carvedilol 12.5 BID 6. HTN - Holding home Lisinopril - Pressures remaining stable at 131/65 7. Hx Anxiety/Depression/Bipolar? - continuing medications from home list as below - Remeron 45 HS - Paroxetine 60 BID - Latuda 80 QAM - Lamictal 100 BID - Alprazolam 1mg every 6 hours as needed - Avoiding sedating medications such as lorazepam, compazine overnight as patient stays sleepy well into the morning 8. Diabetic Neuropathy - Gabapentin 300 TID 9. CAD - Atorvastatin 40 - ASA 81mg DVT PPX: on Eliquis Diet: Diabetic, heart healthy Code: Full Code (2) Cardiomyopathy: (3) CHF (congestive heart failure): (4) Morbid obesity with BMI of 45.0-49.9, adult: (5) Hyperglycemia due to type 2 diabetes mellitus: Admission and Anticipated Discharge Date Admission Date: June 02, 2019 Supervising Physician Co-Signing Physician Notes I saw the patient the resident physician confirmed mitchell portion of the history and physical examination. She generally feels well; she is appropriate most concerned about the health of her who is also hospitalized in this institution in the intensive care unit. As noted previously, the patient had been originally omitted at an outside hospital with influenza; it sounds as if her now has influenza along with some other complications. She denies shortness of breath. No chest pain. Mild cough. Blood pressure 131/65, pulse oximetry 97 percent on 2.5 L of oxygen Lungs are clear; somewhat decreased in the bases but this is likely due to body habitus Blood cell count 12.2, globin 10.3 Sodium 132, potassium 4.4 BUN 49, creatinine 3.6 Healthcare acquired pneumonia s/p influenza infection w/ COPD at home O2 requirement (3L) Acute renal failure, slightly worse today CHF, stable Diabetes Atrial fibrillation, rate controlled Hypertension Continue antibiotics Gentle IV fluids, normal saline at 75 cc/h Need to balance renal resuscitation and her noted left ventricular dysfunction and history of heart failure Continue to hold Lasix and lisinopril BMP and chest x-ray in am We can move her off telemetry Subjective Patient evaluated while seated in recliner this morning. She notes that her breathing has improved since admission and that she feels well. She states that she typically uses 3L of O2 by NC at home, but is currently feeling well on 2.5L. 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 Left pupil responsive to light, left-sided extraocular motion intact. Neck: normal visual inspection Respiratory: normal respiratory effort; no respiratory distress, no labored breathing, no retractions and no cough Auscultation: lungs clear to auscultation bilaterally; no crackles, no rales, no rhonchi and no wheezes Cardiovascular: Rate/Rhythm: regular rate and regular rhythm Heart Sounds: no murmur Vessels: no JVD Extremities: no edema Chest (Breasts): Additional Comments: Defibrillator palpable on R chest wall, incision well healed. Gastrointestinal (Abdomen): normal bowel sounds, soft, nontender, no hepatosplenomegaly Results & Data ([facility]) Vital Signs (Past 12 Hours) Vital Signs Temp Pulse Pulse Resp BP BP Pulse Ox 06/05/19 07:17 65 20 90 06/05/19 07:09 36.8 C 78 19 126/70 97 06/05/19 04:20 36.6 C 73 19 101/46 L 94 06/05/19 00:23 36.6 C 81 20 96/48 L 97 06/04/19 20:40 116 H 81 20 97 Laboratory Results Abnormal lab results 06/04/19 06/04/19 06/04/19 Range/Units 16:41 16:44 20:08 WBC (4.8-10.8) K/uL RBC (4.2-5.4) M/uL Hgb (12.0-16.0) g/dL Hct (37-47) % MCHC (32-36) g/dL RDW Std Deviation (36.4-46.3) fL RDW Coeff of Trey (11.5-14.5) % MPV (7.4-10.4) fL Neut # (Auto) (1.4-6.5) K/uL Page # (Auto) (0.11-0.59) K/uL Sodium (136-145) mmol/L Chloride (98-107) mmol/L BUN (7-18) mg/dl Creatinine (0.6-1.2) mg/dl Glucose (70-99) mg/dl POC Glucose 303 H* 307 H* 245 H (70-99) mg/dl Alkaline Phosphatase (45-117) U/L Albumin (3.4-5.0) gm/dl Globulin (2.5-4.0) gm/dl Albumin/Globulin Ratio (0.9-2) 06/05/19 06/05/19 06/05/19 Range/Units 01:54 07:22 07:22 WBC 12.20 H (4.8-10.8) K/uL RBC 4.04 L (4.2-5.4) M/uL Hgb 10.3 L (12.0-16.0) g/dL Hct 32.8 L (37-47) % MCHC 31.4 L (32-36) g/dL RDW Std Deviation 54.2 H (36.4-46.3) fL RDW Coeff of Trey 18.3 H (11.5-14.5) % MPV 10.8 H (7.4-10.4) fL Neut # (Auto) 8.70 H (1.4-6.5) K/uL Page # (Auto) 1.25 H (0.11-0.59) K/uL Sodium 132 L (136-145) mmol/L Chloride 96 L (98-107) mmol/L BUN 49 H D (7-18) mg/dl Creatinine 3.60 H D (0.6-1.2) mg/dl Glucose 104 H (70-99) mg/dl POC Glucose 126 H (70-99) mg/dl Alkaline Phosphatase 172 H (45-117) U/L Albumin 2.4 L (3.4-5.0) gm/dl Globulin 4.3 H (2.5-4.0) gm/dl Albumin/Globulin Ratio 0.6 L (0.9-2) 06/05/19 06/05/19 Range/Units 07:45 11:43 WBC (4.8-10.8) K/uL RBC (4.2-5.4) M/uL Hgb (12.0-16.0) g/dL Hct (37-47) % MCHC (32-36) g/dL RDW Std Deviation (36.4-46.3) fL RDW Coeff of Trey (11.5-14.5) % MPV (7.4-10.4) fL Neut # (Auto) (1.4-6.5) K/uL Page # (Auto) (0.11-0.59) K/uL Sodium (136-145) mmol/L Chloride (98-107) mmol/L BUN (7-18) mg/dl Creatinine (0.6-1.2) mg/dl Glucose (70-99) mg/dl POC Glucose 111 H 145 H (70-99) mg/dl Alkaline Phosphatase (45-117) U/L Albumin (3.4-5.0) gm/dl Globulin (2.5-4.0) gm/dl Albumin/Globulin Ratio (0.9-2) Resident Activity Tracking Resident Involvement: Resident Care Provided Care Provided: Adult Hospital Medicine (1) CHF (congestive heart failure) Heart failure chronicity: acute on chronic Heart failure type: unspecified Qualified Code(s): I50.9 - Heart failure, unspecified (2) Pneumonia Laterality: left Lung location: lower lobe of lung Pneumonia type: due to unspecified organism Qualified Code(s): J18.9 - Pneumonia, unspecified organism
[2019-06-05 07:50] LABS: Basophils # (auto) 0.02 K/uL (0-0.2); Basophils % (auto) 0.2 %; Eosinophils # (auto) 0.04 K/uL (0-0.5); Eosinophils % (auto) 0.3 %; Hematocrit (blood only) 32.8 % (37-47); Hemoglobin 10.3 g/dL (12.0-16.0); Immature Granulocytes # (auto) 0.02 K/uL (0.00-0.02); Immature Granulocytes % (auto) 0.2 %; Lymphocytes # (auto) 2.17 K/uL (1.2-3.4); Lymphocytes % (auto) 17.8 %; Mean Corpuscular Hemoglobin 25.5 pg (25-34); Mean Corpuscular Hgb Conc 31.4 g/dL (32-36); Mean Corpuscular Volume 81.2 fL (80-100); Mean Platelet Volume 10.8 fL (7.4-10.4); Monocytes # (auto) 1.25 K/uL (0.11-0.59); Monocytes % (auto) 10.2 %; Neutrophils % (auto) 71.3 %; Platelet Count 192 K/uL (130-400); RDW Coefficient of Variation 18.3 % (11.5-14.5); RDW Standard Deviation 54.2 fL (36.4-46.3); Red Blood Count 4.04 M/uL (4.2-5.4)
[2019-06-05] MEDS: PARoxetine HCL 20 MG TAB PO SCH (08:05)
[2019-06-05] MEDS: ASPIRIN 81 MG ECTAB PO SCH (08:05)
[2019-06-05] MEDS: APIXABAN 5 MG TABLET PO SCH ×2 (08:05→20:58)
[2019-06-05] MEDS: carvediloL 12.5 MG TAB PO SCH ×2 (08:05→20:58)
[2019-06-05] MEDS: lamoTRIgine 100 MG TAB PO SCH ×2 (08:05→20:58)
[2019-06-05] MEDS: ATORVASTATIN 40 MG TAB PO SCH (08:06)
[2019-06-05] MEDS: LURASIDONE HCL 40 MG TAB PO SCH (08:07)
[2019-06-05] MEDS: FERROUS GLUCONATE 324 MG TAB PO SCH (08:07)
[2019-06-05] MEDS: FLUTICASONE PROPIONATE NA SPR 16 GM BTL NAE SCH (08:08)
[2019-06-05] MEDS: INSULIN GLARGINE SOLOSTAR 100 UNITS/ML 3 ML PEN SQ SCH ×2 (08:12→20:59)
[2019-06-05] MEDS: INSULIN ASPART 100 UNITS/ML 3 ML PEN SC SCH ×4 (08:13→21:04)
[2019-06-05 08:40] LABS: Albumin Level 2.4 gm/dl (3.4-5.0); BUN Creatinine Ratio 13.5 (10-20); Calcium 8.5 mg/dl (8.5-10.1); Creatinine Clr Calc Pharmacy 25.1 ml/min; Est GFR (African American) 16.4; Est GFR (Non-African American) 14.1; Magnesium 2.3 mg/dl (1.8-2.4); Potassium 4.4 mmol/L (3.5-5.1)
[2019-06-05 08:43] LABS: Albumin Globulin Ratio 0.6 (0.9-2); Bilirubin,Total 0.3 mg/dl (0.2-1); Globulin 4.3 gm/dl (2.5-4.0); Total Protein 6.7 gm/dl (6.4-8.2)
[2019-06-05] MEDS: SODIUM CHLORIDE 0.9% 1000ML 1,000 ML IV SCH (16:05)
[2019-06-05] MEDS: MIRTAZAPINE SOLTAB 15 MG PO SCH (20:59)
[2019-06-05] MEDS ORDERED: BUTALBITAL/ACETAMIN/CAFFEINE TAB PO STA (21:19)
[2019-06-06] MEDS: SODIUM CHLORIDE 0.9% 1000ML 1,000 ML IV SCH (03:11)
[2019-06-06] MEDS: CARBOHYDRATES FOR HYPOGLYCEMIA PO PRN ×2 (03:57→04:17)
[2019-06-06] MEDS: PIPERACILLIN/TAZOBACTAM 4.5 GM in DEXTROSE 5% 100 ML IV SCH ×3 (05:23→20:59)
[2019-06-06 05:39] LABS: Basophils # (auto) 0.01 K/uL (0-0.2); Basophils % (auto) 0.1 %; Eosinophils # (auto) 0.03 K/uL (0-0.5); Eosinophils % (auto) 0.3 %; Hematocrit (blood only) 31.3 % (37-47); Hemoglobin 9.8 g/dL (12.0-16.0); Immature Granulocytes # (auto) 0.01 K/uL (0.00-0.02); Immature Granulocytes % (auto) 0.1 %; Lymphocytes # (auto) 1.56 K/uL (1.2-3.4); Lymphocytes % (auto) 17.4 %; Mean Corpuscular Hemoglobin 25.2 pg (25-34); Mean Corpuscular Hgb Conc 31.3 g/dL (32-36); Mean Corpuscular Volume 80.5 fL (80-100); Mean Platelet Volume 10.5 fL (7.4-10.4); Monocytes # (auto) 0.77 K/uL (0.11-0.59); Monocytes % (auto) 8.6 %; Neutrophils # (auto) 6.57 K/uL (1.4-6.5); Neutrophils % (auto) 73.5 %; Platelet Count 181 K/uL (130-400); RDW Standard Deviation 52.7 fL (36.4-46.3); Red Blood Count 3.89 M/uL (4.2-5.4); White Blood Count 8.95 K/uL (4.8-10.8)
[2019-06-06 06:05] LABS: BUN Creatinine Ratio 14.6 (10-20); Calcium 8.2 mg/dl (8.5-10.1); Creatinine Clr Calc Pharmacy 24.5 ml/min; Est GFR (Non-African American) 13.8; Potassium 4.4 mmol/L (3.5-5.1)
[2019-06-06] MEDS: ALBUT/IPRATROP 3MG/0.5MG NEB 3 ML VIAL NEB SCH ×4 (07:01→19:49)
[2019-06-06] MEDS: BUDESONIDE 0.5 MG/2 ML VIAL (PULMICORT) NEB SCH ×2 (07:01→19:49)
--- NOTE | 2019-06-06 07:11 | XRay Report ---
XR chest 1V portable HISTORY: 48 years-old Female PNA, monitor vascular congestion acute shortness of breath with possibl e pneumonia COMPARISON: Chest radiograph 06/03/2019, CTA chest 08/24/2018 TECHNIQUE: Portable AP view of the chest FINDINGS: Cardiac silhouette is enlarged. Pulmonary vascular congestion noted with persistent pleural effusions , mildly increased in size on the right. Bibasilar opacities are redemonstrated. Mildly improved aera tion of the left midlung. Unchanged right subclavian pacer/AICD. Bones are grossly intact. IMPRESSION: 1. Cardiomegaly with pulmonary vascular congestion. 2. Bilateral pleural effusions are redemonstrated, mildly increased in size on the right. 3. Persistent bibasilar consolidation. ACT 112: Negative or not required by law. The above report was generated using voice recognition software. It may contain grammatical, syntax o r spelling errors. Electronically signed by: Pa Barney M.D. 06/06/2019 7:09 AM
[2019-06-06] MEDS: INSULIN ASPART 100 UNITS/ML 3 ML PEN SC SCH ×4 (08:51→20:54)
[2019-06-06] MEDS: carvediloL 12.5 MG TAB PO SCH ×2 (08:54→20:52)
[2019-06-06] MEDS: FERROUS GLUCONATE 324 MG TAB PO SCH (08:55)
[2019-06-06] MEDS: ASPIRIN 81 MG ECTAB PO SCH (08:55)
[2019-06-06] MEDS: FLUTICASONE PROPIONATE NA SPR 16 GM BTL NAE SCH (08:55)
[2019-06-06] MEDS: APIXABAN 5 MG TABLET PO SCH ×2 (08:55→20:53)
[2019-06-06] MEDS: INSULIN GLARGINE SOLOSTAR 100 UNITS/ML 3 ML PEN SQ SCH ×2 (08:56→20:53)
[2019-06-06] MEDS: lamoTRIgine 100 MG TAB PO SCH ×2 (08:56→20:53)
[2019-06-06] MEDS: LURASIDONE HCL 40 MG TAB PO SCH (08:57)
[2019-06-06] MEDS: PARoxetine HCL 20 MG TAB PO SCH (08:57)
[2019-06-06] MEDS: ATORVASTATIN 40 MG TAB PO SCH (08:58)
--- NOTE | 2019-06-06 09:24 | Pharmacy Report ---
Pharmacy Glycemic Short Note 2 - Date of Service June 06, 2019 - Glycemic Short BSG Results (Last 24 hours): 06/05/19 06/05/19 06/05/19 11:43 16:20 20:25 Glucose POC Glucose 145 H 151 H 104 H 06/06/19 06/06/19 06/06/19 03:53 04:12 04:30 Glucose POC Glucose 63 L* 58 L* 92 06/06/19 06/06/19 05:08 07:27 Glucose 102 H POC Glucose 115 H OUTPATIENT ANTIDIABETIC REGIMEN: * Lantus 20 units BID, 10 units TIDM * HbA1c 10.5% 06/03/2019 ASSESSMENT: 06/05 * Patient is currently receiving an average of 70 units of insulin per day (compared to 100 units per day on 06/04) * 40 units of basal insulin * 30 units of prandial/correctional insulin * BSGs ranging 58-151 over the past 24hrs * Risk factors for insulin resistance are decreasing over the past 24hrs * SCr has increased drastically so the PD properties of insulin have changed; therefore, less insulin will be required * Anticipating insulin regimen will need decreased for the next 24hrs d/t : * 0400 BSG = 58; therefore Basal insulin needs decreased * Will also loosen CF/CR in the setting of increased SCr * Patient received 75 units of insulin yesterday, 30 of lantus, 45 of prandial/correctional * Hypoglycemic event yesterday, CF/CR loosened * Fasting this morning elevated, lantus scale for PM dose was not utilized, continue scale today * SCr trending up, 1.74 --> 2.80 * BSGs elevated today 203,243, tightened CR, continued looser CF- patient required tighter parameters at past visit PLAN FOR INPATIENT GLYCEMIC CONTROL: * Basal insulin - decrease * Lantus per scale * 10 units BSG <140 mg/dL * 15 units 140-250 mg/dL * 20 units >250 mg/dL * Bolus insulin - loosen CF/CR * NovoLog per scale ACHS or Q6hrs while NPO * Goal Range: Low 110 mg/dL - High 150 mg/dL * Correction Factor: 25 mg/dL/unit * Nutritional / Prandial insulin per carb ratio of 1 unit per 9 grams CHO consumed
--- NOTE | 2019-06-06 10:47 | Hospitalist Progress Note ---
Date of Service June 06, 2019 Assessment & Plan (1) Pneumonia: 48-year-old female with extensive past medical history of heart failure with reduced extra skin infection, COPD, pneumonia, cardiomyopathy, hypertension, anxiety and depression, stroke, diabetes who presents to the hospital for evaluation of acute shortness of breath off of oxygen. 1. Hospital associated pneumonia status post flu with underlying COPD - De-escalated from Vancomycin after negative MRSA nares. - Continue IV Zosyn - Patient uses oxygen at home 3L and currently saturating at 96% on 3L - Initial Chest x-ray showing bilateral pleural effusions and bibasilar densities. White count initially 18,000 down to 8.95 today and downtrended appropriately. - Repeat CXR this morning shows cardiomegaly with pulmonary vascular congestion with continued bilateral effusions, the R slightly increased in size. Also noted are persistent bibasilar consolidations. - While patient's imaging has worsened, clinically and on PE she appears improved, will continue to monitor. 2. HFrEF: 30-35% - Per discharge summary from [facility] she required both Lasix and Bumex in order to control her CHF exacerbation. - Continue holding Lasix at this time due to worsening kidney function - Creatine still remaining high at 3.68 this AM despite 2 days of holding Lasix, Lisinopril, and gentle hydration overnight with IVF. - She continues to have good urine output at 0.44ml/kg/hr. - BNP 3204 at admission - monitoring I/Os, daily weights 3. AUGUSTO on CKD Stage 3 - Cr at [facility] on 05/15 1.78, 1.65 on admission to [facility] - creatinine bump from 3.6 to 3.68 today with BUN 49 to 54. - possibly multifactorial dehydration vs. vancomycin toxicity vs. stress from Lasix + Lisinopril - lisinopril held - Lasix held - Vanc discontinued - Patient was started on gentle IVF NSS 75ml/hr overnight, was discontinued due to worsening CXR. - Patient's clinical status appears improved and continues to have good urine output 0.44ml/kg/hr, however. - Per review of patient's prior visits she has had difficulties with worsening renal function which appeared to self resolve. - Repeat BMP tomorrow. 4. Diabetes - hx of uncontrolled sugars at last hospital stay in [place] - Pharmacy consult for glycemic control - Home regimen: Lantus 20u BID 5. AFib - Eliquis 5 BID - Rate control with carvedilol 12.5 BID 6. HTN - Holding home Lisinopril - Pressures remaining stable. 7. Hx Anxiety/Depression/Bipolar? - continuing medications from home list as below - Remeron 45 HS - Paroxetine 60 BID - Latuda 80 QAM - Lamictal 100 BID - Alprazolam 1mg every 6 hours as needed - Avoiding sedating medications such as lorazepam, compazine overnight as patient stays sleepy well into the morning 8. Diabetic Neuropathy - Gabapentin 300 TID 9. CAD - Atorvastatin 40 - ASA 81mg DVT PPX: on Eliquis Diet: Diabetic, heart healthy Code: Full Code (2) Cardiomyopathy: (3) CHF (congestive heart failure): (4) Morbid obesity with BMI of 45.0-49.9, adult: (5) Hyperglycemia due to type 2 diabetes mellitus: Admission and Anticipated Discharge Date Admission Date: June 02, 2019 Supervising Physician Co-Signing Physician Notes I saw the patient the resident physician confirmed mitchell portion of the history and physical examination. She complains of a headache this afternoon -she says pretty typical to the migraine she gets. She denies any chest pain or shortness of breath. She cannot lie flat, but with a head of bed elevated about 15 to 20 degrees she really has no issues. Blood pressure 147/73, pulse 81, respiratory rate 20. She is afebrile. Lungs are clear; bases are difficult to auscultate but this is probably due to body habitus. White blood cell count is normalized at 8.95. Hemoglobin 9.8. Sodium 132, BUN 54, creatinine 3.68. Healthcare acquired pneumonia s/p influenza infection w/ COPD at home O2 requirement (3L) Acute renal failure, about the same today CHF, slight worsening on chest x-ray but clinically looks good Diabetes Atrial fibrillation, rate controlled Hypertension Continue antibiotics Hold IV fluids Hold additional Lasix; hold home dose of lisinopril BMP and chest x-ray in a.m. Consider nephrology consultation in a.m. if no evidence of renal recovery Subjective Patient seen and evaluated at the bedside this morning. She states that she was able to spend roughly 4 hours with her yesterday which she thoroughly enjoyed. She denies any SOB or cough this morning. She does state that she is still feeling fatigued and that the lateral aspect of her L leg "where I had the gee put" was painful. She denies any calf pain. Review of Systems Constitutional: + fatigue; no fever, no chills and no body aches Respiratory: no cough, no dyspnea and no pain on inspiration Cardiovascular: + edema; no chest pain, no dyspnea and no calf pain Gastrointestinal: no abdominal pain, no nausea, no vomiting, no constipation and no diarrhea/loose stools Genitourinary: no dysuria, no difficulty urinating and no hematuria Musculoskeletal: + problem reported (notes L lateral leg pain) Physical Exam Constitutional: well developed, well nourished and cooperative; no acute distress Neck: normal visual inspection Respiratory: normal respiratory effort; no respiratory distress, no labored breathing, no retractions and no cough Auscultation: lungs clear to auscultation bilaterally; no crackles, no rales, no rhonchi and no wheezes Cardiovascular: Rate/Rhythm: regular rate and regular rhythm Heart Sounds: no murmur Vessels: no JVD Extremities: + edema (+1); no calf tenderness Gastrointestinal (Abdomen): normal bowel sounds, soft, nontender, no hepatosplenomegaly Musculoskeletal: Patient has some slight tenderness to moderate pressure palpation of the distal lateral L leg. No swelling, bruising, or erythema noted. Results & Data ([facility]) Vital Signs (Past 12 Hours) Vital Signs Temp Pulse Resp BP Pulse Ox 06/06/19 07:38 36.3 C L 76 20 132/71 98 06/06/19 07:02 78 19 95 Laboratory Results Abnormal lab results 06/05/19 06/05/19 06/05/19 Range/Units 11:43 16:20 20:25 RBC (4.2-5.4) M/uL Hgb (12.0-16.0) g/dL Hct (37-47) % MCHC (32-36) g/dL RDW Std Deviation (36.4-46.3) fL RDW Coeff of Trey (11.5-14.5) % MPV (7.4-10.4) fL Neut # (Auto) (1.4-6.5) K/uL [place] # (Auto) (0.11-0.59) K/uL Sodium (136-145) mmol/L BUN (7-18) mg/dl Creatinine (0.6-1.2) mg/dl Glucose (70-99) mg/dl POC Glucose 145 H 151 H 104 H (70-99) mg/dl Calcium (8.5-10.1) mg/dl 06/06/19 06/06/19 06/06/19 Range/Units 03:53 04:12 05:08 RBC 3.89 L (4.2-5.4) M/uL Hgb 9.8 L (12.0-16.0) g/dL Hct 31.3 L (37-47) % MCHC 31.3 L (32-36) g/dL RDW Std Deviation 52.7 H (36.4-46.3) fL RDW Coeff of Trey 18.0 H (11.5-14.5) % MPV 10.5 H (7.4-10.4) fL Neut # (Auto) 6.57 H (1.4-6.5) K/uL [place] # (Auto) 0.77 H (0.11-0.59) K/uL Sodium (136-145) mmol/L BUN (7-18) mg/dl Creatinine (0.6-1.2) mg/dl Glucose (70-99) mg/dl POC Glucose 63 L* 58 L* (70-99) mg/dl Calcium (8.5-10.1) mg/dl 06/06/19 06/06/19 Range/Units 05:08 07:27 RBC (4.2-5.4) M/uL Hgb (12.0-16.0) g/dL Hct (37-47) % MCHC (32-36) g/dL RDW Std Deviation (36.4-46.3) fL RDW Coeff of Trey (11.5-14.5) % MPV (7.4-10.4) fL Neut # (Auto) (1.4-6.5) K/uL [place] # (Auto) (0.11-0.59) K/uL Sodium 132 L (136-145) mmol/L BUN 54 H (7-18) mg/dl Creatinine 3.68 H (0.6-1.2) mg/dl Glucose 102 H (70-99) mg/dl POC Glucose 115 H (70-99) mg/dl Calcium 8.2 L (8.5-10.1) mg/dl Resident Activity Tracking Resident Involvement: Resident Care Provided Care Provided: Adult Hospital Medicine (1) CHF (congestive heart failure) Heart failure chronicity: acute on chronic Heart failure type: unspecified Qualified Code(s): I50.9 - Heart failure, unspecified (2) Pneumonia Laterality: left Lung location: lower lobe of lung Pneumonia type: due to unspecified organism Qualified Code(s): J18.9 - Pneumonia, unspecified organism
[2019-06-06] MEDS: ACETAMINOPHEN 500 MG TAB PO PRN (15:58)
[2019-06-06] MEDS: ALPRAZolam 0.5 MG TABLET PO PRN (20:15)
[2019-06-06] MEDS: MIRTAZAPINE SOLTAB 15 MG PO SCH (20:55)
[2019-06-07] MEDS: PIPERACILLIN/TAZOBACTAM 4.5 GM in DEXTROSE 5% 100 ML IV SCH ×3 (05:21→21:13)
[2019-06-07] MEDS: ALBUT/IPRATROP 3MG/0.5MG NEB 3 ML VIAL NEB SCH ×4 (06:57→20:00)
[2019-06-07] MEDS: BUDESONIDE 0.5 MG/2 ML VIAL (PULMICORT) NEB SCH ×2 (06:57→20:00)
[2019-06-07 07:35] LABS: Basophils # (auto) 0.01 K/uL (0-0.2); Basophils % (auto) 0.1 %; Eosinophils # (auto) 0.02 K/uL (0-0.5); Eosinophils % (auto) 0.3 %; Hematocrit (blood only) 32.7 % (37-47); Immature Granulocytes # (auto) 0.02 K/uL (0.00-0.02); Immature Granulocytes % (auto) 0.3 %; Lymphocytes # (auto) 1.34 K/uL (1.2-3.4); Lymphocytes % (auto) 17.1 %; Mean Corpuscular Hemoglobin 24.9 pg (25-34); Mean Corpuscular Hgb Conc 30.6 g/dL (32-36); Mean Corpuscular Volume 81.3 fL (80-100); Mean Platelet Volume 10.3 fL (7.4-10.4); Monocytes # (auto) 0.77 K/uL (0.11-0.59); Monocytes % (auto) 9.8 %; Neutrophils # (auto) 5.69 K/uL (1.4-6.5); Neutrophils % (auto) 72.4 %; Platelet Count 167 K/uL (130-400); RDW Standard Deviation 53.4 fL (36.4-46.3); Red Blood Count 4.02 M/uL (4.2-5.4); White Blood Count 7.85 K/uL (4.8-10.8)
[2019-06-07] MEDS: ACETAMINOPHEN 500 MG TAB PO PRN (07:49)
[2019-06-07 08:08] LABS: BUN Creatinine Ratio 14.5 (10-20); Calcium 8.8 mg/dl (8.5-10.1); Est GFR (African American) 17.1; Est GFR (Non-African American) 14.8; Potassium 4.7 mmol/L (3.5-5.1)
[2019-06-07] MEDS: FLUTICASONE PROPIONATE NA SPR 16 GM BTL NAE SCH (08:10)
[2019-06-07] MEDS: PARoxetine HCL 20 MG TAB PO SCH (08:11)
[2019-06-07] MEDS: LURASIDONE HCL 40 MG TAB PO SCH (08:11)
[2019-06-07] MEDS: carvediloL 12.5 MG TAB PO SCH ×2 (08:11→20:45)
[2019-06-07] MEDS: APIXABAN 5 MG TABLET PO SCH ×2 (08:11→20:48)
[2019-06-07] MEDS: lamoTRIgine 100 MG TAB PO SCH ×2 (08:11→20:46)
[2019-06-07] MEDS: ASPIRIN 81 MG ECTAB PO SCH (08:11)
[2019-06-07] MEDS: ATORVASTATIN 40 MG TAB PO SCH (08:11)
[2019-06-07] MEDS: FERROUS GLUCONATE 324 MG TAB PO SCH (08:11)
[2019-06-07] MEDS: INSULIN GLARGINE SOLOSTAR 100 UNITS/ML 3 ML PEN SQ SCH ×2 (08:12→20:48)
[2019-06-07] MEDS: INSULIN ASPART 100 UNITS/ML 3 ML PEN SC SCH ×4 (08:12→20:49)
--- NOTE | 2019-06-07 08:14 | Hospitalist Progress Note ---
Date of Service June 07, 2019 Assessment & Plan (1) Pneumonia: 48-year-old female with extensive past medical history of heart failure with reduced extra skin infection, COPD, pneumonia, cardiomyopathy, hypertension, anxiety and depression, stroke, diabetes who presents to the hospital for evaluation of acute shortness of breath off of oxygen. 1. Hospital associated pneumonia status post flu with underlying COPD - De-escalated from Vancomycin after negative MRSA nares. - Continue IV Zosyn - Patient uses oxygen at home 3L and currently saturating at 94% on 3L - Repeat CXR this morning shows cardiomegaly with pulmonary vascular congestion with continued bilateral effusions, the R slightly increased in size. Also noted are persistent bibasilar consolidations. White count 18 k -> 7.85 today - Afebrile during stay - While patient's imaging has worsened, clinically and on PE she appears improved, will continue to monitor. 2. AUGUSTO on CKD Stage 3 - Cr at [facility] on 05/15 1.78, 1.65 on admission to [facility] - creatinine bump from 3.6 to 3.68 over the weekend, down to 3.47 today without intervention - possibly multifactorial dehydration vs. vancomycin toxicity vs. stress from Lasix + Lisinopril - lisinopril held - Lasix held - Vanc discontinued - IVF discontinued 2/2 worsening edema on CXR - Patient's clinical status appears improved and continues to have good urine output 0.44ml/kg/hr, despite being positive 7.4 L during stay - Per review of patient's prior visits she has had difficulties with worsening renal function which appeared to self resolve. - Repeat BMP tomorrow. 3. RLQ abdominal pain - acute RLQ abdominal pain - US pelvic and abd limited ordered to distinguish ovarian cyst vs. appendicitis. - Less concerned for infection given normal WBC this AM, Afebrile, actively on antibiotics. - Oxy 2.5mg IR Q6H for moderate pain given reduced CrCl 4. HFrEF: 30-35% - Per discharge summary from [facility] she required both Lasix and Bumex in order to control her CHF exacerbation. - Continue holding Lasix at this time due to worsening kidney function - Creatine still remaining high at 3.68 this AM despite 2 days of holding Lasix, Lisinopril, and gentle hydration overnight with IVF. - She continues to have good urine output at 0.44ml/kg/hr. - BNP 3204 at admission - monitoring I/Os, daily weights 5. Diabetes - hx of uncontrolled sugars at last hospital stay in [facility] - Pharmacy consult for glycemic control - Home regimen: Lantus 20u BID 6. AFib - Eliquis 5 BID - Rate control with carvedilol 12.5 BID 7. HTN - Holding home Lisinopril - Pressures remaining stable. 8. Hx Anxiety/Depression/Bipolar? - continuing medications from home list as below - Remeron 45 HS - Paroxetine 60 BID - Latuda 80 QAM - Lamictal 100 BID - Alprazolam 1mg every 6 hours as needed - Avoiding sedating medications such as lorazepam, compazine overnight as patient stays sleepy well into the morning 9. Diabetic Neuropathy - Gabapentin 300 TID 10. CAD - Atorvastatin 40 - ASA 81mg DVT PPX: on Eliquis Diet: Diabetic, heart healthy Code: Full Code (2) Cardiomyopathy: (3) CHF (congestive heart failure): (4) Morbid obesity with BMI of 45.0-49.9, adult: (5) Hyperglycemia due to type 2 diabetes mellitus: Admission and Anticipated Discharge Date Admission Date: June 02, 2019 Supervising Physician Co-Signing Physician Notes I saw the patient with the resident physician confirmed mitchell portion of the history and physical examination. Her main concern is that she is complaining of RLQ pain. She denies any nausea, vomiting, chest pain or shortness of breath. Vitals are stable. Lungs are clear; bases are difficult to auscultate but this is probably due to body habitus. White blood cell count is normalized at 7.85. Hemoglobin 10.0. Sodium 134, BUN 50, creatinine 3.5. Healthcare acquired pneumonia s/p influenza infection w/ COPD at home O2 requirement (3L) Acute renal failure, about the same today CHF, slight worsening on chest x-ray but clinically looks good Diabetes Atrial fibrillation, rate controlled Hypertension Continue antibiotics Hold IV fluids Hold additional Lasix; hold home dose of lisinopril As creatinine improved, will hold nephrology consult today Subjective 48-year-old female admitted to the floor for CHF exacerbation complicated by AUGUSTO on stage III kidney disease. This morning attesting to severe 10 out of 10 ri ght lower quadrant pain. He denies any radiation of the pain, any exacerbation by laying down or sitting up, any nausea or vomiting. She says she has a history of ovarian cyst and this pain feels similar to that. Review of Systems Respiratory: no cough and no dyspnea Cardiovascular: no chest pain and no dyspnea at rest Gastrointestinal: + abdominal pain; no bloating, no nausea, no vomiting, no dysphagia, no constipation and no diarrhea/loose stools Physical Exam Physical Exam: Constitutional: Sitting up in bed, fully finished breakfast in front of her. Cardiac: Regular rate and rhythm no murmurs gallops or rubs appreciated. Normal S1-S2. 1+ pitting edema at the mid maldonado bilaterally. Patient reports swelling is less than she normally experiences. Pulmonary: Good air movement throughout both lungs, no wheezes crackles or rhonchi noted. Improved from prior exams. Abdomen: Distended, soft, tender to palpation in the right lower quadrant. No tenderness to palpation in the epigastric upper right quadrant or left side of abdomen. No rebound tenderness. Guarding. Active bowel sounds. No overlying erythema indicative of cellulitis. Difficult to assess pain at McBurney's point secondary to patient habitus. Results & Data ([facility]) Vital Signs (Past 12 Hours) Vital Signs Temp Pulse Resp BP Pulse Ox 06/07/19 07:09 36.7 C 88 19 133/76 94 06/07/19 06:57 90 18 94 06/06/19 23:26 36.4 C L 81 20 134/76 96 06/07/19 06/07/19 06/07/19 Range/Units 07:21 07:13 07:13 WBC 7.85 (4.8-10.8) K/uL RBC 4.02 L (4.2-5.4) M/uL Hgb 10.0 L (12.0-16.0) g/dL Hct 32.7 L (37-47) % MCV 81.3 (80-100) fL MCH 24.9 L (25-34) pg MCHC 30.6 L (32-36) g/dL RDW Std Deviation 53.4 H (36.4-46.3) fL RDW Coeff of Trey 18.0 H (11.5-14.5) % Plt Count 167 (130-400) K/uL MPV 10.3 (7.4-10.4) fL Immature Gran % (Auto) 0.3 % Neut % (Auto) 72.4 % Lymph % (Auto) 17.1 % [place] % (Auto) 9.8 % Eos % (Auto) 0.3 % Baso % (Auto) 0.1 % Immature Gran # (Auto) 0.02 (0.00-0.02) K/uL Neut # (Auto) 5.69 (1.4-6.5) K/uL Lymph # (Auto) 1.34 (1.2-3.4) K/uL [place] # (Auto) 0.77 H (0.11-0.59) K/uL Eos # (Auto) 0.02 (0-0.5) K/uL Baso # (Auto) 0.01 (0-0.2) K/uL Sodium 134 L (136-145) mmol/L Potassium 4.7 (3.5-5.1) mmol/L Chloride 101 (98-107) mmol/L Carbon Dioxide 27 (21-32) mmol/L Anion Gap 6.0 (3-11) BUN 50 H (7-18) mg/dl Creatinine 3.47 H (0.6-1.2) mg/dl Est Cr Clr Drug Dosing 26.0 ml/min Est GFR ( Amer) 17.1 Est GFR (Non-Af Amer) 14.8 BUN/Creatinine Ratio 14.5 (10-20) Glucose 93 (70-99) mg/dl POC Glucose 102 H (70-99) mg/dl Calcium 8.8 (8.5-10.1) mg/dl 06/07/19 06/06/19 06/06/19 Range/Units 03:07 20:41 16:53 WBC (4.8-10.8) K/uL RBC (4.2-5.4) M/uL Hgb (12.0-16.0) g/dL Hct (37-47) % MCV (80-100) fL MCH (25-34) pg MCHC (32-36) g/dL RDW Std Deviation (36.4-46.3) fL RDW Coeff of Trey (11.5-14.5) % Plt Count (130-400) K/uL MPV (7.4-10.4) fL Immature Gran % (Auto) % Neut % (Auto) % Lymph % (Auto) % [place] % (Auto) % Eos % (Auto) % Baso % (Auto) % Immature Gran # (Auto) (0.00-0.02) K/uL Neut # (Auto) (1.4-6.5) K/uL Lymph # (Auto) (1.2-3.4) K/uL [place] # (Auto) (0.11-0.59) K/uL Eos # (Auto) (0-0.5) K/uL Baso # (Auto) (0-0.2) K/uL Sodium (136-145) mmol/L Potassium (3.5-5.1) mmol/L Chloride (98-107) mmol/L Carbon Dioxide (21-32) mmol/L Anion Gap (3-11) BUN (7-18) mg/dl Creatinine (0.6-1.2) mg/dl Est Cr Clr Drug Dosing ml/min Est GFR ( Amer) Est GFR (Non-Af Amer) BUN/Creatinine Ratio (10-20) Glucose (70-99) mg/dl POC Glucose 74 105 H 141 H (70-99) mg/dl Calcium (8.5-10.1) mg/dl 06/06/19 Range/Units 11:45 WBC (4.8-10.8) K/uL RBC (4.2-5.4) M/uL Hgb (12.0-16.0) g/dL Hct (37-47) % MCV (80-100) fL MCH (25-34) pg MCHC (32-36) g/dL RDW Std Deviation (36.4-46.3) fL RDW Coeff of Trey (11.5-14.5) % Plt Count (130-400) K/uL MPV (7.4-10.4) fL Immature Gran % (Auto) % Neut % (Auto) % Lymph % (Auto) % [place] % (Auto) % Eos % (Auto) % Baso % (Auto) % Immature Gran # (Auto) (0.00-0.02) K/uL Neut # (Auto) (1.4-6.5) K/uL Lymph # (Auto) (1.2-3.4) K/uL [place] # (Auto) (0.11-0.59) K/uL Eos # (Auto) (0-0.5) K/uL Baso # (Auto) (0-0.2) K/uL Sodium (136-145) mmol/L Potassium (3.5-5.1) mmol/L Chloride (98-107) mmol/L Carbon Dioxide (21-32) mmol/L Anion Gap (3-11) BUN (7-18) mg/dl Creatinine (0.6-1.2) mg/dl Est Cr Clr Drug Dosing ml/min Est GFR ( Amer) Est GFR (Non-Af Amer) BUN/Creatinine Ratio (10-20) Glucose (70-99) mg/dl POC Glucose 165 H (70-99) mg/dl Calcium (8.5-10.1) mg/dl (1) CHF (congestive heart failure) Heart failure chronicity: acute on chronic Heart failure type: unspecified Qualified Code(s): I50.9 - Heart failure, unspecified (2) Pneumonia Laterality: left Lung location: lower lobe of lung Pneumonia type: due to unspecified organism Qualified Code(s): J18.9 - Pneumonia, unspecified organism
[2019-06-07] MEDS: OXYCODONE HCL IR 5 MG TAB (IMMEDIATE RELEASE) PO PRN ×3 (09:19→21:11)
--- NOTE | 2019-06-07 14:52 | Ultrasound Report ---
US abdomen limited HISTORY: 48 years-old Female RLQ pain, hx ovarian cysts vs. appendicitis acute right lower quadrant abdominal pain COMPARISON: CT abdomen pelvis 04/25/2017 TECHNIQUE: Multiple real-time sonographic images of the abdominal right lower quadrant were obtained assessing grayscale appearance FINDINGS: Limited exam secondary to patient body habitus. The appendix is not diagnostically visualized. No hyp eremia, echogenic fat, hypoperistaltic bowel, free fluid or adenopathy. IMPRESSION: Nonvisualization of the appendix. No secondary signs to suggest acute appendicitis. Note that study is limited secondary to patient body habitus. ACT 112: Negative or not required by law. The above report was generated using voice recognition software. It may contain grammatical, syntax o r spelling errors. Electronically signed by: Pa Barney M.D. 06/07/2019 2:51 PM
--- NOTE | 2019-06-07 14:55 | Ultrasound Report ---
US pelvic limited CLINICAL HISTORY: 48 years-old Female presenting with RLQ pain, hx ovarian cysts vs. Appendicitis. TECHNIQUE: Real-time grayscale and color and spectral Doppler ultrasound imaging of the pelvis was pe rformed using a transabdominal probe. COMPARISON: None. FINDINGS: TRANSABDOMINAL: Transabdominal imaging was performed for a minimally invasive evaluation and to ensur e visualization of global pelvic findings. Bladder: Normal. Uterus: Grossly normal echogenicity and echotexture of the myometrium apart from several focal rounde d mildly hypoechoic foci, which appear largely intramural and measure up to 2.2 cm along the anterior wall. Orientation: Anteverted. Size: 2.2 x 6.1 x 7.7 cm. Endometrial stripe thickness: 13 mm. Endome trium: Grossly normal echogenicity and echotexture. Cervix: Not well visualized. Right adnexa: Right ovary: Not visualized. Left adnexa: Left ovary: Grossly normal. Grossly normal color Doppler flow and arterial and venous wa veforms within the ovarian parenchyma. Left ovary size: 2.7 x 2.0 x 1.8 cm. Other: No large volume free fluid. IMPRESSION: 1. Suspected small uterine fibroids measuring up to 2.2 cm. 2. Nonvisualization of the right ovary. 3. No left ovarian torsion. ACT 112: Negative or not required by law. Electronically signed by: Marquis Birch M.D. 06/07/2019 2:54 PM
--- NOTE | 2019-06-07 20:22 | CT Scan Report ---
CT OF THE ABDOMEN AND PELVIS WITHOUT CONTRAST CLINICAL HISTORY: Right lower quadrant abdominal pain. COMPARISON STUDY: CT of the abdomen and pelvis 04/25/2017. Abdominal and pelvic ultrasound performed earlier today. TECHNIQUE: Axial images of the abdomen and pelvis were obtained without IV or oral contrast. Automate d exposure control was utilized for the study. A dose lowering technique was utilized adhering to th e principles of ALARA. FINDINGS: Pacer leads are partially imaged. There is moderate cardiomegaly. Moderate bilateral pleura l effusions, right larger left, are partially imaged on this exam. Associated bibasilar opacities fav or atelectasis. No pneumatosis, free air or portal venous gas is present. Evaluation of the abdomen a nd pelvis is suboptimal on this unenhanced exam. There is mild splenomegaly. No hepatic lesions are n oted. There is no abnormality of the adrenal glands or the pancreas. There is no hydronephrosis. Susp ected right renal calculi are noted, measuring up to 3 mm. Less likely, these could reflect vascular calcifications. There are no ureteral calculi. There is no evidence for a bowel obstruction. A modera te amount stool is noted. The appendix is normal. There is anasarca. There is trace ascites. Moderate to moderately distended. Uterus is enlarged. This is unchanged. Prominent para-aortic lymph nodes ar e noted. Bilateral L4 and L5 pars defects are unchanged. Fracture with osteophyte of the left superio r endplate of L5 is new since CT of April 25, 2017. There is mild T12 compression fracture is well. No suspicious osseous lesions are noted. IMPRESSION: 1. Normal appendix. No bowel obstruction. Moderate amount stool within the colon. 2. Suboptimal evaluation of the abdomen and pelvis on this unenhanced exam. 3. L5 and T12 compression fractures which are likely subacute to chronic. 4. Anasarca. Moderate bilateral pleural effusions, right larger than left. Trace ascites. 5. Mild splenomegaly. 6. Prominent retroperitoneal lymph nodes. These are probably benign however a follow-up CT in 6 month s is recommended. ACT 112: Negative or not required by law. Electronically signed by: Harry Salamanca M.D. 06/07/2019 8:20 PM
[2019-06-07] MEDS: ALPRAZolam 0.5 MG TABLET PO PRN (20:44)
[2019-06-07] MEDS: MIRTAZAPINE SOLTAB 15 MG PO SCH (20:46)
[2019-06-08] MEDS: OXYCODONE HCL IR 5 MG TAB (IMMEDIATE RELEASE) PO PRN ×3 (05:47→17:51)
[2019-06-08] MEDS: PIPERACILLIN/TAZOBACTAM 4.5 GM in DEXTROSE 5% 100 ML IV SCH ×3 (05:47→22:59)
[2019-06-08] MEDS: ALBUT/IPRATROP 3MG/0.5MG NEB 3 ML VIAL NEB SCH ×4 (07:36→19:10)
[2019-06-08] MEDS: BUDESONIDE 0.5 MG/2 ML VIAL (PULMICORT) NEB SCH ×2 (07:37→19:08)
[2019-06-08 08:24] LABS: Eosinophils # (auto) 0.01 K/uL (0-0.5); Eosinophils % (auto) 0.1 %; Hematocrit (blood only) 32.3 % (37-47); Hemoglobin 10.1 g/dL (12.0-16.0); Immature Granulocytes # (auto) 0.02 K/uL (0.00-0.02); Immature Granulocytes % (auto) 0.2 %; Lymphocytes # (auto) 0.99 K/uL (1.2-3.4); Lymphocytes % (auto) 11.8 %; Mean Corpuscular Hemoglobin 25.2 pg (25-34); Mean Corpuscular Hgb Conc 31.3 g/dL (32-36); Mean Corpuscular Volume 80.5 fL (80-100); Mean Platelet Volume 10.1 fL (7.4-10.4); Monocytes # (auto) 0.94 K/uL (0.11-0.59); Monocytes % (auto) 11.2 %; Neutrophils # (auto) 6.45 K/uL (1.4-6.5); Neutrophils % (auto) 76.7 %; Platelet Count 152 K/uL (130-400); RDW Coefficient of Variation 17.6 % (11.5-14.5); RDW Standard Deviation 51.8 fL (36.4-46.3); Red Blood Count 4.01 M/uL (4.2-5.4); White Blood Count 8.41 K/uL (4.8-10.8)
[2019-06-08] MEDS: ATORVASTATIN 40 MG TAB PO SCH (08:50)
[2019-06-08] MEDS: LURASIDONE HCL 40 MG TAB PO SCH (08:50)
[2019-06-08] MEDS: ASPIRIN 81 MG ECTAB PO SCH (08:50)
[2019-06-08] MEDS: carvediloL 12.5 MG TAB PO SCH (08:50)
[2019-06-08] MEDS: FERROUS GLUCONATE 324 MG TAB PO SCH (08:50)
[2019-06-08] MEDS: APIXABAN 5 MG TABLET PO SCH ×2 (08:50→20:42)
[2019-06-08] MEDS: lamoTRIgine 100 MG TAB PO SCH ×2 (08:50→20:42)
[2019-06-08 08:51] LABS: BUN Creatinine Ratio 14.7 (10-20); Creatinine Clr Calc Pharmacy 25.8 ml/min; Est GFR (Non-African American) 14.6; Potassium 4.6 mmol/L (3.5-5.1)
[2019-06-08] MEDS: PARoxetine HCL 20 MG TAB PO SCH (08:51)
[2019-06-08] MEDS: INSULIN GLARGINE SOLOSTAR 100 UNITS/ML 3 ML PEN SQ SCH ×2 (08:52→20:44)
[2019-06-08] MEDS: INSULIN ASPART 100 UNITS/ML 3 ML PEN SC SCH ×4 (08:53→20:45)
[2019-06-08] MEDS: FLUTICASONE PROPIONATE NA SPR 16 GM BTL NAE SCH (08:58)
[2019-06-08] MEDS: ALPRAZolam 0.5 MG TABLET PO PRN (08:58)
[2019-06-08] MEDS: DOCUSATE SODIUM/SENNA 50/8.6MG TAB PO SCH (09:06)
[2019-06-08 10:35] LABS: Ferritin 174.7 ng/ml (8-388)
--- NOTE | 2019-06-08 11:11 | Hospitalist Progress Note ---
Date of Service June 08, 2019 Assessment & Plan (1) Pneumonia: 48-year-old female with extensive past medical history of heart failure with reduced extra skin infection, COPD, pneumonia, cardiomyopathy, hypertension, anxiety and depression, stroke, diabetes who presents to the hospital for evaluation of acute shortness of breath off of oxygen. 1. Hospital associated pneumonia status post flu with underlying COPD - Day 6 IV Zosyn, will finish course tomorrow. - Patient uses oxygen at home 3L and currently saturating at 94% on 3L - WBC remains downtrended, CT abd/pelv showed inferior aspect of lungs with aspiration pneumonitis + pulm edema - Afebrile during stay 2. AUGUSTO on CKD Stage 3 - Cr stable at 3.5 however concerned given increasing peripheral edema - possibly multifactorial dehydration vs. vancomycin toxicity vs. stress from Lasix + Lisinopril - lisinopril held, lasix held, Vanc discontinued - IVF discontinued 2/2 worsening edema on CXR - decreasing UOP concerning for Acute Renal Failure - nephrology consulted for recommendations of diuretic management for inpatient and outpatient setting in light of chronic kidney disease and elevated Cr 3. RLQ abdominal pain - acute RLQ abdominal pain - US pelvic and abd limited ordered to distinguish ovarian cyst vs. appendicitis. - CT abd/pelv with oral contrast ruled out appendicitis, no bowel obstruction or ischemia visible though suboptimal 2/2 lack of IV contrast. No mention of ovaries on read. - incidental note of large uterus. Follow up OBGYN outpatient. - Less concerned for infection given normal WBC this AM, Afebrile, actively on antibiotics. - Oxy 2.5mg IR Q6H for moderate pain given reduced CrCl 4. HFrEF: 30-35% - Lisinopril 10 mg held - consider Entresto in outpatient setting - Consider metolazone + Bumex or Lasix if tolerable 5. Diabetes - hx of uncontrolled sugars at last hospital stay in [facility] - Pharmacy consult for glycemic control - Home regimen: Lantus 20u BID 6. AFib - Eliquis 5 BID - Rate control with carvedilol 12.5 BID 7. HTN - Holding home Lisinopril - Pressures remaining stable. 8. Hx Anxiety/Depression/Bipolar? - continuing medications from home list as below - Remeron 45 HS - Paroxetine 60 BID - Latuda 80 QAM - Lamictal 100 BID - Alprazolam 1mg every 6 hours as needed - Avoiding sedating medications such as lorazepam, compazine overnight as patient stays sleepy well into the morning 9. Diabetic Neuropathy - Gabapentin 300 TID 10. CAD - Atorvastatin 40 - ASA 81mg DVT PPX: on Eliquis Diet: Diabetic, heart healthy Code: Full Code (2) Cardiomyopathy: (3) CHF (congestive heart failure): (4) Morbid obesity with BMI of 45.0-49.9, adult: (5) Hyperglycemia due to type 2 diabetes mellitus: Admission and Anticipated Discharge Date Admission Date: June 02, 2019 Supervising Physician Co-Signing Physician Notes I saw the patient with the resident physician confirmed mitchell portion of the history and physical examination. Her main concern is that she is complaining of RLQ pain but states that this has decreased today. She denies any nausea, vomiting, chest pain or shortness of breath. Vitals are stable. Lungs are clear; bases are difficult to auscultate but this is probably due to body habitus. White blood cell count is normalized at 8.41. Hemoglobin 10.1. Creatinine 3.5. Healthcare acquired pneumonia s/p influenza infection w/ COPD at home O2 requirement (3L) Acute renal failure, about the same today CHF, slight worsening on chest x-ray but clinically looks good CT scan does show moderate pleral effusion. Given poor kidney function, she may benefit from short term dialysis D/W pulmonary for thoracocenthesis, however the pulonary team, felt that patient would benefit more from dialysis. Will consult nephrology. Diabetes Atrial fibrillation, rate controlled Hypertension Continue antibiotics Hold IV fluids Hold additional Lasix; hold home dose of lisinopril Consult nephro as stated above. No official consult to pulmonary Subjective 48-year-old female admitted for a acquired pneumonia which is improving. This morning continues to deny any respiratory complaints however still having right lower quadrant pain. Been able to get up and move around with PT and OT. Review of Systems Constitutional: no chills and no body aches Respiratory: no cough and no dyspnea Cardiovascular: no chest pain and no dyspnea at rest Gastrointestinal: + abdominal pain; no bloating, no nausea, no vomiting, no dysphagia, no constipation and no diarrhea/loose stools Physical Exam Physical Exam: Constitutional: Sitting up in bed, fully finished breakfast in front of her. Cardiac: Regular rate and rhythm no murmurs gallops or rubs appreciated. Normal S1-S2. 1+ pitting edema at the mid maldonado bilaterally. Patient reports swelling is less than she normally experiences. Pulmonary: Good air movement throughout both lungs, no wheezes crackles or rhonchi noted. Improved from prior exams. Abdomen: Distended, soft, tender to palpation in the right lower quadrant. No tenderness to palpation in the epigastric upper right quadrant or left side of abdomen. No rebound tenderness. Guarding. Active bowel sounds. No overlying erythema indicative of cellulitis. Extremities: 2+ worsening pitting edema to the knees bilaterally Results & Data ([facility]) Vital Signs (Past 12 Hours) Vital Signs Temp Pulse Resp BP Pulse Ox 06/08/19 07:40 90 20 94 06/08/19 07:18 36.7 C 90 18 151/84 H 95 06/08/19 00:17 36.3 C L 96 H 20 175/67 H 94 06/08/19 06/08/19 06/08/19 Range/Units 14:00 14:00 14:00 WBC (4.8-10.8) K/uL RBC (4.2-5.4) M/uL Hgb (12.0-16.0) g/dL Hct (37-47) % MCV (80-100) fL MCH (25-34) pg MCHC (32-36) g/dL RDW Std Deviation (36.4-46.3) fL RDW Coeff of Trey (11.5-14.5) % Plt Count (130-400) K/uL MPV (7.4-10.4) fL Immature Gran % (Auto) % Neut % (Auto) % Lymph % (Auto) % [place] % (Auto) % Eos % (Auto) % Baso % (Auto) % Immature Gran # (Auto) (0.00-0.02) K/uL Neut # (Auto) (1.4-6.5) K/uL Lymph # (Auto) (1.2-3.4) K/uL [place] # (Auto) (0.11-0.59) K/uL Eos # (Auto) (0-0.5) K/uL Baso # (Auto) (0-0.2) K/uL Sodium (136-145) mmol/L Potassium (3.5-5.1) mmol/L Chloride (98-107) mmol/L Carbon Dioxide (21-32) mmol/L Anion Gap (3-11) BUN (7-18) mg/dl Creatinine (0.6-1.2) mg/dl Est Cr Clr Drug Dosing ml/min Est GFR ( Amer) Est GFR (Non-Af Amer) BUN/Creatinine Ratio (10-20) Glucose (70-99) mg/dl POC Glucose (70-99) mg/dl Calcium (8.5-10.1) mg/dl Iron (35-150) mcg/dl TIBC (250-450) mcg/dl Transferrin (200-360) mg/dl Transferrin % Sat (15-50) % Ferritin (8-388) ng/ml Urine Color Pending Cancelled Urine Appearance Pending Cancelled Urine pH Pending Cancelled Ur Specific [place] Pending Cancelled Urine Protein Pending Cancelled Urine Glucose (UA) Pending Cancelled Urine Ketones Pending Cancelled Urine Blood Pending Cancelled Urine Nitrite Pending Cancelled Urine Bilirubin Pending Cancelled Urine Urobilinogen Pending Cancelled Ur Leukocyte Esterase Pending Cancelled Urine WBC (Auto) Cancelled Urine RBC (Auto) Cancelled U Hyaline Cast (Auto) Cancelled U Epithel Cells (Auto) Cancelled Urine Bacteria (Auto) Cancelled Ur Renal Epithelial Cell Cancelled Urine Crystals Cancelled Calcium Oxalate Crystal Cancelled Uric Acid Crystals Cancelled Triple Phos Crystals Cancelled Other Crystals Cancelled Amorphous Sediment Cancelled Granular Casts Cancelled Waxy Casts Cancelled RBC Casts Cancelled WBC Casts Cancelled Other Casts Cancelled Urine Mucus Cancelled Urine Other Cancelled Urine Trichomonas Cancelled Urine Yeast Cancelled Urine Sperm Cancelled Ur Oval Fat Bodies Cancelled Ur Random Creatinine 57.5 mg/dl U Random Total Protein 46.5 H (0-11.9) mg/dl Ur Random Sodium 23 mmol/L 06/08/19 06/08/19 06/08/19 Range/Units 11:44 07:52 07:52 WBC 8.41 (4.8-10.8) K/uL RBC 4.01 L (4.2-5.4) M/uL Hgb 10.1 L (12.0-16.0) g/dL Hct 32.3 L (37-47) % MCV 80.5 (80-100) fL MCH 25.2 (25-34) pg MCHC 31.3 L (32-36) g/dL RDW Std Deviation 51.8 H (36.4-46.3) fL RDW Coeff of Trey 17.6 H (11.5-14.5) % Plt Count 152 (130-400) K/uL MPV 10.1 (7.4-10.4) fL Immature Gran % (Auto) 0.2 % Neut % (Auto) 76.7 % Lymph % (Auto) 11.8 % [place] % (Auto) 11.2 % Eos % (Auto) 0.1 % Baso % (Auto) 0.0 % Immature Gran # (Auto) 0.02 (0.00-0.02) K/uL Neut # (Auto) 6.45 (1.4-6.5) K/uL Lymph # (Auto) 0.99 L (1.2-3.4) K/uL [place] # (Auto) 0.94 H (0.11-0.59) K/uL Eos # (Auto) 0.01 (0-0.5) K/uL Baso # (Auto) 0.00 (0-0.2) K/uL Sodium (136-145) mmol/L Potassium (3.5-5.1) mmol/L Chloride (98-107) mmol/L Carbon Dioxide (21-32) mmol/L Anion Gap (3-11) BUN (7-18) mg/dl Creatinine (0.6-1.2) mg/dl Est Cr Clr Drug Dosing ml/min Est GFR ( Amer) Est GFR (Non-Af Amer) BUN/Creatinine Ratio (10-20) Glucose (70-99) mg/dl POC Glucose 215 H (70-99) mg/dl Calcium (8.5-10.1) mg/dl Iron 28 L (35-150) mcg/dl TIBC 228 L (250-450) mcg/dl Transferrin 199 L (200-360) mg/dl Transferrin % Sat 10 L (15-50) % Ferritin 174.7 (8-388) ng/ml Urine Color Urine Appearance Urine pH Ur Specific [place] Urine Protein Urine Glucose (UA) Urine Ketones Urine Blood Urine Nitrite Urine Bilirubin Urine Urobilinogen Ur Leukocyte Esterase Urine WBC (Auto) Urine RBC (Auto) U Hyaline Cast (Auto) U Epithel Cells (Auto) Urine Bacteria (Auto) Ur Renal Epithelial Cell Urine Crystals Calcium Oxalate Crystal Uric Acid Crystals Triple Phos Crystals Other Crystals Amorphous Sediment Granular Casts Waxy Casts RBC Casts WBC Casts Other Casts Urine Mucus Urine Other Urine Trichomonas Urine Yeast Urine Sperm Ur Oval Fat Bodies Ur Random Creatinine mg/dl U Random Total Protein (0-11.9) mg/dl Ur Random Sodium mmol/L 06/08/19 06/08/19 06/07/19 Range/Units 07:52 07:42 20:41 WBC (4.8-10.8) K/uL RBC (4.2-5.4) M/uL Hgb (12.0-16.0) g/dL Hct (37-47) % MCV (80-100) fL MCH (25-34) pg MCHC (32-36) g/dL RDW Std Deviation (36.4-46.3) fL RDW Coeff of Trey (11.5-14.5) % Plt Count (130-400) K/uL MPV (7.4-10.4) fL Immature Gran % (Auto) % Neut % (Auto) % Lymph % (Auto) % [place] % (Auto) % Eos % (Auto) % Baso % (Auto) % Immature Gran # (Auto) (0.00-0.02) K/uL Neut # (Auto) (1.4-6.5) K/uL Lymph # (Auto) (1.2-3.4) K/uL [place] # (Auto) (0.11-0.59) K/uL Eos # (Auto) (0-0.5) K/uL Baso # (Auto) (0-0.2) K/uL Sodium 135 L (136-145) mmol/L Potassium 4.6 (3.5-5.1) mmol/L Chloride 103 (98-107) mmol/L Carbon Dioxide 26 (21-32) mmol/L Anion Gap 6.0 (3-11) BUN 52 H (7-18) mg/dl Creatinine 3.50 H (0.6-1.2) mg/dl Est Cr Clr Drug Dosing 25.8 ml/min Est GFR ( Amer) 17.0 Est GFR (Non-Af Amer) 14.6 BUN/Creatinine Ratio 14.7 (10-20) Glucose 145 H (70-99) mg/dl POC Glucose 153 H 221 H (70-99) mg/dl Calcium 9.0 (8.5-10.1) mg/dl Iron (35-150) mcg/dl TIBC (250-450) mcg/dl Transferrin (200-360) mg/dl Transferrin % Sat (15-50) % Ferritin (8-388) ng/ml Urine Color Urine Appearance Urine pH Ur Specific [place] Urine Protein Urine Glucose (UA) Urine Ketones Urine Blood Urine Nitrite Urine Bilirubin Urine Urobilinogen Ur Leukocyte Esterase Urine WBC (Auto) Urine RBC (Auto) U Hyaline Cast (Auto) U Epithel Cells (Auto) Urine Bacteria (Auto) Ur Renal Epithelial Cell Urine Crystals Calcium Oxalate Crystal Uric Acid Crystals Triple Phos Crystals Other Crystals Amorphous Sediment Granular Casts Waxy Casts RBC Casts WBC Casts Other Casts Urine Mucus Urine Other Urine Trichomonas Urine Yeast Urine Sperm Ur Oval Fat Bodies Ur Random Creatinine mg/dl U Random Total Protein (0-11.9) mg/dl Ur Random Sodium mmol/L 06/07/19 Range/Units 16:40 WBC (4.8-10.8) K/uL RBC (4.2-5.4) M/uL Hgb (12.0-16.0) g/dL Hct (37-47) % MCV (80-100) fL MCH (25-34) pg MCHC (32-36) g/dL RDW Std Deviation (36.4-46.3) fL RDW Coeff of Trey (11.5-14.5) % Plt Count (130-400) K/uL MPV (7.4-10.4) fL Immature Gran % (Auto) % Neut % (Auto) % Lymph % (Auto) % [place] % (Auto) % Eos % (Auto) % Baso % (Auto) % Immature Gran # (Auto) (0.00-0.02) K/uL Neut # (Auto) (1.4-6.5) K/uL Lymph # (Auto) (1.2-3.4) K/uL [place] # (Auto) (0.11-0.59) K/uL Eos # (Auto) (0-0.5) K/uL Baso # (Auto) (0-0.2) K/uL Sodium (136-145) mmol/L Potassium (3.5-5.1) mmol/L Chloride (98-107) mmol/L Carbon Dioxide (21-32) mmol/L Anion Gap (3-11) BUN (7-18) mg/dl Creatinine (0.6-1.2) mg/dl Est Cr Clr Drug Dosing ml/min Est GFR ( Amer) Est GFR (Non-Af Amer) BUN/Creatinine Ratio (10-20) Glucose (70-99) mg/dl POC Glucose 163 H (70-99) mg/dl Calcium (8.5-10.1) mg/dl Iron (35-150) mcg/dl TIBC (250-450) mcg/dl Transferrin (200-360) mg/dl Transferrin % Sat (15-50) % Ferritin (8-388) ng/ml Urine Color Urine Appearance Urine pH Ur Specific [place] Urine Protein Urine Glucose (UA) Urine Ketones Urine Blood Urine Nitrite Urine Bilirubin Urine Urobilinogen Ur Leukocyte Esterase Urine WBC (Auto) Urine RBC (Auto) U Hyaline Cast (Auto) U Epithel Cells (Auto) Urine Bacteria (Auto) Ur Renal Epithelial Cell Urine Crystals Calcium Oxalate Crystal Uric Acid Crystals Triple Phos Crystals Other Crystals Amorphous Sediment Granular Casts Waxy Casts RBC Casts WBC Casts Other Casts Urine Mucus Urine Other Urine Trichomonas Urine Yeast Urine Sperm Ur Oval Fat Bodies Ur Random Creatinine mg/dl U Random Total Protein (0-11.9) mg/dl Ur Random Sodium mmol/L Resident Activity Tracking Resident Involvement: Resident Care Provided Care Provided: Adult Hospital Medicine (1) CHF (congestive heart failure) Heart failure chronicity: acute on chronic Heart failure type: unspecified Qualified Code(s): I50.9 - Heart failure, unspecified (2) Pneumonia Laterality: left Lung location: lower lobe of lung Pneumonia type: due to unspecified organism Qualified Code(s): J18.9 - Pneumonia, unspecified organism
--- NOTE | 2019-06-08 12:45 | Pharmacy Report ---
Pharmacy Glycemic Short Note 2 - Date of Service June 08, 2019 - Glycemic Short BSG Results (Last 24 hours): 06/07/19 06/07/19 06/08/19 16:40 20:41 07:42 Glucose POC Glucose 163 H 221 H 153 H 06/08/19 06/08/19 07:52 11:44 Glucose 145 H POC Glucose 215 H OUTPATIENT ANTIDIABETIC REGIMEN: * Lantus 20 units BID, 10 units TIDM * HbA1c 10.5% 06/03/2019 ASSESSMENT: BSGs have been reasonable over the previous 24hrs. No acute fluctuation in insulin requirements are anticipated. Continue standing insulin orders. PLAN FOR INPATIENT GLYCEMIC CONTROL: * Basal insulin - decrease * Lantus per scale * 10 units BSG <140 mg/dL * 15 units 140-250 mg/dL * 20 units >250 mg/dL * Bolus insulin - loosen CF/CR * NovoLog per scale ACHS or Q6hrs while NPO * Goal Range: Low 110 mg/dL - High 150 mg/dL * Correction Factor: 25 mg/dL/unit * Nutritional / Prandial insulin per carb ratio of 1 unit per 9 grams CHO consumed
[2019-06-08 15:03] LABS: Creatinine Urine Random 57.5 mg/dl; Total Protein Urine Random 46.5 mg/dl (0-11.9)
[2019-06-08] MEDS ORDERED: METOPROLOL TARTRATE 1 MG/ML VIAL IV STA (15:55)
[2019-06-08 15:59] LABS: Appearance Urine Cloudy (Clear); Bacteria Urine Automated Negative (Negative); Bilirubin Urine Negative (Negative); Blood Urine 2+ (Negative); Color Urine Yellow; Epithelial Cell Urine Auto >30 /lpf (0-5); Glucose Urine UA Negative (Negative); Ketones Urine Negative (Negative); Leukocyte Esterase Urine 1+ (Negative); Nitrite Urine Negative (Negative); Protein Urine 1+ (Negative); Specific Gravity Urine 1.015 (1.000-1.030); Urobilinogen Urine Negative (Negative)
--- NOTE | 2019-06-08 16:07 | Billing Data ---
Date of Service June 07, 2019 Coding Level of Care Code 82895 Subseq Hosp Care Lvl 3 Time Spent (min) 35
[2019-06-08] MEDS ORDERED: METOPROLOL TARTRATE 25 MG TAB PO STA (16:52)
--- NOTE | 2019-06-08 19:06 | Nephrology Consultation ---
Date of Consultation June 08, 2019 Assessment & Plan (1) Acute kidney injury: 48 y o F with rapidly worsening AUGUSTO in the setting of Pneumonia, volume overload and antibiotic exposure. Has high grade proteinuria, hematuria with T1DM and multiple other comorbidities. No hydronephrosis. BP has been high but improved. Diuretics has been on hold but Cr continues to rise. Differentials includes hemodynamically mediated AUGUSTO with low EF, ? right sided HF with underlying COPD, AIN with antibiotics, RPGN and others considering abnormal UA. With Hypoalbuminemia, anemia and proteinuria some concern for Paraproteinuria. As BP was high, possibility for MILTON remains. Currently she seems comfortable although seems to be volume overloaded. I/O in EMR is not accurate but pt voiding normally. --order serology and paraproteinuria w/u --continue carvedilol 25 BID and amlodipine, BP seems to be better, increase dose as needed. --strict I/O, start on Bumex 1 mg BID, aim to keep slightly net negative, may need to adjust diuretics dose accordingly --dose meds for GFR <30 --decrease Gabapentin to <300 /d --continue to hold Lisinopril for now --monitor renal panel daily --iron study Will follow Thank you for the consult. (2) Proteinuria: (3) Microscopic hematuria: (4) Pneumonia: (5) Hypoalbuminemia: History of Present Illness Reason for Consultation: Acute kidney injury, volume overload. Attending Physician: Gavino Silverio History of Present Illness Sonia Rausch is a 48-year-old female with complicated past medical history including hypertension, diabetes, CKD, history of COPD admitted to the hospital with left lower lobe pneumonia. Nephrology consult was requested to manage acute kidney injury in volume overload. Electronic medical records including labs and imaging reviewed in detail during patient's visit. Sonia was admitted to hospital on 06/02/19 with SOB and diagnosed with left lower lobe pneumonia and started on empiric antibiotic. She was also found to be volume overloaded with bilateral pleural effusion and pulmonary congestion, initially started on diuretics. She was on Lasix and lisinopril 10 mg daily. Has baseline decent renal function, baseline creatinine has been 1.2. She did have prior episode of acute kidney injury in August 2018 when her creatinine was up to 1.7, eventually improved and went to baseline. On admission on 06/02/19 she was found to have AK, creatinine 1.7 which rapidly worsened over last few days and her creatinine 3.8 this morning. Urinalysis positive for proteinuria, pyuria and hematuria but no bacteria. She did have high grade proteinuria chronically the setting of type 1 diabetes for more than 30 years. Unclear whether she has retinopathy. CT A/P without contrast on 06/07/19 showed otherwise normal size kidney, no postrenal obstruction. She was found to have ascites bilateral pleural effusion and pulmonary congestion as well. Initially she re ceived diuretic however as renal function rapidly worsened, diuretics has been on hold for last 3 days however renal function continues to worsen. Although her intake and output was not measured but she reports voiding normally. Blood pressure has been running high which slightly improved after increasing the carvedilol dose and starting on amlodipine. Lisinopril has been on hold. Did not receive any NSAID while in hospital. Received only 1 dose of vancomycin on admission and just continued on Zosyn. Hb dropped during this admission with prior normal hemoglobin. Has COPD, has been on O2 3 L all the time. Type 1 DM for more than 30 years seems to be poorly controlled. His severe cardiomyopathy, EF 25-30% AICD. Currently she denies any specific symptoms denies shortness of breath and she feels like her breathing is at her baseline with NC O2. No chest pain. Voiding has been normal. Appetite decent. Allergies Allergy/AdvReac Type Severity Reaction Status Date / Time No Known Allergies Allergy Verified 06/02/19 19:08 Home Medications Home Medications Medication Instructions Recorded Confirmed Type Latuda 80 mg PO QAM 08/24/18 06/02/19 History albuterol sulfate [Ventolin HFA] 2 puff INHALATION Q4H PRN 08/24/18 06/02/19 History alprazolam 1 mg PO QID 08/24/18 06/02/19 History aspirin 81 mg PO QAM 08/24/18 06/02/19 History atorvastatin 80 mg PO QAM 08/24/18 06/02/19 History ferrous gluconate 324 mg PO QAM 08/24/18 06/02/19 History fluticasone propionate 2 spray INTRANASAL DAILY 08/24/18 06/02/19 History gabapentin 300 mg PO TID 08/24/18 06/02/19 History insulin lispro [Admelog SoloStar 10 unit SUBCUT TIDM 08/24/18 06/02/19 History U-100 Insulin] lamotrigine 100 mg PO BID 08/24/18 06/02/19 History mirtazapine 45 mg PO HS 08/24/18 06/02/19 History paroxetine HCl 60 mg PO BID 08/24/18 06/02/19 History apixaban [Eliquis] 5 mg PO BID 06/02/19 06/02/19 History carvedilol 12.5 mg PO BID 06/02/19 06/02/19 History insulin glargine [Lantus U-100 20 unit SUBCUT BID 06/02/19 06/02/19 History Insulin] lisinopril 10 mg PO QAM 06/02/19 06/02/19 History Patient History Medical History (Updated 06/09/19 @ 11:23 by Sara Alexis MD) Anxiety associated with depression CHF (congestive heart failure) COPD (chronic obstructive pulmonary disease) Diabetes (Chronic) Hypertension Hypothyroid Morbid obesity with BMI of 45.0-49.9, adult Proteinuria Stroke Surgical History (Updated 06/03/19 @ 14:04 by Monica Hemphill MD) History of section History of eye surgery right eye removed History of foot surgery Family History Other Cancer Diabetes Hypertension Social History Preferred Language: Lao Communication Ability: Effective Facility Practice Specialist Required: No Beliefs That Will Affect Care: None marital status: Current Living Situation: Spouse and Family Current Living Situation Comment: 2 daughters Other Information That Helps Us Care for You: No Feels Safe at Home: Yes Safety Concerns: Feels Safe At This Time Smoking Status: Never smoker Second Hand Exposure: No ; Hx Alcohol Use: No Hx Substance Use: No Review of Systems Review of Systems: All systems reviewed & are unremarkable except as noted in HPI & below Physical Exam Constitutional: WD/WN, vitals as above + obese; no acute distress Eyes: PERRL, conjunctivae normal, anicteric sclerae ENMT: external ear and nose normal, oropharynx normal Ears: no hearing impairment Neck: trachea midline, no thyromegaly Respiratory: normal respiratory effort; no respiratory distress and no cough Auscultation: + diminished lung sounds and + rales Cardiovascular: Rate/Rhythm: regular rate and regular rhythm Heart Sounds: normal S1 and normal S2 Extremities: + edema (trace b/l LE edema) Gastrointestinal (Abdomen): normal bowel sounds, soft, nontender, no hepatosplenomegaly Inspection/Auscultation: normal bowel sounds Percussion/Palpation: abdomen soft; abdomen nontender, no guarding and abdomen not rigid Musculoskeletal: Extremities: extremities normal to inspection Gait: normal gait Skin: no rashes, warm and dry Neurologic: moves all extremities and awake; not confused Psychiatric: A+Ox3, euthymic affect Results & Data Vital Signs (Past 12 Hours) Vital Signs Temp Pulse Resp BP Pulse Ox 06/08/19 15:32 88 16 97 06/08/19 15:17 37.0 C 86 20 178/102 H 96 06/08/19 12:52 94 06/08/19 07:40 90 20 94 06/08/19 07:18 36.7 C 90 18 151/84 H 95 PG Care Time/CCT Total # of Minutes Spent Total Time Spent with Patient: Total time spent is greater than 50% in coordination of care (as documented) at patient's floor/unit and/or counseling patient: Coding Level of Care Code 56904 Inpt Consult Level 5 Diagnoses Acute kidney injury N17.9 Proteinuria R80.9 Microscopic hematuria R31.29 Pneumonia J18.9 Laterality: left Lung location: lower lobe of lung Pneumonia type: due to unspecified organism Hypoalbuminemia E88.09 (1) Pneumonia Laterality: left Lung location: lower lobe of lung Pneumonia type: due to unspecified organism Qualified Code(s): J18.9 - Pneumonia, unspecified organism
[2019-06-08] MEDS: carvediloL 25 MG TAB PO SCH (20:41)
[2019-06-08] MEDS: MIRTAZAPINE SOLTAB 15 MG PO SCH (20:42)
[2019-06-09 03:45] LABS: Appearance Urine Cloudy (Clear); Bilirubin Urine Negative (Negative); Blood Urine 2+ (Negative); Color Urine Yellow; Glucose Urine UA Negative (Negative); Ketones Urine Negative (Negative); Leukocyte Esterase Urine 2+ (Negative); Nitrite Urine Negative (Negative); Protein Urine 1+ (Negative); Specific Gravity Urine 1.015 (1.000-1.030); Urobilinogen Urine Negative (Negative); pH Urine 5.5 (4.5-7.5)
[2019-06-09 03:51] LABS: Epithelial Cell Urine >30 /lpf (0-5)
[2019-06-09 03:52] LABS: Bacteria Urine 1+ (Negative)
[2019-06-09 04:07] LABS: Creatinine Urine Random 88.6 mg/dl; Protein Creatinine Ratio Urine 0.6 (0-0.2); Total Protein Urine Random 53.2 mg/dl (0-11.9)
[2019-06-09] MEDS: OXYCODONE HCL IR 5 MG TAB (IMMEDIATE RELEASE) PO PRN ×3 (04:25→17:47)
[2019-06-09] MEDS: PIPERACILLIN/TAZOBACTAM 4.5 GM in DEXTROSE 5% 100 ML IV SCH ×2 (06:26→13:03)
[2019-06-09] MEDS: BUDESONIDE 0.5 MG/2 ML VIAL (PULMICORT) NEB SCH ×2 (07:06→19:14)
[2019-06-09] MEDS: ALBUT/IPRATROP 3MG/0.5MG NEB 3 ML VIAL NEB SCH ×4 (07:06→19:13)
--- NOTE | 2019-06-09 07:18 | Billing Data ---
Date of Service June 08, 2019 Coding Level of Care Code 38401 Subseq Hosp Care Lvl 3 Time Spent (min) 35
[2019-06-09] MEDS: PARoxetine HCL 20 MG TAB PO SCH (08:19)
[2019-06-09] MEDS: ALPRAZolam 0.5 MG TABLET PO PRN (08:19)
[2019-06-09] MEDS: LURASIDONE HCL 40 MG TAB PO SCH (08:19)
[2019-06-09] MEDS: AMLODIPINE BESYLATE 5 MG TAB PO SCH (08:20)
[2019-06-09] MEDS: FERROUS GLUCONATE 324 MG TAB PO SCH (08:20)
[2019-06-09] MEDS: APIXABAN 5 MG TABLET PO SCH ×2 (08:20→21:11)
[2019-06-09] MEDS: ATORVASTATIN 40 MG TAB PO SCH (08:20)
[2019-06-09] MEDS: ASPIRIN 81 MG ECTAB PO SCH (08:20)
[2019-06-09] MEDS: lamoTRIgine 100 MG TAB PO SCH ×2 (08:20→21:11)
[2019-06-09] MEDS: carvediloL 25 MG TAB PO SCH ×2 (08:20→21:12)
[2019-06-09] MEDS: FLUTICASONE PROPIONATE NA SPR 16 GM BTL NAE SCH (08:21)
[2019-06-09] MEDS: INSULIN GLARGINE SOLOSTAR 100 UNITS/ML 3 ML PEN SQ SCH ×2 (08:25→21:14)
[2019-06-09] MEDS: INSULIN ASPART 100 UNITS/ML 3 ML PEN SC SCH ×4 (08:26→21:14)
[2019-06-09] MEDS: IRON SUCROSE 200 MG in 0.9 % SODIUM CHLORIDE 100 ML IV SCH (09:24)
[2019-06-09] MEDS: DOCUSATE SODIUM/SENNA 50/8.6MG TAB PO SCH (09:24)
[2019-06-09 09:30] LABS: Basophils # (auto) 0.01 K/uL (0-0.2); Basophils % (auto) 0.1 %; Eosinophils # (auto) 0.03 K/uL (0-0.5); Eosinophils % (auto) 0.4 %; Hematocrit (blood only) 29.6 % (37-47); Hemoglobin 9.3 g/dL (12.0-16.0); Immature Granulocytes # (auto) 0.02 K/uL (0.00-0.02); Immature Granulocytes % (auto) 0.3 %; Lymphocytes # (auto) 1.18 K/uL (1.2-3.4); Lymphocytes % (auto) 16.6 %; Mean Corpuscular Hemoglobin 25.4 pg (25-34); Mean Corpuscular Hgb Conc 31.4 g/dL (32-36); Mean Corpuscular Volume 80.9 fL (80-100); Mean Platelet Volume 9.8 fL (7.4-10.4); Monocytes # (auto) 0.77 K/uL (0.11-0.59); Monocytes % (auto) 10.8 %; Neutrophils # (auto) 5.09 K/uL (1.4-6.5); Neutrophils % (auto) 71.8 %; Platelet Count 157 K/uL (130-400); RDW Standard Deviation 53.7 fL (36.4-46.3); Red Blood Count 3.66 M/uL (4.2-5.4)
[2019-06-09 09:46] LABS: Albumin Level 2.6 gm/dl (3.4-5.0); BUN Creatinine Ratio 14.6 (10-20); Calcium 8.9 mg/dl (8.5-10.1); Creatinine Clr Calc Pharmacy 23.3 ml/min; Est GFR (Non-African American) 12.9; Potassium 4.9 mmol/L (3.5-5.1)
[2019-06-09 09:47] LABS: Phosphorus 5.3 mg/dl (2.5-4.9)
[2019-06-09] MEDS ORDERED: GABAPENTIN 300 MG CAP PO PRN (11:04)
--- NOTE | 2019-06-09 12:38 | Hospitalist Progress Note ---
Date of Service June 09, 2019 Assessment & Plan (1) Pneumonia: 48-year-old female with extensive past medical history of heart failure with reduced extra skin infection, COPD, pneumonia, cardiomyopathy, hypertension, anxiety and depression, stroke, diabetes who presents to the hospital for evaluation of acute shortness of breath off of oxygen. 1. AUGUSTO on CKD Stage 3 - Cr stable at 3.5 however concerned given increasing peripheral edema - per nephrology: carvedilol 25 BID and amlodipine, strict I/O, start on Bumex 1 mg BID - holding lisinopril - med dosing for GFR <30 - trending BMPs - Iron studies show Iron 28, TIBC 228, Transferrin 199, Transferring Sat 10, Ferritin 174.7. 2. HFrEF: 30-35% - Lisinopril 10 mg held - consider Entresto in outpatient setting - carvedilol 25 BID and amlodipine 3. Hospital associated pneumonia status post flu with underlying COPD: resolved - Completed 7 day IV courase - Patient uses oxygen at home 3L and currently saturating at 94% on 3L 4. RLQ abdominal pain - acute RLQ abdominal pain - US pelvic and abd limited ordered to distinguish ovarian cyst vs. appendicitis. - CT abd/pelv with oral contrast ruled out appendicitis, no bowel obstruction or ischemia visible though suboptimal 2/2 lack of IV contrast. No mention of ovaries on read. - incidental note of large uterus. Follow up OBGYN outpatient. - Less concerned for infection given normal WBC this AM, Afebrile, actively on antibiotics. - Oxy 2.5mg IR Q6H for moderate pain given reduced CrCl 6. Diabetes - hx of uncontrolled sugars at last hospital stay in [facility] - Pharmacy consult for glycemic control - Home regimen: Lantus 20u BID 7. AFib - Eliquis 5 BID - Rate control with carvedilol 12.5 BID 8. HTN - Holding home Lisinopril - Pressures remaining stable; see above for medication changes 9. Hx Anxiety/Depression/Bipolar? - continuing medications from home list as below - Remeron 45 HS - Paroxetine 60 BID - Latuda 80 QAM - Lamictal 100 BID - Alprazolam 1mg every 6 hours as needed - Avoiding sedating medications such as lorazepam, compazine overnight as patient stays sleepy well into the morning 10. Diabetic Neuropathy - Gabapentin 300 QD 11. CAD - Atorvastatin 40 - ASA 81mg DVT PPX: on Eliquis Diet: Diabetic, heart healthy Code: Full Code (2) Cardiomyopathy: (3) CHF (congestive heart failure): (4) Morbid obesity with BMI of 45.0-49.9, adult: (5) Hyperglycemia due to type 2 diabetes mellitus: Admission and Anticipated Discharge Date Admission Date: June 02, 2019 Supervising Physician Co-Signing Physician Notes I personally examined the patient and verified all mitchell points of history and exam, discussed case, and agree with decision making with Dr Hemphill. Feeling okay. Somewhat groggy whenever I saw her. No other new complaints. Case discussed with Dr. Hemphill extensively. Nephrology input appreciated. Vitals noted, in general she is awake, pleasant no distress. She is very fatigued. Lungs are clear to auscultation bilaterally no rales rhonchi or wheezes with good effort, no accessory muscle use. Shows no focal neuro deficits. Skin shows no rashes no pallor or icterus. Acute renal failure Appreciate nephrology input, continue to follow. Pneumoniaappears to be improving, finished course of Zosyn. Continue to follow. HFrEFlungs are clear, clinically volume exam is somewhat difficult, likely ties together with renal failure above. Continue to follow closely. Subjective Continuing to do well with respiratory status. No acute complaints today. Review of Systems Constitutional: no fever, no chills, no body aches and no fatigue Respiratory: no cough and no dyspnea Cardiovascular: no chest pain, no dyspnea and no edema Gastrointestinal: no abdominal pain, no nausea, no vomiting, no constipation and no diarrhea/loose stools Genitourinary: no dysuria Physical Exam Physical Exam: Constitutional: Sitting up in bed, lethargic Cardiac: Regular rate and rhythm no murmurs gallops or rubs appreciated. Normal S1-S2. Pulmonary: Good air movement throughout both lungs, no wheezes crackles or rhonchi noted. Improved from prior exams. Abdomen: Distended, soft, tender to palpation in the right lower quadrant. No tenderness to palpation in the epigastric upper right quadrant or left side of abdomen. No rebound tenderness. Guarding. Active bowel sounds. No overlying erythema indicative of cellulitis. Extremities: 2+ worsening pitting edema to the knees bilaterally Results & Data ([facility]) Vital Signs (Past 12 Hours) Vital Signs Temp Pulse Resp BP Pulse Ox 03/04/20 11:47 36.5 C 72 20 114/74 94 06/09/19 11:22 74 16 93 06/09/19 07:47 78 32 H 136/82 78 L 06/09/19 07:07 89 14 97 06/09/19 06/09/19 06/09/19 Range/Units 16:44 11:38 09:12 WBC 7.10 (4.8-10.8) K/uL RBC 3.66 L (4.2-5.4) M/uL Hgb 9.3 L (12.0-16.0) g/dL Hct 29.6 L (37-47) % MCV 80.9 (80-100) fL MCH 25.4 (25-34) pg MCHC 31.4 L (32-36) g/dL RDW Std Deviation 53.7 H (36.4-46.3) fL RDW Coeff of Trey 18.0 H (11.5-14.5) % Plt Count 157 (130-400) K/uL MPV 9.8 (7.4-10.4) fL Immature Gran % (Auto) 0.3 % Neut % (Auto) 71.8 % Lymph % (Auto) 16.6 % Jerome % (Auto) 10.8 % Eos % (Auto) 0.4 % Baso % (Auto) 0.1 % Immature Gran # (Auto) 0.02 (0.00-0.02) K/uL Neut # (Auto) 5.09 (1.4-6.5) K/uL Lymph # (Auto) 1.18 L (1.2-3.4) K/uL Jerome # (Auto) 0.77 H (0.11-0.59) K/uL Eos # (Auto) 0.03 (0-0.5) K/uL Baso # (Auto) 0.01 (0-0.2) K/uL Sodium (136-145) mmol/L Potassium (3.5-5.1) mmol/L Chloride (98-107) mmol/L Carbon Dioxide (21-32) mmol/L Anion Gap (3-11) BUN (7-18) mg/dl Creatinine (0.6-1.2) mg/dl Est Cr Clr Drug Dosing ml/min Est GFR ( Amer) Est GFR (Non-Af Amer) BUN/Creatinine Ratio (10-20) Glucose (70-99) mg/dl POC Glucose 167 H 258 H (70-99) mg/dl Calcium (8.5-10.1) mg/dl Phosphorus (2.5-4.9) mg/dl Total Protein (PEP) Albumin (3.4-5.0) gm/dl Albumin (PEP) Ydvqk-4-Veftbvyeq Jubng-0-Jxzppvhcx Shgn-6-Ffgagssx Jkxq-0-Uxjqqyvt Gamma Globulins Monoclonal Peak 3 Ser Monoclonl Protein Ser Monoclonal Prot 2 PEP Interpretation Urine Color Urine Appearance (Clear) Urine pH (4.5-7.5) Ur Specific [place] (1.000-1.030) Urine Protein (Negative) Urine Glucose (UA) (Negative) Urine Ketones (Negative) Urine Blood (Negative) Urine Nitrite (Negative) Urine Bilirubin (Negative) Urine Urobilinogen (Negative) Ur Leukocyte Esterase (Negative) Urine RBC (0-4) /hpf Urine WBC (0-5) /hpf Ur Epithelial Cells (0-5) /lpf Urine Bacteria (Negative) Ur Random Creatinine mg/dl U Random Total Protein (0-11.9) mg/dl Ur Random Sodium mmol/L Ur Creatinine mg/dL Protein/Creatinin Ratio (0-0.2) Urine Albumin (%) U Amxot-0-Larqmavn (%) U Pqedq-3-Tkvsqdio (%) U Beta Globulin (%) U Gamma Globulin (%) U Abnormal Prot Band 1 U Abnormal Prot Band 2 U Abnormal Prot Band 3 Urine PEP Interpret SHELDON Screen Anti-Proteinase 3 Anti-Myeloperoxidase ANCA Glomerular Base Memb Ab Complement C3 Complement C4 Free Cashion LC, Quant Free Lambda LC, Quant Free Cashion/Lambda Ratio 06/09/19 06/09/19 06/09/19 Range/Units 09:12 09:12 07:57 WBC (4.8-10.8) K/uL RBC (4.2-5.4) M/uL Hgb (12.0-16.0) g/dL Hct (37-47) % MCV (80-100) fL MCH (25-34) pg MCHC (32-36) g/dL RDW Std Deviation (36.4-46.3) fL RDW Coeff of Trey (11.5-14.5) % Plt Count (130-400) K/uL MPV (7.4-10.4) fL Immature Gran % (Auto) % Neut % (Auto) % Lymph % (Auto) % Jerome % (Auto) % Eos % (Auto) % Baso % (Auto) % Immature Gran # (Auto) (0.00-0.02) K/uL Neut # (Auto) (1.4-6.5) K/uL Lymph # (Auto) (1.2-3.4) K/uL Jerome # (Auto) (0.11-0.59) K/uL Eos # (Auto) (0-0.5) K/uL Baso # (Auto) (0-0.2) K/uL Sodium 135 L (136-145) mmol/L Potassium 4.9 (3.5-5.1) mmol/L Chloride 101 (98-107) mmol/L Carbon Dioxide 26 (21-32) mmol/L Anion Gap 8.0 (3-11) BUN 57 H (7-18) mg/dl Creatinine 3.88 H D (0.6-1.2) mg/dl Est Cr Clr Drug Dosing 23.3 ml/min Est GFR ( Amer) 15.0 Est GFR (Non-Af Amer) 12.9 BUN/Creatinine Ratio 14.6 (10-20) Glucose 190 H (70-99) mg/dl POC Glucose 128 H (70-99) mg/dl Calcium 8.9 (8.5-10.1) mg/dl Phosphorus 5.3 H (2.5-4.9) mg/dl Total Protein (PEP) Pending Albumin 2.6 L (3.4-5.0) gm/dl Albumin (PEP) Pending Zjsse-3-Torddfhbc Pending Vduef-5-Umeiyczej Pending Fugy-4-Fjtphcet Pending Tcfv-6-Ggrshkdo Pending Gamma Globulins Pending Monoclonal Peak 3 Pending Ser Monoclonl Protein Pending Ser Monoclonal Prot 2 Pending PEP Interpretation Pending Urine Color Urine Appearance (Clear) Urine pH (4.5-7.5) Ur Specific [place] (1.000-1.030) Urine Protein (Negative) Urine Glucose (UA) (Negative) Urine Ketones (Negative) Urine Blood (Negative) Urine Nitrite (Negative) Urine Bilirubin (Negative) Urine Urobilinogen (Negative) Ur Leukocyte Esterase (Negative) Urine RBC (0-4) /hpf Urine WBC (0-5) /hpf Ur Epithelial Cells (0-5) /lpf Urine Bacteria (Negative) Ur Random Creatinine mg/dl U Random Total Protein (0-11.9) mg/dl Ur Random Sodium mmol/L Ur Creatinine mg/dL Protein/Creatinin Ratio (0-0.2) Urine Albumin (%) U Ypofs-0-Mpaqkmil (%) U Saqle-0-Ndzhhwjc (%) U Beta Globulin (%) U Gamma Globulin (%) U Abnormal Prot Band 1 U Abnormal Prot Band 2 U Abnormal Prot Band 3 Urine PEP Interpret SHELDON Screen Pending Anti-Proteinase 3 Pending Anti-Myeloperoxidase Pending ANCA Pending Glomerular Base Memb Ab Pending Complement C3 Pending Complement C4 Pending Free Cashion LC, Quant Pending Free Lambda LC, Quant Pending Free Cashion/Lambda Ratio Pending 06/09/19 06/09/19 06/09/19 Range/Units 03:30 03:30 03:30 WBC (4.8-10.8) K/uL RBC (4.2-5.4) M/uL Hgb (12.0-16.0) g/dL Hct (37-47) % MCV (80-100) fL MCH (25-34) pg MCHC (32-36) g/dL RDW Std Deviation (36.4-46.3) fL RDW Coeff of Trey (11.5-14.5) % Plt Count (130-400) K/uL MPV (7.4-10.4) fL Immature Gran % (Auto) % Neut % (Auto) % Lymph % (Auto) % Jerome % (Auto) % Eos % (Auto) % Baso % (Auto) % Immature Gran # (Auto) (0.00-0.02) K/uL Neut # (Auto) (1.4-6.5) K/uL Lymph # (Auto) (1.2-3.4) K/uL Jerome # (Auto) (0.11-0.59) K/uL Eos # (Auto) (0-0.5) K/uL Baso # (Auto) (0-0.2) K/uL Sodium (136-145) mmol/L Potassium (3.5-5.1) mmol/L Chloride (98-107) mmol/L Carbon Dioxide (21-32) mmol/L Anion Gap (3-11) BUN (7-18) mg/dl Creatinine (0.6-1.2) mg/dl Est Cr Clr Drug Dosing ml/min Est GFR ( Amer) Est GFR (Non-Af Amer) BUN/Creatinine Ratio (10-20) Glucose (70-99) mg/dl POC Glucose (70-99) mg/dl Calcium (8.5-10.1) mg/dl Phosphorus (2.5-4.9) mg/dl Total Protein (PEP) Albumin (3.4-5.0) gm/dl Albumin (PEP) Rdmme-7-Jnmvcfjxc Jwitj-5-Ibdbacakf Yvdd-6-Jfhdlypl Qygy-3-Jzdcjrji Gamma Globulins Monoclonal Peak 3 Ser Monoclonl Protein Ser Monoclonal Prot 2 PEP Interpretation Urine Color Yellow Urine Appearance Cloudy A (Clear) Urine pH 5.5 (4.5-7.5) Ur Specific [place] 1.015 (1.000-1.030) Urine Protein 1+ H (Negative) Urine Glucose (UA) Negative (Negative) Urine Ketones Negative (Negative) Urine Blood 2+ H (Negative) Urine Nitrite Negative (Negative) Urine Bilirubin Negative (Negative) Urine Urobilinogen Negative (Negative) Ur Leukocyte Esterase 2+ H (Negative) Urine RBC 10-30 H (0-4) /hpf Urine WBC 10-30 H (0-5) /hpf Ur Epithelial Cells >30 H (0-5) /lpf Urine Bacteria 1+ H (Negative) Ur Random Creatinine 88.6 mg/dl U Random Total Protein Pending 53.2 H (0-11.9) mg/dl Ur Random Sodium 19 mmol/L Ur Creatinine mg/dL Pending Protein/Creatinin Ratio Pending 0.6 H (0-0.2) Urine Albumin (%) Pending U Rrmnu-7-Pdocgcny (%) Pending U Hatbv-1-Qkmklffk (%) Pending U Beta Globulin (%) Pending U Gamma Globulin (%) Pending U Abnormal Prot Band 1 Pending U Abnormal Prot Band 2 Pending U Abnormal Prot Band 3 Pending Urine PEP Interpret Pending SHELDON Screen Anti-Proteinase 3 Anti-Myeloperoxidase ANCA Glomerular Base Memb Ab Complement C3 Complement C4 Free Cashion LC, Quant Free Lambda LC, Quant Free Cashion/Lambda Ratio 06/08/19 06/08/19 Range/Units 22:12 20:35 WBC (4.8-10.8) K/uL RBC (4.2-5.4) M/uL Hgb (12.0-16.0) g/dL Hct (37-47) % MCV (80-100) fL MCH (25-34) pg MCHC (32-36) g/dL RDW Std Deviation (36.4-46.3) fL RDW Coeff of Trey (11.5-14.5) % Plt Count (130-400) K/uL MPV (7.4-10.4) fL Immature Gran % (Auto) % Neut % (Auto) % Lymph % (Auto) % Jerome % (Auto) % Eos % (Auto) % Baso % (Auto) % Immature Gran # (Auto) (0.00-0.02) K/uL Neut # (Auto) (1.4-6.5) K/uL Lymph # (Auto) (1.2-3.4) K/uL Jerome # (Auto) (0.11-0.59) K/uL Eos # (Auto) (0-0.5) K/uL Baso # (Auto) (0-0.2) K/uL Sodium (136-145) mmol/L Potassium (3.5-5.1) mmol/L Chloride (98-107) mmol/L Carbon Dioxide (21-32) mmol/L Anion Gap (3-11) BUN (7-18) mg/dl Creatinine (0.6-1.2) mg/dl Est Cr Clr Drug Dosing ml/min Est GFR ( Amer) Est GFR (Non-Af Amer) BUN/Creatinine Ratio (10-20) Glucose (70-99) mg/dl POC Glucose 79 98 (70-99) mg/dl Calcium (8.5-10.1) mg/dl Phosphorus (2.5-4.9) mg/dl Total Protein (PEP) Albumin (3.4-5.0) gm/dl Albumin (PEP) Tyyme-2-Cyjajutlf Rrkpg-3-Cdzdprtxw Wcdb-1-Uvhtfczw Rfxj-9-Ezpsrwon Gamma Globulins Monoclonal Peak 3 Ser Monoclonl Protein Ser Monoclonal Prot 2 PEP Interpretation Urine Color Urine Appearance (Clear) Urine pH (4.5-7.5) Ur Specific [place] (1.000-1.030) Urine Protein (Negative) Urine Glucose (UA) (Negative) Urine Ketones (Negative) Urine Blood (Negative) Urine Nitrite (Negative) Urine Bilirubin (Negative) Urine Urobilinogen (Negative) Ur Leukocyte Esterase (Negative) Urine RBC (0-4) /hpf Urine WBC (0-5) /hpf Ur Epithelial Cells (0-5) /lpf Urine Bacteria (Negative) Ur Random Creatinine mg/dl U Random Total Protein (0-11.9) mg/dl Ur Random Sodium mmol/L Ur Creatinine mg/dL Protein/Creatinin Ratio (0-0.2) Urine Albumin (%) U Qqmtz-6-Boiopxfu (%) U Mbmkm-9-Vdcnsypx (%) U Beta Globulin (%) U Gamma Globulin (%) U Abnormal Prot Band 1 U Abnormal Prot Band 2 U Abnormal Prot Band 3 Urine PEP Interpret SHELDON Screen Anti-Proteinase 3 Anti-Myeloperoxidase ANCA Glomerular Base Memb Ab Complement C3 Complement C4 Free Cashion LC, Quant Free Lambda LC, Quant Free Cashion/Lambda Ratio Resident Activity Tracking Resident Involvement: Resident Care Provided Care Provided: Adult Hospital Medicine (1) CHF (congestive heart failure) Heart failure chronicity: acute on chronic Heart failure type: unspecified Qualified Code(s): I50.9 - Heart failure, unspecified (2) Pneumonia Laterality: left Lung location: lower lobe of lung Pneumonia type: due to unspecified organism Qualified Code(s): J18.9 - Pneumonia, unspecified organism
[2019-06-09] MEDS: BUMETANIDE 1 MG TAB PO SCH ×2 (12:46→17:50)
--- NOTE | 2019-06-09 15:28 | Pharmacy Report ---
Pharmacy Glycemic Short Note 2 - Date of Service June 09, 2019 - Glycemic Short BSG Results (Last 24 hours): 06/08/19 06/08/19 06/08/19 16:36 20:35 22:12 Glucose POC Glucose 240 H 98 79 06/09/19 06/09/19 06/09/19 07:57 09:12 11:38 Glucose 190 H POC Glucose 128 H 258 H OUTPATIENT ANTIDIABETIC REGIMEN: * Lantus 20 units BID, 10 units TIDM * HbA1c 10.5% 06/03/2019 ASSESSMENT: 06/08: BSGs ranged form 79-258 over the past 24 hours. Patient appears to trend up for lunch and dinner and significantly drop at bedtime. I did tighten novolog scale for breakfast and lunch and will loosen with dinner. AM novolog may need to be tightened further. Fasting BSG adequate today, will continue with current lantus scale. 06/07: BSGs have been reasonable over the previous 24hrs. No acute fluctuation in insulin requirements are anticipated. Continue standing insulin orders. PLAN FOR INPATIENT GLYCEMIC CONTROL: * Basal insulin - decrease * Lantus per scale * 10 units BSG <140 mg/dL * 15 units 140-250 mg/dL * 20 units >250 mg/dL * Bolus insulin - loosen CF/CR * NovoLog per scale ACHS or Q6hrs while NPO * Goal Range: Low 110 mg/dL - High 150 mg/dL * Correction Factor: 25 mg/dL/unit (breakfast and lunch) * Correction Factor: 30 mg/dL/unit (dinner and HS) * Nutritional / Prandial insulin per carb ratio of 1 unit per 8 grams CHO consumed (breakfast and lunch) * Nutritional / Prandial insulin per carb ratio of 1 unit per 10 grams CHO consumed (dinner and HS)
--- NOTE | 2019-06-09 19:03 | Billing Data ---
Date of Service June 09, 2019 Coding Level of Care Code 36772 Subseq Hosp Care Lvl 3
[2019-06-09] MEDS ORDERED: ALPRAZolam 0.5 MG TABLET PO PRN (21:00)
[2019-06-09] MEDS: MIRTAZAPINE SOLTAB 15 MG PO SCH (21:10)
[2019-06-10] MEDS: ALBUT/IPRATROP 3MG/0.5MG NEB 3 ML VIAL NEB SCH ×4 (07:00→19:21)
[2019-06-10] MEDS: BUDESONIDE 0.5 MG/2 ML VIAL (PULMICORT) NEB SCH ×2 (07:00→19:21)
[2019-06-10 07:37] LABS: Albumin Level 2.5 gm/dl (3.4-5.0); BUN Creatinine Ratio 14.2 (10-20); Calcium 9.1 mg/dl (8.5-10.1); Est GFR (African American) 13.2; Est GFR (Non-African American) 11.4; Potassium 4.9 mmol/L (3.5-5.1)
[2019-06-10 07:38] LABS: Phosphorus 5.8 mg/dl (2.5-4.9)
--- NOTE | 2019-06-10 08:09 | Communication Note ---
Date of Service: June 10, 2019 FeNa first day 1%, yesterday 0.6%, would expect urine sodium to rise in the face of bumex, but actually declined. creatinine rising. Volume status exceedingly difficult to discern, but given 2 days of progressive rise in creatinine despite therapeutic trial of bumex, likely dry. cautiously will change to fluid trial and follow closely.
[2019-06-10] MEDS: carvediloL 25 MG TAB PO SCH ×2 (08:33→21:07)
[2019-06-10] MEDS: APIXABAN 5 MG TABLET PO SCH ×2 (08:34→21:07)
[2019-06-10] MEDS: AMLODIPINE BESYLATE 5 MG TAB PO SCH (08:34)
[2019-06-10] MEDS: ATORVASTATIN 40 MG TAB PO SCH (08:34)
[2019-06-10] MEDS: lamoTRIgine 100 MG TAB PO SCH ×2 (08:34→21:07)
[2019-06-10] MEDS: PARoxetine HCL 20 MG TAB PO SCH (08:35)
[2019-06-10] MEDS: ASPIRIN 81 MG ECTAB PO SCH (08:35)
[2019-06-10] MEDS: SODIUM CHLORIDE 0.9% 1000ML 1,000 ML IV SCH ×2 (08:36→21:19)
[2019-06-10] MEDS: FLUTICASONE PROPIONATE NA SPR 16 GM BTL NAE SCH (08:36)
[2019-06-10] MEDS: LURASIDONE HCL 40 MG TAB PO SCH (08:36)
[2019-06-10] MEDS: FERROUS GLUCONATE 324 MG TAB PO SCH (08:36)
[2019-06-10] MEDS: INSULIN GLARGINE SOLOSTAR 100 UNITS/ML 3 ML PEN SQ SCH ×2 (08:37→21:11)
[2019-06-10] MEDS: INSULIN ASPART 100 UNITS/ML 3 ML PEN SC SCH ×4 (08:40→21:12)
[2019-06-10] MEDS: OXYCODONE HCL IR 5 MG TAB (IMMEDIATE RELEASE) PO PRN ×2 (08:43→21:07)
[2019-06-10] MEDS: DOCUSATE SODIUM/SENNA 50/8.6MG TAB PO SCH (08:44)
--- NOTE | 2019-06-10 09:26 | Nephrology Progress Note ---
Date of Service June 10, 2019 Assessment & Plan (1) Acute kidney injury: 48 y o F with rapidly worsening AUGUSTO in the setting of Pneumonia, volume overload and antibiotic exposure. Has high grade proteinuria, hematuria with T1DM and multiple other comorbidities. No hydronephrosis. BP has been high but improved. Diuretics has been on hold but Cr continues to rise. Differentials includes hemodynamically mediated AUGUSTO with low EF, ? right sided HF with underlying COPD, AIN with antibiotics, RPGN and others considering abnormal UA. With Hypoalbuminemia, anemia and proteinuria some concern for Paraproteinemia. As BP was high, possibility for MILTON remains. Currently she seems comfortable although seems to be volume overloaded. I/O in EMR is not accurate but pt voiding normally. Serology and paraproteinemia w/u pending. --Received Bumex yesterday and was net negative more than 500 mL. --As she did not have intake and output charted before, and the fact that dose of Bumex was really low considering her current GFR, it is possible that she will be able to maintain urine output without diuretics. Although there has been slight change in renal function, unclear whether diuretics has anything to do with it as she still seems to be volume overloaded and blood pressure occasionally running high and renal function has been worsening last few days while she was off of diuretics. In any case she may be able to maintain urine output and keep even or net negative without diuretics. ---Okay to hold diuretics at this time, however if urine output drops and she is net positive, diuretics should be resumed --continue carvedilol 25 BID and amlodipine, BP seems to be better. --dose meds for GFR <30 --monitor renal panel daily --continue on Venofer --if renal function continues to worsen while we wait for the serology, in worse case scenario, we may need to consider renal replacement therapy. Discussed briefly with patient about the slim possibility that we may have to start her on dialysis, patient understands and agreeable if needed Will follow (2) Proteinuria: (3) Microscopic hematuria: (4) Pneumonia: (5) Hypoalbuminemia: Christopher Scott was seen and examined in her room this morning. She has been having right lower quadrant abdominal pain but denied any vomiting or diarrhea. Imaging study was negative. Has been having decent urine output and in fact she is net negative almost 500 mL over last 24 hours after receiving Bumex. Renal function worsened further to creatinine 4.3, electrolyte remain acceptable. Blood pressure remained variable. Review of Systems Review of Systems: All systems reviewed & are unremarkable except as noted in HPI & below Physical Exam Constitutional: WD/WN, vitals as above no acute distress Neck: normal visual inspection Respiratory: normal respiratory effort, lungs clear to auscultation Cardiovascular: Rate/Rhythm: regular rate and regular rhythm Heart Sounds: normal S1 and normal S2 Extremities: no edema Gastrointestinal (Abdomen): Percussion/Palpation: + abdomen tender (rt lower quadrant) Skin: no rashes, warm and dry Neurologic: moves all extremities and awake; no focal motor deficits and not confused Psychiatric: A+Ox3, euthymic affect Results & Data Vital Signs (Past 12 Hours) Vital Signs Temp Pulse Resp BP BP Pulse Ox 06/10/19 07:56 36.4 C L 76 18 155/88 H 92 06/10/19 07:01 75 18 94 06/10/19 00:18 36.6 C 78 20 168/81 H 95 PG Care Time/CCT Total # of Minutes Spent Total Time Spent with Patient: Total time spent is greater than 50% in coordination of care (as documented) at patient's floor/unit and/or counseling patient: Coding Level of Care Code 85036 Subseq Hosp Care Lvl 3 Diagnoses Acute kidney injury N17.9 Proteinuria R80.9 Microscopic hematuria R31.29 Pneumonia J18.9 Laterality: left Lung location: lower lobe of lung Pneumonia type: due to unspecified organism Hypoalbuminemia E88.09 (1) Pneumonia Laterality: left Lung location: lower lobe of lung Pneumonia type: due to unspecified organism Qualified Code(s): J18.9 - Pneumonia, unspecified organism
--- NOTE | 2019-06-10 10:17 | Pharmacy Report ---
Pharmacy Glycemic Short Note 2 - Date of Service June 10, 2019 - Glycemic Short BSG Results (Last 24 hours): 06/09/19 06/09/19 06/09/19 11:38 16:44 20:36 Glucose POC Glucose 258 H 167 H 151 H 06/10/19 06/10/19 06:55 07:48 Glucose 86 POC Glucose 90 OUTPATIENT ANTIDIABETIC REGIMEN: * Lantus 20 units BID, 10 units TIDM * HbA1c 10.5% 06/03/2019 ASSESSMENT: 06/09: * Sonia received 58 units of insulin yesterday with BSGs ranging from 128 -258 mg/dL. * Fasting BSG is below goal today at 90 mg/dL. She did receive 30 units of basal yesterday, which is more than the previous three days. I will decrease basal insulin scale. * Will continue a tighter Novolog CF and CR with breakfast and lunch to avoid BSG spike at lunch and dinner time. 06/08: BSGs ranged form 79-258 over the past 24 hours. Patient appears to trend up for lunch and dinner and significantly drop at bedtime. I did tighten novolog scale for breakfast and lunch and will loosen with dinner. AM novolog may need to be tightened further. Fasting BSG adequate today, will continue with current lantus scale. 06/07: BSGs have been reasonable over the previous 24hrs. No acute fluctuation in insulin requirements are anticipated. Continue standing insulin orders. PLAN FOR INPATIENT GLYCEMIC CONTROL: * Basal insulin - decrease * Lantus per scale * 10 units BSG <140 mg/dL * 12 units 140-180 mg/dL * 15 units >180 mg/dL * Bolus insulin * NovoLog per scale ACHS or Q6hrs while NPO * Goal Range: Low 110 mg/dL - High 150 mg/dL Breakfast/lunch: Correction Factor: 25 mg/dL/unit (breakfast and lunch) Nutritional / Prandial insulin per carb ratio of 1 unit per 7 grams CHO consumed (breakfast and lunch) Dinner/HS: Correction Factor: 30 mg/dL/unit (dinner and HS) Nutritional / Prandial insulin per carb ratio of 1 unit per 10 grams CHO consumed (dinner and HS)
--- NOTE | 2019-06-10 16:33 | Hospitalist Progress Note ---
Date of Service June 10, 2019 Assessment & Plan (1) Acute kidney injury: Uncertain etiology. However, after 2 days on Bumex her creatinine continued to rise, will give cautious trial of fluids gently and follow closely. Discussed with patient if she starts to feel any orthopnea or dyspnea on exertion would want to know right away, but right now her lungs are clear and given her weight her volume status is fairly difficult to discern, so given that 2 days on diuretics showed a rise in her creatinine, we will give trial of fluids as above. (2) Cardiomyopathy: Low EF, but currently lungs are clear and she is not showing shortness of breath. See above otherwise. Follow very closely. (3) Hyperglycemia due to type 2 diabetes mellitus: Continue to titrate insulins and follow (4) Pneumonia: Has been adequately treated, antibiotics now complete (5) Hypothyroidism (acquired): Not on Synthroid as part of her home med list, outpatient follow-up (6) DVT prophylaxis: Anticoagulated with apixaban (7) Discharge planning issues: Currently stable on medical, definitely need to get ahead of her renal failure before she will be stable for discharge, given her comorbidities and length of illness, will ask PT/OT eval and treat to assist in discharge planning. Admission and Anticipated Discharge Date Admission Date: June 02, 2019 Subjective No shortness of breath. Does have back pain, could have in her mid and lower back that does not seem to radiate. Discussed lab work and next steps. Patient's main concern is whether or not she would be able to go to [facility] [address]. to see her who is hospitalized as well. Review of Systems Review of Systems: All systems reviewed & are unremarkable except as noted in HPI & below Physical Exam Physical Exam: In general she is awake and alert pleasant no distress. HEENT normocephalic atraumatic mucous membranes are moist. Lungs are clear to auscultation bilaterally no rales rhonchi or wheeze with good effort. Abdomen is obese. Extremities show no cyanosis. Neuro shows no focal deficits. Skin shows no rashes, no pallor, no icterus. Results & Data ([facility]) Vital Signs (Past 12 Hours) Vital Signs Temp Pulse Resp BP BP Pulse Ox 06/10/19 15:21 97.3 F L 73 20 148/75 H 93 06/10/19 14:36 70 18 94 03/05/20 11:18 72 18 98 06/10/19 07:56 97.5 F L 76 18 155/88 H 92 06/10/19 07:01 75 18 94 PG Care Time/CCT Total # of Minutes Spent Total Time Spent with Patient: Total time spent is greater than 50% in coordination of care (as documented) at patient's floor/unit and/or counseling patient: Coding Level of Care Code 38555 Subseq Hosp Care Lvl 3 Diagnoses Acute kidney injury N17.9 Cardiomyopathy I42.9 Hyperglycemia due to type 2 diabetes mellitus E11.65 Pneumonia J18.9 Laterality: left Lung location: lower lobe of lung Pneumonia type: due to unspecified organism Hypothyroidism (acquired) E03.9 DVT prophylaxis Z29.9 Discharge planning issues Z02.9 (1) Pneumonia Laterality: left Lung location: lower lobe of lung Pneumonia type: due to unspecified organism Qualified Code(s): J18.9 - Pneumonia, unspecified organism
--- NOTE | 2019-06-10 20:47 | Ultrasound Report ---
US duplex renal artery HISTORY: 48 years-old Female chris, poorly controlled hypertension acute kidney injury with hypertensi on COMPARISON: CT abdomen and pelvis 06/07/2019 TECHNIQUE: Multiple real-time sonographic images of the bilateral kidney vascular structures were obt ained assessing grayscale appearance, color and spectral flow. FINDINGS: Right kidney measures 13.5 cm in length. Patent renal vein. No elevated peak systolic velocities with in the right kidney. Resistive indices within the right kidney measure up to 0.81 within the renal ar stephania. Peak systolic velocities measure up to 106.1 cm/s within the mid aspect of the renal artery. Left kidney measures 13.6 cm in length. Patent renal vein. No elevated peak systolic velocities withi n the left kidney. Resistive indices measure up to 0.8. Peak systolic velocities measure up to 201 cm /s within the mid renal artery. Normal plug flow is noted within the abdominal aorta peak systolic velocity measuring up to 72 cm/s. Limited exam secondary to patient body habitus. IMPRESSION: No sonographic evidence of renal artery stenosis. ACT 112: Negative or not required by law. The above report was generated using voice recognition software. It may contain grammatical, syntax o r spelling errors. Results electronically sent 06/10/2019 8:46 PM to: Sara Alexis MD Electronically signed by: Pa Barney M.D. 06/10/2019 8:46 PM
[2019-06-10] MEDS: MIRTAZAPINE SOLTAB 15 MG PO SCH (21:06)
[2019-06-11 06:10] LABS: Creatinine Ur 83 mg/dL (20-275); Protein, Urine Random 56 mg/dL (5-24); Ur Protein/Creat Ratio mg/g 675 mg/g creat (21-161); Urine Abnormal Protein Band 1 DNR mg/dL (NONE DETECTED); Urine Abnormal Protein Band 2 DNR mg/dL (NONE DETECTED); Urine Abnormal Protein Band 3 DNR mg/dL (NONE DETECTED); Urine Protein/Creatinine Ratio 0.675 (0.021-0.161)
[2019-06-11 06:41] LABS: Albumin Level 2.6 gm/dl (3.4-5.0); BUN Creatinine Ratio 15.1 (10-20); Calcium 8.8 mg/dl (8.5-10.1); Creatinine Clr Calc Pharmacy 21.9 ml/min; Est GFR (African American) 13.9; Potassium 4.4 mmol/L (3.5-5.1)
[2019-06-11 06:42] LABS: Phosphorus 5.9 mg/dl (2.5-4.9)
[2019-06-11] MEDS: BUDESONIDE 0.5 MG/2 ML VIAL (PULMICORT) NEB SCH (07:05)
[2019-06-11] MEDS: ALBUT/IPRATROP 3MG/0.5MG NEB 3 ML VIAL NEB SCH ×2 (07:05→11:14)
[2019-06-11] MEDS: OXYCODONE HCL IR 5 MG TAB (IMMEDIATE RELEASE) PO PRN (07:28)
[2019-06-11] MEDS: INSULIN ASPART 100 UNITS/ML 3 ML PEN SC SCH ×5 (08:50→20:57)
[2019-06-11] MEDS: carvediloL 25 MG TAB PO SCH ×2 (08:55→20:56)
[2019-06-11] MEDS: ASPIRIN 81 MG ECTAB PO SCH (08:55)
[2019-06-11] MEDS: APIXABAN 5 MG TABLET PO SCH ×2 (08:55→20:55)
[2019-06-11] MEDS: FERROUS GLUCONATE 324 MG TAB PO SCH (08:56)
[2019-06-11] MEDS: lamoTRIgine 100 MG TAB PO SCH ×2 (08:56→20:55)
[2019-06-11] MEDS: FLUTICASONE PROPIONATE NA SPR 16 GM BTL NAE SCH (08:56)
[2019-06-11] MEDS: LURASIDONE HCL 40 MG TAB PO SCH (08:57)
[2019-06-11] MEDS: ATORVASTATIN 40 MG TAB PO SCH (08:57)
[2019-06-11] MEDS: AMLODIPINE BESYLATE 5 MG TAB PO SCH (08:58)
[2019-06-11] MEDS: PARoxetine HCL 20 MG TAB PO SCH (08:59)
[2019-06-11] MEDS: INSULIN GLARGINE SOLOSTAR 100 UNITS/ML 3 ML PEN SQ SCH ×2 (09:01→20:58)
[2019-06-11] MEDS: DOCUSATE SODIUM/SENNA 50/8.6MG TAB PO SCH (09:23)
[2019-06-11] MEDS: SODIUM CHLORIDE 0.9% 1000ML 1,000 ML IV SCH (09:24)
[2019-06-11] MEDS: IRON SUCROSE 200 MG in 0.9 % SODIUM CHLORIDE 100 ML IV SCH (09:31)
--- NOTE | 2019-06-11 09:43 | Nephrology Progress Note ---
Date of Service June 11, 2019 Assessment & Plan (1) Acute kidney injury: 48 y o F with rapidly worsening AUGUSTO in the setting of Pneumonia, volume overload and antibiotic exposure. Has high grade proteinuria, hematuria with T1DM and multiple other comorbidities. No hydronephrosis. BP has been high but improved. Diuretics has been on hold but Cr continues to rise. Differentials includes hemodynamically mediated AUGUSTO with low EF, ? right sided HF with underlying COPD, AIN with antibiotics, RPGN and others considering abnormal UA. With Hypoalbuminemia, anemia and proteinuria some concern for Paraproteinemia. No MILTON on USG. Currently she seems comfortable although seems to be volume overloaded.. Serology and paraproteinemia w/u pending. --DC IV fluid, encourage po intake ---continue to hold diuretics --continue carvedilol 25 BID and amlodipine 10, BP seems to be better. --dose meds for GFR <30 --monitor renal panel daily --continue on Venofer --if renal function continues to worsen while we wait for the serology, in worse case scenario, we may need to consider renal replacement therapy. Discussed briefly with patient about the slim possibility that we may have to start her on dialysis, patient understands and agreeable if needed. Will follow (2) Proteinuria: (3) Microscopic hematuria: (4) Pneumonia: (5) Hypoalbuminemia: Subjective Sonia was seen and examined in her room this morning. Has been having decent urine output and net positive, on IV fluid. Renal function relatively stable with no significant improvement, electrolyte remain acceptable. Blood pressure improved. Review of Systems Review of Systems: All systems reviewed & are unremarkable except as noted in HPI & below Physical Exam Constitutional: well developed and well nourished; no acute distress Respiratory: normal respiratory effort, lungs clear to auscultation Cardiovascular: RRR, no murmur, no edema Neurologic: moves all extremities and awake; not confused Psychiatric: A+Ox3, euthymic affect Results & Data Vital Signs (Past 12 Hours) Vital Signs Temp Pulse Resp BP BP Pulse Ox 06/11/19 07:33 36.4 C L 75 20 145/73 H 97 06/11/19 07:06 74 19 97 06/10/19 23:36 36.4 C L 75 16 151/75 H 95 PG Care Time/CCT Total # of Minutes Spent Total Time Spent with Patient: Total time spent is greater than 50% in coordination of care (as documented) at patient's floor/unit and/or counseling patient: Coding Level of Care Code 92006 Subseq Hosp Care Lvl 3 Diagnoses Acute kidney injury N17.9 Proteinuria R80.9 Microscopic hematuria R31.29 Pneumonia J18.9 Laterality: left Lung location: lower lobe of lung Pneumonia type: due to unspecified organism Hypoalbuminemia E88.09 (1) Pneumonia Laterality: left Lung location: lower lobe of lung Pneumonia type: due to unspecified organism Qualified Code(s): J18.9 - Pneumonia, unspecified organism
[2019-06-11] MEDS ORDERED: ALPRAZolam 0.5 MG TABLET PO STA (10:23)
--- NOTE | 2019-06-11 10:30 | Hospitalist Progress Note ---
Date of Service June 11, 2019 Assessment & Plan (1) Pneumonia: 48-year-old female with extensive past medical history of heart failure with reduced extra skin infection, COPD, pneumonia, cardiomyopathy, hypertension, anxiety and depression, stroke, diabetes who presents to the hospital for evaluation of acute shortness of breath off of oxygen. 1. AUGUSTO on CKD Stage 3 - Cr increased to 4.30 yesterday down to 4.13 after starting gentle fluids and holding bumex for negative fluid balance. - per nephrology: carvedilol 25 BID and amlodipine, strict I/O, Bumex 1 mg BID on hold - holding lisinopril - med dosing for GFR <30 - trending BMPs - Iron studies show Iron 28, TIBC 228, Transferrin 199, Transferring Sat 10, Ferritin 174.7. - duplex renal ultrasound yesterday negative for acute pathology or blockage of flow - awaiting further renal studies 2. HFrEF: 30-35% - Lisinopril 10 mg held - consider Entresto in outpatient setting - carvedilol 25 BID and amlodipine 3. Hospital associated pneumonia status post flu with underlying COPD: resolved - Completed 7 day IV course - Patient uses oxygen at home 3L and currently saturating at 94% on 3L 4. RLQ and BL Flank pain - US pelvic and abd limited ordered to distinguish ovarian cyst vs. appendicitis. - CT abd/pelv with oral contrast ruled out appendicitis, no bowel obstruction or ischemia visible though suboptimal 2/2 lack of IV contrast. No mention of ovaries on read. - incidental note of large uterus. Follow up OBGYN outpatient. - Less concerned for infection given normal WBC this AM, Afebrile, actively on antibiotics. - Oxy 2.5mg IR Q8H for moderate pain given reduced CrCl - IV tylenol 1000mg Q8H 6. Diabetes - hx of uncontrolled sugars at last hospital stay in [facility] - Pharmacy consult for glycemic control - Home regimen: Lantus 20u BID 7. AFib - Eliquis 5 BID - Rate control with carvedilol 12.5 BID 8. HTN - Holding home Lisinopril - Pressures remaining stable; see above for medication changes 9. Hx Anxiety/Depression/Bipolar? - continuing medications from home list as below - Remeron 45 HS - Paroxetine 60 BID - Latuda 80 QAM - Lamictal 100 BID - Alprazolam 1mg every 6 hours as needed - Avoiding sedating medications such as lorazepam, compazine overnight as patient stays sleepy well into the morning 10. Diabetic Neuropathy - Gabapentin 300 QD 11. CAD - Atorvastatin 40 - ASA 81mg DVT PPX: on Eliquis Diet: Diabetic, heart healthy Code: Full Code (2) Cardiomyopathy: (3) CHF (congestive heart failure): (4) Morbid obesity with BMI of 45.0-49.9, adult: (5) Hyperglycemia due to type 2 diabetes mellitus: Admission and Anticipated Discharge Date Admission Date: June 02, 2019 Supervising Physician Co-Signing Physician Notes Patient seen and examined with Dr. Hemphill. I agree with her exam findings, review of systems, assessment and plan. I have personally reviewed the lab work and imaging from today. patient resting in bed, feeling well, no major changes reviewed labs, her Cr continues to rise, discussed with Dr. Alexis, appreciate her input patient is making urine, the collection is not always accurate no chest pain, no dyspnea at rest, no cough, pneumonia is treated Exam: obese, WD, no distress. Lungs CTA bilaterally, decreased BS in the bases, normal respiratory effort heart regular S1 and S2, no murmurs abdomen soft, NT, ND, +BS edema in legs bilaterally, + pulses no focal neurological deficits, AAOx3 - AUGUSTO: unclear etiology, could be ATN, serological studies sent out Cr continues to rise slowly, still looking for some improvement making urine, electrolytes stable nephrology following - HCAP: completed treatment with antibiotics no dyspnea, minimal cough, no fever Subjective Continues to be in a lot of pain, complaining this morning of worsening bilateral flank pain 9/10. No issues with production of urine, no burning or pain with urination. Back pain is at rest and unchanged by change in position. Denies improvement with 2.5 mg Roxicodone ordered Q8. Started IV tylenol 1000mg Q8 scheduled. Review of Systems Constitutional: no fever, no chills, no body aches and no fatigue Respiratory: no cough and no dyspnea Cardiovascular: no chest pain, no dyspnea and no edema Gastrointestinal: no abdominal pain, no nausea, no vomiting, no constipation and no diarrhea/loose stools Genitourinary: + flank pain; no dysuria, no urinary frequency and no urinary incontinence Physical Exam Physical Exam: Constitutional: Sitting up in bed, lethargic Cardiac: Regular rate and rhythm no murmurs gallops or rubs appreciated. Normal S1-S2. Pulmonary: Good air movement throughout both lungs, no wheezes crackles or rhonchi noted. Improved from prior exams. Abdomen: Distended, soft, tender to palpation in the right lower quadrant. No tenderness to palpation in the epigastric upper right quadrant or left side of abdomen. No rebound tenderness. Guarding. Active bowel sounds. No overlying erythema indicative of cellulitis. Bilateral right flank pain, extremely tender to palpation. Extremities: 2+ worsening pitting edema to the knees bilaterally Results & Data ([facility]) Vital Signs (Past 12 Hours) Vital Signs Temp Pulse Resp BP BP Pulse Ox 06/11/19 07:33 36.4 C L 75 20 145/73 H 97 06/11/19 07:06 74 19 97 06/10/19 23:36 36.4 C L 75 16 151/75 H 95 06/11/19 06/11/19 06/10/19 Range/Units 07:30 05:35 20:28 Sodium 139 (136-145) mmol/L Potassium 4.4 (3.5-5.1) mmol/L Chloride 104 (98-107) mmol/L Carbon Dioxide 27 (21-32) mmol/L Anion Gap 7.0 (3-11) BUN 62 H (7-18) mg/dl Creatinine 4.13 H (0.6-1.2) mg/dl Est Cr Clr Drug Dosing 21.9 ml/min Est GFR ( Amer) 13.9 Est GFR (Non-Af Amer) 12.0 BUN/Creatinine Ratio 15.1 (10-20) Glucose 109 H (70-99) mg/dl POC Glucose 118 H 107 H (70-99) mg/dl Calcium 8.8 (8.5-10.1) mg/dl Phosphorus 5.9 H (2.5-4.9) mg/dl Albumin 2.6 L (3.4-5.0) gm/dl U Random Total Protein (5-24) mg/dL Ur Creatinine mg/dL (20-275) mg/dL Protein/Creatinin Ratio (0.021-0.161) Urine Albumin (%) % U Ezatf-2-Krfeeqpj (%) % U Srgyc-2-Jtxixbdn (%) % U Beta Globulin (%) % U Gamma Globulin (%) % U Abnormal Prot Band 1 (NONE DETECTED) mg/dL U Abnormal Prot Band 2 (NONE DETECTED) mg/dL U Abnormal Prot Band 3 (NONE DETECTED) mg/dL Urine PEP Interpret 06/10/19 06/10/19 06/09/19 Range/Units 16:32 11:56 03:30 Sodium (136-145) mmol/L Potassium (3.5-5.1) mmol/L Chloride (98-107) mmol/L Carbon Dioxide (21-32) mmol/L Anion Gap (3-11) BUN (7-18) mg/dl Creatinine (0.6-1.2) mg/dl Est Cr Clr Drug Dosing ml/min Est GFR ( Amer) Est GFR (Non-Af Amer) BUN/Creatinine Ratio (10-20) Glucose (70-99) mg/dl POC Glucose 146 H 232 H (70-99) mg/dl Calcium (8.5-10.1) mg/dl Phosphorus (2.5-4.9) mg/dl Albumin (3.4-5.0) gm/dl U Random Total Protein 56 H (5-24) mg/dL Ur Creatinine mg/dL 83 (20-275) mg/dL Protein/Creatinin Ratio 0.675 H (0.021-0.161) Urine Albumin (%) 66 % U Pgxpv-1-Wgyisecw (%) 2 % U Jknmx-2-Ihdgyhyz (%) 7 % U Beta Globulin (%) 10 % U Gamma Globulin (%) 15 % U Abnormal Prot Band 1 DNR (NONE DETECTED) mg/dL U Abnormal Prot Band 2 DNR (NONE DETECTED) mg/dL U Abnormal Prot Band 3 DNR (NONE DETECTED) mg/dL Urine PEP Interpret SEE NOTE Resident Activity Tracking Resident Involvement: Resident Care Provided Care Provided: Adult Hospital Medicine (1) CHF (congestive heart failure) Heart failure chronicity: acute on chronic Heart failure type: unspecified Qualified Code(s): I50.9 - Heart failure, unspecified (2) Pneumonia Laterality: left Lung location: lower lobe of lung Pneumonia type: due to unspecified organism Qualified Code(s): J18.9 - Pneumonia, unspecified organism
[2019-06-11] MEDS ORDERED: ACETAMINOPHEN 500 MG TAB PO SCH (11:00)
[2019-06-11] MEDS: ACETAMINOPHEN 1,000 MG/100 ML VIAL IV SCH ×2 (12:06→20:51)
[2019-06-11] MEDS ORDERED: ALBUT/IPRATROP 3MG/0.5MG NEB 3 ML VIAL NEB PRN (14:06)
[2019-06-11] MEDS: MIRTAZAPINE SOLTAB 15 MG PO SCH (20:56)
[2019-06-12] MEDS: OXYCODONE HCL IR 5 MG TAB (IMMEDIATE RELEASE) PO PRN ×3 (00:18→17:35)
[2019-06-12] MEDS: ACETAMINOPHEN 1,000 MG/100 ML VIAL IV SCH (02:25)
--- NOTE | 2019-06-12 07:44 | Hospitalist Progress Note ---
Date of Service June 12, 2019 Assessment & Plan (1) Pneumonia: Medically complicated 48-year-old female admitted on 06/02 for HCAP, s/p 7 day antibiotic course, remains in hospital with significant AUGUSTO, in cardiorenal syndrome. 1. AUGUSTO on underlying Stage 3 CKD - baseline Cr ~1.5. Cr peaked at 4.3, has now plateaued: 4.13 yesterday, down to 4.10 today - FeNa 0.7%, UrineNa 19. BUN/CR ratio 15. Urine microscopy showing WBCs and microscopic hematuria, cast analysis cancelled. - K stable at 4.3. - patient with >1 L of urine output daily, non-oliguric - as for etiology, patient has risk factors for pre-renal cause given her CHF. Renal US showing no evidence of renal artery stenosis. Intrarenal risk factors include AIN and ATN given recent HCAP and abx therapy. Urine eosinophils were not ordered. Post-renal etiology unlikely given A/P CT scan showing no evidence of obstructing stones or strictures. - nephrology is following and driving workup, serologic studies for glomerular nephritis pending. recommend continuing Venofer and holding diuretics and lisinopril - IVF d/c as patient is tolerating PO intake and is volume overloaded on exam. - continue to trend Cr - renally dose meds as appropriate 2. HFrEF secondary to underlying cariomyopathy - Echo done at [facility] showing EF 30-35% - patient is volume overloaded on exam, but diuretics are being held in the setting of AUGUSTO - Lisinopril 10 mg held in setting of AUGUSTO - continue carvedilol 25 BID and amlodipine - consider Entresto in outpatient setting 3. Hospital associated pneumonia - Completed 7 day IV course - Patient uses oxygen at home 3L and currently saturating at 96% on 3L 4. Flank pain - ongoing since patient had renal US - CT abd/pelv with oral contrast ruled out appendicitis and bowel obstruction or ischemia, kidneys normal appearing - continue scheduled IV tylenol 1000mg Q8H, and oxy 2.5mg IR prn for moderate pain (reduced creatinine clearance) 6. Type II Diabetes - uncontrolled - HbA1c 10.5 on admission - likely contributory to underlying kidney disease - Pharmacy consult for glycemic control - Home regimen: Lantus 20u BID, 10 units of Advilog with each meal 7. AFib without RVR - Eliquis 5 BID - Rate control with carvedilol 12.5 BID 8. HTN - BP above goal at 182/94 - Holding home Lisinopril - continue amlodipine and carvedilol 9. Hx Mood Disorder - patient on the following home regimen: Remeron 45 HS, Paroxetine 60 BID, Latuda 80 QAM, Lamictal 100 BID, Alprazolam 1mg every 6 hours as needed 10. Diabetic Neuropathy - Gabapentin 300 QD 11. CAD - Atorvastatin 40 - ASA 81mg 12. Vertebral Compression Fractures - visualized on A/P CT scan, subacute - outpatient evaluation for consideration of bisphosphonate therapy 13. Constipation - Moderate stool burden noted on AP CT scan - Mirlax BID, milk of magnesia, colace ordered 14. Abdominal LAD - paraaortic nodes visualized on a/P CT scan - recommend follow up CT scan in 6 months to assess resolution DVT PPX: on Eliquis Diet: Diabetic, heart healthy Code: Full Code Dispo: Floor (2) Cardiomyopathy: (3) CHF (congestive heart failure): (4) Morbid obesity with BMI of 45.0-49.9, adult: (5) Hyperglycemia due to type 2 diabetes mellitus: Admission and Anticipated Discharge Date Admission Date: June 02, 2019 Supervising Physician Co-Signing Physician Notes Patient seen and examined with Dr. Sanchez. I agree with her exam findings, review of systems, assessment and plan. I have personally reviewed the lab work and imaging from today. patient continues to be stable, no major issues over night eating fairly well, breathing is at baseline, no chest pain still with bilateral edema reviewed labs, no change in Cr, it is 4.1 and it was 4.[address] Jorge, continue to monitor, no diuretics serology studies still pending Exam: obese, WD, no distress. Lungs CTA bilaterally, decreased BS in the bases, normal respiratory effort heart regular S1 and S2, no murmurs abdomen soft, NT, ND, +BS edema in legs bilaterally, + pulses no focal neurological deficits, AAOx3 - AUGUSTO: unclear etiology, could be ATN, serological studies sent out Cr plateaued at 4.1, hoping for further improvement making urine, electrolytes stable nephrology following continue to hold diuretics - HCAP: completed treatment with antibiotics no dyspnea, minimal cough, no fever Subjective Patient reports feeling well today, with the exception of persistent bilateral flank pain, which started after the renal artery ultrasound. The pain medication "does not help much." Last BM was two days ago. Eating well. Review of Systems Gastrointestinal: +flank pain Physical Exam Constitutional: WD/WN, vitals as above + morbidly obese, + disheveled and cooperative Eyes: + anicteric sclerae (L eye) +Patient had right eye surgically removed. ENMT: external ear and nose normal, oropharynx normal Mouth: + poor dentition Neck: normal visual inspection and trachea midline Respiratory: normal respiratory effort Auscultation: no crackles, no rales, no rhonchi and no wheezes Coarse respirations. Cardiovascular: RRR, no murmur, no edema Heart Sounds: normal S1 and normal S2 Extremities: + pedal edema Gastrointestinal (Abdomen): Inspection/Auscultation: + abdomen distended Percussion/Palpation: + abdomen tender (diffusely) and abdomen soft Skin: no rashes, warm and dry Psychiatric: A+Ox3, euthymic affect Results & Data ([facility]) Vital Signs (Past 12 Hours) Vital Signs Temp Pulse Resp BP Pulse Ox 06/12/19 00:37 36.4 C L 64 18 169/90 H 95 Resident Activity Tracking Resident Involvement: Resident Care Provided Care Provided: Adult Hospital Medicine (1) CHF (congestive heart failure) Heart failure chronicity: acute on chronic Heart failure type: unspecified Qualified Code(s): I50.9 - Heart failure, unspecified (2) Pneumonia Laterality: left Lung location: lower lobe of lung Pneumonia type: due to unspecified organism Qualified Code(s): J18.9 - Pneumonia, unspecified organism
[2019-06-12] MEDS: INSULIN ASPART 100 UNITS/ML 3 ML PEN SC SCH ×4 (08:18→21:33)
[2019-06-12] MEDS: FERROUS GLUCONATE 324 MG TAB PO SCH (08:19)
[2019-06-12] MEDS: ASPIRIN 81 MG ECTAB PO SCH (08:19)
[2019-06-12] MEDS: AMLODIPINE BESYLATE 5 MG TAB PO SCH (08:19)
[2019-06-12] MEDS: PARoxetine HCL 20 MG TAB PO SCH (08:19)
[2019-06-12] MEDS: carvediloL 25 MG TAB PO SCH ×2 (08:19→21:15)
[2019-06-12] MEDS: LURASIDONE HCL 40 MG TAB PO SCH (08:19)
[2019-06-12] MEDS: ATORVASTATIN 40 MG TAB PO SCH (08:20)
[2019-06-12] MEDS: lamoTRIgine 100 MG TAB PO SCH ×2 (08:20→21:16)
[2019-06-12] MEDS: APIXABAN 5 MG TABLET PO SCH ×2 (08:20→21:16)
[2019-06-12] MEDS: INSULIN GLARGINE SOLOSTAR 100 UNITS/ML 3 ML PEN SQ SCH ×2 (08:21→21:32)
[2019-06-12] MEDS: FLUTICASONE PROPIONATE NA SPR 16 GM BTL NAE SCH (08:21)
[2019-06-12] MEDS: DOCUSATE SODIUM/SENNA 50/8.6MG TAB PO SCH (08:37)
[2019-06-12] MEDS ORDERED: POLYETHYLENE (MIRALAX) 17 GM PACK PO SCH (09:15)
[2019-06-12 09:23] LABS: Albumin Level 2.8 gm/dl (3.4-5.0); BUN Creatinine Ratio 15.3 (10-20); Calcium 9.2 mg/dl (8.5-10.1); Est GFR (Non-African American) 12.1; Phosphorus 5.3 mg/dl (2.5-4.9); Potassium 4.3 mmol/L (3.5-5.1)
--- NOTE | 2019-06-12 13:08 | Nephrology Progress Note ---
Date of Service June 12, 2019 Assessment & Plan (1) Acute kidney injury: -- Clinically consistent with ATN in the setting of pneumonia -- Urine microscopy demonstrated WBC's and microscopic hematuria -- Serologic evaluation for GN pending -- Clinical suspicion for GN is low -- Baseline creatinine ~1.5 mg/dL (CKD III A3), multiple risk factors for renal failure including poorly controlled diabetes, vascular disease, obesity, and chronic systolic CHF with presumably ischemic cardiomyopathy -- Non-oliguric -- Appears relatively euvolemic on exam -- No need to restart diuretics at this time -- I would avoid a significantly positive fluid balance -- Urine studies will be repeated today -- Electrolytes are acceptable -- There is no current indication for D[employer] -- CT demonstrated normal appearing kidneys -- Renal artery duplex negative for stenosis -- Continue to document I/O's and repeat metabolic profile tomorrow AM -- Document I/O's -- Repeat metabolic profile tomorrow AM -- Medications appropriate for kidney function Subjective No acute events overnight. Sonia feels well today. She remains weak. She denies any dyspnea. No fevers or chills. No chest pain. Appetite is good. She expressed concerns for her who is also admitted to [facility] at this time. . Review of Systems Review of Systems: All systems reviewed & are unremarkable except as noted in HPI & below Physical Exam Constitutional: well developed and + morbidly obese; no acute distress ENMT: Mouth: no oral mucosal abnormality and oral mucous membranes not dry Neck: normal visual inspection, trachea midline and + thick neck Respiratory: normal respiratory effort Auscultation: lungs clear to ausc ultation bilaterally Cardiovascular: Rate/Rhythm: regular rate Heart Sounds: normal S1 and normal S2 Extremities: no edema Gastrointestinal (Abdomen): Percussion/Palpation: abdomen soft; abdomen nontender Musculoskeletal: Extremities: no cyanosis and no clubbing Skin: normal turgor; no lesions Neurologic: Motor/Sensory: no tremor and no asterixis Psychiatric: Orientation: alert and oriented x 3 Results & Data Vital Signs (Past 12 Hours) Vital Signs Temp Pulse Resp BP Pulse Ox 06/12/19 07:57 36.3 C L 68 18 182/94 H 96 Laboratory Results Laboratory Results - last 24 hr 06/11/19 06/11/19 06/12/19 16:41 20:24 07:45 Sodium Potassium Chloride Carbon Dioxide Anion Gap BUN Creatinine Est Cr Clr Drug Dosing Est GFR ( Amer) Est GFR (Non-Af Amer) BUN/Creatinine Ratio Glucose POC Glucose 210 H 203 H 144 H Calcium Phosphorus Albumin 06/12/19 06/12/19 08:23 11:50 Sodium 137 Potassium 4.3 Chloride 104 Carbon Dioxide 27 Anion Gap 6.0 BUN 63 H Creatinine 4.10 H Est Cr Clr Drug Dosing 22.0 Est GFR ( Amer) 14.0 Est GFR (Non-Af Amer) 12.1 BUN/Creatinine Ratio 15.3 Glucose 148 H POC Glucose 294 H Calcium 9.2 Phosphorus 5.3 H Albumin 2.8 L PG Care Time/CCT Total # of Minutes Spent Total Time Spent with Patient: Total time spent is greater than 50% in coordination of care (as documented) at patient's floor/unit and/or counseling patient: Coding Level of Care Code 41952 Subseq Hosp Care Lvl 3 Diagnoses Acute kidney injury N17.9
[2019-06-12] MEDS: POLYETHYLENE (MIRALAX) 17 GM PACK PO SCH (15:07)
[2019-06-12] MEDS: MIRTAZAPINE SOLTAB 15 MG PO SCH (21:17)
[2019-06-12] MEDS: ALPRAZolam 0.5 MG TABLET PO PRN (22:46)
[2019-06-12] MEDS: ACETAMINOPHEN 500 MG TAB PO PRN (23:48)
[2019-06-13] MEDS: OXYCODONE HCL IR 5 MG TAB (IMMEDIATE RELEASE) PO PRN ×3 (01:18→21:22)
--- NOTE | 2019-06-13 06:53 | Hospitalist Progress Note ---
Date of Service June 13, 2019 Assessment & Plan (1) Pneumonia: Medically complicated 48-year-old female admitted on 06/02 for HCAP, s/p 7 day antibiotic course, remains in hospital with significant AUGUSTO, in cardiorenal syndrome. 1. AUGUSTO on underlying Stage 3 CKD - baseline Cr ~1.5. Cr peaked at 4.3, down to 3.6 today - FeNa 0.7%, UrineNa 19. BUN/CR ratio 16.5. Urine microscopy showing WBCs and microscopic hematuria, cast analysis cancelled. - K stable at 4.8. - patient with >1 L of urine output daily, non-oliguric - as for etiology, presumable cause is ATN. * Intrarenal risk factors include AIN and ATN given recent HCAP and abx therapy. Urine eosinophils were not ordered. * pre-renal risk factor is known CHF. Renal US showing no evidence of renal artery stenosis. * Post-renal etiology unlikely given A/P CT scan showing no evidence of obstructing stones or strictures. - nephrology is following and driving workup, serologic studies for glomerular nephritis pending. recommend continuing Venofer and holding diuretics and lisinopril - IVF d/c as patient is tolerating PO intake and is volume overloaded on exam. - continue to trend Cr - renally dose meds as appropriate 2. HFrEF secondary to underlying cardiomyopathy - Echo done at [facility] showing EF 30-35% - patient is volume overloaded on exam, but diuretics are being held in the setting of AUGUSTO - Lisinopril 10 mg held in setting of AUGUSTO - continue carvedilol 25 BID and amlodipine - consider Entresto in outpatient setting 3. Hospital associated pneumonia - resolved - Completed 7 day IV course on 06/09 - Patient uses oxygen at home 3L and currently saturating at 96% on 3L 4. Flank pain - ongoing since patient had renal US - CT abd/pelv with oral contrast ruled out appendicitis and bowel obstruction or ischemia, kidneys normal appearing - muscle spasm appreciated on exam today; will order 1 dose of cyclobenzaprine and assess for effectiveness - Tylenol 1,00mg ordered for mild-moderated pain; oxy 2.5mg IR prn for moderate pain (reduced creatinine clearance) 6. Type II Diabetes - uncontrolled - HbA1c 10.5 on admission - likely contributory to underlying kidney disease - Pharmacy consult for glycemic control - Home regimen: Lantus 20u BID, 10 units of Advilog with each meal 7. AFib without RVR - Eliquis 5 BID - Rate control with carvedilol 12.5 BID 8. HTN - BP above goal at 170/69 - Holding home Lisinopril due to AUGUSTO - continue amlodipine and carvedilol 9. Hx Mood Disorder - patient on the following home regimen: Remeron 45 HS, Paroxetine 60 BID, Latuda 80 QAM, Lamictal 100 BID, Alprazolam 1mg every 6 hours as needed 10. Diabetic Neuropathy - Gabapentin 300 QD 11. CAD - Atorvastatin 40 - ASA 81mg 12. Vertebral Compression Fractures - visualized on A/P CT scan, subacute - outpatient evaluation for consideration of bisphosphonate therapy 13. Constipation - Moderate stool burden noted on AP CT scan - Mirlax BID, milk of magnesia, colace ordered 14. Abdominal LAD - paraaortic nodes visualized on A/P CT scan - recommend follow up CT scan in 6 months to assess resolution DVT PPX: on Eliquis Diet: Diabetic, heart healthy Code: Full Code Dispo: Floor (2) Cardiomyopathy: (3) CHF (congestive heart failure): (4) Morbid obesity with BMI of 45.0-49.9, adult: (5) Hyperglycemia due to type 2 diabetes mellitus: Admission and Anticipated Discharge Date Admission Date: June 02, 2019 Supervising Physician Co-Signing Physician Notes Patient seen and examined with Dr. Sanchez. I agree with her exam findings, review of systems, assessment and plan. I have personally reviewed the lab work from today. patient continues to be stable c/o some right flank pain, muscles are tender to palpation eating well, miving her bowels reviewed labs, Cr down to 3.6 from 4[address] Jorge, continue to monitor, no diuretics serology studies still pending Exam: obese, WD, no distress. Lungs CTA bilaterally, decreased BS in the bases, normal respiratory effort heart regular S1 and S2, no murmurs abdomen soft, NT, ND, +BS edema in legs bilaterally, + pulses no focal neurological deficits, AAOx3 right lower warp dyeing tender to palpation, + paraspinal muscle spasm - AUGUSTO: unclear etiology, could be ATN, serological studies sent out Cr plateaued at 4.1, down to 3.6 today making urine, electrolytes stable nephrology following continue to hold diuretics for now - HCAP: completed treatment with antibiotics no dyspnea, minimal cough, no fever - Right flank pain, muscle spasm will try low dose Flexeril of 5mg, see how she responds anticipate that she will be hospitalized until renal function returns closer to baseline Subjective Nursing reports hematuria, which was initially thought to be from menstruation. Patient developed "10/10" flank pain overnight, but before night team was able to examine her, she feel asleep. This morning, she reports persistent R flank pain. Review of Systems Gastrointestinal: +flank pain Physical Exam Constitutional: WD/WN, vitals as above + morbidly obese, + disheveled and cooperative Eyes: + anicteric sclerae (L eye) ENMT: external ear and nose normal, oropharynx normal Mouth: + poor dentition Neck: normal visual inspection and trachea midline Respiratory: normal respiratory effort Auscultation: no crackles, no rales, no rhonchi and no wheezes Cardiovascular: RRR, no murmur, no edema Heart Sounds: normal S1 and normal S2 Extremities: + pedal edema Gastrointestinal (Abdomen): Inspection/Auscultation: + abdomen distended Percussion/Palpation: + abdomen tender (diffusely) and abdomen soft Musculoskeletal: +point tenderness in R flank + muscle spasm R flank Skin: no rashes, warm and dry Psychiatric: A+Ox3, euthymic affect Results & Data ([facility]) Vital Signs (Past 12 Hours) Vital Signs Temp Pulse Resp BP Pulse Ox 06/12/19 23:32 36.6 C 96 H 16 160/83 H 96 Resident Activity Tracking Resident Involvement: Resident Care Provided Care Provided: Adult Hospital Medicine (1) CHF (congestive heart failure) Heart failure chronicity: acute on chronic Heart failure type: unspecified Qualified Code(s): I50.9 - Heart failure, unspecified (2) Pneumonia Laterality: left Lung location: lower lobe of lung Pneumonia type: due to unspecified organism Qualified Code(s): J18.9 - Pneumonia, unspecified organism
[2019-06-13 07:49] LABS: Hematocrit (blood only) 31.3 % (37-47); Hemoglobin 9.7 g/dL (12.0-16.0)
[2019-06-13] MEDS: carvediloL 25 MG TAB PO SCH ×2 (08:33→20:29)
[2019-06-13] MEDS: INSULIN ASPART 100 UNITS/ML 3 ML PEN SC SCH ×4 (08:34→20:33)
[2019-06-13] MEDS: ATORVASTATIN 40 MG TAB PO SCH (08:35)
[2019-06-13] MEDS: lamoTRIgine 100 MG TAB PO SCH ×2 (08:35→20:29)
[2019-06-13] MEDS: PARoxetine HCL 20 MG TAB PO SCH (08:36)
[2019-06-13] MEDS: LURASIDONE HCL 40 MG TAB PO SCH (08:36)
[2019-06-13] MEDS: FERROUS GLUCONATE 324 MG TAB PO SCH (08:36)
[2019-06-13] MEDS: AMLODIPINE BESYLATE 5 MG TAB PO SCH (08:36)
[2019-06-13] MEDS: INSULIN GLARGINE SOLOSTAR 100 UNITS/ML 3 ML PEN SQ SCH ×2 (08:37→20:32)
[2019-06-13] MEDS: FLUTICASONE PROPIONATE NA SPR 16 GM BTL NAE SCH (08:37)
[2019-06-13 08:38] LABS: BUN Creatinine Ratio 16.5 (10-20); Calcium 8.8 mg/dl (8.5-10.1); Creatinine Clr Calc Pharmacy 26.2 ml/min; Est GFR (African American) 16.2; Potassium 4.8 mmol/L (3.5-5.1)
[2019-06-13] MEDS: APIXABAN 5 MG TABLET PO SCH ×2 (08:38→20:27)
[2019-06-13] MEDS: ASPIRIN 81 MG ECTAB PO SCH (08:38)
[2019-06-13] MEDS: IRON SUCROSE 200 MG in 0.9 % SODIUM CHLORIDE 100 ML IV SCH (08:39)
[2019-06-13] MEDS: POLYETHYLENE (MIRALAX) 17 GM PACK PO SCH ×2 (08:39→14:05)
[2019-06-13] MEDS: DOCUSATE SODIUM/SENNA 50/8.6MG TAB PO SCH (08:45)
--- NOTE | 2019-06-13 09:19 | Pharmacy Report ---
Pharmacy Glycemic Short Note 2 - Date of Service June 13, 2019 - Glycemic Short BSG Results (Last 24 hours): 06/12/19 06/12/19 06/12/19 08:23 11:50 16:50 Glucose 148 H POC Glucose 294 H 134 H 06/12/19 06/13/19 06/13/19 20:37 07:38 07:45 Glucose 139 H POC Glucose 136 H 147 H OUTPATIENT ANTIDIABETIC REGIMEN: * Lantus 20 units BID, 10 units TIDM * HbA1c 10.5% 06/03/2019 ASSESSMENT: BSGs over previous 48hrs with fluctuating control. Typically with lunch she spikes up in high 200s. See adjustments detailed below: PLAN FOR INPATIENT GLYCEMIC CONTROL: * Basal insulin -lantus scale BID increased * BSGs <160 give 15 units * BSGs >/=160 give 20 units * Bolus insulin * NovoLog per scale ACHS or Q6hrs while NPO * Goal Range: Low 110 mg/dL - High 150 mg/dL Breakfast/lunch:tighten Correction Factor: 25 mg/dL/unit (breakfast and lunch) Nutritional / Prandial insulin per carb ratio of 1 unit per 6 grams CHO consumed (breakfast and lunch) Dinner/HS: Correction Factor: 30 mg/dL/unit (dinner and HS) Nutritional / Prandial insulin per carb ratio of 1 unit per 10 grams CHO consumed (dinner and HS)
--- NOTE | 2019-06-13 10:52 | Nephrology Progress Note ---
Date of Service June 13, 2019 Assessment & Plan (1) Acute kidney injury: Sonia is a 48-year-old female with morbid obesity, uncontrolled diabetes mellitus, ischemic cardiomyopathy (LVEF ~30%), COPD, and CKD (baseline creatinine ~1.5, A3 proteinuria). Anticoagulated presumably for a history of UE DVT. Sonia was admitted to [facility] in April 2019 and readmitted last month. She was admitted with HHNK state, acute on chronic systolic CHF as well as +influenza. She had improved but unfortunately became progressive unwell toward the end of May. She was admitted to [facility] on June 02 with a LLL pneumonia. Creatinine was 1.65 mg/dL on admission but steadily grabiel during her hospitalization. Treatment for pneumonia included vancomycin and Zosyn. She developed acute on chronic renal insufficiency during the hospitalization. This was in part attributed to intravascular depletion in the setting of infection and complicated by diuretic use. Bumex has been held. Creatinine peaked at 4.3 mg/dL on June 09. She has been non-oliguric. Electrolytes are acceptable. Thankfully, dialysis has not been required. However, she is increasingly hypervolemic without significant evidence of decompensated acute on chronic CHF. Bumex 1 mg will be given today to encourage a slightly negative fluid balance. AUGUSTO is likely related to ATN due to infection. Renal artery duplex did not demonstrate stenosis. CT of the abdomen without contrast demonstrated normal appearing kidneys with a few calcifications noted. Urine microscopic demonstrated microscopic hematuria and pyuria. Sonia now describes gross hematuria following an episode of sudden severe right flank pain. It is possible that she could have passed a stone or a clot. Follow up urine studies are pending. Symptoms are improving and additional evaluation has been tentatively deferred pending monitoring and urine studies. Serologic evaluation for GN pending. Clinical presentation is not consistent with RPGN given the trend in creatinine. She has not had evidence of TMA. She has been receiving daily Venofer for anemia with iron deficiency. Lisinopril has been held. Gabapentin was dose reduced for kidney dysfunction. Continue to document I/O's. Repeat metabolic profile tomorrow AM. Subjective Sonia noted severe R flank pain last evening. Pain started suddenly and has significantly improved. It did not radiate. Symptoms started when she rolled onto her right side. Some mild lower back tenderness persists. She has also had gross hematuria starting yesterday evening. Urine remains dark red. She denies passage of any clots or stones. No fevers or chills. Denies abdominal pain. Review of Systems Review of Systems: All systems reviewed & are unremarkable except as noted in HPI & below Physical Exam Constitutional: well developed and + morbidly obese; no acute distress Eyes: right eye enucleated ENMT: Mouth: no oral mucosal abnormality and oral mucous membranes not dry Neck: normal visual inspection, trachea midline and + thick neck Respiratory: normal respiratory effort Auscultation: + rales (few basilar) Cardiovascular: Rate/Rhythm: regular rate Heart Sounds: normal S1 and normal S2 Extremities: + edema Gastrointestinal (Abdomen): Percussion/Palpation: abdomen soft; abdomen nontender Musculoskeletal: Extremities: no cyanosis and no clubbing Skin: normal turgor; no lesions Neurologic: Motor/Sensory: no tremor and no asterixis Psychiatric: Orientation: alert and oriented x 3 Results & Data Vital Signs (Past 12 Hours) Vital Signs Temp Pulse Resp BP BP Pulse Ox 06/13/19 07:00 36.8 C 67 18 170/69 H 95 06/12/19 23:32 36.6 C 96 H 16 160/83 H 96 Laboratory Results Laboratory Results - last 24 hr 06/12/19 06/12/19 06/12/19 11:50 16:50 20:37 Hgb Hct Sodium Potassium Chloride Carbon Dioxide Anion Gap BUN Creatinine Est Cr Clr Drug Dosing Est GFR ( Amer) Est GFR (Non-Af Amer) BUN/Creatinine Ratio Glucose POC Glucose 294 H 134 H 136 H Calcium 06/13/19 06/13/19 06/13/19 07:38 07:38 07:45 Hgb 9.7 L Hct 31.3 L Sodium 138 Potassium 4.8 Chloride 105 Carbon Dioxide 28 Anion Gap 5.0 BUN 60 H Creatinine 3.64 H D Est Cr Clr Drug Dosing 26.2 Est GFR ( Amer) 16.2 Est GFR (Non-Af Amer) 14.0 BUN/Creatinine Ratio 16.5 Glucose 139 H POC Glucose 147 H Calcium 8.8 PG Care Time/CCT Total # of Minutes Spent Total Time Spent with Patient: Total time spent is greater than 50% in coordination of care (as documented) at patient's floor/unit and/or counseling patient: Coding Level of Care Code 05410 Subseq Hosp Care Lvl 3 Diagnoses Acute kidney injury N17.9
[2019-06-13] MEDS ORDERED: BUMETANIDE 1 MG TAB PO ONE (11:01)
[2019-06-13] MEDS ORDERED: CYCLOBENZAPRINE HCL 5 MG TAB PO STA (11:04)
[2019-06-13 12:26] LABS: Appearance Urine Cloudy (Clear); Color Urine Brown; Protein Urine Positive (Negative); Sulfosalicylic Acid Urine Positive (Negative)
[2019-06-13 12:27] LABS: Specific Gravity Urine 1.012 (1.000-1.030)
[2019-06-13 12:33] LABS: Epithelial Cell Urine >30 /lpf (0-5); RBC Urine >30 /hpf (0-4); WBC Urine >30 /hpf (0-5)
[2019-06-13 12:34] LABS: Bacteria Urine Negative (Negative)
[2019-06-13] MEDS ORDERED: POLYETHYLENE (MIRALAX) 17 GM PACK PO SCH (14:00)
--- NOTE | 2019-06-13 14:19 | Billing Data ---
Date of Service June 11, 2019 Coding Level of Care Code 76643 Subseq Hosp Care Lvl 2
--- NOTE | 2019-06-13 14:20 | Billing Data ---
Date of Service June 12, 2019 Coding Level of Care Code 13888 Subseq Hosp Care Lvl 2
--- NOTE | 2019-06-13 14:20 | Billing Data ---
Date of Service June 13, 2019 Coding Level of Care Code 43029 Subseq Hosp Care Lvl 2
[2019-06-13] MEDS: MIRTAZAPINE SOLTAB 15 MG PO SCH (20:27)
[2019-06-13] MEDS: ALPRAZolam 0.5 MG TABLET PO PRN (21:22)
[2019-06-14] MEDS: ACETAMINOPHEN 500 MG TAB PO PRN (03:11)
[2019-06-14 07:14] LABS: Calcium 9.1 mg/dl (8.5-10.1); Creatinine Clr Calc Pharmacy 26.4 ml/min; Est GFR (African American) 17.5; Est GFR (Non-African American) 15.1; Potassium 4.2 mmol/L (3.5-5.1)
[2019-06-14] MEDS: INSULIN ASPART 100 UNITS/ML 3 ML PEN SC SCH ×4 (08:03→20:45)
[2019-06-14] MEDS: carvediloL 25 MG TAB PO SCH ×2 (08:04→20:41)
[2019-06-14] MEDS: ASPIRIN 81 MG ECTAB PO SCH (08:04)
[2019-06-14] MEDS: FERROUS GLUCONATE 324 MG TAB PO SCH (08:04)
[2019-06-14] MEDS: APIXABAN 5 MG TABLET PO SCH (08:04)
[2019-06-14] MEDS: FLUTICASONE PROPIONATE NA SPR 16 GM BTL NAE SCH (08:04)
[2019-06-14] MEDS: INSULIN GLARGINE SOLOSTAR 100 UNITS/ML 3 ML PEN SQ SCH ×2 (08:05→20:43)
[2019-06-14] MEDS: lamoTRIgine 100 MG TAB PO SCH ×2 (08:05→20:41)
[2019-06-14] MEDS: ATORVASTATIN 40 MG TAB PO SCH (08:06)
[2019-06-14] MEDS: LURASIDONE HCL 40 MG TAB PO SCH (08:06)
[2019-06-14] MEDS: POLYETHYLENE (MIRALAX) 17 GM PACK PO SCH ×2 (08:07→13:14)
[2019-06-14] MEDS: AMLODIPINE BESYLATE 5 MG TAB PO SCH (08:07)
[2019-06-14] MEDS: PARoxetine HCL 20 MG TAB PO SCH (08:08)
[2019-06-14] MEDS: DOCUSATE SODIUM/SENNA 50/8.6MG TAB PO SCH (08:13)
[2019-06-14] MEDS: OXYCODONE HCL IR 5 MG TAB (IMMEDIATE RELEASE) PO PRN ×2 (09:14→20:38)
--- NOTE | 2019-06-14 09:34 | Pharmacy Report ---
Pharmacy Glycemic Short Note 2 - Date of Service June 14, 2019 - Glycemic Short BSG Results (Last 24 hours): 06/13/19 06/13/19 06/13/19 11:44 16:29 20:10 Glucose POC Glucose 206 H 225 H 212 H 06/14/19 06/14/19 06:23 07:45 Glucose 100 H POC Glucose 100 H OUTPATIENT ANTIDIABETIC REGIMEN: * Lantus 20 units BID, 10 units TIDM + SSI * HbA1c 10.5% 06/03/2019 ASSESSMENT: * BSGs ranging 139-225 mg/dL yesterday * Patient received 67 units of insulin (35 of basal, 32 of prandial/correctional) * BSGs trended up throughout the day - will consider tightening dinner and HS checks * AUGUSTO resolving slowly SCr 4.3 (06/09) -> 3.41 mg/dL today PLAN FOR INPATIENT GLYCEMIC CONTROL: * Basal insulin -lantus scale BID * BSGs <=180 give 15 units * BSGs >=181 give 20 units * Bolus insulin * NovoLog per scale ACHS or Q6hrs while NPO * Goal Range: Low 110 mg/dL - High 150 mg/dL Breakfast/lunch: Correction Factor: 25 mg/dL/unit (breakfast and lunch) Nutritional / Prandial insulin per carb ratio of 1 unit per 6 grams CHO consumed (breakfast and lunch) Dinner/HS: Correction Factor: 30 mg/dL/unit (dinner and HS) Nutritional / Prandial insulin per carb ratio of 1 unit per 10 grams CHO consumed (dinner and HS) Will leave with evening pharmacist to assess need for CF/CR adjustments PLAN FOR DISCHARGE: * A1c of 10.5% demonstrates poor glycemic control - A reasonable A1C goal for many non- adults is A1c less than 7% * Per simulation educator note from 06/09: patient has not been checking BSGs at home for quite some time. Patient attributes recent hyperglycemia to stress and poor diet, but is motivated to make changes. * Based on inpatient insulin needs - outpatient regimen should be adequate for patient * Patient will require outpatient follow-up upon discharge for further diabetes management * Emphasize importance of SMBG
--- NOTE | 2019-06-14 09:56 | Nephrology Progress Note ---
Date of Service June 14, 2019 Assessment & Plan (1) Acute kidney injury: AUGUSTO is likely ATN related to recent pneumonia. PMH: obesity, DM, ICM s/p AICD, COPD, chronic anticoagulation due to h/o UE DVT -- Volume status & electrolyte balance acceptable at this time. Patient is nonoliguric. Continue to hold diuretic. Creatinine peaked at 4.3. This has improved to 3.4 today. Baseline Cr 1.5 -- Acute GN evaluation is pending -- Renal artery duplex was negative for MILTON -- Continue to hold AYAD inhibitor, Gabapentin -- Abdominal CT w/ R renal calculi, but negative for obstruction -- Urinalysis w/ gross hematuria. Cx positive for Neal -- Recheck PRP in am (2) Candiduria: -- Only 7,000 cfu on culture. This was a clean catch sample. Will provide one dose Diflucan and await results of follow up urine culture obtained today (3) Hematuria: -- Possibly related to kidney stones and neal UTI. Will ask Urology to assess -- On Apixaban (4) Anemia: -- Completes 1 g IV iron infusion today -- Will recheck H&H in am (5) Pneumonia: -- Resolved Subjective Mrs. Rausch was seen & examined in her hospital room this morning. She c/o R flank discomfort and gross hematuria. She denies fever, dyspnea, productive cough or hemoptysis. Review of Systems Constitutional: no fever and no chills Eyes: no worsening vision and no problem reported Ear, Nose, Mouth, Throat: no problem reported Respiratory: no cough and no dyspnea Cardiovascular: no chest pain, no palpitations and no edema Gastrointestinal: no abdominal pain, no nausea, no vomiting and no diarrhea/loose stools Genitourinary: + dysuria and + hematuria R flank discomfort Integumentary: no rash Neurologic: no confusion Physical Exam Constitutional: + overweight; not in distress Eyes: R eye enucleated. L pupil responds appropriately ENMT: external ear and nose normal, oropharynx normal Neck: trachea midline, no thyromegaly Respiratory: normal respiratory effort, lungs clear to auscultation Cardiovascular: Rate/Rhythm: regular rate and regular rhythm Heart Sounds: no murmur trace peripheral edema Gastrointestinal (Abdomen): normal bowel sounds, soft, nontender, no hepatosplenomegaly Musculoskeletal: Extremities: no cyanosis Skin: no rashes, warm and dry Neurologic: awake; not confused Results & Data Vital Signs (Past 12 Hours) Vital Signs Temp Pulse Resp BP Pulse Ox 06/14/19 07:09 36.3 C L 65 18 170/82 H 96 06/13/19 23:28 36.6 C 59 L 18 134/67 94 Laboratory Results Laboratory Tests 06/13/19 06/14/19 11:52 06:23 Sodium 140 Potassium 4.2 Chloride 106 Carbon Dioxide 30 BUN 54 H Creatinine 3.41 H Glucose 100 H Urine Color Brown Urine Appearance Cloudy A Urine Protein Positive H Urine RBC >30 H Urine WBC >30 H Urine Bacteria Negative Diagnostic Findings Abd CT 06/07/19: 1. Normal appendix. No bowel obstruction. Moderate amount stool within the colon. 2. Suboptimal evaluation of the abdomen and pelvis on this unenhanced exam. 3. L5 and T12 compression fractures which are likely subacute to chronic. 4. Anasarca. Moderate bilateral pleural effusions, right larger than left. Trace ascites. 5. Mild splenomegaly. 6. Prominent retroperitoneal lymph nodes. These are probably benign however a follow-up CT in 6 months is recommended. 7. Suspected right renal calculi are noted, measuring up to 3 mm. Less likely, these could reflect vascular calcifications. PG Care Time/CCT Total # of Minutes Spent Total Time Spent with Patient: Total time spent is greater than 50% in coordination of care (as documented) at patient's floor/unit and/or counseling patient: Coding Level of Care Code 23391 Subseq Hosp Care Lvl 3 Diagnoses Acute kidney injury N17.9 Candiduria B37.49 Hematuria R31.9 Anemia D64.9 Pneumonia J18.9
[2019-06-14] MEDS ORDERED: FLUCONAZOLE 100 MG TAB PO SCH (10:00)
[2019-06-14] MEDS ORDERED: FLUCONAZOLE 100 MG TAB PO STA (10:38)
[2019-06-14 14:40] LABS: ANCA Screen Negative (Negative); Alpha 1 Globulin 0.6 g/dL (0.2-0.3); Alpha 2 Globulin 0.9 g/dL (0.5-0.9); Anti Nuclear Antibody Screen NEGATIVE (NEGATIVE); Anti-Glom Basement Antibody <1.0 AI (<1.0); Beta-1-Globulin 0.4 g/dL (0.4-0.6); Beta-2-Globulin 0.4 g/dL (0.2-0.5); Complement C3 129 mg/dL (83-193); Free Kappa 64.4 mg/L (3.3-19.4); Free Kappa/Lambda Ratio 0.99 (0.26-1.65); Free Lambda 65.3 mg/L (5.7-26.3); Monoclonal Protein Band 1 DNR g/dL (NONE DETECTED); Monoclonal Protein Band 2 DNR g/dL (NONE DETECTED); Monoclonal Protein Band 3 DNR g/dL (NONE DETECTED); Myeloperoxidase Ab <1.0 AI (<1.0); Proteinase-3 AB <1.0 AI (<1.0); Total Protein 6.2 g/dL (6.1-8.1)
--- NOTE | 2019-06-14 15:42 | Hospitalist Progress Note ---
Date of Service June 14, 2019 Assessment & Plan (1) Pneumonia: Medically complicated 48-year-old female admitted on 06/02 for HCAP, s/p 7 day antibiotic course, remains in hospital with significant AUGUSTO, in cardiorenal syndrome. 1. AUGUSTO on underlying Stage 3 CKD - resolving - baseline Cr ~1.5. Cr peaked at 4.3, down to 3.4 today - FeNa 0.7%, UrineNa 19. BUN/CR ratio 16.5. Urine microscopy showing WBCs and microscopic hematuria, cast analysis cancelled. - K stable at 4.2. - patient with >1 L of urine output daily, non-oliguric - as for etiology, presumable cause is ATN. * Intrarenal risk factors include AIN and ATN given recent HCAP and abx therapy. Urine eosinophils were not ordered. * pre-renal risk factor is known CHF. Renal US showing no evidence of renal artery stenosis. * Post-renal etiology unlikely given A/P CT scan showing no evidence of obstructing stones or strictures. - nephrology is following and driving workup, serologic studies for glomerular nephritis pending. recommend continuing Venofer and holding diuretics, lisinopril, and gabapentin - IVF d/c as patient is tolerating PO intake and is volume overloaded on exam. - continue to trend Cr - renally dose meds as appropriate 2. Hematuria - etiology is unknown, differential includes ATN, kidney stone, neal UTI - patient with AUGUSTO thought to be secondary to ATN - known R renal stone, although not obstructive - Urine culture / grew 7,000 cfu of neal albicans; will treat with one dose of diflucan for possible vaginal source; repeat urine culture ordered - urology consulted 3. HFrEF - Ischemic - Echo done at [facility] showing EF 30-35% - patient is volume overloaded on exam, but diuretics are being held in the setting of AUGUSTO - Lisinopril 10 mg held in setting of AUGUSTO - continue carvedilol 25 BID and amlodipine - consider Entresto in outpatient setting 4. Hospital associated pneumonia - resolved - Completed 7 day IV course on 06/09 - Patient uses oxygen at home 3L and currently saturating at 96% on 3L 5. Right Flank pain - ongoing since patient had renal US - CT abd/pelv with oral contrast 06/06 ruled out appendicitis and bowel obstruct ion or ischemia, kidneys normal appearing - likely secondary to muscle spasm, as it improved with cyclobenzaprine; continue prn 6. Type II Diabetes - uncontrolled - HbA1c 10.5 on admission - likely contributory to underlying kidney disease - Pharmacy consult for glycemic control - Home regimen: Lantus 20u BID, 10 units of Advilog with each meal 7. AFib without RVR - Eliquis 5 BID - Rate control with carvedilol 12.5 BID 8. HTN - BP above goal at 158/82 - Holding home Lisinopril due to AUGUSTO - continue amlodipine and carvedilol 9. Hx Mood Disorder - patient on the following home regimen: Remeron 45 HS, Paroxetine 60 BID, Latuda 80 QAM, Lamictal 100 BID, Alprazolam 1mg every 6 hours as needed 10. Diabetic Neuropathy - Gabapentin 300 QD, holding in the setting of AUGUSTO 11. CAD - Atorvastatin 40 - ASA 81mg 12. Vertebral Compression Fractures - visualized on A/P CT scan, subacute - outpatient evaluation for consideration of bisphosphonate therapy 13. Constipation - Moderate stool burden noted on AP CT scan - Mirlax BID, milk of magnesia, colace ordered 14. Abdominal LAD - paraaortic nodes visualized on A/P CT scan - recommend follow up CT scan in 6 months to assess resolution DVT PPX: on Eliquis Diet: Diabetic, heart healthy Code: Full Code Dispo: Floor (2) Cardiomyopathy: (3) CHF (congestive heart failure): (4) Morbid obesity with BMI of 45.0-49.9, adult: (5) Hyperglycemia due to type 2 diabetes mellitus: Admission and Anticipated Discharge Date Admission Date: June 02, 2019 Supervising Physician Co-Signing Physician Notes Resident Physician Supervision Note: I independently interviewed and examined the patient and verified the mitchell history and physical, reviewed labs and image studies, discussed the case with the resident Dr. Sanchez and agree with the findings and care plan. Subjective No acute events overnight. Still reports bloody urine. Eating and ambulating well. Review of Systems Gastrointestinal: +flank pain Genitourinary: + hematuria Physical Exam Constitutional: WD/WN, vitals as above + morbidly obese, + disheveled and cooperative Eyes: + anicteric sclerae (L eye) ENMT: external ear and nose normal, oropharynx normal Mouth: + poor dentition Neck: normal visual inspection and trachea midline Respiratory: normal respiratory effort Auscultation: no crackles, no rales, no rhonchi and no wheezes Cardiovascular: RRR, no murmur, no edema Heart Sounds: normal S1 and normal S2 Extremities: + pedal edema (1+) Gastrointestinal (Abdomen): normal bowel sounds, soft, nontender, no hepatosplenomegaly Skin: no rashes, warm and dry Psychiatric: A+Ox3, euthymic affect Results & Data ([facility]) Vital Signs (Past 12 Hours) Vital Signs Temp Pulse Resp BP BP Pulse Ox 06/14/19 15:03 36.4 C L 68 20 158/82 H 96 06/14/19 07:09 36.3 C L 65 18 170/82 H 96 Resident Activity Tracking Resident Involvement: Resident Care Provided Care Provided: Adult Hospital Medicine (1) CHF (congestive heart failure) Heart failure chronicity: acute on chronic Heart failure type: unspecified Qualified Code(s): I50.9 - Heart failure, unspecified (2) Pneumonia Laterality: left Lung location: lower lobe of lung Pneumonia type: due to unspecified organism Qualified Code(s): J18.9 - Pneumonia, unspecified organism
--- NOTE | 2019-06-14 17:46 | Urology Consultation ---
Date of Consultation June 14, 2019 Assessment & Plan (1) Gross hematuria: gross hematuria uncertain of cause but she has no significant personal history of tobacco use so bladder cancer is very low on my differential. I suggest her anticoagulation be held for 1-2 days to allow urine to clear. This could be glomerular bleeding from her recent renal injury as well. No plan for procedures at this time. her funguria I suspect is a contaminant from a poorly collected specimen. Her genitalia should be expected to have an overgrown of surface neal from her prolonged antibiotic use. I do not suggest any treatment at this time. If urines need to be cultured on her they should be a careful CATHETERIZED specimen. Present on Admission?: No History of Present Illness Reason for Consultation: hematuria Requesting Physician: Dr Gupta Attending Physician: Maria Marley MD History of Present Illness I am asked by Dr Gupta to evaluate and treat patient for gross hematuria. She is very ill, for many weeks with a pneumonia complicated by renal failure. She has been on strong broad spectrum antibiotics for week. She reports her urine color is a darm merlot color without clots. She has a "clean catch" urine ( she voided into the bedpan with no particular preparation) sent for culture which grew only 7K yeast. She reports she has no particular dysuria. Sh ehas had gross hematuria for about 2 days. Allergies Allergy/AdvReac Type Severity Reaction Status Date / Time No Known Allergies Allergy Verified 06/02/19 19:08 Home Medications Home Medications Medication Instructions Recorded Confirmed Type Latuda 80 mg PO QAM 08/24/18 06/02/19 History albuterol sulfate [Ventolin HFA] 2 puff INHALATION Q4H PRN 08/24/18 06/02/19 History alprazolam 1 mg PO QID 08/24/18 06/02/19 History aspirin 81 mg PO QAM 08/24/18 06/02/19 History atorvastatin 80 mg PO QAM 08/24/18 06/02/19 History ferrous gluconate 324 mg PO QAM 08/24/18 06/02/19 History fluticasone propionate 2 spray INTRANASAL DAILY 08/24/18 06/02/19 History gabapentin 300 mg PO TID 08/24/18 06/02/19 History insulin lispro [Admelog SoloStar 10 unit SUBCUT TIDM 08/24/18 06/02/19 History U-100 Insulin] lamotrigine 100 mg PO BID 08/24/18 06/02/19 History mirtazapine 45 mg PO HS 08/24/18 06/02/19 History paroxetine HCl 60 mg PO BID 08/24/18 06/02/19 History apixaban [Eliquis] 5 mg PO BID 06/02/19 06/02/19 History carvedilol 12.5 mg PO BID 06/02/19 06/02/19 History insulin glargine [Lantus U-100 20 unit SUBCUT BID 06/02/19 06/02/19 History Insulin] lisinopril 10 mg PO QAM 06/02/19 06/02/19 History Patient History Medical History (Updated 06/14/19 @ 17:58 by Socorro Senior MD) Anxiety associated with depression CHF (congestive heart failure) COPD (chronic obstructive pulmonary disease) Diabetes (Chronic) Hypertension Hypothyroid Morbid obesity with BMI of 45.0-49.9, adult Proteinuria Stroke Surgical History (Updated 06/03/19 @ 14:04 by Monica Hemphill MD) History of section History of eye surgery right eye removed History of foot surgery Family History Other Cancer Diabetes Hypertension Social History Preferred Language: Serbian Communication Ability: Effective Learning Services Coordinator Required: No Beliefs That Will Affect Care: None marital status: Current Living Situation: Spouse and Family Current Living Situation Comment: 2 daughters Other Information That Helps Us Care for You: No Feels Safe at Home: Yes Safety Concerns: Feels Safe At This Time Smoking Status: Never smoker Second Hand Exposure: No ; Hx Alcohol Use: No Hx Substance Use: No Review of Systems Review of Systems: PMH- morbid obesity DM h/o CVA CHF COPD anxiety h/o left upper extremity and neck DVT Surgery- gallbladder, left ankle fracture, defibrillator Social history- never tobacco, but has been exposed to second hand smoke, has children, disabled family history- father had maelanoma, grandmother had stomach cancer ROS- no fever no chills, + fatigue, no chest pain, no cough, bowels fine, appetite fine, no seizures, no rash, no nausea or emesis. Physical Exam Constitutional: + well hydrated, + morbidly obese, + disheveled and comfortable Eyes: left eye is with normal sclera normal pupul, and normal iris, right eye is contracted and scarred closed. Respiratory: normal respiratory effort, lungs clear to auscultation Gastrointestinal (Abdomen): normal bowel sounds, soft, nontender, no hepatosplenomegaly Skin: no rashes, warm and dry 2+ pitting edema bilaterally no skin breakdown no rash no calf tenderness Psychiatric: A+Ox3, euthymic affect Genitourinary: she had just voided 200mL of merlot colored urine into hat in toilet. Results & Data Vital Signs (Past 12 Hours) Vital Signs Temp Pulse Resp BP BP Pulse Ox 06/14/19 15:03 36.4 C L 68 20 158/82 H 96 06/14/19 07:09 36.3 C L 65 18 170/82 H 96
[2019-06-14] MEDS: MIRTAZAPINE SOLTAB 15 MG PO SCH (20:38)
[2019-06-14] MEDS: ALPRAZolam 0.5 MG TABLET PO PRN (20:42)
[2019-06-15] MEDS ORDERED: INSULIN ASPART 100 UNITS/ML 3 ML PEN SC ONE (02:00)
[2019-06-15] MEDS ORDERED: HydrALAZINE 10 MG TAB PO ONE (04:57)
[2019-06-15] MEDS: OXYCODONE HCL IR 5 MG TAB (IMMEDIATE RELEASE) PO PRN (05:44)
[2019-06-15 07:42] LABS: Hematocrit (blood only) 29.9 % (37-47); Hemoglobin 9.2 g/dL (12.0-16.0); Mean Corpuscular Hemoglobin 25.8 pg (25-34); Mean Corpuscular Hgb Conc 30.8 g/dL (32-36); Mean Corpuscular Volume 83.8 fL (80-100); Mean Platelet Volume 9.7 fL (7.4-10.4); Platelet Count 184 K/uL (130-400); RDW Coefficient of Variation 18.3 % (11.5-14.5); RDW Standard Deviation 55.8 fL (36.4-46.3); Red Blood Count 3.57 M/uL (4.2-5.4); White Blood Count 7.19 K/uL (4.8-10.8)
[2019-06-15 08:12] LABS: BUN Creatinine Ratio 16.4 (10-20); Calcium 8.9 mg/dl (8.5-10.1); Creatinine Clr Calc Pharmacy 31.9 ml/min; Est GFR (African American) 20.4; Est GFR (Non-African American) 17.6; Potassium 4.6 mmol/L (3.5-5.1)
[2019-06-15] MEDS: INSULIN ASPART 100 UNITS/ML 3 ML PEN SC SCH ×4 (08:38→21:04)
[2019-06-15] MEDS: carvediloL 25 MG TAB PO SCH ×2 (08:39→20:58)
[2019-06-15] MEDS: FLUTICASONE PROPIONATE NA SPR 16 GM BTL NAE SCH (08:40)
[2019-06-15] MEDS: ASPIRIN 81 MG ECTAB PO SCH (08:40)
[2019-06-15] MEDS: FERROUS GLUCONATE 324 MG TAB PO SCH (08:40)
[2019-06-15] MEDS: lamoTRIgine 100 MG TAB PO SCH ×2 (08:41→20:59)
[2019-06-15] MEDS: INSULIN GLARGINE SOLOSTAR 100 UNITS/ML 3 ML PEN SQ SCH ×2 (08:42→21:00)
[2019-06-15] MEDS: ATORVASTATIN 40 MG TAB PO SCH (08:42)
[2019-06-15] MEDS: LURASIDONE HCL 40 MG TAB PO SCH (08:42)
[2019-06-15] MEDS: AMLODIPINE BESYLATE 5 MG TAB PO SCH (08:43)
[2019-06-15] MEDS: PARoxetine HCL 20 MG TAB PO SCH (08:43)
[2019-06-15] MEDS: DOCUSATE SODIUM/SENNA 50/8.6MG TAB PO SCH (08:50)
[2019-06-15] MEDS: ACETAMINOPHEN 500 MG TAB PO PRN ×2 (08:55→21:08)
[2019-06-15] MEDS: POLYETHYLENE (MIRALAX) 17 GM PACK PO SCH ×2 (08:55→13:29)
[2019-06-15] MEDS ORDERED: FLUCONAZOLE 100 MG TAB PO SCH (09:00)
[2019-06-15] MEDS ORDERED: CYCLOBENZAPRINE HCL 5 MG TAB PO PRN ×2 (09:01→13:50)
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
[2019-06-15] MEDS: IRON SUCROSE 200 MG in 0.9 % SODIUM CHLORIDE 100 ML IV SCH (09:48)
--- NOTE | 2019-06-15 10:11 | Nephrology Progress Note ---
Date of Service June 15, 2019 Assessment & Plan (1) Acute kidney injury: AUGUSTO is likely ATN related to recent pneumonia. PMH: obesity, DM, ICM s/p AICD, COPD, chronic anticoagulation due to h/o UE DVT -- Volume status & electrolyte balance acceptable at this time. Patient is nonoliguric. Continue to hold diuretic. Creatinine peaked at 4.3. This has improved to 3.0 today. Baseline Cr 1.5 -- Acute GN evaluation is negative. Paraprotein evaluation negative -- Renal artery duplex 06/09 was negative for MILTON. Renal veins were patent. Kidneys were structurally normal by US -- Abdominal CT 06/06 w/ R renal calculi, but negative for obstruction. No ureteral calculi seen -- Urinalysis w/ gross hematuria. Cx positive for Neal -- Continue to hold AYAD inhibitor, Gabapentin -- Recheck PRP in am (2) Candiduria: -- One dose Diflucan provided. Await results of follow up urine culture obtained yesterday (3) Hematuria: -- Possibly related to kidney stones and neal UTI -- Will check LDH. If elevated consider repeat noncontrast abdominal CT to assess for renal infarct or movement of kidney stones -- On Apixaban. Consider holding until hematuria resolves -- Urology recommendations reviewed (4) Anemia: -- Completed 1 g IV iron infusion 06/14/19 -- Hgb continues to slowly trend down. Will recheck iron studies w/ am labs (5) Pneumonia: -- Resolved Subjective Mrs. Rausch was seen & examined in her hospital room this morning. She c/o persistent R flank discomfort. She describes this as pain at the completion of urination. She continues to experience gross hematuria. Review of Systems Constitutional: + weakness; no fever Eyes: no worsening vision and no problem reported Ear, Nose, Mouth, Throat: no problem reported Respiratory: no cough and no dyspnea Cardiovascular: no chest pain, no palpitations and no edema Gastrointestinal: no abdominal pain, no nausea, no vomiting and no diarrhea/loose stools Genitourinary: + dysuria and + hematuria R flank discomfort Musculoskeletal: + back pain Integumentary: no rash Neurologic: no confusion Physical Exam Constitutional: + overweight; not in distress ENMT: external ear and nose normal, oropharynx normal Neck: trachea midline, no thyromegaly Respiratory: normal respiratory effort, lungs clear to auscultation Cardiovascular: Rate/Rhythm: regular rate and regular rhythm Heart Sounds: no murmur Gastrointestinal (Abdomen): normal bowel sounds, soft, nontender, no hepatosplenomegaly Musculoskeletal: Extremities: no cyanosis Skin: no rashes, warm and dry Neurologic: awake; not confused Results & Data Vital Signs (Past 12 Hours) Vital Signs Temp Pulse Resp BP Pulse Ox 06/15/19 09:47 36.6 C 67 20 151/67 H 96 06/15/19 06:39 36.6 C 68 18 162/87 H 95 06/15/19 04:50 78 183/80 H 96 06/14/19 23:16 36.7 C 70 18 176/89 H 94 Laboratory Results Laboratory Tests 06/15/19 06/15/19 07:26 07:26 WBC 7.19 Hgb 9.2 L Hct 29.9 L Plt Count 184 Sodium 139 Potassium 4.6 Chloride 106 Carbon Dioxide 29 BUN 49 H Creatinine 3.00 H D Glucose 94 PG Care Time/CCT Total # of Minutes Spent Total Time Spent with Patient: Total time spent is greater than 50% in coordination of care (as documented) at patient's floor/unit and/or counseling patient: Coding Level of Care Code 88281 Subseq Hosp Care Lvl 3 Diagnoses Acute kidney injury N17.9 Candiduria B37.49 Hematuria R31.9 Anemia D64.9 Pneumonia J18.9
[2019-06-15] MEDS: HEPARIN SOD 5,000 UNIT/0.5 ML VIAL SQ SCH (20:56)
[2019-06-15] MEDS: MIRTAZAPINE SOLTAB 15 MG PO SCH (20:59)
[2019-06-15] MEDS: ALPRAZolam 0.5 MG TABLET PO PRN (21:02)
[2019-06-15 22:02] LABS: Appearance Urine Cloudy (Clear); Bacteria Urine Automated Negative (Negative); Bilirubin Urine Negative (Negative); Blood Urine 3+ (Negative); Color Urine Yellow; Glucose Urine UA Negative (Negative); Ketones Urine Negative (Negative); Leukocyte Esterase Urine 1+ (Negative); Nitrite Urine Negative (Negative); Protein Urine 1+ (Negative); Specific Gravity Urine 1.016 (1.000-1.030); Urobilinogen Urine Negative (Negative)
[2019-06-15 22:37] LABS: RBC Urine Automated >30 /hpf (0-4)
[2019-06-16] MEDS: CARBOHYDRATES FOR HYPOGLYCEMIA PO PRN ×2 (02:35→02:51)
[2019-06-16] MEDS: LURASIDONE HCL 40 MG TAB PO SCH (08:22)
[2019-06-16] MEDS: FERROUS GLUCONATE 324 MG TAB PO SCH (08:23)
[2019-06-16] MEDS: AMLODIPINE BESYLATE 5 MG TAB PO SCH (08:23)
[2019-06-16] MEDS: ATORVASTATIN 40 MG TAB PO SCH (08:23)
[2019-06-16] MEDS: ASPIRIN 81 MG ECTAB PO SCH (08:24)
[2019-06-16] MEDS: carvediloL 25 MG TAB PO SCH ×2 (08:24→20:00)
[2019-06-16] MEDS: lamoTRIgine 100 MG TAB PO SCH ×2 (08:24→20:03)
[2019-06-16] MEDS: PARoxetine HCL 20 MG TAB PO SCH (08:24)
[2019-06-16] MEDS: FLUTICASONE PROPIONATE NA SPR 16 GM BTL NAE SCH (08:25)
[2019-06-16] MEDS: HEPARIN SOD 5,000 UNIT/0.5 ML VIAL SQ SCH ×2 (08:26→20:04)
[2019-06-16] MEDS: INSULIN GLARGINE SOLOSTAR 100 UNITS/ML 3 ML PEN SQ SCH ×2 (08:27→20:03)
[2019-06-16] MEDS: INSULIN ASPART 100 UNITS/ML 3 ML PEN SC SCH ×4 (08:28→20:17)
[2019-06-16] MEDS: POLYETHYLENE (MIRALAX) 17 GM PACK PO SCH ×2 (08:28→15:15)
[2019-06-16] MEDS: DOCUSATE SODIUM/SENNA 50/8.6MG TAB PO SCH (08:31)
[2019-06-16 08:42] LABS: BUN Creatinine Ratio 16.7 (10-20); Calcium 9.2 mg/dl (8.5-10.1); Creatinine Clr Calc Pharmacy 33.3 ml/min; Est GFR (African American) 21.4; Est GFR (Non-African American) 18.5; Potassium 4.7 mmol/L (3.5-5.1)
--- NOTE | 2019-06-16 09:12 | Pharmacy Report ---
Pharmacy Glycemic Short Note 2 - Date of Service June 16, 2019 - Glycemic Short BSG Results (Last 24 hours): 06/15/19 06/15/19 06/15/19 11:33 16:24 20:07 Glucose POC Glucose 135 H 172 H 152 H 06/16/19 06/16/19 06/16/19 02:35 02:49 03:03 Glucose POC Glucose 59 L* 62 L* 79 06/16/19 06/16/19 07:30 07:51 Glucose 100 H POC Glucose 106 H OUTPATIENT ANTIDIABETIC REGIMEN: * Lantus 20 units BID, 10 units TIDM + SSI * HbA1c 10.5% 06/03/2019 ASSESSMENT: 06/14 * BSGs ranging 105-172 yesterday, with hypoglycemic event overnight ~0230 * AM BSG 106, loosening lantus dose with scale * Did loosen AM carb ratio after prandial BSGs trending down, may tighten again if needed 06/13 * BSGs ranging 139-225 mg/dL yesterday * Patient received 67 units of insulin (35 of basal, 32 of prandial/correctional) * BSGs trended up throughout the day - will consider tightening dinner and HS checks * AUGUSTO resolving slowly SCr 4.3 (06/09) -> 3.41 mg/dL today PLAN FOR INPATIENT GLYCEMIC CONTROL: * Basal insulin -lantus scale BID * BSGs <=140 give 8 units * BSGs >=140 give 10 units * Bolus insulin * NovoLog per scale ACHS or Q6hrs while NPO * Goal Range: Low 110 mg/dL - High 150 mg/dL Breakfast/lunch: Correction Factor: 25 mg/dL/unit (breakfast and lunch) Nutritional / Prandial insulin per carb ratio of 1 unit per 8 grams CHO consumed (breakfast and lunch) Dinner/HS: Correction Factor: 30 mg/dL/unit (dinner and HS) Nutritional / Prandial insulin per carb ratio of 1 unit per 10 grams CHO consumed (dinner and HS) PLAN FOR DISCHARGE: * A1c of 10.5% demonstrates poor glycemic control - A reasonable A1C goal for many non- adults is A1c less than 7% * Per adaptive physical educator note from 06/09: patient has not been checking BSGs at home for quite some time. Patient attributes recent hyperglycemia to stress and poor diet, but is motivated to make changes. * Inpatient needs have been trending down with better control- outpatient regimen may still be reasonable to resume, however could consider reduction if diet is improved. * Patient will require outpatient follow-up upon discharge for further diabetes management * Emphasize importance of SMBG
--- NOTE | 2019-06-16 09:31 | Nephrology Progress Note ---
Date of Service June 16, 2019 Assessment & Plan (1) Acute kidney injury: AUGUSTO is likely ATN related to recent pneumonia. PMH: obesity, DM, ICM s/p AICD, COPD, chronic anticoagulation due to h/o UE DVT -- Volume status & electrolyte balance acceptable at this time. Patient is nonoliguric. Continue to hold diuretic. Creatinine peaked at 4.3. This has improved to 2.8 today. Baseline Cr 1.5 -- Acute GN evaluation is negative. Paraprotein evaluation negative -- Renal artery duplex 06/09 was negative for MILTON. Renal veins were patent. Kidneys were structurally normal by US -- Abdominal CT 06/06 w/ R renal calculi, but negative for obstruction. No ureteral calculi seen -- Urine is now clearing. Hold on follow up CT. Will repeat urine microscopy and PRP in am -- Continue to hold AYAD inhibitor, Gabapentin (2) Candiduria: -- One dose Diflucan provided. Repeat urine culture was negative for growth (3) Hematuria: -- Possibly related to kidney stones and neal UTI -- LDH minimally elevated. Urine is clearing. Hold repeat CT scan and monitor clinically -- On Apixaban. Consider holding until hematuria resolves -- Urology recommendations reviewed (4) Anemia: -- Completed 1 g IV iron infusion 06/14/19 -- Hgb continues to slowly trend down. Will recheck iron studies w/ am labs (5) Pneumonia: -- Resolved Subjective Mrs. Rausch was seen & examined in her hospital room this morning. She reports that her R flank discomfort is improved and her urine is clearing. She currently denies fever or dysuria. Review of Systems Constitutional: + weakness; no fever Eyes: no worsening vision and no problem reported Ear, Nose, Mouth, Throat: no problem reported Respiratory: no cough and no dyspnea Cardiovascular: no chest pain, no palpitations and no edema Gastrointestinal: no abdominal pain, no nausea, no vomiting and no diarrhea/loose stools Genitourinary: + dysuria and + hematuria R flank discomfort improved Musculoskeletal: + back pain (improved) Integumentary: no rash Neurologic: no confusion Physical Exam Constitutional: + overweight; not in distress ENMT: external ear and nose normal, oropharynx normal Neck: trachea midline, no thyromegaly Respiratory: normal respiratory effort, lungs clear to auscultation Cardiovascular: Rate/Rhythm: regular rate and regular rhythm Heart Sounds: no murmur Gastrointestinal (Abdomen): normal bowel sounds, soft, nontender, no hepatosplenomegaly Musculoskeletal: Extremities: no cyanosis Skin: no rashes, warm and dry Neurologic: awake; not confused Results & Data Vital Signs (Past 12 Hours) Vital Signs Temp Pulse Resp BP BP Pulse Ox 06/16/19 07:54 36.6 C 69 19 157/74 H 96 06/15/19 23:00 36.3 C L 60 18 146/84 H 94 Laboratory Results Laboratory Tests 06/15/19 06/16/19 07:26 07:51 WBC 7.19 Hgb 9.2 L Hct 29.9 L Plt Count 184 Sodium 140 Potassium 4.7 Chloride 105 Carbon Dioxide 31 BUN 48 H Creatinine 2.89 H Glucose 100 H PG Care Time/CCT Total # of Minutes Spent Total Time Spent with Patient: Total time spent is greater than 50% in coordination of care (as documented) at patient's floor/unit and/or counseling patient: Coding Level of Care Code 85695 Subseq Hosp Care Lvl 3 Diagnoses Acute kidney injury N17.9 Candiduria B37.49 Hematuria R31.9 Anemia D64.9 Pneumonia J18.9
--- NOTE | 2019-06-16 13:05 | Hospitalist Progress Note ---
Date of Service June 16, 2019 Assessment & Plan (1) Pneumonia: Medically complicated 48-year-old female admitted on 06/02 for HCAP, s/p 7 day antibiotic course, remains in hospital with significant AUGUSTO, in cardiorenal syndrome. 1. AUGUSTO on underlying Stage 3 CKD - resolving - baseline Cr ~1.5. Cr peaked at 4.3, down to 2.8 today - FeNa 0.7%, UrineNa 19. BUN/CR ratio 16.5. Urine microscopy showing WBCs and microscopic hematuria, cast analysis cancelled. - K stable at 4.7. - patient with >1 L of urine output daily, non-oliguric - as for etiology, presumable cause is ATN. * Intrarenal risk factors include AIN and ATN given recent HCAP and abx therapy. Urine eosinophils were not ordered. * pre-renal risk factor is known CHF. Renal US showing no evidence of renal artery stenosis. * Post-renal etiology unlikely given A/P CT scan showing no evidence of obstructing stones or strictures. - nephrology is following; serologic studies for glomerular nephritis and paraprotein negative. recommend continuing Venofer and holding diuretics, lisinopril, and gabapentin - IVF d/c as patient is tolerating PO intake and is volume overloaded on exam. - continue to trend Cr - renally dose meds as appropriate 2. Hematuria -resolving - differential includes ATN, kidney stone - patient with AUGUSTO thought to be secondary to ATN - known R renal stone, although not obstructive - Urine culture / grew 7,000 cfu of neal albicans; repeat urine culture negative - urology consulted, recommended holding Eliquis for 1-2 days, will restart tomorrow 06/16 3. HFrEF secondary to underlying cardiomyopathy - Echo done at [facility] showing EF 30-35% - patient is volume overloaded on exam, but diuretics are being held in the setting of AUGUSTO - Lisinopril 10 mg held in setting of AUGUSTO - continue carvedilol 25 BID and amlodipine - consider Entresto in outpatient setting 4. Hospital associated pneumonia - resolved - Completed 7 day IV course on 06/09 - Patient uses oxygen at home 3L and currently saturating at 96% on 3L 5. Right Flank pain -improving - ongoing since patient had renal US - CT abd/pelv with oral contrast 06/06 ruled out appendicitis and bowel obstruction or ischemia, kidneys normal appearing - likely secondary to muscle spasm, as it improved with cyclobenzaprine; continue prn 6. Type II Diabetes - uncontrolled - HbA1c 10.5 on admission - likely contributory to underlying kidney disease - Pharmacy consult for glycemic control - Home regimen: Lantus 20u BID, 10 units of Advilog with each meal 7. AFib without RVR - Eliquis 5 BID - currently holding due to hematuria - Rate control with carvedilol 12.5 BID 8. HTN - BP above goal at 157/74 - Holding home Lisinopril due to AUGUSTO - continue amlodipine and carvedilol 9. Hx Mood Disorder - patient on the following home regimen: Remeron 45 HS, Paroxetine 60 BID, Latuda 80 QAM, Lamictal 100 BID, Alprazolam 1mg every 6 hours as needed 10. Diabetic Neuropathy - Gabapentin 300 QD, holding in the setting of AUGUSTO 11. CAD - Atorvastatin 40 - ASA 81mg 12. Vertebral Compression Fractures - visualized on A/P CT scan, subacute - outpatient evaluation for consideration of bisphosphonate therapy 13. Constipation - Moderate stool burden noted on AP CT scan - Mirlax BID, milk of magnesia, colace ordered 14. Abdominal LAD - paraaortic nodes visualized on A/P CT scan - recommend follow up CT scan in 6 months to assess resolution DVT PPX: Heparin, 5,000 units SQ, q12 while Eliquis is on hold Diet: Diabetic, heart healthy Code: Full Code Dispo: Floor; anticipate discharge 06/16, home health arranged (2) Cardiomyopathy: (3) CHF (congestive heart failure): (4) Morbid obesity with BMI of 45.0-49.9, adult: (5) Hyperglycemia due to type 2 diabetes mellitus: Admission and Anticipated Discharge Date Admission Date: June 02, 2019 Supervising Physician Co-Signing Physician Notes Resident Physician Supervision Note: I independently interviewed and examined the patient and verified the mitchell history and physical, reviewed labs and image studies, discussed the case with the resident Dr. Sanchez and agree with the findings and care plan. Subjective No acute events overnight. Reports hematuria has resolved. Eating, ambulating and toileting well. Review of Systems Neurologic: + headache(s) Physical Exam Constitutional: WD/WN, vitals as above + morbidly obese, + disheveled and cooperative Eyes: + anicteric sclerae (L eye) and + periorbital abnormality (R eye surgically removed) ENMT: external ear and nose normal, oropharynx normal Mouth: + poor dentition Neck: normal visual inspection and trachea midline Respiratory: normal respiratory effort Auscultation: no crackles, no rales, no rhonchi and no wheezes Cardiovascular: RRR, no murmur, no edema Heart Sounds: normal S1 and normal S2 Extremities: + pedal edema (1+) Gastrointestinal (Abdomen): normal bowel sounds, soft, nontender, no hepatosplenomegaly Inspection/Auscultation: + abdomen distended Percussion/Palpation: + abdomen tender (diffusely) and abdomen soft Skin: no rashes, warm and dry Psychiatric: A+Ox3, euthymic affect Results & Data ([facility]) Vital Signs (Past 12 Hours) Vital Signs Temp Pulse Resp BP Pulse Ox 06/16/19 07:54 36.6 C 69 19 157/74 H 96 Resident Activity Tracking Resident Involvement: Resident Care Provided Care Provided: Adult Hospital Medicine (1) CHF (congestive heart failure) Heart failure chronicity: acute on chronic Heart failure type: unspecified Qualified Code(s): I50.9 - Heart failure, unspecified (2) Pneumonia Laterality: left Lung location: lower lobe of lung Pneumonia type: due to unspecified organism Qualified Code(s): J18.9 - Pneumonia, unspecified organism
[2019-06-16] MEDS: MIRTAZAPINE SOLTAB 15 MG PO SCH (19:58)
[2019-06-16] MEDS: ALPRAZolam 0.5 MG TABLET PO PRN (20:18)
[2019-06-17] MEDS: LURASIDONE HCL 40 MG TAB PO SCH (08:33)
[2019-06-17] MEDS: lamoTRIgine 100 MG TAB PO SCH ×2 (08:33→21:07)
[2019-06-17] MEDS: carvediloL 25 MG TAB PO SCH ×2 (08:33→21:07)
[2019-06-17] MEDS: PARoxetine HCL 20 MG TAB PO SCH (08:34)
[2019-06-17] MEDS: ATORVASTATIN 40 MG TAB PO SCH (08:34)
[2019-06-17] MEDS: ASPIRIN 81 MG ECTAB PO SCH (08:34)
[2019-06-17] MEDS: AMLODIPINE BESYLATE 5 MG TAB PO SCH (08:34)
[2019-06-17] MEDS: POLYETHYLENE (MIRALAX) 17 GM PACK PO SCH ×2 (08:34→12:29)
[2019-06-17] MEDS: APIXABAN 5 MG TABLET PO SCH ×2 (08:35→21:07)
[2019-06-17] MEDS: FERROUS GLUCONATE 324 MG TAB PO SCH (08:35)
[2019-06-17] MEDS: FLUTICASONE PROPIONATE NA SPR 16 GM BTL NAE SCH (08:35)
[2019-06-17] MEDS: INSULIN ASPART 100 UNITS/ML 3 ML PEN SC SCH ×4 (08:36→21:09)
[2019-06-17] MEDS: INSULIN GLARGINE SOLOSTAR 100 UNITS/ML 3 ML PEN SQ SCH ×2 (08:36→21:10)
[2019-06-17] MEDS: DOCUSATE SODIUM/SENNA 50/8.6MG TAB PO SCH (08:36)
[2019-06-17] MEDS: IRON SUCROSE 200 MG in 0.9 % SODIUM CHLORIDE 100 ML IV SCH (08:39)
[2019-06-17 09:22] LABS: BUN Creatinine Ratio 19.2 (10-20); Calcium 9.1 mg/dl (8.5-10.1); Creatinine Clr Calc Pharmacy 36.9 ml/min; Est GFR (African American) 24.4; Est GFR (Non-African American) 21.1; Ferritin 222.1 ng/ml (8-388); Potassium 4.9 mmol/L (3.5-5.1)
--- NOTE | 2019-06-17 09:58 | Nephrology Progress Note ---
Date of Service June 17, 2019 Assessment & Plan (1) Acute kidney injury: AUGUSTO is likely ATN related to recent pneumonia. PMH: obesity, DM, ICM s/p AICD, COPD, chronic anticoagulation due to h/o UE DVT -- Volume status & electrolyte balance acceptable at this time. Patient is nonoliguric. Continue to hold diuretic. Creatinine peaked at 4.3. This has improved to 2.6 today. Baseline Cr 1.5 -- Acute GN evaluation is negative. Paraprotein evaluation negative -- Renal artery duplex 06/09 was negative for MILTON. Renal veins were patent. Kidneys were structurally normal by US -- Abdominal CT 06/06 w/ R renal calculi, but negative for obstruction. No ureteral calculi seen -- Urine is now clearing. Hold on follow up CT -- Continue to hold AYAD inhibitor, Gabapentin -- Repeat PRP in am. Recommend Cr 2.0 or less prior to discharge -- When discharge is anticipated please schedule outpatient Nephrology follow up w/ Dr. Alexis in 1 - 2 weeks ([phone] to schedule) (2) Candiduria: -- One dose Diflucan provided. Repeat urine culture was negative for growth (3) Hematuria: -- Possibly related to kidney stones and neal UTI -- LDH minimally elevated. Urine is clearing. Hold repeat CT scan and monitor clinically -- On Apixaban. Consider holding until hematuria resolves -- Urology recommendations reviewed (4) Anemia: -- Completed 1 g IV iron infusion 06/14/19 -- Will recheck H&H in am (5) Pneumonia: -- Resolved Subjective Mrs. Rausch was seen & examined in her hospital room this morning. She reports brisk UO. Her urine is now clear and her flank pain has resolved. She voices no new medical concerns Review of Systems Constitutional: + weakness; no fever Eyes: no worsening vision and no problem reported Ear, Nose, Mouth, Throat: no problem reported Respiratory: no cough and no dyspnea Cardiovascular: + edema; no chest pain and no palpitations Gastrointestinal: no abdominal pain, no nausea, no vomiting and no diarrhea/loose stools Genitourinary: no dysuria and no hematuria Musculoskeletal: no back pain Integumentary: no rash Neurologic: no falls Physical Exam Constitutional: + overweight; not in distress ENMT: external ear and nose normal, oropharynx normal Neck: trachea midline, no thyromegaly Respiratory: normal respiratory effort, lungs clear to auscultation Cardiovascular: Rate/Rhythm: regular rate and regular rhythm Heart Sounds: no murmur Gastrointestinal (Abdomen): normal bowel sounds, soft, nontender, no hepatosplenomegaly Musculoskeletal: Extremities: no cyanosis Skin: no rashes, warm and dry Neurologic: awake; not confused Results & Data Vital Signs (Past 12 Hours) Vital Signs Temp Pulse Resp BP BP Pulse Ox 06/17/19 07:11 37 C 69 18 152/79 H 92 06/16/19 23:00 36.6 C 69 18 145/82 H 98 Laboratory Results Laboratory Tests 06/17/19 08:38 Sodium 137 Potassium 4.9 Chloride 106 Carbon Dioxide 30 BUN 50 H Creatinine 2.59 H D Glucose 173 H PG Care Time/CCT Total # of Minutes Spent Total Time Spent with Patient: Total time spent is greater than 50% in coordination of care (as documented) at patient's floor/unit and/or counseling patient: Coding Level of Care Code 79661 Subseq Hosp Care Lvl 3 Diagnoses Acute kidney injury N17.9 Candiduria B37.49 Hematuria R31.9 Anemia D64.9 Pneumonia J18.9
--- NOTE | 2019-06-17 14:09 | Hospitalist Progress Note ---
Date of Service June 17, 2019 Assessment & Plan (1) Pneumonia: Medically complicated 48-year-old female admitted on 06/02 for HCAP, s/p 7 day antibiotic course, remains in hospital with significant AUGUSTO, in cardiorenal syndrome. AUGUSTO on underlying Stage 3 CKD - resolving - baseline Cr ~1.5. Cr peaked at 4.3, down to 2.5 today - FeNa 0.7%, UrineNa 19. BUN/CR ratio 16.5. Urine microscopy showing WBCs and microscopic hematuria, cast analysis cancelled. - K stable at 4.9. - patient with >1 L of urine output daily, non-oliguric - as for etiology, presumable cause is ATN. * Intrarenal risk factors include AIN and ATN given recent HCAP and abx therapy. Urine eosinophils were not ordered. * pre-renal risk factor is known CHF. Renal US showing no evidence of renal artery stenosis. * Post-renal etiology unlikely given A/P CT scan showing no evidence of obstructing stones or strictures. - nephrology is following; serologic studies for glomerular nephritis and paraprotein negative. completed day 08/09 of Venofer; recommending to hold diuretics, lisinopril, and gabapentin - IVF d/c as patient is tolerating PO intake and is volume overloaded on exam. - continue to trend Cr - plan to discharge once creatinine below 2 - renally dose meds as appropriate Hematuria -resolved - differential includes ATN, kidney stone - patient with AUGUSTO thought to be secondary to ATN - known R renal stone, although not obstructive - Urine culture 06/08 grew 7,000 cfu of neal albicans; repeat urine culture negative - urology consulted, recommended holding Eliquis for 1-2 days, restarted today 06/16 Normocytic Anemia - Hgb 9.2, MCV 83 - iron 38, ferritin low at 195, transferrin saturation low at - MCV 83 - completed day of IV Venofer - continue ferrous gluconate 324mg PO daily HFrEF secondary to underlying cardiomyopathy - Echo done at [facility] showing EF 30-35% - patient is volume overloaded on exam, but diuretics are being held in the setting of AUGUSTO - Lisinopril 10 mg held in setting of AUGUSTO - continue carvedilol 25 BID and amlodipine - consider Entresto in outpatient setting Hospital associated pneumonia - resolved - Completed 7 day IV course on 3/5 - Patient uses oxygen at home 3L and currently saturating at 92% on 3L Right Flank pain -improving - ongoing since patient had renal US - CT abd/pelv with oral contrast 06/06 ruled out appendicitis and bowel obstruction or ischemia, kidneys normal appearing - likely secondary to muscle spasm, as it improved with cyclobenzaprine; continue prn Type II Diabetes - uncontrolled - HbA1c 10.5 on admission - likely contributory to underlying kidney disease - Pharmacy consult for glycemic control - Home regimen: Lantus 20u BID, 10 units of Advilog with each meal AFib without RVR - Eliquis 5 BID - Rate control with carvedilol 12.5 BID HTN - BP above goal at 157/74 - Holding home Lisinopril due to AUGUSTO - continue amlodipine and carvedilol Hx Mood Disorder - patient on the following home regimen: Remeron 45 HS, Paroxetine 60 BID, Latuda 80 QAM, Lamictal 100 BID, Alprazolam 1mg every 6 hours as needed Diabetic Neuropathy - Gabapentin 300 QD, holding in the setting of AUGUSTO CAD - Atorvastatin 40 - ASA 81mg Vertebral Compression Fractures - visualized on A/P CT scan, subacute - outpatient evaluation for consideration of bisphosphonate therapy Constipation - Moderate stool burden noted on AP CT scan - Mirlax BID, milk of magnesia, colace ordered Abdominal LAD - paraaortic nodes visualized on A/P CT scan - recommend follow up CT scan in 6 months to assess resolution DVT PPX: on Eliquis Diet: Diabetic, heart healthy Code: Full Code Dispo: Floor; anticipate discharge 06/17, home health arranged (2) Cardiomyopathy: (3) CHF (congestive heart failure): (4) Morbid obesity with BMI of 45.0-49.9, adult: (5) Hyperglycemia due to type 2 diabetes mellitus: Admission and Anticipated Discharge Date Admission Date: June 02, 2019 Supervising Physician Co-Signing Physician Notes Resident Physician Supervision Note: I independently interviewed and examined the patient and verified the mitchell history and physical, reviewed labs and image studies, discussed the case with the resident Dr. Sanchez and agree with the findings and care plan. Subjective no acute events overnight. eating well. ambulating. hematuria resolved Review of Systems Review of Systems: All systems reviewed & are unremarkable except as noted in HPI & below Physical Exam Constitutional: WD/WN, vitals as above + morbidly obese, + disheveled and cooperative Eyes: + anicteric sclerae (L eye) and + periorbital abnormality (R eye surgically removed) ENMT: external ear and nose normal, oropharynx normal Mouth: + poor dentition Neck: normal visual inspection and trachea midline Respiratory: normal respiratory effort Auscultation: no crackles, no rales, no rhonchi and no wheezes Cardiovascular: RRR, no murmur, no edema Heart Sounds: normal S1 and normal S2 Extremities: + pedal edema (1+) Gastrointestinal (Abdomen): normal bowel sounds, soft, nontender, no hepatosplenomegaly Inspection/Auscultation: + abdomen distended Percussion/Palpation: + abdomen tender (diffusely) and abdomen soft Skin: no rashes, warm and dry Psychiatric: A+Ox3, euthymic affect Results & Data ([facility]) Vital Signs (Past 12 Hours) Vital Signs Temp Pulse Resp BP Pulse Ox 06/17/19 07:11 37 C 69 18 152/79 H 92 Resident Activity Tracking Resident Involvement: Resident Care Provided Care Provided: Adult Hospital Medicine (1) CHF (congestive heart failure) Heart failure chronicity: acute on chronic Heart failure type: unspecified Qualified Code(s): I50.9 - Heart failure, unspecified (2) Pneumonia Laterality: left Lung location: lower lobe of lung Pneumonia type: due to unspecified organism Qualified Code(s): J18.9 - Pneumonia, unspecified organism
--- NOTE | 2019-06-17 14:33 | Pharmacy Report ---
Pharmacy Glycemic Short Note 2 - Date of Service June 17, 2019 - Glycemic Short BSG Results (Last 24 hours): 06/16/19 06/16/19 06/17/19 16:38 20:02 07:42 Glucose POC Glucose 193 H 162 H 154 H 06/17/19 06/17/19 08:38 11:41 Glucose 173 H POC Glucose 178 H OUTPATIENT ANTIDIABETIC REGIMEN: * Lantus 20 units BID, 10 units TIDM + SSI * HbA1c 10.5% 06/03/2019 ASSESSMENT: 06/15: * Patient received total 39 units of insulin yesterday: 20 units basal and 19 units bolus. * Fasting BSG today was 154. Lunch BSG was also elevated at 178. * Pt received 12 units of Lantus this AM which is higher than yesterday- dose based on a scale and continue BID. * Will continue with current Novolog parameters to prevent hypoglycemia in the global logistics manager hours. 06/14 * BSGs ranging 105-172 yesterday, with hypoglycemic event overnight ~0230 * AM BSG 106, loosening lantus dose with scale * Did loosen AM carb ratio after prandial BSGs trending down, may tighten again if needed PLAN FOR INPATIENT GLYCEMIC CONTROL: * Basal insulin -lantus scale BID * BSGs </=140 give 10 units * BSGs >140 give 12 units * Bolus insulin * NovoLog per scale ACHS or Q6hrs while NPO * Goal Range: Low 110 mg/dL - High 150 mg/dL Breakfast/lunch: Correction Factor: 25 mg/dL/unit (breakfast and lunch) Nutritional / Prandial insulin per carb ratio of 1 unit per 8 grams CHO consumed (breakfast and lunch) Dinner/HS: Correction Factor: 30 mg/dL/unit (dinner and HS) Nutritional / Prandial insulin per carb ratio of 1 unit per 10 grams CHO consumed (dinner and HS) PLAN FOR DISCHARGE: * A1c of 10.5% demonstrates poor glycemic control - A reasonable A1C goal for many non- adults is A1c less than 7% * Per certified breastfeeding educator note from 06/09: patient has not been checking BSGs at home for quite some time. Patient attributes recent hyperglycemia to stress and poor diet, but is motivated to make changes. * Inpatient needs have been trending down with better control- outpatient regimen may still be reasonable to resume, however could consider reduction if diet is improved. * Patient will require outpatient follow-up upon discharge for further diabetes management * Emphasize importance of SMBG
--- NOTE | 2019-06-17 17:40 | Urology Progress Note ---
Date of Service June 17, 2019 Assessment & Plan (1) Gross hematuria: gross hematuria uncertain of cause but she has no significant personal history of tobacco use so bladder cancer is very low on my differential. Her urine thankfully cleared yesterday while off anticoagulation. i'd suggest restarting anticoagulation tomorrow I plan an outpatient cysto at the [facility] in one month. i want her to have some time to recover from her long illness Subjective Patient sitting up at bedside eating dinner. She looks well and feels well. The urine is yellow again. No dysuria. voiding with decent stream. Her kidney function imprves daily. Review of Systems Review of Systems: no fever no chills, dry cough no rash, no constipation, no nausea or emesis Physical Exam Constitutional: WD/WN, vitals as above + obese Skin: no rashes, warm and dry Psychiatric: A+Ox3, euthymic affect Results & Data Vital Signs (Past 12 Hours) Vital Signs Temp Pulse Resp BP Pulse Ox 06/17/19 15:45 36.7 C 69 20 182/81 H 92 06/17/19 07:11 37 C 69 18 152/79 H 92
[2019-06-17 18:02] LABS: Appearance Urine Clear (Clear); Bacteria Urine Automated Negative (Negative); Bilirubin Urine Negative (Negative); Blood Urine 2+ (Negative); Color Urine Yellow; Epithelial Cell Urine Auto >30 /lpf (0-5); Glucose Urine UA Negative (Negative); Ketones Urine Negative (Negative); Leukocyte Esterase Urine 1+ (Negative); Nitrite Urine Negative (Negative); Protein Urine 1+ (Negative); Specific Gravity Urine 1.015 (1.000-1.030); Urobilinogen Urine Negative (Negative)
[2019-06-17] MEDS: MIRTAZAPINE SOLTAB 15 MG PO SCH (21:06)
[2019-06-17] MEDS: ACETAMINOPHEN 500 MG TAB PO PRN (21:16)
[2019-06-18 06:10] LABS: Hematocrit (blood only) 31.2 % (37-47); Hemoglobin 9.6 g/dL (12.0-16.0); Mean Corpuscular Hemoglobin 25.7 pg (25-34); Mean Corpuscular Hgb Conc 30.8 g/dL (32-36); Mean Corpuscular Volume 83.4 fL (80-100); Mean Platelet Volume 9.9 fL (7.4-10.4); Platelet Count 215 K/uL (130-400); RDW Coefficient of Variation 19.2 % (11.5-14.5); RDW Standard Deviation 57.6 fL (36.4-46.3); Red Blood Count 3.74 M/uL (4.2-5.4); White Blood Count 5.48 K/uL (4.8-10.8)
[2019-06-18 06:45] LABS: BUN Creatinine Ratio 19.6 (10-20); Calcium 9.2 mg/dl (8.5-10.1); Creatinine Clr Calc Pharmacy 40.2 ml/min; Est GFR (Non-African American) 23.3; Potassium 4.5 mmol/L (3.5-5.1)
[2019-06-18] MEDS: ASPIRIN 81 MG ECTAB PO SCH (08:38)
[2019-06-18] MEDS: carvediloL 25 MG TAB PO SCH ×2 (08:38→21:07)
[2019-06-18] MEDS: ATORVASTATIN 40 MG TAB PO SCH (08:38)
[2019-06-18] MEDS: LURASIDONE HCL 40 MG TAB PO SCH (08:38)
[2019-06-18] MEDS: AMLODIPINE BESYLATE 5 MG TAB PO SCH (08:38)
[2019-06-18] MEDS: lamoTRIgine 100 MG TAB PO SCH ×2 (08:38→21:07)
[2019-06-18] MEDS: FERROUS GLUCONATE 324 MG TAB PO SCH (08:38)
[2019-06-18] MEDS: PARoxetine HCL 20 MG TAB PO SCH (08:39)
[2019-06-18] MEDS: APIXABAN 5 MG TABLET PO SCH ×2 (08:39→21:06)
[2019-06-18] MEDS: POLYETHYLENE (MIRALAX) 17 GM PACK PO SCH ×2 (08:39→12:55)
[2019-06-18] MEDS: INSULIN GLARGINE SOLOSTAR 100 UNITS/ML 3 ML PEN SQ SCH ×2 (08:41→21:08)
[2019-06-18] MEDS: INSULIN ASPART 100 UNITS/ML 3 ML PEN SC SCH ×4 (08:42→21:10)
[2019-06-18] MEDS: FLUTICASONE PROPIONATE NA SPR 16 GM BTL NAE SCH (09:01)
[2019-06-18] MEDS: DOCUSATE SODIUM/SENNA 50/8.6MG TAB PO SCH (09:01)
--- NOTE | 2019-06-18 09:34 | Pharmacy Report ---
Pharmacy Glycemic Short Note 2 - Date of Service June 18, 2019 - Glycemic Short BSG Results (Last 24 hours): 06/17/19 06/17/19 06/17/19 11:41 16:38 20:25 Glucose POC Glucose 178 H 243 H 164 H 06/18/19 06/18/19 05:29 08:44 Glucose 134 H POC Glucose 145 H OUTPATIENT ANTIDIABETIC REGIMEN: * Lantus 20 units BID, 10 units TIDM + SSI * HbA1c 10.5% 06/03/2019 ASSESSMENT: 06/17 * Sonia received 49 units of insulin yesterday, 24 of this being basal * No change to causes of insulin resistance * Fasting = 134 mg/dL; will continue same Lantus dose * Postprandials elevated mostly at lunch and dinner; will tighten breakfast and lunch Novolog parameters 06/16: * Patient received total 39 units of insulin yesterday: 20 units basal and 19 units bolus. * Fasting BSG today was 154. Lunch BSG was also elevated at 178. * Pt received 12 units of Lantus this AM which is higher than yesterday- dose based on a scale and continue BID. * Will continue with current Novolog parameters to prevent hypoglycemia in the [facility] hours. 06/14 * BSGs ranging 105-172 yesterday, with hypoglycemic event overnight ~0230 * AM BSG 106, loosening lantus dose with scale * Did loosen AM carb ratio after prandial BSGs trending down, may tighten again if needed PLAN FOR INPATIENT GLYCEMIC CONTROL: * Basal insulin -continue Lantus scale BID * BSGs </=140 give 10 units * BSGs >140 give 12 units * Bolus insulin * NovoLog per scale ACHS or Q6hrs while NPO * Goal Range: Low 110 mg/dL - High 150 mg/dL Breakfast/lunch: - tighten CR Correction Factor: 25 mg/dL/unit (breakfast and lunch) Nutritional / Prandial insulin per carb ratio of 1 unit per 7 grams CHO consumed (breakfast and lunch) Dinner/HS: - no change Correction Factor: 30 mg/dL/unit (dinner and HS) Nutritional / Prandial insulin per carb ratio of 1 unit per 10 grams CHO consumed (dinner and HS) PLAN FOR DISCHARGE: * A1c of 10.5% demonstrates poor glycemic control - A reasonable A1C goal for many non- adults is A1c less than 7% * Per hospice educator note from 06/09: patient has not been checking BSGs at home for quite some time. Patient attributes recent hyperglycemia to stress and poor diet, but is motivated to make changes. * Inpatient needs have been trending down with better control- outpatient regimen may still be reasonable to resume, however could consider reduction if diet is improved. * Patient will require outpatient follow-up upon discharge for further diabetes management * Emphasize importance of SMBG
--- NOTE | 2019-06-18 09:48 | Nephrology Progress Note ---
Date of Service June 18, 2019 Assessment & Plan (1) Acute kidney injury: AUGUSTO is likely ATN related to recent pneumonia. PMH: obesity, DM, ICM s/p AICD, COPD, chronic anticoagulation due to h/o UE DVT -- Volume status & electrolyte balance acceptable at this time. Patient is nonoliguric. Continue to hold diuretic. Creatinine peaked at 4.3. This has improved to 2.3 today. Baseline Cr 1.5 -- Acute GN evaluation is negative. Paraprotein evaluation negative -- Renal artery duplex 06/09 was negative for MILTON. Renal veins were patent. Kidneys were structurally normal by US -- Abdominal CT 06/06 w/ R renal calculi, but negative for obstruction. No ureteral calculi seen -- Urine is now clear. Hold on follow up CT -- Continue to hold AYAD inhibitor, Gabapentin -- Repeat PRP in am. Recommend Cr 2.0 or less prior to discharge -- When discharge is anticipated please schedule outpatient Nephrology follow up w/ Dr. Alexis in 1 - 2 weeks ([phone] to schedule) (2) Candiduria: -- One dose Diflucan provided. Repeat urine culture was negative for growth (3) Hematuria: -- Possibly related to kidney stones and neal UTI -- LDH minimally elevated. Urine has cleared. Hold repeat CT scan and monitor clinically -- On Apixaban -- Urology recommendations reviewed (4) Anemia: -- Completed 1 g IV iron infusion 06/14/19 -- H&H is now trending up (5) Pneumonia: -- Resolved Subjective Mrs. Rausch was seen & examined in her hospital room this morning. She reports brisk UO. Her urine is now clear and her flank pain has resolved. She voices no new medical concerns Review of Systems Constitutional: + weakness; no fever Eyes: no worsening vision and no problem reported Ear, Nose, Mouth, Throat: no problem reported Respiratory: no cough and no dyspnea Cardiovascular: + edema; no chest pain and no palpitations Gastrointestinal: no abdominal pain, no nausea, no vomiting and no diarrhea/loose stools Genitourinary: no dysuria and no hematuria R flank discomfort improved Musculoskeletal: no back pain Integumentary: no rash Neurologic: no falls, no dizziness and no confusion Physical Exam Constitutional: + overweight; not in distress ENMT: external ear and nose normal, oropharynx normal Neck: trachea midline, no thyromegaly Respiratory: normal respiratory effort, lungs clear to auscultation Cardiovascular: Rate/Rhythm: regular rate and regular rhythm Heart Sounds: no murmur Gastrointestinal (Abdomen): normal bowel sounds, soft, nontender, no hepatosplenomegaly Musculoskeletal: Extremities: no cyanosis Skin: no rashes, warm and dry Neurologic: awake; not confused Results & Data Vital Signs (Past 12 Hours) Vital Signs Temp Pulse Resp BP BP Pulse Ox 06/18/19 07:47 36.4 C L 69 20 162/89 H 95 06/17/19 23:39 36.6 C 70 16 162/81 H 92 Laboratory Results Laboratory Tests 06/18/19 06/18/19 05:29 05:29 WBC 5.48 Hgb 9.6 L Hct 31.2 L Plt Count 215 Sodium 141 Potassium 4.5 Chloride 107 Carbon Dioxide 31 BUN 47 H Creatinine 2.38 H Glucose 134 H PG Care Time/CCT Total # of Minutes Spent Total Time Spent with Patient: Total time spent is greater than 50% in coordination of care (as documented) at patient's floor/unit and/or counseling patient: Coding Level of Care Code 12860 Subseq Hosp Care Lvl 3 Diagnoses Acute kidney injury N17.9 Candiduria B37.49 Hematuria R31.9 Anemia D64.9 Pneumonia J18.9
--- NOTE | 2019-06-18 11:24 | Hospitalist Progress Note ---
Date of Service June 18, 2019 Assessment & Plan (1) Pneumonia: Medically complicated 48-year-old female admitted on 06/02 for HCAP, s/p 7 day antibiotic course, remains in hospital with significant AUGUSTO, in cardiorenal syndrome. AUGUSTO on underlying Stage 3 CKD - resolving - baseline Cr ~1.5. Cr peaked at 4.3, down to 2.3 today - FeNa 0.7%, UrineNa 19. BUN/CR ratio 16.5. Urine microscopy showing WBCs and microscopic hematuria, cast analysis cancelled. - K stable at 4.5. - patient with >1 L of urine output daily, non-oliguric - etiology, presumable cause is ATN. * Intrarenal risk factors include AIN and ATN given recent HCAP and abx therapy. Urine eosinophils were not ordered. * pre-renal risk factor is known CHF. Renal US showing no evidence of renal artery stenosis. * Post-renal etiology unlikely given A/P CT scan showing no evidence of obstructing stones or strictures. - nephrology is following; serologic studies for glomerular nephritis and paraprotein negative. completed 5 day course of Venofer; recommending to hold diuretics, lisinopril, and gabapentin - IVF d/c as patient is tolerating PO intake and is volume overloaded on exam. - renally dose meds as appropriate - continue to trend Cr - plan to discharge once creatinine below 2 Hematuria -resolved - differential includes ATN, kidney stone - patient with AUGUSTO thought to be secondary to ATN - known R renal stone, although not obstructive - Urine culture 06/08 grew 7,000 cfu of neal albicans; repeat urine culture negative - urology consulted, recommended holding Eliquis for 1-2 days, restarted 06/16 Normocytic Anemia - Hgb 9.6, up from 9.2. - MCV 83 - iron 38, ferritin low at 195, transferrin saturation low at 14% - completed 45 day course of IV Venofer - continue ferrous gluconate 324mg PO daily HFrEF secondary to underlying cardiomyopathy - Echo done at [facility] showing EF 30-35% - patient is volume overloaded on exam, but diuretics are being held in the setting of AUGUSTO - Lisinopril and diuretics held in setting of AUGUSTO - continue carvedilol 25 BID and amlodipine - consider Entresto in outpatient setting Hospital associated pneumonia - resolved - Completed 7 day IV abx on 06/09 - Patient uses oxygen at home 3L and currently saturating at 92% on 3L Right Flank pain -resolved - began following renal US - CT abd/pelv with oral contrast 06/06 ruled out appendicitis and bowel obstruction or ischemia, kidneys normal appearing - likely secondary to muscle spasm, as it improved with cyclobenzaprine; continue prn Type II Diabetes - uncontrolled - HbA1c 10.5 on admission - likely contributory to underlying kidney disease - Pharmacy consult for glycemic control - Home regimen: Lantus 20u BID, 10 units of Advilog with each meal AFib without RVR - Eliquis 5 BID - Rate control with carvedilol 12.5 BID HTN - BP above goal at 162/89 - Holding home Lisinopril due to AUGUSTO - continue amlodipine and carvedilol Hx Mood Disorder - patient on the following home regimen: Remeron 45 HS, Paroxetine 60 BID, Latuda 80 QAM, Lamictal 100 BID, Alprazolam 1mg every 6 hours as needed Diabetic Neuropathy - Gabapentin 300 QD, holding in the setting of AUGUSTO CAD - Atorvastatin 40 - ASA 81mg Vertebral Compression Fractures - visualized on A/P CT scan, subacute - outpatient evaluation for consideration of bisphosphonate therapy Constipation - Moderate stool burden noted on AP CT scan - Mirlax BID, milk of magnesia, colace ordered Abdominal LAD - paraaortic nodes visualized on A/P CT scan - recommend follow up CT scan in 6 months to assess resolution DVT PPX: on Eliquis Diet: Diabetic, heart healthy Code: Full Code Dispo: Floor; home health arranged upon discharge (2) Cardiomyopathy: (3) CHF (congestive heart failure): (4) Morbid obesity with BMI of 45.0-49.9, adult: (5) Hyperglycemia due to type 2 diabetes mellitus: Admission and Anticipated Discharge Date Admission Date: June 02, 2019 Supervising Physician Co-Signing Physician Notes Resident Physician Supervision Note: I independently interviewed and examined the patient and verified the mitchell history and physical, reviewed labs and image studies, discussed the case with the resident Dr. Sanchez and agree with the findings and care plan. Subjective No acute events overnight. Denies being in any discomfort. will be sent to rehab today. She is eating, ambulating and toileting well. Review of Systems Review of Systems: All systems reviewed & are unremarkable except as noted in HPI & below Physical Exam Constitutional: WD/WN, vitals as above + morbidly obese, + disheveled and cooperative Eyes: + anicteric sclerae (L eye) and + periorbital abnormality (R eye surgically removed) ENMT: external ear and nose normal, oropharynx normal Mouth: + poor dentition Neck: normal visual inspection and trachea midline Respiratory: normal respiratory effort Auscultation: no crackles, no rales, no rhonchi and no wheezes Cardiovascular: RRR, no murmur, no edema Heart Sounds: normal S1 and normal S2 Extremities: + pedal edema (1+) Gastrointestinal (Abdomen): normal bowel sounds, soft, nontender, no hepatosplenomegaly Inspection/Auscultation: abdomen normal to inspection and normal bowel sounds Percussion/Palpation: abdomen soft Skin: no rashes, warm and dry Psychiatric: A+Ox3, euthymic affect Results & Data ([facility]) Vital Signs (Past 12 Hours) Vital Signs Temp Pulse Resp BP BP Pulse Ox 06/18/19 07:47 36.4 C L 69 20 162/89 H 95 06/17/19 23:39 36.6 C 70 16 162/81 H 92 Resident Activity Tracking Resident Involvement: Resident Care Provided Care Provided: Adult Hospital Medicine (1) CHF (congestive heart failure) Heart failure chronicity: acute on chronic Heart failure type: unspecified Qualified Code(s): I50.9 - Heart failure, unspecified (2) Pneumonia Laterality: left Lung location: lower lobe of lung Pneumonia type: due to unspecified organism Qualified Code(s): J18.9 - Pneumonia, unspecified organism
[2019-06-18] MEDS: MIRTAZAPINE SOLTAB 15 MG PO SCH (21:11)
[2019-06-19] MEDS: ALPRAZolam 0.5 MG TABLET PO PRN (04:02)
[2019-06-19 07:59] LABS: BUN Creatinine Ratio 18.2 (10-20); Creatinine Clr Calc Pharmacy 42.5 ml/min; Est GFR (African American) 28.6; Est GFR (Non-African American) 24.7; Potassium 4.7 mmol/L (3.5-5.1)
[2019-06-19] MEDS: FERROUS GLUCONATE 324 MG TAB PO SCH (08:33)
[2019-06-19] MEDS: ASPIRIN 81 MG ECTAB PO SCH (08:33)
[2019-06-19] MEDS: PARoxetine HCL 20 MG TAB PO SCH (08:33)
[2019-06-19] MEDS: lamoTRIgine 100 MG TAB PO SCH (08:33)
[2019-06-19] MEDS: carvediloL 25 MG TAB PO SCH (08:34)
[2019-06-19] MEDS: AMLODIPINE BESYLATE 5 MG TAB PO SCH (08:34)
[2019-06-19] MEDS: DOCUSATE SODIUM/SENNA 50/8.6MG TAB PO SCH (08:34)
[2019-06-19] MEDS: APIXABAN 5 MG TABLET PO SCH (08:34)
[2019-06-19] MEDS: LURASIDONE HCL 40 MG TAB PO SCH (08:35)
[2019-06-19] MEDS: ATORVASTATIN 40 MG TAB PO SCH (08:35)
[2019-06-19] MEDS: INSULIN GLARGINE SOLOSTAR 100 UNITS/ML 3 ML PEN SQ SCH (08:36)
[2019-06-19] MEDS: FLUTICASONE PROPIONATE NA SPR 16 GM BTL NAE SCH (08:39)
[2019-06-19] MEDS: POLYETHYLENE (MIRALAX) 17 GM PACK PO SCH ×2 (08:45→14:14)
[2019-06-19] MEDS: INSULIN ASPART 100 UNITS/ML 3 ML PEN SC SCH ×2 (08:47→12:51)
--- NOTE | 2019-06-19 11:31 | Nephrology Progress Note ---
Date of Service June 19, 2019 Assessment & Plan (1) Acute kidney injury: AUGUSTO is likely ATN related to recent pneumonia. PMH: obesity, DM, ICM s/p AICD, COPD, chronic anticoagulation due to h/o UE DVT -- Volume status & electrolyte balance acceptable at this time. Patient is nonoliguric. Continue to hold diuretic. Creatinine peaked at 4.3. This has improved to 2.2 today. Baseline Cr 1.5 -- Acute GN evaluation is negative. Paraprotein evaluation negative -- Renal artery duplex 06/09 was negative for MILTON. Renal veins were patent. Kidneys were structurally normal by US -- Abdominal CT 06/06 w/ R renal calculi, but negative for obstruction. No ureteral calculi seen -- Urine is now clear. Hold on follow up CT -- Continue to hold AYAD inhibitor, Gabapentin -- When discharge is anticipated please schedule outpatient Nephrology follow up w/ Dr. Alexis in 1 - 2 weeks ([phone] to schedule) (2) Hematuria: -- Resolved Subjective Mrs. Rausch was seen & examined in her hospital room this morning. She denies flank pain or gross hematuria. She is breathing comfortably on O2 at 3L/min NC. She voices no medical concerns. Review of Systems Constitutional: + weakness; no fever Eyes: no worsening vision and no problem reported Ear, Nose, Mouth, Throat: no problem reported Respiratory: no cough and no dyspnea Cardiovascular: + edema; no chest pain and no palpitations Gastrointestinal: no abdominal pain, no nausea, no vomiting and no diarrhea/loose stools Genitourinary: no dysuria and no hematuria R flank discomfort resolved Musculoskeletal: no back pain Integumentary: no rash Neurologic: no falls, no dizziness and no confusion Physical Exam 2 Constitutional: + overweight; not in distress ENMT: external ear and nose normal, oropharynx normal Neck: trachea midline, no thyromegaly Respiratory: normal respiratory effort, lungs clear to auscultation Cardiovascular: Rate/Rhythm: regular rate and regular rhythm Heart Sounds: no murmur Gastrointestinal (Abdomen): normal bowel sounds, soft, nontender, no hepatosplenomegaly Musculoskeletal: Extremities: no cyanosis Skin: no rashes, warm and dry Neurologic: awake; not confused Results & Data Vital Signs (Past 12 Hours) Vital Signs Temp Pulse Resp BP Pulse Ox 06/19/19 07:08 36.7 C 67 19 162/77 H 91 Laboratory Results Laboratory Tests 06/19/19 07:12 Sodium 140 Potassium 4.7 Chloride 107 Carbon Dioxide 30 BUN 41 H Creatinine 2.27 H PG Care Time/CCT Total # of Minutes Spent Total Time Spent with Patient: Total time spent is greater than 50% in coordination of care (as documented) at patient's floor/unit and/or counseling patient: Coding Level of Care Code 30677 Subseq Hosp Care Lvl 2 Diagnoses Acute kidney injury N17.9 Hematuria R31.9
--- NOTE | 2019-06-19 12:37 | Discharge Summary ---
Date of Service June 19, 2019 Admission HPI Per Admitting Provider The patient is a 48-year-old female with a past medical history including cardiomyopathy, hypertension, sinus tachycardia, anxiety with depression, hypothyroidism, hypomagnesemia, renal insufficiency, CHF, DKA, stroke, morbid obesity with BMI 45.0-49.9, diabetes mellitus, bilateral foot pain and history of falls. Patient presents to the emergency department with complaint of feeling cold when she was visiting her is on the second for the hospital. Work-up in the emergency department included a chest x-ray which showed left lower lobe pneumonia. Upon further discussion with patient, she reports that she was hospitalized at [facility] was for about 18 days discharged 5 days ago, but she is vague about what she was treated for and whether or not she had any scans performed. Principal Diagnosis Pneumonia Discharge Exam Constitutional well developed and well nourished Respiratory normal respiratory effort, lungs clear to auscultation Cardiovascular Rate/Rhythm: regular rate and regular rhythm Heart Sounds: normal S1 and normal S2; no gallop, no murmur and no cardiac rub Vessels: posterior tibial pulses present, dorsalis pedis pulses present and radi al pulses present Gastrointestinal (Abdomen) normal bowel sounds, soft, nontender, no hepatosplenomegaly Discharge Data Allergies Allergy/AdvReac Type Severity Reaction Status Date / Time No Known Allergies Allergy Verified 06/02/19 19:08 Consultations 06/02/19 20:33 ED Decision to Admit Stat 06/02/19 23:07 Consult Case Management - Discharge Planning Routine 06/03/19 01:51 Consult Nutrition Routine 06/08/19 09:19 Consult Nephrology Routine 06/14/19 09:46 Consult Urology Routine Ordered Studies 06/07/19 09:11 US abdomen limited Routine US pelvic limited Routine 06/07/19 16:45 CT abd pelvis oral con only Urgent 06/10/19 13:49 US duplex renal artery Routine Hospital Course (1) Pneumonia: Medically complicated 48-year-old female admitted on 06/02 for HCAP, s/p 7 day antibiotic course, admitted for AUGUSTO AUGUSTO - likely ATN related to recent pneumonia. -- Volume status & electrolyte balance stable. Patient is nonoliguric. -- Creatinine peaked at 4.3 - improved to 2.2 on days of discharge. Baseline Cr 1.5 -- Acute GN evaluation is negative. Paraprotein evaluation negative -- Renal artery duplex 06/09 was negative for MILTON. Renal veins were patent. Kidneys were structurally normal by US -- Abdominal CT 06/06 w/ R renal calculi, but negative for obstruction. No ureteral calculi seen -- Urine with no hematuria. To hold on follow up CT -- Continue to hold AYAD inhibitor, Gabapentin -- Continue to hold diuretic. -- Outpatient Nephrology follow up w/ Dr. Alexis in 1 - 2 weeks Normocytic Anemia: - continue ferrous gluconate 324mg PO daily HFrEF: - Echo showing EF 30-35% - held Lisinopril and diuretics - continued carvedilol 25 BID and amlodipine Hospital associated pneumonia: - Completed 7 day IV abx course on 06/09 Chronic respiratory failure - Patient uses oxygen at home 3L Type II Diabetes - uncontrolled - HbA1c 10.5 on admission - likely contributory to underlying kidney disease - Pharmacy consult for glycemic control - Resume regimen: Lantus 20u BID, 10 units of log with each meal AFib without RVR - Eliquis 5 BID - Rate control with carvedilol 12.5 BID HTN - BP above goal at 162/89 - Held home Lisinopril - To continue amlodipine and carvedilol Diabetic Neuropathy - hold Gabapentin CAD - Atorvastatin 40 - ASA 81mg Abdominal LAD - paraaortic nodes visualized on A/P CT scan - recommend follow up CT scan in 6 months to assess resolution Chronic anticoagulation for h/o UE DVT Total Time Total Time Spent Total Time Spent (In Minutes): 30 Discharge Plan Discharge Items Patient Disposition: Home - Home Health Services Reason For Visit: LLL PNEUMONIA Discharge Diagnosis: Pneumonia Activity: Per Instructions section Non-emergency contact: Primary Care Provider and [facility] Call non-emergency contact if: you have any medication questions and your symptoms worsen Follow-up/Referrals: Sara Alexis MD [Physician] - None (Please schedule June 20 - June 27) Adalberto Rodriguez M.D. [Primary Care Provider] - 06/22/19 10:00 am (You have an appointment with your PCP on FridayJune 21 at 10:00a. Please arrive 15 minutes early. If you can not keep this appointment please call [phone] to reschedule.) Diet: Carb Consistent or DM2 Addtl Attending Provider Instructions: You were seen and admitted for a pneumonia. After finishing the full treatment course of your antibiotics for the pneumonia, in continuing to monitor your labs to see your recovery it was discovered that you were still suffering from an acute kidney injury. In the course of continuing to monitor your kidney function, we saw a considerable improvement; however, as a result of having the kidney injury we want you to have follow-up with the [facility] (Dr. Alexis) in 1-2 weeks. It is important that you keep this appointment as they will continue to monitor your kidney function going forward. As a result of the kidney injury, we have changed a few of your medications. You should stop taking the lisinopril, as this has been replaced by the amlodipine that will have lessened risk of continuing this damage. Additionally, you should stop taking the gabapentin. Pending Studies at Discharge: No Stand-Alone Forms: [facility], Sm[facility] Cessation Medications and DC Order Prescriptions: New amlodipine [Norvasc] 5 mg Tablet 10 mg PO QAM 30 Days Qty: 60 RF: 0 Continued atorvastatin 80 mg tablet 80 mg PO QAM RF: 0 alprazolam 1 mg tablet 1 mg PO QID RF: 0 paroxetine HCl 30 mg tablet 60 mg PO BID RF: 0 mirtazapine 45 mg tablet 45 mg PO HS RF: 0 aspirin 81 mg tablet,chewable 81 mg PO QAM RF: 0 albuterol sulfate [Ventolin HFA] 90 mcg/actuation HFA aerosol inhaler 2 puff inhalation Q4H PRN (Reason: Shortness Of Breath Or Wheezing) RF: 0 fluticasone propionate 50 mcg/actuation Desmet,Suspension 2 spray INTRANASAL DAILY RF: 0 lamotrigine 100 mg tablet 100 mg PO BID RF: 0 insulin lispro [Admelog SoloStar U-100 Insulin] 100 unit/mL insulin pen 10 unit subcut TIDM RF: 0 ferrous gluconate 324 mg (38 mg iron) Tablet 324 mg PO QAM RF: 0 Latuda 80 mg tablet 80 mg PO QAM RF: 0 carvedilol 12.5 mg Tablet 12.5 mg PO BID RF: 0 Lantus U-100 Insulin 100 unit/mL Solution 20 unit SUBCUT BID RF: 0 Eliquis 5 mg tablet 5 mg PO BID RF: 0 Discontinued gabapentin 300 mg capsule 300 mg PO TID RF: 0 lisinopril 5 mg tablet 10 mg PO QAM RF: 0 Discharge Orders: Discharge Order (Routine); Ordered 06/19/19 Ordered By: Eliazar Urbano Admission Data Admit Date/Time: 06/02/19 21:29 Attending Provider: Maria Marley Admit Provider: Varghese Perez Primary Care Provider: Adalberto Rodriguez Other Providers: Monica Hemphill ; Byron Major ; Varghese Perez ; Sara Alexis ; Gavino Silverio ; Baron Fowler ; Socorro Senior Other Interventions: Discharge Summary Assessment (RN) Last Done: 06/19/19 14:46 DC Date/Time DO NOT enter until pt leaves facility: 06/19/19 16:15 Supervising Physician Co-Signing Physician Notes Resident Physician Supervision Note: I independently interviewed and examined the patient and verified the mitchell history and physical, reviewed labs and image studies, discussed the case with the resident Dr. Urbano and agree with the findings and care plan.
== END 2019-06-19 16:15 | disposition home health service (06) | DRG 193 ==
LOC: ED 17:54 → 2E 21:29 → SUATTDRO 21:29 → 2E 21:57 → 2W 06-05 16:36 → 4W 06-18 00:24